=== PATIENT | female | born 1960 | race Caucasian/White ===

== ENCOUNTER → 2020-07-15 15:44 | Outpatient (BNVA) | payer OTHER, SELFPAY | PROVIDERS: PCP Internal Medicine; Referring Provider Internal Medicine; Visit Provider Internal Medicine | DX: Z76.89 Persons encountering health services in other specified circumstances (principal) ==

== ENCOUNTER 2020-08-25 08:03 | Outpatient (REF) | payer OTHER, SELFPAY ==
--- NOTE | 2020-08-25 | US_ITS ---
EXAMINATION: US THYROID CLINICAL INFORMATION: Nontoxic multinodular goiter. COMPARISON: None TECHNIQUE: Linear transducer martin-scale and color Doppler examination with attention to the region of the thyroid. FINDINGS: SIZE: Measurements of the thyroid lobes and nodules are given in sagittal, anteroposterior and transverse dimensions respectively. Right Thyroid Lobe: 6.41 x 2.24 x 1.97 cm, volume 14.8 mL. Parenchyma: The gland echotexture is heterogeneous. Thyroid vascularity is normal. Left Thyroid Lobe: 5.92 x 2.11 x 2.60 cm, volume 17.0 mL. Parenchyma: The gland echotexture is heterogenous. Thyroid vascularity is normal . Isthmus: 0.422 cm in maximum AP dimension. RIGHT THYROID LOBE: There are 4 nodules. 1. Upper pole nodule measures 0.7 x 0.6 x 0.4 cm. It is hypoechoic, smoothly marginated with intranodular flow. Previously, it measured 0.7 x 0.5 x 0.4 cm. 2. Nodule in the lower pole measures 0.6 x 0.5 x 0.6 cm. It is hypoechoic, smoothly marginated with no intranodular flow. Previously, it measured 0.7 0.6 x 0.4 cm. 3. Lower pole nodule measures 0.6 x 0.5 x 0.5 cm. It is hypoechoic, smoothly marginated with intranodular flow. Previously, it measured 0.6 x 0.3 x 0.5 cm. 4. Midpole nodule measures 0.9 x 0.2 x 1.2 cm. It is hypoechoic, smoothly marginated with intranodular flow. Previously, it was not seen. ISTHMUS: No nodules. LEFT THYROID LOBE: There is a solitary nodule in the upper pole measuring 1.2 x 0.9 x 1.1 cm. It is hypoechoic, smoothly marginated with peripheral vascular flow. Previously, it measured 0.9 x 0.5 x 0.4 cm. NODES: No lymphadenopathy is seen in the tissue surrounding the thyroid gland. US/US thyroid IMPRESSION: Bilateral thyroid nodules. Significant sudden increase in the size of the left thyroid nodule now measuring 1.2 cm, vascular. Previously, it measured 0.7 cm. Recommend close 3-6 months' surveillance or a fine-needle ultrasound-guided biopsy.
[2020-08-25 10:41] LABS: Thyroid Stimulating Hormone 2.81 uIU/mL (0.32-4.0); Vitamin D 25-OH Total 25.8 ng/mL (>30)
== END 2020-08-25 08:04 | disposition home or self-care (01) ==
LOC: HO.US 08:03
PROVIDERS: PCP Internal Medicine; Visit Provider Internal Medicine Endocrinology, Diabetes & Metabolism
DX: E03.9 Hypothyroidism, unspecified (principal); R79.89 Other specified abnormal findings of blood chemistry; E04.2 Nontoxic multinodular goiter
CPT/HCPCS: 76536; 82306; 84439; 84443

== ENCOUNTER → 2020-08-29 07:58 | Outpatient (BNVA) | payer OTHER, SELFPAY | PROVIDERS: PCP Internal Medicine; Referring Provider Internal Medicine; Visit Provider Internal Medicine Endocrinology, Diabetes & Metabolism | DX: Z76.89 Persons encountering health services in other specified circumstances (principal) ==

== ENCOUNTER 2020-11-13 07:45 | Outpatient (REF) | payer OTHER, SELFPAY ==
--- NOTE | 2020-11-13 08:28 | P.BOP_ITS ---
Brief Operative Note Date of Service: 11/13/20 Pre-op diagnosis: NON TOXIC MULTINODULAR GOITER Post-op diagnosis: same Procedure: This procedure was explained to the patient. Alternatives, risks and benefits were discussed. Written consent was obtained. After sterile preparation of the skin, fine-needle aspiration biopsy of left upper pole thyroid nodule size 1.2 x 1 x 1.1 cm was performed under direct ultrasound guidance to confirm accurate needle placement. Two passes were performed with 27 gauge needles. Sample was submitted to cytology, initial cytology reading was adequate. One pass was dedicated for [facility] genomic sequencing piece jobber test. Patient tolerated procedure well. Aftercare instructions were provided. Impression: uncomplicated fine-needle aspiration biopsy of left upper pole thyroid nodule under direct ultrasound guidance. Surgeon: Elizabeth Newman MD FACE Anesthesia: local (Lidocaine 1 % 1 ml) Estimated blood loss (mL): 0 Condition: stable Disposition: same day
== END 2020-11-13 07:46 | disposition home or self-care (01) ==
LOC: HO.US 07:45
PROVIDERS: Visit Provider Internal Medicine Endocrinology, Diabetes & Metabolism
DX: E04.2 Nontoxic multinodular goiter (principal)
CPT/HCPCS: 10005; 88172; 88173

== ENCOUNTER → 2020-12-01 07:40 | Outpatient (BNVA) | payer OTHER, SELFPAY | PROVIDERS: PCP Internal Medicine; Visit Provider Internal Medicine Endocrinology, Diabetes & Metabolism ==

== ENCOUNTER 2020-12-01 08:11 | Outpatient (REF) | payer OTHER, SELFPAY ==
[2020-12-01 11:05] LABS: Free T4 (Free Thyroxine) 0.96 ng/dL (0.71-1.85); Thyroid Stimulating Hormone 2.28 uIU/mL (0.32-4.0)
== END 2020-12-01 08:12 | disposition home or self-care (01) ==
LOC: HO.10HDL 08:11
PROVIDERS: Visit Provider Internal Medicine Endocrinology, Diabetes & Metabolism
DX: E04.2 Nontoxic multinodular goiter (principal); E55.9 Vitamin D deficiency, unspecified
CPT/HCPCS: 36415; 82306; 84439; 84443

== ENCOUNTER 2021-01-01 10:00 | Outpatient (RCR) | payer OTHER, SELFPAY | END 2021-05-19 18:12 | disposition home or self-care (01) | LOC: HO.PTCHIC 10:00 | PROVIDERS: PCP Internal Medicine; Visit Provider Orthopaedic Surgery | DX: Z47.1 Aftercare following joint replacement surgery (principal); Z96.651 Presence of right artificial knee joint | CPT/HCPCS: 97110; 97116; 97161; 97530 ==

== ENCOUNTER 2021-01-04 16:36 | Inpatient (IN) | payer OTHER, SELFPAY ==
[2021-01-04] VITALS (8 sets, daily range): BP systolic 111–140; BP diastolic 54–95; PULSE 84–120; RESP 16–24; TEMP 36.9–37.3; O2SAT 90–100; BMI 36.0
--- NOTE | ~2021-01-04 | XR_ITS ---
EXAMINATION: XR ABDOMEN WITH DECUBITUS VIEWS CLINICAL INDICATION: Upper abdominal pain, status post Garcia's procedure. COMPARISON: None TECHNIQUE: Supine and left decubitus. FINDINGS: Prominent small bifrontal levels are seen consistent with ileus or postop changes. There is no free air seen on the decubitus view. There are postsurgical hellen along the midline anterior abdominal wall from Garcia's procedure. No gross bony abnormality seen. XR/XR abdomen w decubitus IMPRESSION: Multiple prominent small bowel loops with air-fluid levels suggestive of postoperative ileus. No free air seen.
--- NOTE | ~2021-01-04 | CT_ITS ---
EXAMINATION: CT ABDOMEN AND PELVIS WITH CONTRAST CLINICAL INFORMATION: Diffuse abdominal pain. Vomiting. Evaluate for diverticulitis. COMPARISON: None TECHNIQUE: Multidetector volumetric images were obtained from the superior aspect of the liver through the pubic symphysis following administration 85 mL of Omnipaque 350 intravenous contrast. Sagittal and coronal reformatted images were obtained on the technologist's workstation. Oral contrast: No. This CT examination was performed using dose optimization techniques as appropriate, variously including the following: Automated exposure control. Adjustment of mA and/or kV according to patient size (this includes techniques or standardized protocols for targeted exams where dose is matched to indication/reason for exam; i.e. extremities or head). Use of iterative reconstruction technique. DLP: 801 mGy-cm FINDINGS: LUNG BASES: Mild bibasilar atelectasis versus early infiltrates. LIVER, GALLBLADDER, AND BILIARY TREE: The liver is normal in size, shape, and attenuation. No focal hepatic lesion or biliary ductal dilatation is present. Cholelithiasis. No gallbladder wall thickening or pericholecystic free fluid to suggest acute cholecystitis. PANCREAS: Unremarkable. SPLEEN: Unremarkable. ADRENAL GLANDS: Unremarkable. KIDNEYS AND URETERS: The kidneys are normal in size, shape, and attenuation. No hydronephrosis, hydroureter, or calculi seen. Left renal 0.3 cm hypodensity, too small to characterize. No additional renal parenchymal lesion. No perinephric stranding. BLADDER: Nondistended and unremarkable. GASTROINTESTINAL TRACT: There are central small bowel loops with prominent circumferential wall thickening, minimal pneumatosis, as well as prominent adjacent stranding. Findings are consistent with prominent enteritis. There are multiple small foci of free air within the anterior upper mesentery, consistent with bowel perforation. Sigmoid diverticulosis. Circumferential wall thickening within the left lower quadrant, which may represent acute diverticulitis or be reactive to the adjacent bowel pathology. No small or large bowel obstruction. Unremarkable appendix. PERITONEAL CAVITY: Multiple small foci of free air, suggesting bowel perforation. Mild simple ascites. No organized fluid collection/abscess formation. ABDOMINAL WALL: No significant hernia is appreciated. LYMPH NODES: Normal. VASCULAR: Unremarkable. PELVIC VISCERA: The uterus and adnexa are unremarkable. OSSEOUS STRUCTURES: Unremarkable. CT/CT abdomen pelvis w con IMPRESSION: 1. Central small bowel loops with prominent circumferential wall thickening, minimal pneumatosis, and prominent adjacent stranding. Findings are consistent with prominent enteritis. An infectious, inflammatory, or ischemic etiology could be considered. There are multiple small foci of intra-abdominal free air, suggesting bowel perforation. Mild, simple appearing ascites. No organized fluid collection/abscess formation. 2. Sigmoid diverticulosis with circumferential wall thickening and mild adjacent inflammatory change. Findings may represent acute diverticulitis or be related to the adjacent small bowel pathology. 3. Mild bibasilar atelectasis versus early infiltrates. 4. Cholelithiasis without evidence of acute cholecystitis. This critical result was discussed with May Arroyo NP at 7:38 PM on 01/04/2021 and it was ascertained that the content and urgency of the report was understood at the time of direct communication.
--- NOTE | 2021-01-04 16:54 | ED.ABDPAIN ---
HPI - Abdominal Pain General Chief Complaint: Abdominal Pain Stated Complaint: abd pain Time Seen by Provider: 01/04/21 16:47 Source: EMS Mode of arrival: EMS Limitations: no limitations History of Present Illness HPI narrative: 60-year-old female with a past medical history of vitamin-D deficiency, hypothyroidism, obstructive sleep apnea here with complaints of diffuse abdominal pain and vomiting since last evening. She has had 2-3 loose stools but no diarrhea. No urinary symptoms, fevers, chills. Received 4 mg of Zofran, 100mcg fentanyl by EMS prior to arrival. Related Data Home Medications Medication Instructions Recorded Confirmed cholecalciferol (vitamin D3) 50 50 mcg PO DAILY 08/29/20 01/04/21 mcg (2,000 unit) capsule loratadine 10 mg tablet 10 mg PO DAILY PRN 12/01/20 01/04/21 Previous Rx's Medication Instructions Recorded levothyroxine 88 mcg tablet 88 mcg PO DAILY 90 Days #90 tab 12/01/20 Allergies Allergy/AdvReac Type Severity Reaction Status Date / Time No Known Allergies Allergy Verified 07/15/20 15:47 Review of Systems Review of Systems Yes all other systems are reviewed and are negative Constitutional: Reports no additional constitutional complaints, Denies body ache(s), Denies chills, Denies fever(s), Denies headache(s) and Denies weakness Eyes: Reports no additional eye complaints and Denies change in vision Reports system reviewed and no additional complaints, except as documented, Denies dizziness, Denies headache(s), Denies nasal congestion, Denies nasal discharge and Denies neck pain Cardiovascular: Reports no additional cardiovascular complaints, Denies chest pain, Denies leg edema and Denies dyspnea Respiratory: Reports no additional respiratory complaints, Denies cough and Denies dyspnea Gastrointestinal: Reports no additional gastrointestinal complaints, Reports abdominal pain, Denies diarrhea, Reports nausea and Reports vomiting Genitourinary: Reports no additional female genitourinary complaints and Denies urinary incontinence Musculoskeletal: Reports no additional musculoskeletal complaints, Denies back pain, Denies arthralgias, Denies joint swelling, Denies neck pain, Denies numbness and Denies tingling Skin/Breast: Reports system reviewed and no additional complaints, except as docu and Denies rash Reports system reviewed and no additional complaints, except as documented, Denies Abnormal speech present, Denies dizziness, Denies headache(s), Denies numbness, Denies tingling and Denies weakness Physical Exam Vital Signs: Vital Signs: Last Vital Signs Temp 99.2 F 01/04/21 19:21 Pulse 116 H 01/04/21 19:21 Resp 16 01/04/21 19:42 BP 119/67 01/04/21 19:21 Pulse Ox 93 01/04/21 19:21 Body Mass Index 36.0 Const: General: cooperative, healthy appearing, comfortable and no acute distress Orientation/consciousness: patient oriented x3 Limitations: no limitations HENMT: Head: Yes normal to inspection Ears: hearing grossly normal bilaterally General nose exam: Normal external nose present Face and sinus: Yes normal facial exam Mouth: Normal oral and palatal mucosa present Throat: Yes posterior oropharynx normal Eyes: General: appearance normal, both eyes and all related structures Pupils: Equal, round and reactive pupils present Neck: Neck: Yes normal visual inspection Chest: Chest palpation & inspection: normal inspection of the chest Resp: Effort & Inspection: normal respiratory effort Auscultation: clear to auscultation bilaterally Cardio: Rate: regular rate Rhythm: regular rhythm Peripheral pulses: Peripheral pulses 2+ throughout GI: Inspection: Yes normal to inspection Palpation (GI): Soft to palpation and Tenderness to palpation present (GI) (Moderate diffuse tenderness. No rebound, +guarding) Auscultation: normal bowel sounds Back/Spine/Pelvis: Thoracic/Lumbar Spine: thoracic and lumbar spine normal to inspection Skin: General skin exam: no rashes or lesions noted Neuro: General: patient oriented x3, no focal motor deficits and normal sensation to monofilament Cranial nerves: Yes Equal, round and reactive pupils present Cognition (Neuro): normal cognition Speech: No Abnormal speech present Gait exam (Neuro): Normal gait present Motor exam (neuro): 5/5 motor strength present throughout Extrem: General: Yes normal to inspection Course Course Course Narrative: 60-year-old female here with diffuse abdominal pain, vomiting since last evening. On exam has moderate diffuse tenderness with no rebound or guarding Will need labs, UA, CTA/P. 1936-Call from radiologist concern for enteritis in central small bowel with free air, ascites and possible perforation. Nursing made aware. COVID screen ordered. Patient has been NPO since last night with the exception of a few small sips of water here. At this time infection is suspected. Blood cultures and lactic acid ordered. Antibiotics ordered. Call out to Dr. Lambert from surgery to discuss. 1949-Call back from Dr Lambert. He will come evaluate the patient. 2019-Plan for patient to go to OR. Nursing aware. MDM - Abdominal Pain MDM Narrative Medical decision making narrative: Gastroenteritis, diverticulitis Medical Records Attestation: I reviewed the patient's medical records. Lab Data Attestation: I reviewed the patient's lab results. Result diagrams: 01/04/21 17:28 01/04/21 17:28 Labs: Lab Results 01/04/21 01/04/21 01/04/21 Range/Units 17:28 17:28 17:28 WBC 12.4 H (4.8-10.8) X10*3/uL RBC 4.65 (4.20-5.50) X10*6/uL Hgb 13.6 (12.0-16.0) g/dl Hct 41.9 (37-47) % MCV 90.1 (80-98) fL MCH 29.2 (27.0-33.0) pg MCHC 32.5 (31.0-35.0) g/dl RDW 12.3 (11.0-16.0) % Plt Count 296 (160-400) X10*3/uL MPV 9.4 (9.4-12.3) fL Immature Gran % (Auto) 0.4 (0.0-0.4) % Neut % (Auto) 92.3 H (45-73) % Lymph % (Auto) 4.1 L (20-40) % [place] % (Auto) 2.9 (2-11) % Eos % (Auto) 0.1 (0-4) % Baso % (Auto) 0.2 (0-2) % Lymph # (Auto) 0.5 L (1.2-4.9) X10*3/uL [place] # (Auto) 0.4 (0.1-1.2) X10*3/uL Eos # (Auto) 0.0 (0.0-0.4) X10*3/uL Baso # (Auto) 0.0 (0.0-0.2) X10*3/uL Abs Immat Gran (auto) 0.05 H (0.00-0.03) X10*3/uL Absolute Neuts (auto) 11.4 H (2.0-8.3) X10*3/uL Absolute Nucleated RBC 0.000 (0.0-0.012) X10*3/uL Nucleated RBC % (auto) 0.0 (0.0-0.2) /100WBC Smear Tech's Comments VERIFIED Hold Blue Top SEE NOTE Sodium 138 (135-145) mmol/L Potassium 3.8 (3.3-5.1) mmol/L Chloride 102 (96-108) mmol/L Carbon Dioxide 25 (22-29) mmol/L Anion Gap 15 (12-20) BUN 17 H (9-16) mg/dL Creatinine 0.98 (0.5-1.4) mg/dL Estim Creat Clear Calc 69.2 Estimated GFR 58 Random Glucose 118 H (60-115) mg/dL Lactic Acid (0.5-2.0) mmol/L Calcium 8.8 (8.4-10.2) mg/dL Magnesium 1.9 (1.6-2.6) mg/dL Total Bilirubin 1.2 H (0.0-1.0) mg/dL Direct Bilirubin 0.5 (0.0-0.5) mg/dL AST 14 (5-31) U/L ALT 15 (0-31) U/L Alkaline Phosphatase 66 (39-117) U/L Total Protein 6.4 L (6.5-8.0) g/dL Albumin 3.9 (3.5-5.0) g/dL Lipase (8-78) U/L Urine Color Urine Appearance Urine pH (5.0-8.0) Ur Specific Shirley (1.005-1.025) Urine Protein (NEG-TRACE) MG/DL Urine Glucose (UA) (NEG) MG/DL Urine Ketones (NEG) MG/DL Urine Blood (NEG) Urine Nitrite (NEG) Ur Leukocyte Esterase (NEG) Urine Test (NEGATIVE) 01/04/21 01/04/21 01/04/21 Range/Units 17:28 17:58 17:58 WBC (4.8-10.8) X10*3/uL RBC (4.20-5.50) X10*6/uL Hgb (12.0-16.0) g/dl Hct (37-47) % MCV (80-98) fL MCH (27.0-33.0) pg MCHC (31.0-35.0) g/dl RDW (11.0-16.0) % Plt Count (160-400) X10*3/uL MPV (9.4-12.3) fL Immature Gran % (Auto) (0.0-0.4) % Neut % (Auto) (45-73) % Lymph % (Auto) (20-40) % [place] % (Auto) (2-11) % Eos % (Auto) (0-4) % Baso % (Auto) (0-2) % Lymph # (Auto) (1.2-4.9) X10*3/uL [place] # (Auto) (0.1-1.2) X10*3/uL Eos # (Auto) (0.0-0.4) X10*3/uL Baso # (Auto) (0.0-0.2) X10*3/uL Abs Immat Gran (auto) (0.00-0.03) X10*3/uL Absolute Neuts (auto) (2.0-8.3) X10*3/uL Absolute Nucleated RBC (0.0-0.012) X10*3/uL Nucleated RBC % (auto) (0.0-0.2) /100WBC Smear Tech's Comments Hold Blue Top Sodium (135-145) mmol/L Potassium (3.3-5.1) mmol/L Chloride (96-108) mmol/L Carbon Dioxide (22-29) mmol/L Anion Gap (12-20) BUN (9-16) mg/dL Creatinine (0.5-1.4) mg/dL Estim Creat Clear Calc Estimated GFR Random Glucose (60-115) mg/dL Lactic Acid (0.5-2.0) mmol/L Calcium (8.4-10.2) mg/dL Magnesium (1.6-2.6) mg/dL Total Bilirubin (0.0-1.0) mg/dL Direct Bilirubin (0.0-0.5) mg/dL AST (5-31) U/L ALT (0-31) U/L Alkaline Phosphatase (39-117) U/L Total Protein (6.5-8.0) g/dL Albumin (3.5-5.0) g/dL Lipase 16 (8-78) U/L Urine Color YELLOW Urine Appearance CLEAR Urine pH 6.0 (5.0-8.0) Ur Specific Shirley 1.025 (1.005-1.025) Urine Protein TRACE (NEG-TRACE) MG/DL Urine Glucose (UA) NEG (NEG) MG/DL Urine Ketones NEG (NEG) MG/DL Urine Blood NEG (NEG) Urine Nitrite NEG (NEG) Ur Leukocyte Esterase NEG (NEG) Urine Test NEGATIVE (NEGATIVE) 01/04/21 Range/Units 19:49 WBC (4.8-10.8) X10*3/uL RBC (4.20-5.50) X10*6/uL Hgb (12.0-16.0) g/dl Hct (37-47) % MCV (80-98) fL MCH (27.0-33.0) pg MCHC (31.0-35.0) g/dl RDW (11.0-16.0) % Plt Count (160-400) X10*3/uL MPV (9.4-12.3) fL Immature Gran % (Auto) (0.0-0.4) % Neut % (Auto) (45-73) % Lymph % (Auto) (20-40) % [place] % (Auto) (2-11) % Eos % (Auto) (0-4) % Baso % (Auto) (0-2) % Lymph # (Auto) (1.2-4.9) X10*3/uL [place] # (Auto) (0.1-1.2) X10*3/uL Eos # (Auto) (0.0-0.4) X10*3/uL Baso # (Auto) (0.0-0.2) X10*3/uL Abs Immat Gran (auto) (0.00-0.03) X10*3/uL Absolute Neuts (auto) (2.0-8.3) X10*3/uL Absolute Nucleated RBC (0.0-0.012) X10*3/uL Nucleated RBC % (auto) (0.0-0.2) /100WBC Smear Tech's Comments Hold Blue Top Sodium (135-145) mmol/L Potassium (3.3-5.1) mmol/L Chloride (96-108) mmol/L Carbon Dioxide (22-29) mmol/L Anion Gap (12-20) BUN (9-16) mg/dL Creatinine (0.5-1.4) mg/dL Estim Creat Clear Calc Estimated GFR Random Glucose (60-115) mg/dL Lactic Acid 1.2 (0.5-2.0) mmol/L Calcium (8.4-10.2) mg/dL Magnesium (1.6-2.6) mg/dL Total Bilirubin (0.0-1.0) mg/dL Direct Bilirubin (0.0-0.5) mg/dL AST (5-31) U/L ALT (0-31) U/L Alkaline Phosphatase (39-117) U/L Total Protein (6.5-8.0) g/dL Albumin (3.5-5.0) g/dL Lipase (8-78) U/L Urine Color Urine Appearance Urine pH (5.0-8.0) Ur Specific Shirley (1.005-1.025) Urine Protein (NEG-TRACE) MG/DL Urine Glucose (UA) (NEG) MG/DL Urine Ketones (NEG) MG/DL Urine Blood (NEG) Urine Nitrite (NEG) Ur Leukocyte Esterase (NEG) Urine Test (NEGATIVE) Imaging Data CT scan - abdomen: Attestation: I personally reviewed and interpreted this imaging study as follows: Radiologist's impression: 1. Central small bowel loops with prominent circumferential wall thickening, minimal pneumatosis, and prominent adjacent stranding. Findings are consistent with prominent enteritis. An infectious, inflammatory, or ischemic etiology could be considered. There are multiple small foci of intra-abdominal free air, suggesting bowel perforation. Mild, simple appearing ascites. No organized fluid collection/abscess formation. 2. Sigmoid diverticulosis with circumferential wall thickening and mild adjacent inflammatory change. Findings may represent acute diverticulitis or be related to the adjacent small bowel pathology. 3. Mild bibasilar atelectasis versus early infiltrates. 4. Cholelithiasis without evidence of acute cholecystitis. Discharge Plan Discharge Clinical Impression: Enteritis, Bowel perforation, Leukocytosis Patient Disposition: Admitted As Inpatient [facility] Past Medical History Attestation statement: The following information was validated with the patient. Source: old records reviewed and nursing notes reviewed Medical History Hypothyroidism Non-toxic multinodular goiter Obesity (BMI 30-39.9) JOYCE (obstructive sleep apnea) Vitamin D deficiency Family History Family History Father Heart disease Mother No problems noted. Social History Social History Alcohol intake: never Smoking Status: Never smoker Use of substances other than those prescribed or required for medical reasons: No Advance Directives: No Advance Directives Information Provided: Yes
[2021-01-04] MEDS: Morphine Sulfate 4 MG/ML CARTRIDGE IVPUSH ×2 (17:06→19:42)
[2021-01-04 17:33] LABS: Basophils Percent Auto 0.2 % (0-2); Eosinophils Percent Auto 0.1 % (0-4); Hematocrit 41.9 % (37-47); Hemoglobin 13.6 g/dl (12.0-16.0); Imm Gran Abs Auto 0.05 X10*3/uL (0.00-0.03); Imm Gran Pct Auto 0.4 % (0.0-0.4); Lymphocytes Absolute Auto 0.5 X10*3/uL (1.2-4.9); Lymphocytes Percent Auto 4.1 % (20-40); MANUAL DIFF FLAG SCAN; Mean Corpuscular HGB Conc 32.5 g/dl (31.0-35.0); Mean Corpuscular Hemoglobin 29.2 pg (27.0-33.0); Mean Corpuscular Volume 90.1 fL (80-98); Mean Platelet Volume 9.4 fL (9.4-12.3); Monocytes Absolute Auto 0.4 X10*3/uL (0.1-1.2); Monocytes Percent Auto 2.9 % (2-11); Neutrophils Absolute Auto 11.4 X10*3/uL (2.0-8.3); Neutrophils Percent Auto 92.3 % (45-73); Platelet Count 296 X10*3/uL (160-400); Red Blood Count 4.65 X10*6/uL (4.20-5.50); Red Cell Distribution Width 12.3 % (11.0-16.0); SCAN SMEAR FLAG 1; White Blood Count 12.4 X10*3/uL (4.8-10.8)
[2021-01-04 17:53] LABS: SLIDE REVIEW VERIFIED
[2021-01-04 18:03] LABS: Lipase 16 U/L (8-78)
[2021-01-04 18:04] LABS: Alanine Aminotransferase 15 U/L (0-31); Albumin Level 3.9 g/dL (3.5-5.0); Alkaline Phosphatase 66 U/L (39-117); Anion Gap 15 (12-20); Aspartate Amino Transferase 14 U/L (5-31); Bilirubin Direct 0.5 mg/dL (0.0-0.5); Bilirubin Total 1.2 mg/dL (0.0-1.0); Blood Urea Nitrogen 17 mg/dL (9-16); Calcium 8.8 mg/dL (8.4-10.2); Carbon Dioxide 25 mmol/L (22-29); Chloride 102 mmol/L (96-108); Creatinine Clr Calc Pharmacy 69.2; Estimated Glomerular Filt Rate 58; Glucose Random 118 mg/dL (60-115); Magnesium 1.9 mg/dL (1.6-2.6); Potassium 3.8 mmol/L (3.3-5.1); Sodium 138 mmol/L (135-145); Total Protein 6.4 g/dL (6.5-8.0)
[2021-01-04 18:06] LABS: Glucose Urine UA NEG (NEG); Leukocyte Esterase Urine NEG (NEG); Nitrite Urine NEG (NEG); Specific Gravity - Urine 1.025 (1.005-1.025); Urine Blood NEG (NEG); Urine Ketones NEG (NEG); Urine Protein TRACE MG/DL (NEG-TRACE)
[2021-01-04 18:07] LABS: Appearance Urine CLEAR; Color Urine YELLOW
[2021-01-04 18:09] LABS: UPreg QC Valid YES; Urine Pregnancy NEGATIVE (NEGATIVE)
[2021-01-04] MEDS: iohexoL 350 MG/ML 100 ML INFUS..BTL IV (19:15)
[2021-01-04] MEDS: 0.9 % Sodium Chloride 1,000 ML 999 ML IV (19:46)
[2021-01-04] MEDS: Piperacillin Sodium/Tazobactam 3.375 GM in 0.9 % Sodium Chloride 50 ML IV (19:59)
--- NOTE | 2021-01-04 20:14 | PC.NURSE ---
Surgeon at bedside discussing plan of care.
[2021-01-04 20:17] LABS: COVID-19 Test Negative (Negative); IDNOW Serial# 9DD0AD1C
[2021-01-04 20:27] LABS: Lactic Acid 1.2 mmol/L (0.5-2.0)
--- NOTE | 2021-01-04 20:30 | PM.HPGS ---
History of Present Illness History of Present Illness Date of Service: 01/04/21 Chief complaint: abd pain Narrative: Kizzy Schwartz is a 60 year old female presenting with complaints of severe abdominal pain of 2 days duration. The pain began suddenly yesterday, noted in a periumbilical region initially then becoming more generalized throughout the day today. Last night she was able to take an oxycodone which helped with the pain. She also reported nausea and vomiting yesterday for which she took Zofran which did improve the nausea. She denied any further vomiting today. Patient has been unable to eat but did report 2 bowel movements yesterday. The pain increased with ambulation or any movement in bed. She denies a previous history of similar pain. She denies a previous history of abdominal surgeries. Work up in the ED revealed diffuse abdominal tenderness. Labs revealed an elevated WBC and CT abdomen and pelvis reveal free air with inflammatory changes in both the small bowel and colon (see report below). Review of Systems Review of Systems: Yes all other systems are reviewed and are negative Constitutional: Constitutional: Reports anorexia, Denies chills, Reports fatigue, Denies fever(s) and Reports weakness Cardiovascular: Cardiovascular: Reports Abdominal Distension, Denies chest pain, Reports Epigastric Pain, Denies edema, Denies irregular heart rhythm and Denies dyspnea Respiratory: Respiratory: Reports no additional respiratory complaints, Denies cough and Denies dyspnea Gastrointestinal: Gastrointestinal: Reports abdominal pain, Reports bloating, Denies hematochezia, Denies change in stool character, Reports nausea, Reports vomiting and Denies hematemesis Genitourinary: Genitourinary: Reports no additional female genitourinary complaints Musculoskeletal: Musculoskeletal: Reports no additional musculoskeletal complaints Neurologic: Reports weakness Endocrine: Endocrine: Reports fatigue Hematologic/Lymphatic: Hematologic/Lymphatic: Denies lymphadenopathy [facility] Past Medical History Medical History Hypothyroidism Non-toxic multinodular goiter Obesity (BMI 30-39.9) JOYCE (obstructive sleep apnea) Vitamin D deficiency Family History Family History Father Heart disease Mother No problems noted. Surgical History Surgical History H/O knee surgery History of radiofrequency ablation procedure for cardiac arrhythmia S/P thyroid biopsy Social History Social History Alcohol intake: never Smoking Status: Never smoker Use of substances other than those prescribed or required for medical reasons: No Advance Directives: No Advance Directives Information Provided: Yes Meds Allergies Allergy/AdvReac Type Severity Reaction Status Date / Time No Known Allergies Allergy Verified 07/15/20 15:47 Active Medications: Current Medications Generic Name Dose Route Start Last Admin Trade Name Freq PRN Reason Stop Dose Admin Hydromorphone HCl 0.5 mg 01/04/21 20:23 Hydromorphone Hcl 0.5 Mg/0.5 Ml Syringe IVPUSH Q2H PRN Pain, Severe (Pain Scale 7-10) Sodium Chloride 1,000 mls @ 999 mls/hr 01/04/21 19:32 01/04/21 19:46 Ns IV 01/04/21 20:32 999 mls/hr .Q1H1M STA Administration Cefotetan Disodium 2 gm/ 50 mls @ 100 mls/hr 01/04/21 20:23 Sodium Chloride IV 01/04/21 20:52 PREOP ONE Dextrose/Lactated Ringer's 1,000 mls @ 125 mls/hr 01/04/21 20:30 D5lr IVCONT .Q8H VERONICA Ondansetron HCl 4 mg 01/04/21 20:23 Ondansetron Hcl 4 Mg/2 Ml Vial IVPUSH QID PRN Nausea Home Medications Medication Instructions Recorded Confirmed Last Taken Type cholecalciferol (vitamin D3) 50 50 mcg PO DAILY 08/29/20 01/04/21 01/03/21 History mcg (2,000 unit) capsule loratadine 10 mg tablet 10 mg PO DAILY PRN 12/01/20 01/04/21 01/02/21 History Physical Exam Vital Signs: Vital Signs: Last Vital Signs Temp 99.2 F 01/04/21 19:21 Pulse 116 H 01/04/21 19:21 Resp 16 01/04/21 19:42 BP 119/67 01/04/21 19:21 Pulse Ox 93 01/04/21 19:21 Body Mass Index 36.0 Const: General: alert, awake, acute distress moderate, anxious and ill appearing acutely Nutritional Appearance: average body habitus Orientation/consciousness: patient oriented x3 Limitations: no limitations HENMT: Head: Yes normocephalic and Yes atraumatic Ears: hearing grossly normal bilaterally Neck: Neck: Yes full ROM and Yes no JVD Resp: Effort & Inspection: normal respiratory effort, no audible wheezes, no cough, no stridor and not tachypneic GI: Palpation (GI): Firmness to palpation present (GI), Tenderness to palpation present (GI) (Diffusely), Guarding due to palpation present (GI), Rigid due to palpation and no masses Percussion: Yes normal to percussion Auscultation: Absent bowel sounds Rectal Exam - Female: deferred Skin: General skin exam: no rashes or lesions noted Neuro: General: patient oriented x3 Extrem: General: Yes full ROM Right upper extremity: normal capillary refill Left upper extremity: normal capillary refill Results Results Labs: Short CBC 01/04/21 Range/Units 17:28 WBC 12.4 H (4.8-10.8) X10*3/uL Hgb 13.6 (12.0-16.0) g/dl Hct 41.9 (37-47) % Plt Count 296 (160-400) X10*3/uL BMP 01/04/21 17:28 Sodium 138 Potassium 3.8 Chloride 102 Carbon Dioxide 25 BUN 17 H Creatinine 0.98 Calcium 8.8 Liver Function 01/04/21 Range/Units 17:28 Total Bilirubin 1.2 H (0.0-1.0) mg/dL Direct Bilirubin 0.5 (0.0-0.5) mg/dL AST 14 (5-31) U/L ALT 15 (0-31) U/L Alkaline Phosphatase 66 (39-117) U/L Albumin 3.9 (3.5-5.0) g/dL Urine 01/04/21 01/04/21 Range/Units 17:58 17:58 Urine Color YELLOW Urine Appearance CLEAR Urine pH 6.0 (5.0-8.0) Ur Specific [place] 1.025 (1.005-1.025) Urine Protein TRACE (NEG-TRACE) MG/DL Urine Glucose (UA) NEG (NEG) MG/DL Urine Test NEGATIVE (NEGATIVE) [address] [id number] Scan ReportSigned Patient: Johnnie SchwartzR#: [id number]: 1960cct:[id number]/Sex: 60 / FADM Date: 01/04/21Loc: [email or web address].EDAttending Dr: Ordering Physician: JOSH HOSKINS NP Date of Service: 01/04/21 Procedure(s): CT abdomen pelvis w con Accession Number(s): [id number] cc: JOSH HOSKINS NP~ EXAMINATION: CT ABDOMEN AND PELVIS WITH CONTRAST CLINICAL INFORMATION: Diffuse abdominal pain. Vomiting. Evaluate for diverticulitis. COMPARISON: None TECHNIQUE: Multidetector volumetric images were obtained from the superior aspect of the liver through the pubic symphysis following administration 85 mL of Omnipaque 350 intravenous contrast. Sagittal and coronal reformatted images were obtained on the technologist's workstation. Oral contrast: No. This CT examination was performed using dose optimization techniques as appropriate, variously including the following: Automated exposure control. Adjustment of mA and/or kV according to patient size (this includes techniques or standardized protocols for targeted exams where dose is matched to indication/reason for exam; i.e. extremities or head). Use of iterative reconstruction technique. DLP: 801 mGy-cm FINDINGS: LUNG BASES: Mild bibasilar atelectasis versus early infiltrates. LIVER, GALLBLADDER, AND BILIARY TREE: The liver is normal in size, shape, and attenuation. No focal hepatic lesion or biliary ductal dilatation is present. Cholelithiasis. No gallbladder wall thickening or pericholecystic free fluid to suggest acute cholecystitis. PANCREAS: Unremarkable. SPLEEN: Unremarkable. ADRENAL GLANDS: Unremarkable. KIDNEYS AND URETERS: The kidneys are normal in size, shape, and attenuation. No hydronephrosis, hydroureter, or calculi seen. Left renal 0.3 cm hypodensity, too small to characterize. No additional renal parenchymal lesion. No perinephric stranding. BLADDER: Nondistended and unremarkable. GASTROINTESTINAL TRACT: There are central small bowel loops with prominent circumferential wall thickening, minimal pneumatosis, as well as prominent adjacent stranding. Findings are consistent with prominent enteritis. There are multiple small foci of free air within the anterior upper mesentery, consistent with bowel perforation. Sigmoid diverticulosis. Circumferential wall thickening within the left lower quadrant, which may represent acute diverticulitis or be reactive to the adjacent bowel pathology. No small or large bowel obstruction. Unremarkable appendix. PERITONEAL CAVITY: Multiple small foci of free air, suggesting bowel perforation. Mild simple ascites. No organized fluid collection/abscess formation. ABDOMINAL WALL: No significant hernia is appreciated. LYMPH NODES: Normal. VASCULAR: Unremarkable. PELVIC VISCERA: The uterus and adnexa are unremarkable. OSSEOUS STRUCTURES: Unremarkable. CT/CT abdomen pelvis w con IMPRESSION: 1. Central small bowel loops with prominent circumferential wall thickening, minimal pneumatosis, and prominent adjacent stranding. Findings are consistent with prominent enteritis. An infectious, inflammatory, or ischemic etiology could be considered. There are multiple small foci of intra-abdominal free air, suggesting bowel perforation. Mild, simple appearing ascites. No organized fluid collection/abscess formation. 2. Sigmoid diverticulosis with circumferential wall thickening and mild adjacent inflammatory change. Findings may represent acute diverticulitis or be related to the adjacent small bowel pathology. 3. Mild bibasilar atelectasis versus early infiltrates. 4. Cholelithiasis without evidence of acute cholecystitis. This critical result was discussed with Josh Hoskins NP at 7:38 PM on 01/04/2021 and it was ascertained that the content and urgency of the report was understood at the time of direct communication. Dictated By:PETER CASTRO MDSigned By:<Electronically signed by PETER CASTRO MD in OV>01/04/211944 Assessment and Plan (1) Bowel perforation: Status: Acute 60-year-old female with a sudden onset of abdominal pain initially located in a periumbilical location out diffusely tender with peritoneal signs on examination. Patient has an elevated WBC and findings of free air on CT of the abdomen and pelvis. There is areas of thickening in both the small bowel and colon suggesting either perforated sigmoid diverticulitis or regional enteritis perforation. Options include observation with IV antibiotics verses exploratory laparotomy with possible small bowel resection and possible ostomy. I reviewed the procedure with the patient and her including the risks, alternatives and benefits, and she consents to the procedure. She has been added on to the OR schedule for tonight as an emergency procedure. (2) Enteritis: Status: Acute
--- NOTE | 2021-01-04 20:43 | MHC.SHP ---
Pre-Procedural Eval Section A The patient is an INPATIENT: Yes Section B Chief Complaint: abd pain Allergies: Allergies Allergy/AdvReac Type Severity Reaction Status Date / Time No Known Allergies Allergy Verified 07/15/20 15:47 Plan Diagnosis/Plan: Unchanged I have reviewed the history and physical and performed a pertinent physical examination on my patient. No changes have occurred unless specified.
[2021-01-04] MEDS: cefoTEtan disodium 2 GM in 0.9 % Sodium Chloride 50 ML IV (20:50)
[2021-01-04] MEDS: Dextrose 5 % and Lactated Ring 1,000 ML 125 ML IVCONT (20:51)
--- NOTE | 2021-01-04 21:17 | W.PM.OPN ---
Operative Note Operative Note Date of Service: 01/04/21 Narrative: Preoperative diagnosis:Perforated Viscus, free intraparitoneal air Postoperative diagnosis: Perforated sigmoid diverticulitis Hinchey type 4 Procedure:Exploratory laparotomy, Abeba procedure with left lower quadrant colostomy Surgeon: Juan Lambert MD Vending Machine Collector: none Anesthesia: General ET Indications for procedure: 60-year-old female patient presenting to the emergency department with acute onset of abdominal pain of 2 days duration. Pain is generalized throughout the abdomen. On examination patient is diffusely tender with peritoneal signs. Patient has an elevated WBC. CT of the abdomen reveals free intraperitoneal air with inflammation of the small bowel and descending colon. Operative findings: Purulence fecal material throughout the abdominal cavity with the perforation noted in the mid sigmoid colon due to sigmoid diverticulitis. Specimen: Sigmoid colon Estimated blood loss: 30 mL Complications: None Procedure details: Patient was brought to the OR and placed in a supine position. After administering general anesthesia the patient's abdomen was prepped with ChloraPrep and draped in a sterile fashion. A surgical time-out was called the consent confirmed. Patient received preoperative antibiotics and Venodyne boots were in place. A midline incision was created with a scalpel carried down through subcutaneous tissue through linea alba and into the abdominal cavity. The abdomen was explored and the above findings noted. A Bookwalter retractor was placed. The sigmoid colon was then mobilized along the white line of Toldt. This was continued up the left colon to mobilize the colon further. The area of perforation was identified in the mid sigmoid colon. An area of normal bowel slightly proximal to this was identified. Mesentery below the colon was freed and a YING stapler used to divide the bowel proximal to the perforation. The LigaSure was then used to divide the mesentery for segment measuring approximately 10 cm. Hemostasis was also assured using free ties of 2-0 silk. An area distal to the perforation was then identified. A 2nd YING stapler was then obtained and used to divide the colon at a normal section of bowel distal to the perforation. The specimen was then removed and sent to pathology for further examination. The abdomen was then thoroughly irrigated with saline solution with several L of fluid. Several pockets of purulent material were evacuated including in the left and right gutters and along the liver and spleen. A large pelvic collection was drained as well. Additional irrigation was then performed at this time. This was then suctioned dry. The left colon was fully mobilized to allow for a colostomy formation. An area of skin in the left lower quadrant was then cut in a circular fashion. This carried out through subcutaneous tissue and up to the anterior rectus sheath. A cruciate incision was then created with electrocautery. A Dahiana clamp was then used to spread the rectus muscle and entered the abdominal cavity through the peritoneum. This was then dilated with 3 fingers. The descending colon was then brought up through the skin incision in preparation for maturation. The abdominal cavity was once again irrigated with saline solution and suctioned dry. Fascia was then closed at the midline using a running 1 Maxon suture from above and below and tied in the center. Deep subcutaneous tissue and dermis were then reapproximated using interrupted 3 0 Polysorb sutures. Skin was closed using skin hellen. The ostomy was then matured using interrupted 3 O Polysorb sutures to create a fond [place] lac in 4 quadrants. Additional sutures were placed in between these. Sterile dressing consisting of 4 x 4 gauze and Tegaderm were then applied to the abdominal incision. Ostomy bag was applied. The patient tolerated procedure well. Sponge, instrument, needle counts reported as correct. The patient was transferred to PACU in stable condition.
--- NOTE | 2021-01-04 21:23 | HO.ANESPROP2 ---
[facility] Active Problems Active Problems: All Active Problems (Updated 01/04/21 @ 20:26 by May Arroyo NP) Enteritis (Acute) Bowel perforation (Acute) Obesity (BMI 30-39.9) (Acute) Vitamin D deficiency (Acute) Non-toxic multinodular goiter (Acute) Hypothyroidism (Acute) JOYCE (obstructive sleep apnea) (Acute) Past Medical History Medical History Hypothyroidism Non-toxic multinodular goiter Obesity (BMI 30-39.9) JOYCE (obstructive sleep apnea) Vitamin D deficiency Family History Family History Father Heart disease Mother No problems noted. Surgical History Surgical History H/O knee surgery History of radiofrequency ablation procedure for cardiac arrhythmia S/P thyroid biopsy Social History Social History Alcohol intake: never Smoking Status: Never smoker Use of substances other than those prescribed or required for medical reasons: No Advance Directives: No Advance Directives Information Provided: Yes Meds Allergies Allergy/AdvReac Type Severity Reaction Status Date / Time No Known Allergies Allergy Verified 07/15/20 15:47 Active Medications: Current Medications Generic Name Dose Route Start Last Admin Trade Name Freq PRN Reason Stop Dose Admin Hydromorphone HCl 0.5 mg 01/04/21 20:23 Hydromorphone Hcl 0.5 Mg/0.5 Ml Syringe IVPUSH Q2H PRN Pain, Severe (Pain Scale 7-10) Dextrose/Lactated Ringer's 1,000 mls @ 125 mls/hr 01/04/21 20:30 01/04/21 20:51 D5lr IVCONT 125 mls/hr .Q8H VERONICA Administration Ondansetron HCl 4 mg 01/04/21 20:23 Ondansetron Hcl 4 Mg/2 Ml Vial IVPUSH QID PRN Nausea Home Medications Medication Instructions Recorded Confirmed Last Taken Type cholecalciferol (vitamin D3) 50 50 mcg PO DAILY 08/29/20 01/04/21 01/03/21 History mcg (2,000 unit) capsule loratadine 10 mg tablet 10 mg PO DAILY PRN 12/01/20 01/04/21 01/02/21 History Exam Exam Date and Time: January 04, 20212122 Height,Weight and Vital Signs: Height 5 ft 4 in Weight 95.254 kg Last Vital Signs Temp 99.2 F 01/04/21 19:21 Pulse 120 H 01/04/21 21:08 Resp 18 01/04/21 21:08 BP 140/88 H 01/04/21 21:08 Pulse Ox 97 01/04/21 21:08 Pertinent Lab Results Pertinent Lab Results: Laboratory Tests 01/04/21 01/04/21 01/04/21 17:28 17:28 17:28 WBC 12.4 H RBC 4.65 Hgb 13.6 Hct 41.9 MCV 90.1 MCH 29.2 MCHC 32.5 RDW 12.3 Plt Count 296 MPV 9.4 Immature Gran % (Auto) 0.4 Neut % (Auto) 92.3 H Lymph % (Auto) 4.1 L [place] % (Auto) 2.9 Eos % (Auto) 0.1 Baso % (Auto) 0.2 Lymph # (Auto) 0.5 L [place] # (Auto) 0.4 Eos # (Auto) 0.0 Baso # (Auto) 0.0 Abs Immat Gran (auto) 0.05 H Absolute Neuts (auto) 11.4 H Absolute Nucleated RBC 0.000 Nucleated RBC % (auto) 0.0 Smear Tech's Comments VERIFIED Hold Blue Top SEE NOTE Sodium 138 Potassium 3.8 Chloride 102 Carbon Dioxide 25 Anion Gap 15 BUN 17 H Creatinine 0.98 Estim Creat Clear Calc 69.2 Estimated GFR 58 Random Glucose 118 H Lactic Acid Calcium 8.8 Magnesium 1.9 Total Bilirubin 1.2 H Direct Bilirubin 0.5 AST 14 ALT 15 Alkaline Phosphatase 66 Total Protein 6.4 L Albumin 3.9 Lipase Urine Color Urine Appearance Urine pH Ur Specific Jber Urine Protein Urine Glucose (UA) Urine Ketones Urine Blood Urine Nitrite Ur Leukocyte Esterase Urine Test 01/04/21 01/04/21 01/04/21 17:28 17:58 17:58 WBC RBC Hgb Hct MCV MCH MCHC RDW Plt Count MPV Immature Gran % (Auto) Neut % (Auto) Lymph % (Auto) [place] % (Auto) Eos % (Auto) Baso % (Auto) Lymph # (Auto) [place] # (Auto) Eos # (Auto) Baso # (Auto) Abs Immat Gran (auto) Absolute Neuts (auto) Absolute Nucleated RBC Nucleated RBC % (auto) Smear Tech's Comments Hold Blue Top Sodium Potassium Chloride Carbon Dioxide Anion Gap BUN Creatinine Estim Creat Clear Calc Estimated GFR Random Glucose Lactic Acid Calcium Magnesium Total Bilirubin Direct Bilirubin AST ALT Alkaline Phosphatase Total Protein Albumin Lipase 16 Urine Color YELLOW Urine Appearance CLEAR Urine pH 6.0 Ur Specific Jber 1.025 Urine Protein TRACE Urine Glucose (UA) NEG Urine Ketones NEG Urine Blood NEG Urine Nitrite NEG Ur Leukocyte Esterase NEG Urine Test NEGATIVE 01/04/21 19:49 WBC RBC Hgb Hct MCV MCH MCHC RDW Plt Count MPV Immature Gran % (Auto) Neut % (Auto) Lymph % (Auto) [place] % (Auto) Eos % (Auto) Baso % (Auto) Lymph # (Auto) [place] # (Auto) Eos # (Auto) Baso # (Auto) Abs Immat Gran (auto) Absolute Neuts (auto) Absolute Nucleated RBC Nucleated RBC % (auto) Smear Tech's Comments Hold Blue Top Sodium Potassium Chloride Carbon Dioxide Anion Gap BUN Creatinine Estim Creat Clear Calc Estimated GFR Random Glucose Lactic Acid 1.2 Calcium Magnesium Total Bilirubin Direct Bilirubin AST ALT Alkaline Phosphatase Total Protein Albumin Lipase Urine Color Urine Appearance Urine pH Ur Specific Jber Urine Protein Urine Glucose (UA) Urine Ketones Urine Blood Urine Nitrite Ur Leukocyte Esterase Urine Test Airway Mallampati Class: II TM Dist: >3cm Neck ROM: Full Loose/Missing/Broken Teeth: No Heart: RRR Lungs: CTA Assessment and Plan Assessment Anesthesia Assessment: Anesthesia Plan Discussed and Chart Reviewed Final Anesthetic Review NPO: Yes ASA Class: III and Emergency Final Preanesthetic Review: No Changes in Pt Med Stat, Meds/Allgs Chart Reviewed, Consent Obtained/Reviewed and Anes Risks/Benef Reviewed Patient Risk: Intermediate Procedure Risk: Intermediate Anesthetic Plan Anesthetic Plan: GA Disposition: Standard PACU
--- NOTE | 2021-01-04 21:40 | PC.NURSE ---
Report given to SUPERVISOR [employer]. ct scan technologist at bedside for transpor to OR.
[2021-01-05] VITALS (22 sets, daily range): BP systolic 95–146; BP diastolic 17–79; PULSE 11–123; RESP 16–24; TEMP 35.5–37.4; O2SAT 90–97
[2021-01-05] MEDS: HYDROmorphone HCl 0.5 MG/0.5 ML SYRINGE IVPUSH ×6 (00:05→11:59)
[2021-01-05] MEDS: ondansetron HCL 4 MG/2 ML VIAL IVPUSH ×2 (00:24→09:24)
[2021-01-05] MEDS: Heparin Sodium,Porcine 5,000 UNIT/ML VIAL 5000 UNIT SUBCUT ×2 (02:12→13:42)
[2021-01-05] MEDS: 0.9 % Sodium Chloride Flush 3 ML SYRINGE IVFLUSH ×2 (02:39→16:12)
[2021-01-05] MEDS: Piperacillin Sodium/Tazobactam 3.375 GM in 0.9 % Sodium Chloride 50 ML IV (04:31)
[2021-01-05] MEDS: Dextrose 5 % and Lactated Ring 1,000 ML 125 ML IVCONT ×3 (05:01→20:21)
[2021-01-05 06:48] LABS: Hematocrit 39.6 % (37-47); Hemoglobin 12.6 g/dl (12.0-16.0); Mean Corpuscular HGB Conc 31.8 g/dl (31.0-35.0); Mean Corpuscular Hemoglobin 29.7 pg (27.0-33.0); Mean Corpuscular Volume 93.4 fL (80-98); Mean Platelet Volume 10.3 fL (9.4-12.3); Platelet Count 246 X10*3/uL (160-400); Red Blood Count 4.24 X10*6/uL (4.20-5.50); Red Cell Distribution Width 12.4 % (11.0-16.0); White Blood Count 13.6 X10*3/uL (4.8-10.8)
[2021-01-05 07:11] LABS: Anion Gap 16 (12-20); Blood Urea Nitrogen 15 mg/dL (9-16); Calcium 7.8 mg/dL (8.4-10.2); Carbon Dioxide 20 mmol/L (22-29); Chloride 105 mmol/L (96-108); Creatinine Clr Calc Pharmacy 79.7; Estimated Glomerular Filt Rate > 60; Glucose Random 133 mg/dL (60-115); Potassium 3.9 mmol/L (3.3-5.1); Sodium 137 mmol/L (135-145)
[2021-01-05 07:45] LABS: Band Neutrophils Percent 34 % (3-5); Large Platelet PRESENT; Lymphocytes Absolute Manual 0.1 X10*3/uL (0.6-4.8); Lymphocytes Percent Manual 1 % (20-40); Monocytes Absolute Manual 0.4 X10*3/uL (0.0-1.2); Monocytes Percent Manual 3 % (2-11); Neutrophils Absolute Manual 13.1 X10*3/uL (2.2-7.9); Neutrophils Percent Manual 62 % (45-73); Platelet Estimate NORMAL (NORMAL); Platelet Morphology Comment NOTED; RBC Morphology NOTED
[2021-01-05 07:46] LABS: Acanthocytes 1+ (0-2) /OIF; Burr Cells 3+ (>5) /OIF; Polychromasia 1+ (0-2) /OIF
[2021-01-05] MEDS: Loratadine 10 MG TABLET PO (11:59)
--- NOTE | 2021-01-05 12:35 | PM.PNGS ---
Subjective Subjective Date of Service: 01/05/21 Interval history: Alert. She reports some congestion and abdominal discomfort improved from preoperative level. She also reports mild nausea, and says that this has been a problem for her in the past following general anesthesia. Physical Exam Vital Signs: Vital Signs: Last Vital Signs Temp 96 F L 01/05/21 10:50 Pulse 120 H 01/05/21 10:50 Resp 20 01/05/21 10:50 BP 134/72 01/05/21 10:50 Pulse Ox 91 L 01/05/21 10:50 Body Mass Index 36.0 Const: Other: Appears mildly uncomfortable but in no distress General: alert and awake HENMT: Head: Yes normocephalic and Yes atraumatic Resp: Effort & Inspection: normal respiratory effort Auscultation: clear to auscultation bilaterally Cardio: Rate: regular rate Rhythm: regular rhythm GI: Other: Round, quiet, nondistended. Slight serous drainage on lower aspect of abdominal dressing. Ostomy pink. No output. Skin: Other: Normal color, warm and dry Progress Note: A&P Assessment and plan (1) Bowel perforation: Status: Acute Assessment and Plan: Status post Abeba procedure for perforated diverticulitis. She is experiencing mild nausea postoperatively and is unsure whether this is due to hunger. Continue ondansetron. Trial of clear liquids as tolerated. She typically takes loratadine as needed for allergy symptoms. Will resume. Continue Rowe catheter today for postoperative fluid management. Fall Risk Details Current Medications: Current Medications Generic Name Dose Route Start Last Admin Trade Name Freq PRN Reason Stop Dose Admin Heparin Sodium (Porcine) 5,000 unit 01/05/21 01:36 01/05/21 02:12 Heparin Sodium,Porcine 5,000 Unit/Ml Vial SUBCUT 5,000 unit Q12H VERONICA Administration Hydromorphone HCl 0.5 mg 01/04/21 20:23 01/05/21 11:59 Hydromorphone Hcl 0.5 Mg/0.5 Ml Syringe IVPUSH 0.5 mg Q2H PRN Administration Pain, Severe (Pain Scale 7-10) Dextrose/Lactated Ringer's 1,000 mls @ 125 mls/hr 01/04/21 20:30 01/05/21 05:01 D5lr IVCONT 125 mls/hr .Q8H VERONICA Administration Levothyroxine Sodium 88 mcg 01/06/21 06:30 Levothyroxine Sodium 88 Mcg Tablet PO DAILY@0630 VERONICA Loratadine 10 mg 01/05/21 10:49 01/05/21 11:59 Loratadine 10 Mg Tablet PO 10 mg DAILY PRN Administration allergy symptoms Ondansetron HCl 4 mg 01/04/21 20:23 01/05/21 09:24 Ondansetron Hcl 4 Mg/2 Ml Vial IVPUSH 4 mg QID PRN Administration Nausea Sodium Chloride 3 ml 01/05/21 01:36 01/05/21 07:38 0.9 % Sodium Chloride Flush 3 Ml Syringe IVFLUSH Not Given QSHIFT [facility] Zolpidem Tartrate 5 mg 01/05/21 01:36 Zolpidem Tartrate 5 Mg Tablet PO BEDTIME PRN Insomnia Time Spent With Patient Time: Total time spent is greater than 50% in coordination of care (as documented) at patient's floor/unit and/or counseling patient: Time with patient: 15 - 24 minutes
[2021-01-05] MEDS: HYDROmorphone HCl 1 MG/ML SYRINGE IVPUSH ×2 (13:35→16:07)
--- NOTE | 2021-01-05 15:42 | MHC.CM.PN ---
Pt reports she lives at home with her and is fully independent at BL. pt reports she has a walker from a previous ortho procedure but does not use it now. Pt has a PCP and may be interested in completing a HCP during her admission but is in too much pain at this time. Current DC plan is home with no services family to transport
[2021-01-05] MEDS: Morphine Sulfate 4 MG/ML CARTRIDGE IVPUSH (17:14)
[2021-01-06] VITALS (14 sets, daily range): BP systolic 114–149; BP diastolic 64–81; PULSE 94–112; RESP 16–20; TEMP 36.6–37.1; O2SAT 91–97
[2021-01-06] MEDS: Heparin Sodium,Porcine 5,000 UNIT/ML VIAL 5000 UNIT SUBCUT ×2 (03:58→14:44)
[2021-01-06] MEDS: Dextrose 5 % and Lactated Ring 1,000 ML 125 ML IVCONT ×3 (04:10→20:12)
[2021-01-06] MEDS: Levothyroxine Sodium 88 MCG TABLET PO (07:23)
--- NOTE | 2021-01-06 08:45 | P.PNGS_ITS ---
Subjective Subjective Date of Service: 01/06/21 Interval history: Reports incisional pain and pain throughout the abdomen. Unable to get out of bed due to this pain. Denies nausea vomiting. Physical Exam Vital Signs: Vital Signs: Last Vital Signs Temp 98 F 01/06/21 08:00 Pulse 109 H 01/06/21 07:03 Resp 20 01/06/21 07:03 BP 149/76 H 01/06/21 07:03 Pulse Ox 91 L 01/06/21 07:03 Body Mass Index 36.0 Const: Other: Uncomfortable, lying flat in bed Resp: Effort & Inspection: normal respiratory effort Auscultation: clear to auscultation bilaterally GI: Other: Softly distended, midline incision clean dry, ostomy with serosanguineous output but no stool. Skin: General skin exam: no rashes or lesions noted Extrem: Other: Pedal edema Progress Note: A&P Assessment and plan (1) Perforation of sigmoid colon due to diverticulitis: Status: Acute Assessment and Plan: 60-year-old female patient presenting with acute abdominal pain found to have free air. Status post exploratory laparotomy with evidence of a perforated sigmoid diverticulitis with diffuse fecal and peritonitis. 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 Patient is now postoperative day 2. Pain control remains an issue despite switching to [employer] pain pump. Will add IV Tylenol to pain meds. Encourage patient to get out of bed and ambulate today. He also encouraged incentive spirometry. Continue IV antibiotics. (2) Diffuse peritonitis: Status: Acute Fall Risk Details Current Medications: Current Medications Generic Name Dose Route Start Last Admin Trade Name Freq PRN Reason Stop Dose Admin Heparin Sodium (Porcine) 5,000 unit 01/05/21 01:36 01/06/21 03:58 Heparin Sodium,Porcine 5,000 Unit/Ml Vial SUBCUT 5,000 unit Q12H VERONICA Administration Dextrose/Lactated Ringer's 1,000 mls @ 125 mls/hr 01/04/21 20:30 01/06/21 04:10 D5lr IVCONT 125 mls/hr .Q8H VERONICA Administration Morphine Sulfate 100 mg in 100 mls @ 0 mls/hr 01/05/21 17:45 01/06/21 08:00 IVCONT 1.5 mg/hr .Q0M VERONICA 1.5 mls/hr Infusion Protocol Per Protocol Acetaminophen 1,000 mg in 100 mls @ 400 mls/hr 01/06/21 08:31 Ofirmev IV Q6H PRN Abdominal Pain Levothyroxine Sodium 88 mcg 01/06/21 06:30 01/06/21 07:23 Levothyroxine Sodium 88 Mcg Tablet PO 88 mcg DAILY@0630 VERONICA Administration Loratadine 10 mg 01/05/21 10:49 01/05/21 11:59 Loratadine 10 Mg Tablet PO 10 mg DAILY PRN Administration allergy symptoms Naloxone HCl 0.2 mg 01/05/21 17:33 Naloxone Hcl 0.4 Mg/Ml Vial IVPUSH Q2M PRN Excessive sedation or RR < 8 Ondansetron HCl 4 mg 01/04/21 20:23 01/05/21 09:24 Ondansetron Hcl 4 Mg/2 Ml Vial IVPUSH 4 mg QID PRN Administration Nausea Sodium Chloride 3 ml 01/05/21 01:36 01/06/21 07:51 0.9 % Sodium Chloride Flush 3 Ml Syringe IVFLUSH Not Given QSHIFT [facility] Zolpidem Tartrate 5 mg 01/05/21 01:36 Zolpidem Tartrate 5 Mg Tablet PO BEDTIME PRN Insomnia Time Spent With Patient Time: Total time spent is greater than 50% in coordination of care (as documented) at patient's floor/unit and/or counseling patient: Time with patient: 25 - 35 minutes
[2021-01-06] MEDS: ondansetron HCL 4 MG/2 ML VIAL IVPUSH ×2 (17:18→21:14)
--- NOTE | 2021-01-06 18:33 | HO.POSTANES ---
Post Anesthesia Evaluation Post Anesthesia Evaluation Vital Signs: Vital Signs Temp Pulse Resp BP Pulse Ox 01/06/21 18:31 17 01/06/21 15:29 97.9 F 107 H 18 132/80 92 01/06/21 13:55 98 F 98 20 130/74 01/06/21 11:12 97.8 F 100 18 142/78 H 91 L 01/06/21 10:00 98 F 01/06/21 08:00 98 F 01/06/21 07:03 98 F 109 H 20 149/76 H 91 L Anesthesia: General Endotracheal-GETA Mental Status: Awake Pain Control: Satisfactory Nausea/Vomiting: Mild Hydration: Adequate Anesthesia-Related Issues: No Anes. Related Issues
[2021-01-06] MEDS: Famotidine/PF 20 MG/2 ML VIAL IVPUSH (19:53)
[2021-01-07] VITALS (10 sets, daily range): BP systolic 131–158; BP diastolic 65–81; PULSE 88–107; RESP 18–20; TEMP 36.1–37.3; O2SAT 90–93
[2021-01-07] MEDS: Loratadine 10 MG TABLET PO (00:12)
[2021-01-07] MEDS: Heparin Sodium,Porcine 5,000 UNIT/ML VIAL 5000 UNIT SUBCUT ×2 (01:45→16:31)
[2021-01-07] MEDS: Dextrose 5 % and Lactated Ring 1,000 ML 125 ML IVCONT ×3 (04:06→20:56)
[2021-01-07] MEDS: Levothyroxine Sodium 88 MCG TABLET PO (06:41)
[2021-01-07] MEDS: ondansetron HCL 4 MG/2 ML VIAL IVPUSH (06:47)
[2021-01-07 06:51] LABS: MANUAL DIFF FLAG NO
[2021-01-07 06:58] LABS: Basophils Percent Auto 0.1 % (0-2); Eosinophils Absolute Auto 0.1 X10*3/uL (0.0-0.4); Eosinophils Percent Auto 0.6 % (0-4); Hematocrit 35.6 % (37-47); Hemoglobin 11.5 g/dl (12.0-16.0); Imm Gran Abs Auto 0.04 X10*3/uL (0.00-0.03); Imm Gran Pct Auto 0.4 % (0.0-0.4); Lymphocytes Absolute Auto 0.8 X10*3/uL (1.2-4.9); Lymphocytes Percent Auto 7.2 % (20-40); Mean Corpuscular HGB Conc 32.3 g/dl (31.0-35.0); Mean Corpuscular Hemoglobin 29.1 pg (27.0-33.0); Mean Corpuscular Volume 90.1 fL (80-98); Mean Platelet Volume 9.9 fL (9.4-12.3); Monocytes Absolute Auto 0.8 X10*3/uL (0.1-1.2); Monocytes Percent Auto 7.7 % (2-11); Neutrophils Absolute Auto 8.8 X10*3/uL (2.0-8.3); Platelet Count 295 X10*3/uL (160-400); Red Blood Count 3.95 X10*6/uL (4.20-5.50); Red Cell Distribution Width 11.9 % (11.0-16.0); White Blood Count 10.5 X10*3/uL (4.8-10.8)
[2021-01-07 07:29] LABS: Anion Gap 12 (12-20); Blood Urea Nitrogen 6 mg/dL (9-16); Calcium 8.1 mg/dL (8.4-10.2); Carbon Dioxide 26 mmol/L (22-29); Chloride 102 mmol/L (96-108); Estimated Glomerular Filt Rate > 60; Glucose Random 118 mg/dL (60-115); Potassium 3.5 mmol/L (3.3-5.1); Sodium 136 mmol/L (135-145)
--- NOTE | 2021-01-07 07:41 | P.PNGS_ITS ---
Subjective Subjective Date of Service: 01/07/21 Interval history: Patient has not gotten out of bed yet since surgery. Reports better pain control although she appears to be splinting. Denies nausea or vomiting. No ostomy output. Physical Exam Vital Signs: Vital Signs: Last Vital Signs Temp 97.9 F 01/07/21 06:52 Pulse 101 H 01/07/21 06:52 Resp 20 01/07/21 06:52 BP 148/74 H 01/07/21 06:52 Pulse Ox 93 01/07/21 06:52 Body Mass Index 36.0 Const: Other: Awake alert, appears to be uncomfortable Resp: Other: No respiratory distress breathing comfortably on room air GI: Other: Incision is clean, dry, and intact. Ostomy with serosanguineous output but no stool or gas. Auscultation: Hypoactive bowel sounds present Skin: Other: Warm, dry, no rash Extrem: General: Yes no pedal edema Progress Note: A&P Assessment and plan (1) Perforation of sigmoid colon due to diverticulitis: Status: Acute (2) Diffuse peritonitis: Status: Acute Assessment and Plan: Patient remained stable postoperatively. Abdominal wounds are clean and intact. Check a.m. CBC, continue antibiotics. Encourage patient to get out of bed and ambulate today several times. Await pathology results. Monitor ostomy output. Fall Risk Details Current Medications: Current Medications Generic Name Dose Route Start Last Admin Trade Name Freq PRN Reason Stop Dose Admin Famotidine 20 mg 01/06/21 21:00 01/06/21 19:53 Famotidine/Pf 20 Mg/2 Ml Vial IVPUSH 20 mg BID VERONICA Administration Heparin Sodium (Porcine) 5,000 unit 01/05/21 01:36 01/07/21 01:45 Heparin Sodium,Porcine 5,000 Unit/Ml Vial SUBCUT 5,000 unit Q12H VERONICA Administration Dextrose/Lactated Ringer's 1,000 mls @ 125 mls/hr 01/04/21 20:30 01/07/21 04:06 D5lr IVCONT 125 mls/hr .Q8H VERONICA Administration Morphine Sulfate 100 mg in 100 mls @ 0 mls/hr 01/05/21 17:45 01/06/21 18:37 IVCONT 1.5 mg/hr .Q0M VERONICA 1.5 mls/hr Infusion Protocol Per Protocol Acetaminophen 1,000 mg in 100 mls @ 400 mls/hr 01/06/21 08:31 01/06/21 16:30 Ofirmev IV Infused Q6H PRN Infusion Abdominal Pain Promethazine HCl 12.5 mg/ 50.5 mls @ 202 mls/hr 01/07/21 00:29 01/07/21 02:14 Sodium Chloride IV Infused Q6H PRN Infusion Nausea Levothyroxine Sodium 88 mcg 01/06/21 06:30 01/07/21 06:41 Levothyroxine Sodium 88 Mcg Tablet PO 88 mcg DAILY@0630 VERONICA Administration Loratadine 10 mg 01/05/21 10:49 01/07/21 00:12 Loratadine 10 Mg Tablet PO 10 mg DAILY PRN Administration allergy symptoms Naloxone HCl 0.2 mg 01/05/21 17:33 Naloxone Hcl 0.4 Mg/Ml Vial IVPUSH Q2M PRN Excessive sedation or RR < 8 Ondansetron HCl 4 mg 01/04/21 20:23 01/07/21 06:47 Ondansetron Hcl 4 Mg/2 Ml Vial IVPUSH 4 mg QID PRN Administration Nausea Sodium Chloride 3 ml 01/05/21 01:36 01/07/21 00:16 0.9 % Sodium Chloride Flush 3 Ml Syringe [facility]USH [facility] 5 mg 01/05/21 01:36 Zolpidem Tartrate 5 Mg Tablet PO BEDTIME PRN Insomnia Time Spent With Patient Time: Total time spent is greater than 50% in coordination of care (as documented) at patient's floor/unit and/or counseling patient: Time with patient: 15 - 24 minutes
[2021-01-07] MEDS: Famotidine/PF 20 MG/2 ML VIAL IVPUSH ×2 (09:18→20:54)
[2021-01-07] MEDS: 0.9 % Sodium Chloride Flush 3 ML SYRINGE IVFLUSH ×3 (09:18→20:54)
--- NOTE | 2021-01-07 10:21 | MHC.CM.PN ---
Patient does not appear ready for dc (IV Zofran, IV Pepcid, IV Acetaminophen, IV Promethazine, new Colostomy. Home with a new referral to NA is the goal and CM will follow for possible need to adjust the dc plan.
[2021-01-07] MEDS: Sucralfate 1 GM TABLET PO ×2 (16:31→20:54)
[2021-01-07] MEDS: oxyCODONE HCl Immed Release 5 MG TABLET PO (20:54)
[2021-01-07] MEDS: Metoclopramide HCl 10 MG/2 ML VIAL IVPUSH (20:54)
[2021-01-08] MEDS: Heparin Sodium,Porcine 5,000 UNIT/ML VIAL 5000 UNIT SUBCUT ×2 (00:33→12:33)
[2021-01-08] MEDS: oxyCODONE HCl Immed Release 5 MG TABLET PO ×4 (02:10→20:16)
[2021-01-08] MEDS: Metoclopramide HCl 10 MG/2 ML VIAL IVPUSH ×2 (02:11→07:33)
[2021-01-08] MEDS: Dextrose 5 % and Lactated Ring 1,000 ML 80 ML IVCONT ×2 (04:46→20:17)
[2021-01-08] MEDS: Sucralfate 1 GM TABLET PO ×4 (07:13→20:16)
[2021-01-08 07:17] VITALS: BP 133/70; PULSE 89; RESP 17; TEMP 37.2; O2SAT 91
[2021-01-08] MEDS: 0.9 % Sodium Chloride Flush 3 ML SYRINGE IVFLUSH ×2 (07:32→17:11)
[2021-01-08] MEDS: Famotidine/PF 20 MG/2 ML VIAL IVPUSH ×2 (07:32→20:17)
--- NOTE | 2021-01-08 12:37 | PM.PNGS ---
Subjective Subjective Date of Service: 01/08/21 Interval history: Patient reports improved acid reflux and abdominal pain. Ostomy filled with stool. Physical Exam Vital Signs: Vital Signs: Last Vital Signs Temp 98.9 F 01/08/21 07:17 Pulse 89 01/08/21 07:17 Resp 17 01/08/21 07:17 BP 133/70 01/08/21 07:17 Pulse Ox 91 L 01/08/21 07:17 Body Mass Index 36.0 Const: General: cooperative, comfortable and no acute distress Resp: Effort & Inspection: normal respiratory effort, no cough and not labored GI: Other: incision is clean and intact; ostomy patent and functioning well. Skin: Other: warm, dry, and no rashes Extrem: Other: pedal edema Progress Note: A&P Assessment and plan (1) Perforation of sigmoid colon due to diverticulitis: Status: Acute Assessment and Plan: Patient making slow improvement with decreased abdominal pain and distension. Ostomy is now producing loose stool. She was able to get out of bed yesterday and plans on getting out of bed later today. D/c luz catheter, advance to low residue diet. Fall Risk Details Current Medications: Current Medications Generic Name Dose Route Start Last Admin Trade Name Freq PRN Reason Stop Dose Admin Famotidine 20 mg 01/06/21 21:00 01/08/21 07:32 Famotidine/Pf 20 Mg/2 Ml Vial IVPUSH 20 mg BID VERONICA Administration Heparin Sodium (Porcine) 5,000 unit 01/05/21 01:36 01/08/21 00:33 Heparin Sodium,Porcine 5,000 Unit/Ml Vial SUBCUT 5,000 unit Q12H VERONICA Administration Dextrose/Lactated Ringer's 1,000 mls @ 80 mls/hr 01/04/21 20:30 01/08/21 04:46 D5lr IVCONT 80 mls/hr .[id number] VERONICA Administration Acetaminophen 1,000 mg in 100 mls @ 400 mls/hr 01/06/21 08:31 01/06/21 16:30 Ofirmev IV Infused Q6H PRN Infusion Abdominal Pain Promethazine HCl 12.5 mg/ 50.5 mls @ 202 mls/hr 01/07/21 00:29 01/07/21 02:14 Sodium Chloride IV Infused Q6H PRN Infusion Nausea Levothyroxine Sodium 88 mcg 01/06/21 06:30 01/08/21 06:30 Levothyroxine Sodium 88 Mcg Tablet PO Not Given DAILY@0630 [facility] Loratadine 10 mg 01/05/21 10:49 01/07/21 00:12 Loratadine 10 Mg Tablet PO 10 mg DAILY PRN Administration allergy symptoms Metoclopramide HCl 10 mg 01/07/21 18:24 01/08/21 07:33 Metoclopramide Hcl 10 Mg/2 Ml Vial IVPUSH 10 mg Q6H PRN Administration GI Upset Morphine Sulfate 3 mg 01/07/21 18:23 Morphine Sulfate 4 Mg/Ml Cartridge IVPUSH Q3H PRN Pain, Severe (Pain Scale 7-10) Naloxone HCl 0.2 mg 01/05/21 17:33 Naloxone Hcl 0.4 Mg/Ml Vial IVPUSH Q2M PRN Excessive sedation or RR < 8 Ondansetron HCl 4 mg 01/04/21 20:23 01/07/21 06:47 Ondansetron Hcl 4 Mg/2 Ml Vial IVPUSH 4 mg QID PRN Administration Nausea Oxycodone HCl 5 mg 01/07/21 18:23 01/08/21 08:39 Oxycodone Hcl Immed Release 5 Mg Tablet PO 5 mg Q6H PRN Administration Pain, Moderate (Pain Scale 4-6 Sodium Chloride 3 ml 01/05/21 01:36 01/08/21 07:32 0.9 % Sodium Chloride Flush 3 Ml Syringe IVFLUSH 3 ml QSHIFT VERONICA Administration Sucralfate 1 gm 01/07/21 13:00 01/08/21 07:13 Sucralfate 1 Gm Tablet PO 1 gm QIDACHS [facility] Administration Zolpidem Tartrate 5 mg 01/05/21 01:36 Zolpidem Tartrate 5 Mg Tablet PO BEDTIME PRN Insomnia Time Spent With Patient Time: Total time spent is greater than 50% in coordination of care (as documented) at patient's floor/unit and/or counseling patient: Time with patient: 15 - 24 minutes
[2021-01-08 15:30] VITALS: BP 150/65; PULSE 96; RESP 18; TEMP 36.8; O2SAT 95
[2021-01-08 19:06] VITALS: BP 151/74; PULSE 93; RESP 18; TEMP 36.9; O2SAT 95
[2021-01-08 23:42] VITALS: BP 129/73; PULSE 95; RESP 16; TEMP 37.2; O2SAT 96
[2021-01-09] MEDS: Heparin Sodium,Porcine 5,000 UNIT/ML VIAL 5000 UNIT SUBCUT ×2 (01:27→13:44)
[2021-01-09] MEDS: 0.9 % Sodium Chloride Flush 3 ML SYRINGE IVFLUSH ×3 (01:28→20:30)
[2021-01-09] MEDS: oxyCODONE HCl Immed Release 5 MG TABLET PO ×4 (01:55→20:30)
[2021-01-09 03:52] VITALS: BP 133/73; PULSE 85; RESP 14; TEMP 36.7; O2SAT 95
[2021-01-09] MEDS: Dextrose 5 % and Lactated Ring 1,000 ML 80 ML IVCONT (05:25)
[2021-01-09] MEDS: Sucralfate 1 GM TABLET PO ×4 (06:51→20:29)
[2021-01-09] MEDS: Levothyroxine Sodium 88 MCG TABLET PO (06:52)
[2021-01-09] MEDS: Famotidine/PF 20 MG/2 ML VIAL IVPUSH ×2 (07:41→20:29)
[2021-01-09 07:45] VITALS: BP 144/69; PULSE 92; RESP 20; TEMP 36.8
--- NOTE | 2021-01-09 09:37 | P.PNGS_ITS ---
Subjective Subjective Date of Service: 01/09/21 Interval history: Patient reports getting out of bed yesterday eating sitting up in a chair. Rowe was removed and she was able to avoid on the commode. Denies any burning. Patient is requesting more frequent pain medication but reports im provement in her abdominal pain. Ostomy is producing semi formed stool and gas. Physical Exam Vital Signs: Vital Signs: Last Vital Signs Temp 98.3 F 01/09/21 07:45 Pulse 92 01/09/21 07:45 Resp 20 01/09/21 07:45 BP 144/69 H 01/09/21 07:45 Pulse Ox 95 01/09/21 03:52 Body Mass Index 36.0 Const: General: cooperative, comfortable and well developed GI: Other: Abdomen is soft and nondistended. Midline incision has some fecal in soilage on the dressing. The dressings were removed and the ostomy appliance changed. Stoma paste applied around the ostomy. No redness or discharge noted from the abdominal incisions. Skin: Other: Warm, dry, no rash Extrem: Other: No cyanosis, clubbing, or edema Progress Note: A&P Assessment and plan (1) Perforation of sigmoid colon due to diverticulitis: Status: Acute Assessment and Plan: 60-year-old female with perforated sigmoid diverticulitis status post Abeba procedure on 01/04/2021. Patient is now producing stool from her ostomy and tolerating a small amount of solid food. She has become deconditioned due to laying in bed. She was encouraged to get out of bed and ambulate several times daily. She should also continue to perform deep breathing exercises. He expressed understanding and agrees with the plan. Fall Risk Details Current Medications: Current Medications Generic Name Dose Route Start Last Admin Trade Name Freq PRN Reason Stop Dose Admin Famotidine 20 mg 01/06/21 21:00 01/09/21 07:41 Famotidine/Pf 20 Mg/2 Ml Vial IVPUSH 20 mg BID VERONICA Administration Heparin Sodium (Porcine) 5,000 unit 01/05/21 01:36 01/09/21 01:27 Heparin Sodium,Porcine 5,000 Unit/Ml Vial SUBCUT 5,000 unit Q12H VERONICA Administration Dextrose/Lactated Ringer's 1,000 mls @ 80 mls/hr 01/04/21 20:30 01/09/21 05:25 D5lr IVCONT 80 mls/hr .[id number] VERONICA Administration Promethazine HCl 12.5 mg/ 50.5 mls @ 202 mls/hr 01/07/21 00:29 01/07/21 02:14 Sodium Chloride IV Infused Q6H PRN Infusion Nausea Levothyroxine Sodium 88 mcg 01/06/21 06:30 01/09/21 06:52 Levothyroxine Sodium 88 Mcg Tablet PO 88 mcg DAILY@0630 VERONICA Administration Loratadine 10 mg 01/05/21 10:49 01/07/21 00:12 Loratadine 10 Mg Tablet PO 10 mg DAILY PRN Administration allergy symptoms Metoclopramide HCl 10 mg 01/07/21 18:24 01/08/21 07:33 Metoclopramide Hcl 10 Mg/2 Ml Vial IVPUSH 10 mg Q6H PRN Administration GI Upset Morphine Sulfate 3 mg 01/07/21 18:23 Morphine Sulfate 4 Mg/Ml Cartridge IVPUSH Q3H PRN Pain, Severe (Pain Scale 7-10) Naloxone HCl 0.2 mg 01/05/21 17:33 Naloxone Hcl 0.4 Mg/Ml Vial IVPUSH Q2M PRN Excessive sedation or RR < 8 Ondansetron HCl 4 mg 01/04/21 20:23 01/07/21 06:47 Ondansetron Hcl 4 Mg/2 Ml Vial IVPUSH 4 mg QID PRN Administration Nausea Oxycodone HCl 5 mg 01/07/21 18:23 01/09/21 07:41 Oxycodone Hcl Immed Release 5 Mg Tablet PO 5 mg Q6H PRN Administration Pain, Moderate (Pain Scale 4-6 Sodium Chloride 3 ml 01/05/21 01:36 01/09/21 07:41 0.9 % Sodium Chloride Flush 3 Ml Syringe IVFLUSH 3 ml QSHIFT VERONICA Administration Sucralfate 1 gm 01/07/21 13:00 01/09/21 06:51 Sucralfate 1 Gm Tablet PO 1 gm QIDACHS VERONICA Administration Zolpidem Tartrate 5 mg 01/05/21 01:36 Zolpidem Tartrate 5 Mg Tablet PO BEDTIME PRN Insomnia Time Spent With Patient Time: Total time spent is greater than 50% in coordination of care (as documented) at patient's floor/unit and/or counseling patient: Time with patient: 25 - 35 minutes
[2021-01-09] MEDS: Loratadine 10 MG TABLET PO (10:39)
[2021-01-09 12:14] VITALS: BP 152/78; PULSE 101; RESP 20; O2SAT 97
[2021-01-09] MEDS: Acetaminophen 325 MG TABLET 650 MG PO ×2 (13:44→20:30)
[2021-01-09 15:06] VITALS: BP 148/65; PULSE 98; RESP 20; TEMP 37.1; O2SAT 98
[2021-01-09 19:53] VITALS: BP 140/75; PULSE 93; RESP 20; TEMP 36.2; O2SAT 98
[2021-01-09 23:50] VITALS: BP 146/68; PULSE 87; RESP 20; TEMP 36.8; O2SAT 95
[2021-01-10] MEDS: Acetaminophen 325 MG TABLET 650 MG PO ×4 (03:37→22:08)
[2021-01-10] MEDS: Levothyroxine Sodium 88 MCG TABLET PO (03:38)
[2021-01-10] MEDS: oxyCODONE HCl Immed Release 5 MG TABLET PO ×4 (03:38→22:08)
[2021-01-10 03:49] VITALS: BP 158/82; PULSE 102; TEMP 37.1; O2SAT 95
[2021-01-10 07:29] VITALS: BP 146/74; PULSE 89; RESP 18; TEMP 36.7; O2SAT 96
[2021-01-10] MEDS: 0.9 % Sodium Chloride Flush 3 ML SYRINGE IVFLUSH (08:02)
[2021-01-10] MEDS: Sucralfate 1 GM TABLET PO ×4 (08:02→19:41)
[2021-01-10] MEDS: Famotidine/PF 20 MG/2 ML VIAL IVPUSH (09:00)
[2021-01-10] MEDS: Loratadine 10 MG TABLET PO (10:20)
[2021-01-10 10:58] VITALS: BP 136/62; PULSE 97; RESP 20; TEMP 37.5; O2SAT 94
[2021-01-10] MEDS: Heparin Sodium,Porcine 5,000 UNIT/ML VIAL 5000 UNIT SUBCUT (13:14)
--- NOTE | 2021-01-10 13:23 | P.PNGS_ITS ---
Subjective Subjective Date of Service: 01/10/21 Interval history: Patient is postoperative day 6. Status post sigmoid colectomy with Abeba's creation for perforated sigmoid diverticulitis. She has had slow return to bowel function but does have evidence of stool in the colostomy bag. Patient has been slow to ambulate in the hallway. She has been up to the chair and is moving to the commode but has not ambulated much in the hallway. She reports her pain is better controlled on p.o. pain medications which were switched to couple days ago. She denies any nausea or vomiting. She is tolerating a diet. She does report some incisional tenderness and reports that she still feels abdominal bloating. Vital signs are within normal limits. Physical Exam Vital Signs: Vital Signs: Last Vital Signs Temp 99.5 F 01/10/21 10:58 Pulse 97 01/10/21 10:58 Resp 20 01/10/21 10:58 BP 136/62 01/10/21 10:58 Pulse Ox 94 01/10/21 10:58 Body Mass Index 36.0 Const: Other: Awake alert General: cooperative, healthy appearing, comfortable, no acute distress, well developed, alert, awake, acute distress moderate and ill appearing acutely Nutritional Appearance: obese Orientation/consciousness: patient oriented x3 Limitations: no limitations HENMT: Head: Yes normal to inspection, Yes normocephalic and Yes atraumatic Ears: hearing grossly normal bilaterally General nose exam: Normal external nose present Face and sinus: Yes normal facial exam Mouth: Normal oral and palatal mucosa present Throat: Yes posterior oropharynx normal Eyes: General: appearance normal, both eyes and all related structures Neck: Neck: Yes normal visual inspection, Yes full ROM and Yes no JVD Chest: Chest palpation & inspection: normal inspection of the chest Resp: Other: No respiratory distress breathing comfortably on room air Effort & Inspection: normal respiratory effort, no audible wheezes, no cough, not labored, no stridor and not tachypneic GI: Other: Abdomen is soft and minimally distended. Midline incision is clean dry intact with hellen in place. There is no erythema or drainage from the midline incision. Dressings were removed and incision is open to air. Colostomy in place in the left abdomen and is viable. There is stool within the bag. There is no significant air within the bag however. Inspection: Yes normal to inspection Palpation (GI): Soft to palpation, Firmness to palpation present (GI), Tenderness to palpation present (GI) (Diffusely) and no masses Percussion: Yes normal to percussion Skin: Other: Warm, dry, no rash General skin exam: no rashes or lesions noted Neuro: General: patient oriented x3, no focal motor deficits and normal sensation to monofilament Extrem: Other: No cyanosis, clubbing, or edema General: Yes normal to inspection, Yes full ROM and Yes no pedal edema Right upper extremity: normal capillary refill Left upper extremity: normal capillary refill Progress Note: A&P Assessment and plan (1) Perforation of sigmoid colon due to diverticulitis: Status: Acute Assessment and Plan: 60-year-old female with perforated sigmoid diverticulitis status post Abeba procedure on 01/04/2021. Patient is now producing stool from her ostomy and tolerating a small amount of solid food. Patient was encouraged to use incenti ve spirometer regularly and to be out of bed to ambulate in the hallway. She does report that she feels that she needs more support given her obesity to walk in the hallway. I have ordered an abdominal binder to be placed for support with walking. Patient may likely be discharged home if she has good pain control and is tolerating diet and continues to have bowel function. Fall Risk Details Current Medications: Current Medications Generic Name Dose Route Start Last Admin Trade Name Freq PRN Reason Stop Dose Admin Acetaminophen 650 mg 01/09/21 13:22 01/10/21 10:19 Acetaminophen 325 Mg Tablet PO 650 mg Q6H PRN Administration Pain, Mild (Pain Scale 1-3) Famotidine 20 mg 01/06/21 21:00 01/09/21 20:29 Famotidine/Pf 20 Mg/2 Ml Vial IVPUSH 20 mg BID VERONICA Administration Heparin Sodium (Porcine) 5,000 unit 01/05/21 01:36 01/10/21 13:14 Heparin Sodium,Porcine 5,000 Unit/Ml Vial SUBCUT 5,000 unit Q12H VERONICA Administration Promethazine HCl 12.5 mg/ 50.5 mls @ 202 mls/hr 01/07/21 00:29 01/07/21 02:14 Sodium Chloride IV Infused Q6H PRN Infusion Nausea Levothyroxine Sodium 88 mcg 01/06/21 06:30 01/10/21 03:38 Levothyroxine Sodium 88 Mcg Tablet PO 88 mcg DAILY@0630 VERONICA Administration Loratadine 10 mg 01/05/21 10:49 01/10/21 10:20 Loratadine 10 Mg Tablet PO 10 mg DAILY PRN Administration allergy symptoms Metoclopramide HCl 10 mg 01/07/21 18:24 01/08/21 07:33 Metoclopramide Hcl 10 Mg/2 Ml Vial IVPUSH 10 mg Q6H PRN Administration GI Upset Morphine Sulfate 3 mg 01/07/21 18:23 Morphine Sulfate 4 Mg/Ml Cartridge IVPUSH Q3H PRN Pain, Severe (Pain Scale 7-10) Naloxone HCl 0.2 mg 01/05/21 17:33 Naloxone Hcl 0.4 Mg/Ml Vial IVPUSH Q2M PRN Excessive sedation or RR < 8 Ondansetron HCl 4 mg 01/04/21 20:23 01/07/21 06:47 Ondansetron Hcl 4 Mg/2 Ml Vial IVPUSH 4 mg QID PRN Administration Nausea Oxycodone HCl 5 mg 01/07/21 18:23 01/10/21 10:19 Oxycodone Hcl Immed Release 5 Mg Tablet PO 5 mg Q6H PRN Administration Pain, Moderate (Pain Scale 4-6 Sodium Chloride 3 ml 01/05/21 01:36 01/10/21 08:02 0.9 % Sodium Chloride Flush 3 Ml Syringe IVFLUSH 3 ml QSHIFT VERONICA Administration Sucralfate 1 gm 01/07/21 13:00 01/10/21 11:55 Sucralfate 1 Gm Tablet PO 1 gm QIDACHS VERONICA Administration Zolpidem Tartrate 5 mg 01/05/21 01:36 Zolpidem Tartrate 5 Mg Tablet PO BEDTIME PRN Insomnia Time Spent With Patient Time: Total time spent is greater than 50% in coordination of care (as documented) at patient's floor/unit and/or counseling patient: Time with patient: 15 - 24 minutes
[2021-01-10 15:47] VITALS: BP 140/65; PULSE 91; RESP 19; TEMP 37.4; O2SAT 95
--- NOTE | 2021-01-10 17:07 | PC.NURSE ---
Spoke with Dr Franz regarding no iv access. Md alvarezd Iv pepcid. Pt does not want another IV restarted. colostomy teaching reviewed with pt.
[2021-01-10 19:47] VITALS: BP 143/79; PULSE 94; RESP 19; TEMP 37.2; O2SAT 94
[2021-01-10 23:58] VITALS: BP 122/57; PULSE 87; RESP 18; TEMP 36.6; O2SAT 95
[2021-01-11] MEDS: Levothyroxine Sodium 88 MCG TABLET PO (06:03)
[2021-01-11] MEDS: Acetaminophen 325 MG TABLET 650 MG PO ×3 (06:05→19:42)
[2021-01-11] MEDS: oxyCODONE HCl Immed Release 5 MG TABLET PO ×3 (06:06→19:42)
[2021-01-11 08:00] VITALS: BP 137/68; PULSE 97; RESP 20; TEMP 36.3; O2SAT 94
[2021-01-11] MEDS: Sucralfate 1 GM TABLET PO ×4 (08:39→19:43)
[2021-01-11] MEDS: Loratadine 10 MG TABLET PO (08:41)
--- NOTE | 2021-01-11 12:51 | P.PNGS_ITS ---
Subjective Subjective Date of Service: 01/11/21 Interval history: Patient reports feeling better. She has been up and ambulating in the room mostly to the commode. Ostomy continues to function and patient has urinary output that is adequate. Pain is well controlled on p.o. oxycodone. Patient denies any ongoing nausea and denies vomiting. She is tolerating small amounts of p.o. diet. Patient's main complaint is fatigue and general deconditioning. She has been up to the chair. She will try to ambulate in the hallway today with a walker. All vital signs are within normal limits. Physical Exam Vital Signs: Vital Signs: Last Vital Signs Temp 97.3 F 01/11/21 08:00 Pulse 97 01/11/21 08:00 Resp 20 01/11/21 08:00 BP 137/68 01/11/21 08:00 Pulse Ox 94 01/11/21 08:00 Body Mass Index 36.0 Const: Other: Awake alert General: cooperative, healthy appearing, comfortable, no acute distress, well developed, alert, awake, acute distress moderate, anxious and ill appearing acutely Nutritional Appearance: average body habitus and obese Orientation/consciousness: patient oriented x3 Limitations: no limitations HENMT: Head: Yes normal to inspection, Yes normocephalic and Yes atraumatic Ears: hearing grossly normal bilaterally General nose exam: Normal external nose present Face and sinus: Yes normal facial exam Mouth: Normal oral and palatal mucosa present Throat: Yes posterior oropharynx normal Eyes: General: appearance normal, both eyes and all related structures Pupils: Equal, round and reactive pupils present Neck: Neck: Yes normal visual inspection, Yes full ROM and Yes no JVD Chest: Chest palpation & inspection: normal inspection of the chest Resp: Other: No respiratory distress breathing comfortably on room air Effort & Inspection: normal respiratory effort, no audible wheezes, no cough, not labored, no stridor and not tachypneic Auscultation: clear to auscultation bilaterally Cardio: Rate: regular rate Rhythm: regular rhythm Peripheral pulses: Peripheral pulses 2+ throughout GI: Other: Abdomen is soft and minimally distended. Midline incision is clean dry intact with hellen in place. There is no erythema or drainage from the midline incision. Colostomy in place in the left abdomen and is viable. There is stool within the bag. There is no significant air within the bag however. Inspection: Yes normal to inspection Palpation (GI): Soft to palpation, Firmness to palpation present (GI), Tenderness to palpation present (GI) (Diffusely), Guarding due to palpation present (GI), Rigid due to palpation and no masses Percussion: Yes normal to percussion Auscultation: normal bowel sounds, Absent bowel sounds and Hypoactive bowel sounds present Rectal Exam - Female: deferred Back/Spine/Pelvis: Thoracic/Lumbar Spine: thoracic and lumbar spine normal to inspection Skin: Other: Warm, dry, no rash General skin exam: no rashes or lesions noted Neuro: General: patient oriented x3, no focal motor deficits and normal sensation to monofilament Cranial nerves: Yes Equal, round and reactive pupils present Cognition (Neuro): normal cognition Speech: No Abnormal speech present Gait exam (Neuro): Normal gait present Motor exam (neuro): 5/5 motor strength present throughout Extrem: Other: No cyanosis, clubbing, or edema General: Yes normal to inspection, Yes full ROM and Yes no pedal edema Right upper extremity: normal capillary refill Left upper extremity: normal capillary refill Progress Note: A&P Assessment and plan (1) Perforation of sigmoid colon due to diverticulitis: Status: Acute Assessment and Plan: 60-year-old female with perforated sigmoid diverticulitis status post Abeba procedure on 01/04/2021. Patient is now producing stool from her ostomy and tolerating a small amount of solid food. Patient was encouraged to use incentive spirometer regularly and to be out of bed to ambulate in the hallway. She does report that she feels that she needs more support given her obesity to walk in the hallway. Patient reports abdominal binder has been supportive with getting up out of bed. She feels that she needs more help to be more ambulatory. I have ordered a physical therapy consult. Continue current management. Fall Risk Details Current Medications: Current Medications Generic Name Dose Route Start Last Admin Trade Name Freq PRN Reason Stop Dose Admin Acetaminophen 650 mg 01/09/21 13:22 01/11/21 12:18 Acetaminophen 325 Mg Tablet PO 650 mg Q6H PRN Administration Pain, Mild (Pain Scale 1-3) Heparin Sodium (Porcine) 5,000 unit 01/05/21 01:36 01/10/21 22:19 Heparin Sodium,Porcine 5,000 Unit/Ml Vial SUBCUT Not Given Q12H VERONICA Promethazine HCl 12.5 mg/ 50.5 mls @ 202 mls/hr 01/07/21 00:29 01/07/21 02:14 Sodium Chloride IV Infused Q6H PRN Infusion Nausea Levothyroxine Sodium 88 mcg 01/06/21 06:30 01/11/21 06:03 Levothyroxine Sodium 88 Mcg Tablet PO 88 mcg DAILY@0630 VERONICA Administration Loratadine 10 mg 01/05/21 10:49 01/11/21 08:41 Loratadine 10 Mg Tablet PO 10 mg DAILY PRN Administration allergy symptoms Morphine Sulfate 3 mg 01/07/21 18:23 Morphine Sulfate 4 Mg/Ml Cartridge IVPUSH Q3H PRN Pain, Severe (Pain Scale 7-10) Naloxone HCl 0.2 mg 01/05/21 17:33 Naloxone Hcl 0.4 Mg/Ml Vial IVPUSH Q2M PRN Excessive sedation or RR < 8 Ondansetron HCl 4 mg 01/04/21 20:23 01/07/21 06:47 Ondansetron Hcl 4 Mg/2 Ml Vial IVPUSH 4 mg QID PRN Administration Nausea Oxycodone HCl 5 mg 01/07/21 18:23 01/11/21 12:18 Oxycodone Hcl Immed Release 5 Mg Tablet PO 5 mg Q6H PRN Administration Pain, Moderate (Pain Scale 4-6 Sodium Chloride 3 ml 01/05/21 01:36 01/11/21 08:41 0.9 % Sodium Chloride Flush 3 Ml Syringe IVFLUSH Not Given QSHIFT [facility] Sucralfate 1 gm 01/07/21 13:00 01/11/21 12:18 Sucralfate 1 Gm Tablet PO 1 gm QIDACHS VERONICA Administration Zolpidem Tartrate 5 mg 01/05/21 01:36 Zolpidem Tartrate 5 Mg Tablet PO BEDTIME PRN Insomnia Time Spent With Patient Time: Total time spent is greater than 50% in coordination of care (as documented) at patient's floor/unit and/or counseling patient: Time with patient: less than 15 minutes
[2021-01-11] MEDS: Heparin Sodium,Porcine 5,000 UNIT/ML VIAL 5000 UNIT SUBCUT (15:11)
[2021-01-11 15:29] VITALS: BP 128/60; PULSE 89; RESP 18; TEMP 36.4; O2SAT 94
--- NOTE | 2021-01-11 17:11 | PC.NURSE ---
COLOSTOMY TEACHING WITH PT. PT TAUGHT HOW TO EMPTY OSTOMY BAG WHEN NEEDED. ABLE TO PARTIALLY ASSIST WITH THIS BUT DOES REQUIRE MORE ENCOURAGEMENT AND HANDS ON LEARNING. PT ABLE TO EXPRESS FLATUS OUT OF BAG ON OWN. AMBULATED TWICE IN HALLWAY TODAY WITH WALKER. TO HAVE PT CONSULT. VOIDING IN BR.
[2021-01-11 19:49] VITALS: BP 143/72; PULSE 93; RESP 20; TEMP 37.1; O2SAT 96
[2021-01-11 23:43] VITALS: BP 125/62; PULSE 88; RESP 14; TEMP 37.8; O2SAT 96
[2021-01-12] VITALS (7 sets, daily range): BP systolic 118–147; BP diastolic 61–84; PULSE 79–101; RESP 14–18; TEMP 36.6–37.7; O2SAT 92–96
[2021-01-12] MEDS: Heparin Sodium,Porcine 5,000 UNIT/ML VIAL 5000 UNIT SUBCUT ×2 (01:22→14:01)
[2021-01-12] MEDS: oxyCODONE HCl Immed Release 5 MG TABLET PO ×4 (01:32→20:29)
[2021-01-12] MEDS: Acetaminophen 325 MG TABLET 650 MG PO ×4 (01:32→20:21)
[2021-01-12] MEDS: Levothyroxine Sodium 88 MCG TABLET PO (05:51)
[2021-01-12] MEDS: Sucralfate 1 GM TABLET PO ×4 (08:14→20:21)
[2021-01-12] MEDS: 0.9 % Sodium Chloride Flush 3 ML SYRINGE IVFLUSH (08:14)
[2021-01-12] MEDS: Loratadine 10 MG TABLET PO (08:14)
--- NOTE | 2021-01-12 08:21 | PM.PNGS ---
Subjective Subjective Date of Service: 01/12/21 Interval history: States she is okay Slowly getting better Tolerating diet Stoma functioning well Ambulating with walker Physical Exam Vital Signs: Vital Signs: Last Vital Signs Temp 99.7 F 01/12/21 07:46 Pulse 79 01/12/21 07:46 Resp 16 01/12/21 07:46 BP 146/65 H 01/12/21 07:46 Pulse Ox 92 01/12/21 07:46 Body Mass Index 36.0 Const: General: comfortable and no acute distress Resp: Effort & Inspection: normal respiratory effort GI: Other: Stoma functioning well, incision clean and dry with a short segment with redness Palpation (GI): Soft to palpation, nontender and no guarding Progress Note: A&P Assessment and plan (1) Perforation of sigmoid colon due to diverticulitis: Status: Acute Assessment and Plan: Status post Abeba's Stoma functioning well A segment of the incision has some redness - I therefore removed 2 hellen and open up the incision on this area; large amount of seromatous fluid drained Dressings were applied Physical therapy eval for discharge planning Doing well overall Fall Risk Details Current Medications: Current Medications Generic Name Dose Route Start Last Admin Trade Name Freq PRN Reason Stop Dose Admin Acetaminophen 650 mg 01/09/21 13:22 01/12/21 07:58 Acetaminophen 325 Mg Tablet PO 650 mg Q6H PRN Administration Pain, Mild (Pain Scale 1-3) Heparin Sodium (Porcine) 5,000 unit 01/05/21 01:36 01/12/21 01:22 Heparin Sodium,Porcine 5,000 Unit/Ml Vial SUBCUT 5,000 unit Q12H VERONICA Administration Promethazine HCl 12.5 mg/ 50.5 mls @ 202 mls/hr 01/07/21 00:29 01/07/21 02:14 Sodium Chloride IV Infused Q6H PRN Infusion Nausea Levothyroxine Sodium 88 mcg 01/06/21 06:30 01/12/21 05:51 Levothyroxine Sodium 88 Mcg Tablet PO 88 mcg DAILY@0630 VERONICA Administration Loratadine 10 mg 01/05/21 10:49 01/12/21 08:14 Loratadine 10 Mg Tablet PO 10 mg DAILY PRN Administration allergy symptoms Morphine Sulfate 3 mg 01/07/21 18:23 Morphine Sulfate 4 Mg/Ml Cartridge IVPUSH Q3H PRN Pain, Severe (Pain Scale 7-10) Naloxone HCl 0.2 mg 01/05/21 17:33 Naloxone Hcl 0.4 Mg/Ml Vial IVPUSH Q2M PRN Excessive sedation or RR < 8 Ondansetron HCl 4 mg 01/04/21 20:23 01/07/21 06:47 Ondansetron Hcl 4 Mg/2 Ml Vial IVPUSH 4 mg QID PRN Administration Nausea Oxycodone HCl 5 mg 01/07/21 18:23 01/12/21 07:58 Oxycodone Hcl Immed Release 5 Mg Tablet PO 5 mg Q6H PRN Administration Pain, Moderate (Pain Scale 4-6 Sodium Chloride 3 ml 01/05/21 01:36 01/12/21 08:14 0.9 % Sodium Chloride Flush 3 Ml Syringe IVFLUSH 3 ml QSHIFT VERONICA Administration Sucralfate 1 gm 01/07/21 13:00 01/12/21 08:14 Sucralfate 1 Gm Tablet PO 1 gm QIDACHS VERONICA Administration Zolpidem Tartrate 5 mg 01/05/21 01:36 Zolpidem Tartrate 5 Mg Tablet PO BEDTIME PRN Insomnia Time Spent With Patient Time: Total time spent is greater than 50% in coordination of care (as documented) at patient's floor/unit and/or counseling patient: Time with patient: 15 - 24 minutes
--- NOTE | 2021-01-12 12:25 | MHC.CM.PN ---
dc plan remanins mthe same fr pt home with hvns due to new colostomy
--- NOTE | 2021-01-12 12:52 | W.MHC.F2F ---
Service Date Service Date: 01/12/21 Reasons for Services Homebound: Leaving the home is medically contraindicated at this time without the assist of a device and/or another person due th the listed conditions above and below. She is status post Abeba's procedure and has has stoma. She has some deconditioning issues and has had difficulty with ambulation. Certification: Based on the above findings, I certify that this patient is confined to the home and needs intermittent residential care, physical therapy and/or speech therapy, or continues to need occupational therapy. The patient is under my care, and I have initiated the establishment of the plan of care. The patient will be followed by a physician who will periodically review the plan of care.
[2021-01-13] MEDS: oxyCODONE HCl Immed Release 5 MG TABLET PO ×3 (02:12→16:05)
[2021-01-13] MEDS: Acetaminophen 325 MG TABLET 650 MG PO ×3 (02:13→16:04)
[2021-01-13] MEDS: Heparin Sodium,Porcine 5,000 UNIT/ML VIAL 5000 UNIT SUBCUT ×2 (02:14→13:21)
[2021-01-13] MEDS: Levothyroxine Sodium 88 MCG TABLET PO (05:26)
[2021-01-13 07:44] VITALS: BP 124/59; PULSE 84; RESP 18; TEMP 36.4; O2SAT 94
[2021-01-13] MEDS: Loratadine 10 MG TABLET PO (08:14)
[2021-01-13] MEDS: Sucralfate 1 GM TABLET PO ×2 (08:15→11:17)
[2021-01-13] MEDS: 0.9 % Sodium Chloride Flush 3 ML SYRINGE IVFLUSH (08:15)
[2021-01-13 09:14] VITALS: BP 124/59; PULSE 84; O2SAT 94
--- NOTE | 2021-01-13 10:06 | PM.PNGS ---
Subjective Subjective Date of Service: 01/13/21 Interval history: Says she had a good night Continues to tolerate diet well Denies nausea vomiting Says there has not been much output from the stoma after the appliance was changed yesterday afternoon Physical Exam Vital Signs: Vital Signs: Last Vital Signs Temp 97.6 F 01/13/21 07:44 Pulse 84 01/13/21 09:14 Resp 18 01/13/21 07:44 BP 124/59 L 01/13/21 09:14 Pulse Ox 94 01/13/21 09:14 Body Mass Index 36.0 Const: General: anxious; No comfortable or no acute distress Resp: Effort & Inspection: normal respiratory effort Cardio: Rhythm: regular rhythm GI: Other: Stoma viable, no significant stool in bag Inspection: No distended Palpation (GI): Soft to palpation, not firm, no guarding and not rigid Progress Note: A&P Assessment and plan (1) Perforation of sigmoid colon due to diverticulitis: Status: Acute Assessment and Plan: Status post Abeba's Clinically looks well Stoma had been functioning well, however no again output overnight Exam benign PT eval done - patient okay to be discharged with home PT Visiting nurse arranged as well - discussed with clinical case manager Patient seen by our office nurse Miguel for stoma education yesterday Possible home later on today if she continues to have good bowel function Fall Risk Details Current Medications: Current Medications Generic Name Dose Route Start Last Admin Trade Name Freq PRN Reason Stop Dose Admin Acetaminophen 650 mg 01/09/21 13:22 01/13/21 08:13 Acetaminophen 325 Mg Tablet PO 650 mg Q6H PRN Administration Pain, Mild (Pain Scale 1-3) Docusate Sodium 100 mg 01/13/21 08:58 Docusate Sodium 100 Mg Capsule PO BID PRN Constipation Heparin Sodium (Porcine) 5,000 unit 01/05/21 01:36 01/13/21 02:14 Heparin Sodium,Porcine 5,000 Unit/Ml Vial SUBCUT 5,000 unit Q12H VERONICA Administration Promethazine HCl 12.5 mg/ 50.5 mls @ 202 mls/hr 01/07/21 00:29 01/07/21 02:14 Sodium Chloride IV Infused Q6H PRN Infusion Nausea Levothyroxine Sodium 88 mcg 01/06/21 06:30 01/13/21 05:26 Levothyroxine Sodium 88 Mcg Tablet PO 88 mcg DAILY@0630 VERONICA Administration Loratadine 10 mg 01/05/21 10:49 01/13/21 08:14 Loratadine 10 Mg Tablet PO 10 mg DAILY PRN Administration allergy symptoms Naloxone HCl 0.2 mg 01/05/21 17:33 Naloxone Hcl 0.4 Mg/Ml Vial IVPUSH Q2M PRN Excessive sedation or RR < 8 Ondansetron HCl 4 mg 01/04/21 20:23 01/07/21 06:47 Ondansetron Hcl 4 Mg/2 Ml Vial IVPUSH 4 mg QID PRN Administration Nausea Oxycodone HCl 5 mg 01/12/21 20:18 01/13/21 08:14 Oxycodone Hcl Immed Release 5 Mg Tablet PO 5 mg Q6H PRN Administration Pain, Moderate (Pain Scale 4-6 Sodium Chloride 3 ml 01/05/21 01:36 01/13/21 08:15 0.9 % Sodium Chloride Flush 3 Ml Syringe IVFLUSH 3 ml QSHIFT VERONICA Administration Sucralfate 1 gm 01/07/21 13:00 01/13/21 08:15 Sucralfate 1 Gm Tablet PO 1 gm QIDACHS VERONICA Administration Zolpidem Tartrate 5 mg 01/05/21 01:36 Zolpidem Tartrate 5 Mg Tablet PO BEDTIME PRN Insomnia Time Spent With Patient Time: Total time spent is greater than 50% in coordination of care (as documented) at patient's floor/unit and/or counseling patient: Time with patient: 25 - 35 minutes
[2021-01-13] MEDS: Docusate Sodium 100 MG CAPSULE PO (11:17)
--- NOTE | 2021-01-13 14:24 | MHC.CM.PN ---
[facility]vns notified of dc today
--- NOTE | 2021-01-13 14:42 | PM.EVENT ---
Event Note Date of Service: 01/13/21 Event Note: Says she continues to feel well Has undergone PT earlier - able to ambulate without problems Denies abdominal pain Tolerating diet Some solid stool from the stoma noted Abdomen remained soft She has this serosanguineous collection in part of the midline incision near the umbilicus I have drain more of this fluid now and applied a light packing. She is to have a visiting nurse and physical therapy at home Have discussed this with the case management specialist The patient says she is comfortable with the plan
--- NOTE | 2021-01-19 15:10 | PM.DS ---
DS: Providers Provider Date of Service: 01/13/21 Date of admission: 01/04/21 20:26 Date of discharge: 01/13/21 Primary care physician: Joana Real MD Admitting clinician: Juan Lambert Discharging clinician: Juan Lambert DS: Diagnosis Discharge Diagnosis (1) Perforation of sigmoid colon due to diverticulitis: Status: Acute DS: Medications Discharge Medications Home Medications: Home Medications Medication Instructions Recorded Confirmed cholecalciferol (vitamin D3) 50 50 mcg PO DAILY 08/29/20 01/04/21 mcg (2,000 unit) capsule loratadine 10 mg tablet 10 mg PO DAILY PRN 12/01/20 01/04/21 Previous Rx's Medication Instructions Recorded levothyroxine 88 mcg tablet 88 mcg PO DAILY 90 Days #90 tab 12/01/20 docusate sodium [Colace] 100 mg PO BID #60 cap 01/13/21 oxycodone 5 mg PO Q6H PRN #30 tab 01/13/21 DS: Summary Hospital Course Hospital Course: Kizzy Schwartz is a 60 year old female presenting with complaints of severe abdominal pain of 2 days duration. The pain began suddenly on 01/03/2021, noted in a periumbilical region initially then becoming more generalized throughout the day today. She was able to take an oxycodone which helped with the pain. She also reported nausea and vomiting for which she took Zofran which did improve the nausea. She denied any further vomiting. Patient has been unable to eat but did report 2 bowel movements yesterday. The pain increased with ambulation or any movement in bed. She denies a previous history of similar pain. She denies a previous history of abdominal surgeries. Work up in the ED revealed diffuse abdominal tenderness. Labs revealed an elevated WBC and CT abdomen and pelvis reveal free air with inflammatory changes in both the small bowel and colon. Due to the acute peritoneal findings on examination and free air noted on CT the decision was made to proceed to the operating room for emergency exploratory laparotomy. She was taken to the OR on the day of admission for exploratory laparotomy. Operative findings were consistent with a perforated sigmoid diverticulum with diffuse peritonitis with feculence fluid throughout her abdominal cavity. She underwent a Abeba procedure with end colostomy and rectal stump. The abdominal cavity was thoroughly irrigated with multiple L of saline solution. Postoperatively the patient was kept on IV antibiotics for the fecal peritonitis. Rowe catheter was left in place. The patient was kept NPO on IV fluids. She was encouraged to get out of bed and ambulate in new incentive spirometry. Her abdominal incision remained clean and intact without redness or discharge. Ostomy was pink and viable and after 2 days began to pass initially liquid followed by a semi formed stool from the ostomy. On postoperative day number 3 she began to show signs of an ileus with abdominal distension and heartburn. She was also splinting and not taking deep breaths. She was again encouraged to get out of bed and ambulate but was for reluctant due to her abdominal pain. Over the next several days however ostomy seemed to produce more stool the abdomen became softer and less distended. She was subsequently started on clear liquids and advanced to a regular diet which he did tolerate in small quantities. She was eventually converted from intravenous to the oral pain medications which gave her more prolonged pain relief. She began to get out of bed and ambulate with a walker. Ostomy remained pink and viable and was function appropriately. Small amount of redness was noted by the lower incision and several hellen were removed to drain a small seroma. The patient reported slow improvement over the next several postoperative day 8. Discharge instructions were to avoid heavy lifting for the next month. Arrangements were made for visiting nurses for ostomy care. She was instructed to call for fever, chills, nausea, vomiting, or difficulty with her bowels. She will follow up in the office in approximately 1 week for wound check. Time spent discussing smoking cessation with patient: 3 to 10 minutes Time Spent with Patient Time attestation: Total time spent providing and/or coordinating discharge services: Discharge coordination time: Less than 30 minutes Physical Exam Vital Signs: Vital Signs: Last Vital Signs Temp 97.6 F 01/13/21 07:44 Pulse 84 01/13/21 09:14 Resp 18 01/13/21 07:44 BP 124/59 L 01/13/21 09:14 Pulse Ox 94 01/13/21 09:14 Body Mass Index 36.0 Const: General: anxious; No comfortable or no acute distress Resp: Effort & Inspection: normal respiratory effort Cardio: Rhythm: regular rhythm GI: Other: Stoma viable, no significant stool in bag Inspection: No distended Palpation (GI): Soft to palpation, not firm, no guarding and not rigid DS: Data Data Completed and Pending Completed studies during hospitalization [Text1]: Pending at discharge 01/04/21 22:42 Surgical [PTH] Routine Procedures Bypass Sigmoid Colon to Cutaneous, Open Approach (01/04/21) Excision of Sigmoid Colon, Open Approach (01/04/21) Discharge Plan Discharge Patient Disposition: Home Health Service Discharge Diagnosis: perforated diverticulitis Referrals: [facility] [Outside] - 1 Week Joana Real MD [Primary Care Provider] - 1 Week Kaushik Aquino MD [Physician] - 1 Week Discharge Medications: New oxycodone 5 mg tablet 5 mg PO Q6H PRN (Reason: pain) Qty: 30 RF: 0 docusate sodium [Colace] 100 mg capsule 100 mg PO BID Qty: 60 RF: 2 Continued levothyroxine 88 mcg tablet 88 mcg PO DAILY 90 Days Qty: 90 RF: 2 cholecalciferol (vitamin D3) 50 mcg (2,000 unit) capsule 50 mcg PO DAILY RF: 0 loratadine [Claritin] 10 mg tablet 10 mg PO DAILY PRN (Reason: allergy symptoms) RF: 0 Discharge Orders: Discharge Order (Routine); Ordered 01/13/21 Ordered By: Kaushik Aquino Diet: regular diet Activity on Discharge: No heavy lifting Stand Alone Forms: Patient Portal Discharge page Activity Restrictions/Additional Instructions: If the incision area is tender, you may apply an ice pack for short intervals (No more than 20 minutes on, followed by at least 20 minutes off). Do not apply heat. Do not use creams, lotions, or topical antibiotics unless instructed to do so by your surgeon. These can cause infection or allergic reaction. Change dressings on the incision near the umbilicus daily with gauze. OK to shower No lifting more than 20 lb Call the office for follow-up in 2 weeks - with Dr. Lambert Call Your Doctor If: -Your temperature exceeds 101.5? F -You experience excessive pain or swelling -You have an unexpected reaction to medication -You have excessive bleeding -You experience continued vomiting/nausea -Your incision begins to separate -Your incision shows signs of infection such as increased redness, swelling, excessive pain, drainage (light blood or clear fluid is normal) or heat Care Plan Goals: stoma care Health Concerns: stoma care Plan of Treatment: [facility] to do wound care and stoma care PT at home in view of deconditioning Assessment: doing very well postop Discharge Date/Time: 01/13/21 17:03
== END 2021-01-13 17:03 | disposition home health service (06) | DRG 231 ==
LOC: HO.ED 22:29 → HO.IMC 01-05 01:27
PROVIDERS: Nurse Practitioner Family; Admitting Provider Surgery; Emergency Provider Internal Medicine; PCP Internal Medicine; Visit Provider Surgery
PROC: 0DBN0ZZ Excision of Sigmoid Colon, Open Approach (ICD-10-PCS; CPT 49000; principal; 2021-01-04 21:00)
DX: K57.20 Diverticulitis of large intestine with perforation and abscess without bleeding (principal); K65.0 Generalized (acute) peritonitis; E03.9 Hypothyroidism, unspecified; G47.33 Obstructive sleep apnea (adult) (pediatric); Z20.822 Contact with and (suspected) exposure to COVID-19; Z79.890 Hormone replacement therapy; Z79.899 Other long term (current) drug therapy
CPT/HCPCS: 36415; 74021; 74177; 80048; 80076; 81003; 81025; 83605; 83690; 83735; 85007; 85025; 85027; 87040; 87071; 87077; 87186; 87205; 87635; 88307; 96365; 96375; 97116; 97162; 99024; 99285; J0131; J1100; J1170; J2250; J2270; J2370; J2405; J2543; J2550; J2765; J3010; Q9967

== ENCOUNTER → 2021-01-22 15:33 | Outpatient (BNVA) | payer OTHER, SELFPAY | PROVIDERS: PCP Internal Medicine; Visit Provider Surgery ==

== ENCOUNTER → 2021-02-24 15:03 | Outpatient (BNVA) | payer OTHER, SELFPAY | PROVIDERS: PCP Internal Medicine; Visit Provider Surgery ==

== ENCOUNTER → 2021-03-04 10:27 | Outpatient (BNVA) | payer OTHER, SELFPAY | PROVIDERS: PCP Internal Medicine; Visit Provider Internal Medicine ==

== ENCOUNTER 2021-04-13 06:16 | Inpatient (IN) | payer OTHER, SELFPAY ==
[2021-04-06 09:58] VITALS: BMI 32.4
--- NOTE | 2021-04-07 14:26 | HO.ANESPROP2 ---
Documented by User: Nanette Xiomy 04/07/21 14:29 HPI - Anesthesia Eval Consult details Narrative: 61yo F for Colostomy Closure s/p perforated divertic with L colon resect, ostomy with GA-ETT 7.5 12/2020 [facility] [place] Active Problems Active Problems: All Active Problems (Updated 04/06/21 @ 10:02 by Zenaida Felix) Colostomy in place (Acute) Sigmoid diverticulitis (Acute) Obesity (BMI 30-39.9) (Acute) Vitamin D deficiency (Acute) Non-toxic multinodular goiter (Acute) Hypothyroidism (Acute) JOYCE (obstructive sleep apnea) (Acute) Past Medical History Medical History Anxiety disorder COVID-19 vaccine series completed Depression Hx of supraventricular tachycardia Hypothyroidism Non-toxic multinodular goiter Obesity (BMI 30-39.9) JOYCE (obstructive sleep apnea) Seasonal allergies Vitamin D deficiency Family History Family History Father Heart disease Mother No problems noted. Surgical History Surgical History H/O knee surgery History of radiofrequency ablation procedure for cardiac arrhythmia Hx of colonoscopy Hx of exploratory laparotomy Hx of LASIK S/P thyroid biopsy Social History Social History Household Members: Spouse Housing: House Are you a primary animal caregiver to a significant other at home: No Do you presently have visiting nurse or other home services: Yes ([facility] - post op) Alcohol intake: never Patient Tobacco Use Status: Never used Tobacco Second Hand Smoke Exposure: No Use of substances other than those prescribed or required for medical reasons: No Have you been hit, kicked, punched, or otherwise hurt by someone within the past year? If so, by whom?: No Are you DNR?: No Advance Directives: No Advance Directives Information Provided: No Advance Directives on File: No Recently lost weight without trying: No Eating poorly because of decreased appetite: No Nutrition Risks: No Nutritional Risk Patient : No service: No Current occupational status: employed Meds Allergies Allergy/AdvReac Type Severity Reaction Status Date / Time No Known Allergies Allergy Verified 04/13/21 06:49 Home Medications Medication Instructions Recorded Confirmed Last Taken Type cholecalciferol (vitamin D3) 50 50 mcg PO DAILY 08/29/20 04/06/21 04/12/21 08:00 History mcg (2,000 unit) capsule loratadine 10 mg tablet 10 mg PO DAILY PRN 12/01/20 04/06/21 04/12/21 08:00 History calcium carbonate-simethicone 1 tab PO NEEDED PRN 04/06/21 04/06/21 04/12/21 08:00 History [Tums Anti-Gas/Antacid] diphenhydramine-acetaminophen 2 tab PO BEDTIME PRN 04/06/21 04/06/21 04/12/21 08:00 History [Tylenol PM Extra Strength] levothyroxine 44 mcg PO DAILY 04/06/21 04/06/21 04/13/21 05:45 History magnesium oxide 400 mg PO DAILY 04/06/21 04/06/21 04/12/21 08:00 History Exam Exam Date and Time: April 07, 2021 1426 Height,Weight and Vital Signs: Height 5 ft 4 in Weight 85.729 kg Narrative Narrative: EKG 12/2020 [facility] Assessment and Plan Assessment Anesthesia Assessment: Chart Reviewed Documented by User: Tristin Puentes MD 04/13/21 07:30 [facility] [place] Past Medical History Medical History Anxiety disorder COVID-19 vaccine series completed Depression Hx of supraventricular tachycardia Hypothyroidism Non-toxic multinodular goiter Obesity (BMI 30-39.9) JOYCE (obstructive sleep apnea) Seasonal allergies Vitamin D deficiency Family History Family History Father Heart disease Mother No problems noted. Family history of problems with anesthesia: No Surgical History Surgical History H/O knee surgery History of radiofrequency ablation procedure for cardiac arrhythmia Hx of colonoscopy Hx of exploratory laparotomy Hx of LASIK S/P thyroid biopsy History of Problems with Anesthesia: Yes ([facility]) Social History Social History Household Members: Spouse Housing: House Are you a primary animal caregiver to a significant other at home: No Do you presently have visiting nurse or other home services: Yes ([facility] - post op) Alcohol intake: never Patient Tobacco Use Status: Never used Tobacco Second Hand Smoke Exposure: No Use of substances other than those prescribed or required for medical reasons: No Have you been hit, kicked, punched, or otherwise hurt by someone within the past year? If so, by whom?: No Are you DNR?: No Advance Directives: No Advance Directives Information Provided: No Advance Directives on File: No Recently lost weight without trying: No Eating poorly because of decreased appetite: No Nutrition Risks: No Nutritional Risk Patient : No service: No Current occupational status: employed Meds Allergies Allergy/AdvReac Type Severity Reaction Status Date / Time No Known Allergies Allergy Verified 04/13/21 06:49 Home Medications Medication Instructions Recorded Confirmed Last Taken Type cholecalciferol (vitamin D3) 50 50 mcg PO DAILY 08/29/20 04/06/21 04/12/21 08:00 History mcg (2,000 unit) capsule loratadine 10 mg tablet 10 mg PO DAILY PRN 12/01/20 04/06/21 04/12/21 08:00 History calcium carbonate-simethicone 1 tab PO NEEDED PRN 04/06/21 04/06/21 04/12/21 08:00 History [Tums Anti-Gas/Antacid] diphenhydramine-acetaminophen 2 tab PO BEDTIME PRN 04/06/21 04/06/21 04/12/21 08:00 History [Tylenol PM Extra Strength] levothyroxine 44 mcg PO DAILY 04/06/21 04/06/21 04/13/21 05:45 History magnesium oxide 400 mg PO DAILY 04/06/21 04/06/21 04/12/21 08:00 History Exam Airway Mallampati Class: I TM Dist: >3cm Neck ROM: Full Loose/Missing/Broken Teeth: No Heart: ok Lungs: ok Assessment and Plan Assessment Anesthesia Assessment: Anesthesia Plan Discussed and Chart Reviewed Final Anesthetic Review NPO: Yes ASA Class: III Final Preanesthetic Review: No Changes in Pt Med Stat, Meds/Allgs Chart Reviewed, Consent Obtained/Reviewed and Anes Risks/Benef Reviewed Patient Risk: Intermediate Procedure Risk: Intermediate Anesthetic Plan Anesthetic Plan: GA and Agree w/ Assess. and Plan Disposition: Standard PACU
[2021-04-13] VITALS (24 sets, daily range): BP systolic 102–131; BP diastolic 46–72; PULSE 76–96; RESP 14–19; TEMP 36.3–37.2; O2SAT 92–99
[2021-04-13 06:56] LABS: Hematocrit 37.6 % (37-47); Hemoglobin 12.7 g/dl (12.0-16.0); Mean Corpuscular HGB Conc 33.8 g/dl (31.0-35.0); Mean Corpuscular Hemoglobin 30.2 pg (27.0-33.0); Mean Corpuscular Volume 89.5 fL (80-98); Mean Platelet Volume 9.7 fL (9.4-12.3); Platelet Count 345 X10*3/uL (160-400); Red Cell Distribution Width 14.5 % (11.0-16.0); White Blood Count 4.2 X10*3/uL (4.8-10.8)
[2021-04-13 06:59] LABS: COVID-19 Test Negative (Negative)
[2021-04-13 07:15] LABS: Anion Gap 12 (12-20); Blood Urea Nitrogen 7 mg/dL (9-16); Calcium 9.3 mg/dL (8.4-10.2); Carbon Dioxide 24 mmol/L (22-29); Chloride 110 mmol/L (96-108); Creatinine Clr Calc Pharmacy 90.5; Estimated Glomerular Filt Rate > 60; Glucose Fasting 94 mg/dL (60-99); Potassium 3.9 mmol/L (3.3-5.1); Sodium 142 mmol/L (135-145)
[2021-04-13] MEDS: Lactated Ringers 1,000 ML 100 ML IVCONT (07:38)
--- NOTE | 2021-04-13 10:50 | P.OP_ITS ---
Operative Note Operative Note Date of Service: 04/13/21 Narrative: Preoperative diagnosis: Sigmoid diverticulitis status post Abeba procedure Postoperative diagnosis: Same Procedure: Closure of colostomy with colorectal anastomosis Surgeon: Juan Lambert MD Sign Painter Helper: Apolonia Nowak PA-C Anesthesia: General endotracheal Indications for procedure: 61-year-old female with a previous history of perforated sigmoid diverticulitis with fecal peritonitis, status post Abeba procedure now presenting for closure of colostomy. Operative findings: Colostomy in left lower quadrant, with mild adhesions and no evidence of acute diverticulitis. Portions of the proximal sigmoid colon and proximal rectum were removed prior to Calot rectal anastomosis. Specimen: Colostomy, rectosigmoid colon Estimated blood loss: 50 mL Complications: None Procedure details: Patient was brought to the OR and placed in a supine position. After administering general anesthesia the patient was placed in a lithotomy position. Patient's perineum was prepped with Betadine and colostomy was prepped with Betadine. The remainder abdomen was prepped with ChloraPrep. Patient was then draped in a sterile fashion. A surgical time-out was called the consent confirmed. Patient received preoperative antibiotics and Venodyne boots were in place. Local anesthesia consisting of 0.25% Sensorcaine with epinephrine was then infiltrated around the umbilicus in midline incision. An elliptical incision was then created oriented transversely around the colostomy. The colostomy had previously been sutured closed using a Prolene suture. The incision was carried out through subcutaneous tissue down to the bowel wall. This was followed down past the fascia. A peristomal hernia was identified. The sac was included in the specimen. When the colostomy was fully mobilized attention was then directed to the midline incision which was also opened and elliptical fashion to include the previous scar. This carried out through subcutaneous tissue past linea alba and into the abdominal cavity. Adhesions were then taken down off the abdominal wall. Small bowel was then dissected free from the rectal stump and bladder. The rectal stump was identified with previously lynch Prolene suture in place. The remaining descending colon and sigmoid colon was examined and no active diverticular disease could be identified. The colostomy stump was excised and a pursestring clamp placed on the bowel wall. A pursestring of 2-0 Prolene was then placed. EEA sizers were then used and was easily dilated to 31 mm. A 28 mm EEA stapler was then obtained. The anvil was placed in the distal sigmoid and the pursestring tied. Attention was then directed to the anal rectal region weird the dilators were then inserted in the rectum sized. An apparent twist or kink in the proximal rectum was identified at which point the dilator was not able to be passed. The decision was made to dissect the rectum past this location and resect. Additional segment of proximal rectum was then excised and the remaining rectum fully mobilized. The dilator was again inserted and was easily able to pass up to the staple line. At this point the EEA 28 mm was then inserted and advanced to the rectal stump. The staple was then fired into complete donuts were identified. A 3-0 Surgilon suture was placed to reinforce the anastomosis. A leak test was then performed by instilling air into the rectum while filling the pelvis with saline. No leak could be identified. The abdomen was then irrigated with saline suctioned dry. Wounds were checked for hemostasis. The fascia at the colostomy site was closed using a running 0 Polysorb suture. Fascia in the midline incision was closed with a 1 Maxon suture. Subcutaneous tissue was closed using interrupted 3-0 Polysorb sutures. Skin was closed using skin hellen. Sterile dressings were then applied. The patient tolerated the procedure well. Sponge, instrument, and needle counts reported as correct. The patient was transferred to PACU in stable condition.
--- NOTE | 2021-04-13 10:52 | PM.OP ---
Brief Operative Note Date of Service: 04/13/21 <Apolonia Nowak PA-C - Last Filed: 04/13/21 11:05> Pre-op diagnosis: perforated sigmoid diverticulitis, colostomy in place <Apolonia Nowak PA-C - Last Filed: 04/13/21 11:05> Procedure: colostomy closure, repair of parastomal hernia <Apolonia Nowak PA-C - Last Filed: 04/13/21 11:05> Surgeon: JUAN LAMBERT MD <Apolonia Nowak PA-C - Last Filed: 04/13/21 11:05> Anesthesia: GETA <Apolonia Nowak PA-C - Last Filed: 04/13/21 11:05> Was an Calender Roll Operator used for this Procedure?: No <Apolonia Nowak PA-C - Last Filed: 04/13/21 11:05> No <Juan Lambert MD - Last Filed: 04/13/21 11:24> Calender Roll Operator: Apolonia Nowak <Apolonia Nowak PA-C - Last Filed: 04/13/21 11:05> Estimated blood loss (mL): 100 <Apolonia Nowak PA-C - Last Filed: 04/13/21 11:05> IV fluids (mL): 1,200 <Apolonia Nowak PA-C - Last Filed: 04/13/21 11:05> Urine output (mL): 400 <Apolonia Nowak PA-C - Last Filed: 04/13/21 11:05> Pathology: other (rectum, colostomy) <MARYCHUY Bhatia Last Filed: 04/13/21 11:05> Condition: stable <Apolonia Nowak PA-C - Last Filed: 04/13/21 11:05> Disposition: PACU <MARYCHUY Bhatia Last Filed: 04/13/21 11:05>
[2021-04-13] MEDS: HYDROmorphone HCl 0.5 MG/0.5 ML SYRINGE IVPUSH ×3 (10:58→11:40)
--- NOTE | 2021-04-13 11:04 | PC.NURSE ---
Dr Puentes at bedside. Verbal order to give 1mg Dilaudid IV instead of 0.5 mg repeated back to doctor. 0.5 mg pulled and given by Norma Otoole RN. Second 0.5 mg IV dilaudid pulled by Nora Madden RN and given to Norma Otoole for admin.
[2021-04-13] MEDS: fentaNYL citrate/PF 100 MCG/2 ML VIAL 50 MCG IVPUSH ×3 (11:15→12:49)
--- NOTE | 2021-04-13 11:24 | MHC.SHP ---
Pre-Procedural Eval Section A Date of Service: 04/13/21 The patient is an INPATIENT: No Changes since office visit: Yes Patient answered all questions; No Cold of Flu in the past 2 weeks, No New Medical Problems and No Changes in Medication The History & Physical has been completed within 30 days and I have reviewed it.: Yes Section B Chief Complaint: Closure of colostomy Allergies: Allergies Allergy/AdvReac Type Severity Reaction Status Date / Time No Known Allergies Allergy Verified 04/13/21 06:49 Plan Diagnosis/Plan: Unchanged I have reviewed the history and physical and performed a pertinent physical examination on my patient. No changes have occurred unless specified.
[2021-04-13] MEDS: Dextrose 5 % and Lactated Ring 1,000 ML 125 ML IVCONT ×2 (13:48→19:45)
[2021-04-13] MEDS: Morphine Sulfate 2 MG/ML CARTRIDGE 4 MG IVPUSH ×3 (13:49→19:37)
[2021-04-13] MEDS: Simethicone 80 MG TAB.CHEW 160 MG PO (14:13)
[2021-04-13] MEDS: Simethicone 80 MG TAB.CHEW PO ×2 (16:55→19:46)
[2021-04-14] VITALS (8 sets, daily range): BP systolic 115–143; BP diastolic 56–78; PULSE 86–113; RESP 16–20; TEMP 36.3–36.9; O2SAT 96–99
[2021-04-14] MEDS: Morphine Sulfate 2 MG/ML CARTRIDGE 4 MG IVPUSH ×2 (00:21→06:11)
[2021-04-14] MEDS: Dextrose 5 % and Lactated Ring 1,000 ML 125 ML IVCONT ×3 (03:50→20:16)
[2021-04-14 06:03] LABS: MANUAL DIFF FLAG NO
[2021-04-14 06:08] LABS: Basophils Percent Auto 0.1 % (0-2); Eosinophils Percent Auto 0.1 % (0-4); Hematocrit 33.8 % (37-47); Hemoglobin 11.2 g/dl (12.0-16.0); Imm Gran Abs Auto 0.03 X10*3/uL (0.00-0.03); Imm Gran Pct Auto 0.3 % (0.0-0.4); Lymphocytes Absolute Auto 1.4 X10*3/uL (1.2-4.9); Lymphocytes Percent Auto 12.9 % (20-40); Mean Corpuscular HGB Conc 33.1 g/dl (31.0-35.0); Mean Corpuscular Hemoglobin 30.2 pg (27.0-33.0); Mean Corpuscular Volume 91.1 fL (80-98); Mean Platelet Volume 9.8 fL (9.4-12.3); Monocytes Absolute Auto 1.1 X10*3/uL (0.1-1.2); Monocytes Percent Auto 9.8 % (2-11); Neutrophils Absolute Auto 8.3 X10*3/uL (2.0-8.3); Neutrophils Percent Auto 76.8 % (45-73); Platelet Count 323 X10*3/uL (160-400); Red Blood Count 3.71 X10*6/uL (4.20-5.50); Red Cell Distribution Width 14.3 % (11.0-16.0); White Blood Count 10.9 X10*3/uL (4.8-10.8)
[2021-04-14] MEDS: Levothyroxine Sodium 88 MCG TABLET 44 MCG PO (06:16)
[2021-04-14 06:38] LABS: Anion Gap 8 (12-20); Blood Urea Nitrogen 4 mg/dL (9-16); Calcium 8.6 mg/dL (8.4-10.2); Carbon Dioxide 28 mmol/L (22-29); Chloride 105 mmol/L (96-108); Creatinine Clr Calc Pharmacy 100.6; Estimated Glomerular Filt Rate > 60; Glucose Random 131 mg/dL (60-115); Potassium 3.7 mmol/L (3.3-5.1); Sodium 137 mmol/L (135-145)
--- NOTE | 2021-04-14 07:31 | PM.PNGS ---
Subjective Subjective Date of Service: 04/14/21 <Apolonia Nowak PA-C - Last Filed: 04/14/21 07:38> 04/14/21 <Juan Lambert MD - Last Filed: 04/14/21 08:02> Interval history: Having difficulty with nausea/vomiting and pain overnight. Last episode of emesis around 2am. Incisional pain not well controlled. Also complains of gas pains. Passing flatus. Struggles with constipation/hard stools at baseline and would like stool softener. Has not been OOB. <Apolonai Nowak PA-C - Last Filed: 04/14/21 07:38> Physical Exam Vital Signs: Vital Signs: Last Vital Signs Temp 97.8 F 04/14/21 04:27 Pulse 86 04/14/21 04:27 Resp 16 04/14/21 04:27 BP 115/60 04/14/21 04:27 Pulse Ox 96 04/14/21 04:27 Body Mass Index 32.4 <Apolonia Nowak PA-C - Last Filed: 04/14/21 07:38> Const: General: no acute distress, alert and other (in pain) <Apolonia Nowak PA-C - Last Filed: 04/14/21 07:38> Orientation/consciousness: patient oriented x3 <Apolonia Nowak PA-C - Last Filed: 04/14/21 07:38> Eyes: Sclerae: sclerae normal <Apolonia Nowak PA-C - Last Filed: 04/14/21 07:38> Resp: Effort & Inspection: normal respiratory effort <Apolonia Nowak PA-C - Last Filed: 04/14/21 07:38> Cardio: Rate: regular rate <MARYCHUY Bhatia Last Filed: 04/14/21 07:38> GI: Inspection: No distended and Yes other (dressing clean, dry, intact) <MARYCHUY Bhatia Last Filed: 04/14/21 07:38> Palpation (GI): Soft to palpation, Tenderness to palpation present (GI) (mild diffuse, moderate at incision sites), no guarding and not rigid <MARYCHUY Bhatia Last Filed: 04/14/21 07:38> Skin: General skin exam: no rashes or lesions noted <Apolonia Nowak PA-C - Last Filed: 04/14/21 07:38> Neuro: General: patient oriented x3 <Apolonia Nowak PA-C - Last Filed: 04/14/21 07:38> Extrem: General: Yes no clubbing, cyanosis or edema <Apolonia Nowak PA-C - Last Filed: 04/14/21 07:38> Procedures Date of Service Date of Service: 04/14/21 <Apolonia Nowak PA-C - Last Filed: 04/14/21 07:38> Progress Note: A&P Assessment and plan (1) Colostomy in place: Status: Acute <Apolonia Nowak PA-C - Last Filed: 04/14/21 07:38> Assessment and Plan: POD #1 s/p colostomy reversal. Having difficulty with pain, nausea post op. VSS. Abd exam- nondistended, appropriate tenderness at incision sites, dressings c/d/i. Luz in place, UOP good. Will adjust analgesics- d/c morphine, IV dilaudid ordered. Continue PRN IV antiemetics. Cont clear liquids as tolerated, IVF. Once pain better controlled, encouraged to get OOB to chair today. Will d/c luz later if pain better controlled. AM labs reviewed. <Apolonia Nowak PA-C - Last Filed: 04/14/21 07:38> (2) Sigmoid diverticulitis: Status: Acute <Apolonia Nowak PA-C - Last Filed: 04/14/21 07:38> Assessment and Plan: Patient is POD #1 s/p closure of colostomy; major issue is pain control. Agree with the above assessment and plan. Pain meds to be adjusted, IVFs decreased and luz catheter to be removed. Encouraged patient to get OOB and ambulate. Will keep on clear liquids for now. <Juan Lambert MD - Last Filed: 04/14/21 08:02> Fall Risk Details Current Medications: Current Medications Generic Name Dose Route Start Last Admin Trade Name Freq PRN Reason Stop Dose Admin Alvimopan 12 mg 04/13/21 21:00 04/13/21 19:46 Alvimopan 12 Mg Capsule PO 04/20/21 21:01 12 mg BID VERONICA Administration Dextrose/Lactated Ringer's 1,000 mls @ 125 mls/hr 04/13/21 13:17 04/14/21 03:50 D5lr IVCONT 125 mls/hr .Q8H VERONICA Administration Acetaminophen 1,000 mg in 100 mls @ 400 mls/hr 04/13/21 14:00 04/14/21 02:08 Ofirmev IV Infused Q6H VERONICA Infusion Promethazine HCl 12.5 mg/ 50.5 mls @ 202 mls/hr 04/13/21 19:12 04/14/21 06:32 Sodium Chloride IV Infused Q4H PRN Infusion Nausea and Vomiting Levothyroxine Sodium 44 mcg 04/14/21 06:30 04/14/21 06:16 Levothyroxine Sodium 88 Mcg Tablet PO 44 mcg DAILY@0630 VERONICA Administration Morphine Sulfate 4 mg 04/13/21 13:17 04/14/21 06:11 Morphine Sulfate 2 Mg/Ml Cartridge IVPUSH 4 mg Q3H PRN Administration Pain, Severe (Pain Scale 7-10) Ondansetron HCl 4 mg 04/13/21 13:17 04/13/21 16:54 Ondansetron Hcl 4 Mg/2 Ml Vial IVPUSH 4 mg Q8H PRN Administration Nausea and Vomiting Oxycodone HCl 5 mg 04/13/21 13:17 Oxycodone Hcl Immed Release 5 Mg Tablet PO Q4H PRN Pain, Moderate (Pain Scale 4-6 Simethicone 80 mg 04/13/21 17:00 04/13/21 19:46 Simethicone 80 Mg Tab.Chew PO 80 mg QIDWMHS VERONICA Administration Zolpidem Tartrate 5 mg 04/13/21 13:17 Zolpidem Tartrate 5 Mg Tablet PO BEDTIME PRN Insomnia <Apolonia Nowak PA-C - Last Filed: 04/14/21 07:38> Time Spent With Patient Time: Total time spent is greater than 50% in coordination of care (as documented) at patient's floor/unit and/or counseling patient: <Apolonia Nowak PA-C - Last Filed: 04/14/21 07:38> Time with patient: 15 - 24 minutes <Apolonia Nowak PA-C - Last Filed: 04/14/21 07:38> Quality Stroke Does the patient have a stroke diagnosis?: No <Apolonia Nowak PA-C - Last Filed: 04/14/21 07:38> VTE Prior VTE?: No <Apolonia Nowak PA-C - Last Filed: 04/14/21 07:38> VTE Risk Level:: Surgical - high <Apolonia Nowak PA-C - Last Filed: 04/14/21 07:38> VTE Device Contraindication: N/A - Device Ordered <Apolonia Nowak PA-C - Last Filed: 04/14/21 07:38> VTE Drug Contraindication: N/A - Med Ordered <Apolonia Nowak PA-C - Last Filed: 04/14/21 07:38>
[2021-04-14] MEDS: Docusate Sodium 100 MG CAPSULE PO ×2 (07:58→20:20)
[2021-04-14] MEDS: Simethicone 80 MG TAB.CHEW PO ×4 (07:59→20:20)
[2021-04-14] MEDS: HYDROmorphone HCl 0.5 MG/0.5 ML SYRINGE IVPUSH ×3 (08:05→17:06)
[2021-04-14] MEDS: Magnesium Oxide 400 MG TABLET PO (08:37)
[2021-04-14] MEDS: Loratadine 10 MG TABLET PO (08:37)
[2021-04-14] MEDS: Enoxaparin Sodium 40 MG/0.4 ML SYRINGE SUBCUT (10:59)
--- NOTE | 2021-04-14 14:23 | MHC.AU.HFA ---
Hearing Instrument Fitting- Adult- Binaural Date of Visit: Automatic Developer Used: Hearing Instruments Dispensed: Right Ear: Erp Pm: Model: Serial Number: Repair Warranty: Loss and Damage Warranty: Service Plan: Battery Size: Color: Loading Manager: Tubing: Type of Dome: Type of Mold: Type of Wax Guard: Left Ear: Erp Pm: Model: Serial Number: Repair Warranty: Loss and Damage Warranty: Service Plan: Battery Size: Color: Loading Manager: Tubing: Type of Dome: Type of Mold: Type of Wax Guard: Accessories/Assistive Technology: Summary of Fitting: Recommendations: Recommendations: Recommendations (Other): Diagnosis Code(s): Primary Diagnosis: Secondary Diagnosis: Services Performed: Hearing Aid Evaluation Type: Ear Impression (Quantity): Earmold (Quantity): Swim Mold (Quantity): Musician's Plug (Quantity): TATUM Dispensing Fees: TATUM Product Codes: Fitting Accessories: TATUM Accessories (Quantity): Accessory Description: Hearing Aid Fitting Services: Number of Individual Battery Cells: Package of Wax Guards: TATUM Purchased through [facility] [place] [facility] or Outside Vendor: TATUM Maintenance, Minor Repair (Quantity): Loading Manager Replaced, Out of Warranty: Domes/Tubes: Out of Warranty Repair by Erp Pm: Extended Warranty (1 or 2 Instruments): Cerumen Removal: Loss and Damage Replacement Fee: TATUM Non-Quantity Charges: Signature: Student/Clinical Fellow: I have reviewed/agreed with student/fellow documentation: Provider:
--- NOTE | 2021-04-14 14:24 | MHC.CM.PN ---
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 SHE WAS ACTIVE WITH THE [facility] FOR NURSING AND [facility] FOR HER CPAP FOR SLEEP APNEA. EDUCATED ABOUT THE IMPORTANCE OF HAVING A [facility] PROXY DISCHARGE PLAN HOME WITH [facility]UMPTION OF THE [facility] FOR [facility]UR[facility] AND REQUESTING HOME PHYSICAL THEAPRY PCP DR ELVIRA YEBOAH TRANSPORTATION FAMILY.
--- NOTE | 2021-04-14 15:35 | HO.POSTANES ---
Post Anesthesia Evaluation Post Anesthesia Evaluation Vital Signs: Vital Signs Temp Pulse Resp BP Pulse Ox 04/14/21 14:00 93 135/61 04/14/21 07:42 98.0 F 90 16 132/56 L 99 04/14/21 07:31 98 04/14/21 04:27 97.8 F 86 16 115/60 96 Anesthesia: General Endotracheal-GETA Mental Status: Awake Pain Control: Satisfactory Nausea/Vomiting: None Hydration: Adequate Anesthesia-Related Issues: No Anes. Related Issues
[2021-04-15] MEDS: Loratadine 10 MG TABLET PO ×2 (00:57→08:16)
[2021-04-15] MEDS: Dextrose 5 % and Lactated Ring 1,000 ML 80 ML IVCONT ×2 (02:51→15:35)
[2021-04-15] MEDS: Levothyroxine Sodium 88 MCG TABLET 44 MCG PO (06:37)
[2021-04-15 07:00] VITALS: O2SAT 95
[2021-04-15 07:29] VITALS: BP 160/73; PULSE 105; RESP 17; TEMP 37; O2SAT 94
--- NOTE | 2021-04-15 07:34 | PM.PNGS ---
Subjective Subjective Date of Service: 04/15/21 <Apolonia Nowak PA-C - Last Filed: 04/15/21 07:39> 04/15/21 <Juan Lambert MD - Last Filed: 04/15/21 10:27> Interval history: Feels a little better this morning. Nausea, pain improved. Last episode of emesis last night. Tolerating a little clears. Passing flatus and had a small stool with small amount of blood. OOB and ambulating yesterday. <Apolonia Nowak PA-C - Last Filed: 04/15/21 07:39> Physical Exam Vital Signs: Vital Signs: Last Vital Signs Temp 98.6 F 04/15/21 07:29 Pulse 105 H 04/15/21 07:29 Resp 17 04/15/21 07:29 BP 160/73 H 04/15/21 07:29 Pulse Ox 94 04/15/21 07:29 Body Mass Index 32.4 <Apolonia Nowak PA-C - Last Filed: 04/15/21 07:39> Const: General: comfortable, no acute distress and alert <Apolonia Nowak PA-C - Last Filed: 04/15/21 07:39> Orientation/consciousness: patient oriented x3 <MARYCHUY Bhatia Last Filed: 04/15/21 07:39> Resp: Effort & Inspection: normal respiratory effort <Apolonia Nowak PA-C - Last Filed: 04/15/21 07:39> Auscultation: clear to auscultation bilaterally <Apolonia Nowak PA-C - Last Filed: 04/15/21 07:39> Cardio: Rate: regular rate <Apolonia Nowak PA-C - Last Filed: 04/15/21 07:39> Rhythm: regular rhythm <MARYCHUY Bhatia Last Filed: 04/15/21 07:39> GI: Inspection: No distended and Yes incision (clean) <MARYCHUY Bhatia Last Filed: 04/15/21 07:39> Palpation (GI): Soft to palpation and Tenderness to palpation present (GI) (diffuse, incisional) <Apolonia Nowak PA-C Kerri Last Filed: 04/15/21 07:39> Percussion: Yes normal to percussion <Apolonia Nowak PA-C - Last Filed: 04/15/21 07:39> Auscultation: normal bowel sounds <Apolonia Nowak PA-C Kerri Last Filed: 04/15/21 07:39> Skin: General skin exam: no rashes or lesions noted <Apolonia Nowak PA-C - Last Filed: 04/15/21 07:39> Neuro: General: patient oriented x3 <Apolonia Nowak PA-C Kerri Last Filed: 04/15/21 07:39> Extrem: General: Yes no clubbing, cyanosis or edema <Apolonia Nowak PA-C - Last Filed: 04/15/21 07:39> Procedures Date of Service Date of Service: 04/15/21 <Apolonia Nowak PA-C - Last Filed: 04/15/21 07:39> Progress Note: A&P Assessment and plan (1) Colostomy in place: Status: Acute <MARCELA BhatiaEmilia Manning Last Filed: 04/15/21 07:39> (2) Sigmoid diverticulitis: Status: Acute <Apolonia Nowak PA-C Kerri Last Filed: 04/15/21 07:39> Assessment and Plan: POD #2 s/p colostomy reversal. Nausea and pain improved, has evidence of GI fxn. VSS. Abd exam- nondistended, appropriate tenderness at incision sites, incision clean. Continue pain control. Will keep on clear liquids- possibly advance later today. Continue to encourage ambulation, IS use. <Apolonia Nowak PA-C - Last Filed: 04/15/21 07:39> POD #2 s/p colostomy reversal. Nausea and pain improved, has evidence of GI fxn. VSS. Abd exam- nondistended, appropriate tenderness at incision sites, incision clean. Continue pain control. Will keep on clear liquids- possibly advance later today. Continue to encourage ambulation, IS use. Agree with the above assessment and plan. Patient is making slow improvement, tolerating some liquids and passing a small BM. Wounds are clean and intact without redness or discharge. Encouraged continued ambulation. Possible advancement of diet later today. <Juan Lambert MD - Last Filed: 04/15/21 10:27> Fall Risk Details Current Medications: Current Medications Generic Name Dose Route Start Last Admin Trade Name Freq PRN Reason Stop Dose Admin Alvimopan 12 mg 04/13/21 21:00 04/14/21 20:20 Alvimopan 12 Mg Capsule PO 04/20/21 21:01 12 mg BID VERONICA Administration Docusate Sodium 100 mg 04/14/21 09:00 04/14/21 20:20 Docusate Sodium 100 Mg Capsule PO 100 mg BID VERONICA Administration Enoxaparin Sodium 40 mg 04/14/21 11:00 04/14/21 10:59 Enoxaparin Sodium 40 Mg/0.4 Ml Syringe SUBCUT 40 mg Q24H VERONICA Administration Hydromorphone HCl 0.5 mg 04/14/21 07:30 04/14/21 17:06 Hydromorphone Hcl 0.5 Mg/0.5 Ml Syringe IVPUSH 0.5 mg Q3H PRN Administration Pain, Severe (Pain Scale 7-10) Dextrose/Lactated Ringer's 1,000 mls @ 80 mls/hr 04/13/21 13:17 04/15/21 02:51 D5lr IVCONT 80 mls/hr .[id number] VERONICA Administration Acetaminophen 1,000 mg in 100 mls @ 400 mls/hr 04/13/21 14:00 04/15/21 01:37 Ofirmev IV Infused Q6H VERONICA Infusion Promethazine HCl 12.5 mg/ 50.5 mls @ 202 mls/hr 04/13/21 19:12 04/14/21 20:45 Sodium Chloride IV Infused Q4H PRN Infusion Nausea and Vomiting Levothyroxine Sodium 44 mcg 04/14/21 06:30 04/15/21 06:37 Levothyroxine Sodium 88 Mcg Tablet PO 44 mcg DAILY@0630 VERONICA Administration Loratadine 10 mg 04/14/21 09:00 04/15/21 00:57 Loratadine 10 Mg Tablet PO 10 mg DAILY VERONICA Administration Magnesium Oxide 400 mg 04/14/21 09:00 04/14/21 08:37 Magnesium Oxide 400 Mg Tablet PO 400 mg DAILY VERONICA Administration Ondansetron HCl 4 mg 04/13/21 13:17 04/14/21 13:53 Ondansetron Hcl 4 Mg/2 Ml Vial IVPUSH 4 mg Q8H PRN Administration Nausea and Vomiting Oxycodone HCl 5 mg 04/13/21 13:17 Oxycodone Hcl Immed Release 5 Mg Tablet PO Q4H PRN Pain, Moderate (Pain Scale 4-6 Simethicone 80 mg 04/13/21 17:00 04/14/21 20:20 Simethicone 80 Mg Tab.Chew PO 80 mg QIDWMHS VERONICA Administration Zolpidem Tartrate 5 mg 04/13/21 13:17 Zolpidem Tartrate 5 Mg Tablet PO BEDTIME PRN Insomnia <Apolonia Nowak PA-C - Last Filed: 04/15/21 07:39> Time Spent With Patient Time: Total time spent is greater than 50% in coordination of care (as documented) at patient's floor/unit and/or counseling patient: <Apolonia Nowak PA-C - Last Filed: 04/15/21 07:39> Time with patient: 15 - 24 minutes <Apolonia Nowak PA-C - Last Filed: 04/15/21 07:39> Quality Stroke Does the patient have a stroke diagnosis?: No <Apolonia Nowak PA-C - Last Filed: 04/15/21 07:39> VTE Prior VTE?: No <Apolonia Nowak PA-C - Last Filed: 04/15/21 07:39> VTE Risk Level:: Surgical - high <Apolonia Nowak PA-C - Last Filed: 04/15/21 07:39> VTE Device Contraindication: N/A - Device Ordered <MARYCHUY Bhatia Last Filed: 04/15/21 07:39> VTE Drug Contraindication: N/A - Med Ordered <Apolonia Nowak PA-C - Last Filed: 04/15/21 07:39>
[2021-04-15] MEDS: Docusate Sodium 100 MG CAPSULE PO ×2 (08:16→18:47)
[2021-04-15] MEDS: Magnesium Oxide 400 MG TABLET PO (08:16)
[2021-04-15] MEDS: Simethicone 80 MG TAB.CHEW PO ×4 (08:16→20:22)
[2021-04-15 11:08] VITALS: BP 134/63; PULSE 96; RESP 17; TEMP 36.3; O2SAT 95
[2021-04-15] MEDS: Enoxaparin Sodium 40 MG/0.4 ML SYRINGE SUBCUT (12:05)
[2021-04-15] MEDS: HYDROmorphone HCl 0.5 MG/0.5 ML SYRINGE IVPUSH ×4 (12:12→22:08)
--- NOTE | 2021-04-15 13:59 | MHC.CM.PN ---
NURSE FILENET DEVELOPER NOTE- ELECTRONIC MEDICAL RECORD REVIEWED ALONG WITH CASE DISUCSSD WITH STAFF NURSE AND HOSPITALIST , MET WITH PATIENT , SHE REPORTED FEELING A LITTLE BETTER TODAY , WAS SITTING UP IN THE CHAIR , SHE ANTICIPATES TO BE DISCHARGED TOMORROW HOME , REQUESTED FROM SURGEON PATIENT REQUESTING A FEW CONTINUED VISISTS WITH THE [facility] FOR NRUSING AND HOME PT, (S/P TKA AUGUST AND IS UNSTEADY STILL ON HER FEET) UPDATE GIVEN TO THE LISON WITH [facility] DISCHARGE PLAN HOME WITH [facility] OF THE [facility] FOR POST OP ASSESSMENT, AND EMDICATION RECONCIALTION AND HOME PHYSICAL THEAP[RY PCP DR BRINDA BECK INSTRUCTED TO CALL FOR [facility] DISCHARGE FOLLOW UP SURGICAL FOLLOW UP PER DISCHARGE INSTRUCTIONS TRANSPORTATION FAMILY IMM GIVEN 04/14/21
[2021-04-15 15:17] VITALS: BP 135/69; PULSE 101; RESP 18; TEMP 36.3; O2SAT 95
[2021-04-15 19:00] VITALS: BP 138/65; PULSE 99; RESP 16; TEMP 36.5; O2SAT 98
[2021-04-15] MEDS: Sodium Chloride 0.65 % Nasal 44 ML SPRBTL 1 SPRAY NOSTRIL-B (20:24)
[2021-04-16] VITALS (8 sets, daily range): BP systolic 130–165; BP diastolic 62–77; PULSE 80–101; RESP 16–20; TEMP 36–37; O2SAT 93–99
[2021-04-16] MEDS: Dextrose 5 % and Lactated Ring 1,000 ML 80 ML IVCONT (04:56)
[2021-04-16] MEDS: Levothyroxine Sodium 88 MCG TABLET 44 MCG PO (06:06)
[2021-04-16] MEDS: HYDROmorphone HCl 0.5 MG/0.5 ML SYRINGE IVPUSH ×4 (06:34→20:48)
--- NOTE | 2021-04-16 08:01 | PM.PNGS ---
Subjective Subjective Date of Service: 04/16/21 <Apolonia Nowak PA-C - Last Filed: 04/16/21 08:05> 04/16/21 <Juan Lambert MD - Last Filed: 04/16/21 08:16> Interval history: Feeling better this morning. No further nausea. Had some solid food last night. Having gas pains this morning. Passing some flatus but no further BM. Has been OOB and ambulating halls. <Apoolnia Nowak PA-C - Last Filed: 04/16/21 08:05> Physical Exam Vital Signs: Vital Signs: Last Vital Signs Temp 98.2 F 04/16/21 04:00 Pulse 84 04/16/21 04:00 Resp 16 04/16/21 04:00 BP 130/62 04/16/21 04:00 Pulse Ox 99 04/16/21 04:00 Body Mass Index 32.4 <Apolonia Nowak PA-C - Last Filed: 04/16/21 08:05> Const: General: healthy appearing, comfortable, no acute distress and alert <Apolonia Nowak PA-C - Last Filed: 04/16/21 08:05> Orientation/consciousness: patient oriented x3 <MARYCHUY Bhatia Last Filed: 04/16/21 08:05> Resp: Effort & Inspection: normal respiratory effort <Apolonia Nowak PA-C - Last Filed: 04/16/21 08:05> Cardio: Rate: regular rate <Apolonia Nowak PA-C - Last Filed: 04/16/21 08:05> GI: Inspection: No distended and Yes incision (clean, no erythema) <Apolonia Nowak PA-C - Last Filed: 04/16/21 08:05> Palpation (GI): Soft to palpation, Tenderness to palpation present (GI) (incisional), no guarding and not rigid <MARYCHUY Bhatia Last Filed: 04/16/21 08:05> Percussion: Yes normal to percussion <MARYCHUY Bhatia Last Filed: 04/16/21 08:05> Skin: General skin exam: no rashes or lesions noted <Apolonia Nowak PA-C - Last Filed: 04/16/21 08:05> Neuro: General: patient oriented x3 <Apolonia Nowak PA-C - Last Filed: 04/16/21 08:05> Extrem: General: Yes no clubbing, cyanosis or edema <Apolonia Nowak PA-C - Last Filed: 04/16/21 08:05> Procedures Date of Service Date of Service: 04/16/21 <Apolonia Nowak PA-C - Last Filed: 04/16/21 08:05> Progress Note: A&P Assessment and plan (1) Colostomy in place: Status: Acute <Apolonia Nowak PA-C - Last Filed: 04/16/21 08:05> Assessment and Plan: POD #3 s/p colostomy reversal. Continues with gas pains but is passing flatus. Abd- incision clean, ND, soft, approrpiate post op tenderness. Doing well post op. Diet as tolerated. Will increase simethicone dose for gas pains. Continued ambulation encouraged. Add oxycodone 10mg PO in preparation for discharge. Await further BM. Pathology reviewed. D/c IVF. <Apolonia Nowak PA-C - Last Filed: 04/16/21 08:05> POD #3 s/p colostomy reversal. Continues with gas pains but is passing flatus. Abd- incision clean, ND, soft, approrpiate post op tenderness. Doing well post op. Diet as tolerated. Will increase simethicone dose for gas pains. Continued ambulation encouraged. Add oxycodone 10mg PO in preparation for discharge. Await further BM. Pathology reviewed. D/c IVF. Agree with the above assessment and plan. Overall the patient feels much improved with decreased abdominal pain but is now complaining of waves a gas pain. Agree with increasing simethicone. She is passing some flatus but has not passed any further bowel movement. She tolerated regular diet without nausea or vomiting. She was encouraged to continue ambulation and incentive spirometry. <Juan Lambert MD - Last Filed: 04/16/21 08:16> (2) Sigmoid diverticulitis: Status: Acute <Apolonia Nowak PA-C - Last Filed: 04/16/21 08:05> Fall Risk Details Current Medications: Current Medications Generic Name Dose Route Start Last Admin Trade Name Jose Aq PRN Reason Stop Dose Admin Alvimopan 12 mg 04/13/21 21:00 04/15/21 20:22 Alvimopan 12 Mg Capsule PO 04/20/21 21:01 12 mg BID VERONICA Administration Docusate Sodium 100 mg 04/14/21 09:00 04/15/21 18:47 Docusate Sodium 100 Mg Capsule PO 100 mg BID VERONICA Administration Enoxaparin Sodium 40 mg 04/14/21 11:00 04/15/21 12:05 Enoxaparin Sodium 40 Mg/0.4 Ml Syringe SUBCUT 40 mg Q24H VERONICA Administration Hydromorphone HCl 0.5 mg 04/14/21 07:30 04/16/21 06:34 Hydromorphone Hcl 0.5 Mg/0.5 Ml Syringe IVPUSH 0.5 mg Q3H PRN Administration Pain, Severe (Pain Scale 7-10) Dextrose/Lactated Ringer's 1,000 mls @ 80 mls/hr 04/13/21 13:17 04/16/21 04:56 D5lr IVCONT 80 mls/hr .[id number] VERONICA Administration Acetaminophen 1,000 mg in 100 mls @ 400 mls/hr 04/13/21 14:00 04/16/21 03:21 Ofirmev IV Infused Q6H VERONICA Infusion Promethazine HCl 12.5 mg/ 50.5 mls @ 202 mls/hr 04/13/21 19:12 04/15/21 09:23 Sodium Chloride IV Infused Q4H PRN Infusion Nausea and Vomiting Levothyroxine Sodium 44 mcg 04/14/21 06:30 04/16/21 06:06 Levothyroxine Sodium 88 Mcg Tablet PO 44 mcg DAILY@0630 VERONICA Administration Loratadine 10 mg 04/14/21 09:00 04/15/21 08:16 Loratadine 10 Mg Tablet PO 10 mg DAILY VERONICA Administration Magnesium Oxide 400 mg 04/14/21 09:00 04/15/21 08:16 Magnesium Oxide 400 Mg Tablet PO 400 mg DAILY VERONICA Administration Ondansetron HCl 4 mg 04/13/21 13:17 04/14/21 13:53 Ondansetron Hcl 4 Mg/2 Ml Vial IVPUSH 4 mg Q8H PRN Administration Nausea and Vomiting Oxycodone HCl 5 mg 04/13/21 13:17 Oxycodone Hcl Immed Release 5 Mg Tablet PO Q4H PRN Pain, Moderate (Pain Scale 4-6 Oxycodone HCl 10 mg 04/16/21 07:59 Oxycodone Hcl Immed Release 5 Mg Tablet PO Q4H PRN Pain, Severe (Pain Scale 7-10) Sodium Chloride 1 spray 04/15/21 08:44 04/15/21 20:24 Sodium Chloride 0.65 % Nasal 44 Ml Sprbtl NOSTRIL-B 1 spray Q1H PRN Administration Dry Nasal Passages Zolpidem Tartrate 5 mg 04/13/21 13:17 Zolpidem Tartrate 5 Mg Tablet PO BEDTIME PRN Insomnia <Apolonia Nowak PA-C - Last Filed: 04/16/21 08:05> Time Spent With Patient Time: Total time spent is greater than 50% in coordination of care (as documented) at patient's floor/unit and/or counseling patient: <MARYCHUY Bhatia Last Filed: 04/16/21 08:05> Time with patient: 15 - 24 minutes <MARYCHUY Bhatia Last Filed: 04/16/21 08:05> Quality Stroke Does the patient have a stroke diagnosis?: No <MARYCHUY Bhatia Last Filed: 04/16/21 08:05> VTE Prior VTE?: No <MARYCHUY Bhatia Last Filed: 04/16/21 08:05> VTE Risk Level:: Surgical - high <MARYCHUY Bhatia Last Filed: 04/16/21 08:05> VTE Device Contraindication: N/A - Device Ordered <MARYCHUY Bhatia Last Filed: 04/16/21 08:05> VTE Drug Contraindication: N/A - Med Ordered <MARYCHUY Bhatia Last Filed: 04/16/21 08:05>
[2021-04-16] MEDS: Docusate Sodium 100 MG CAPSULE PO ×2 (08:28→20:48)
[2021-04-16] MEDS: Magnesium Oxide 400 MG TABLET PO (08:28)
[2021-04-16] MEDS: Loratadine 10 MG TABLET PO (08:29)
[2021-04-16] MEDS: Sodium Chloride 0.65 % Nasal 44 ML SPRBTL 1 SPRAY NOSTRIL-B (08:29)
[2021-04-16] MEDS: Simethicone 80 MG TAB.CHEW 160 MG PO ×4 (08:32→20:48)
[2021-04-16] MEDS: Enoxaparin Sodium 40 MG/0.4 ML SYRINGE SUBCUT (11:50)
[2021-04-17] MEDS: HYDROmorphone HCl 0.5 MG/0.5 ML SYRINGE IVPUSH (02:21)
[2021-04-17 03:38] VITALS: BP 122/62; PULSE 89; RESP 16; TEMP 36.2; O2SAT 94
[2021-04-17] MEDS: Levothyroxine Sodium 88 MCG TABLET 44 MCG PO (06:10)
[2021-04-17 07:00] VITALS: O2SAT 95
[2021-04-17] MEDS: oxyCODONE HCl Immed Release 5 MG TABLET PO (07:20)
--- NOTE | 2021-04-17 07:37 | PM.PNGS ---
Subjective Subjective Date of Service: 04/17/21 <Apolonia Nowak PA-C - Last Filed: 04/17/21 07:41> 04/17/21 <Juan Lambert MD - Last Filed: 04/17/21 08:04> Interval history: Feeling a little better. A little less gas pains. Tolerating solid food and had multiple bowel movements yesterday. <Apolonia Nowak PA-C - Last Filed: 04/17/21 07:41> Physical Exam Vital Signs: Vital Signs: Last Vital Signs Temp 97.2 F 04/17/21 03:38 Pulse 89 04/17/21 03:38 Resp 16 04/17/21 03:38 BP 122/62 04/17/21 03:38 Pulse Ox 94 04/17/21 03:38 Body Mass Index 32.4 <Apolonia Nowak PA-C - Last Filed: 04/17/21 07:41> Const: General: comfortable, no acute distress and alert <Apolonia Nowak PA-C - Last Filed: 04/17/21 07:41> Orientation/consciousness: patient oriented x3 <Apolonia Nowak PA-C - Last Filed: 04/17/21 07:41> Resp: Effort & Inspection: normal respiratory effort <Apolonia Nowak PA-C - Last Filed: 04/17/21 07:41> Cardio: Rate: regular rate <Apolonia Nowak PA-C - Last Filed: 04/17/21 07:41> GI: Inspection: No distended and Yes incision (clean) <Apolonia Nowak PA-C - Last Filed: 04/17/21 07:41> Palpation (GI): Soft to palpation, Tenderness to palpation present (GI) (incisional), no guarding and not rigid <MARYCHUY Bhatia Last Filed: 04/17/21 07:41> Percussion: Yes normal to percussion <MARYCHUY Bhatia Last Filed: 04/17/21 07:41> Skin: General skin exam: no rashes or lesions noted <Apolonia Nowak PA-C - Last Filed: 04/17/21 07:41> Neuro: General: patient oriented x3 <Apolonia Nowak PA-C - Last Filed: 04/17/21 07:41> Extrem: General: Yes no clubbing, cyanosis or edema <Apolonia Nowak PA-C - Last Filed: 04/17/21 07:41> Procedures Date of Service Date of Service: 04/17/21 <Apolonia Nowak PA-C - Last Filed: 04/17/21 07:41> Progress Note: A&P Assessment and plan (1) Colostomy in place: Status: Acute <Apolonia Nowak PA-C - Last Filed: 04/17/21 07:41> Assessment and Plan: POD #4 s/p colostomy closure. Continues to do well post op with improvement in pain. Tolerating solid diet now with return of GI function. VSS. Abd exam- soft, appropriate post op tenderness, incision clean. Will reassess later today. If pain control remains adequate on PO analgesics, stable for d/c to home today. Patient comfortable with plan. Will resume VNA services. F/u in office in 1 week. <Apolonia Nowak PA-C - Last Filed: 04/17/21 07:41> POD #4 s/p colostomy closure. Continues to do well post op with improvement in pain. Tolerating solid diet now with return of GI function. VSS. Abd exam- soft, appropriate post op tenderness, incision clean. Will reassess later today. If pain control remains adequate on PO analgesics, stable for d/c to home today. Patient comfortable with plan. Will resume VNA services. F/u in office in 1 week. Agree with the above assessment and plan. Overall the patient feels improved but is still having incisional discomfort. She is switching to the oral oxycodone today. Abdomen is soft and nondistended, incision clean and intact. I will stop the IV Tylenol. Possible discharge later today with VNA. <Juan Lambert MD - Last Filed: 04/17/21 08:04> (2) Sigmoid diverticulitis: Status: Acute <Apolonia Nowak PA-C - Last Filed: 04/17/21 07:41> Fall Risk Details Current Medications: Current Medications Generic Name Dose Route Start Last Admin Trade Name Freq PRN Reason Stop Dose Admin Alvimopan 12 mg 04/13/21 21:00 04/16/21 20:48 Alvimopan 12 Mg Capsule PO 04/20/21 21:01 12 mg BID VERONICA Administration Docusate Sodium 100 mg 04/14/21 09:00 04/16/21 20:48 Docusate Sodium 100 Mg Capsule PO 100 mg BID VERONICA Administration Enoxaparin Sodium 40 mg 04/14/21 11:00 04/16/21 11:50 Enoxaparin Sodium 40 Mg/0.4 Ml Syringe SUBCUT 40 mg Q24H VERONICA Administration Hydromorphone HCl 0.5 mg 04/14/21 07:30 04/17/21 02:21 Hydromorphone Hcl 0.5 Mg/0.5 Ml Syringe IVPUSH 0.5 mg Q3H PRN Administration Pain, Severe (Pain Scale 7-10) Acetaminophen 1,000 mg in 100 mls @ 400 mls/hr 04/13/21 14:00 04/17/21 03:35 Ofirmev IV Infused Q6H VERONICA Infusion Promethazine HCl 12.5 mg/ 50.5 mls @ 202 mls/hr 04/13/21 19:12 04/15/21 09:23 Sodium Chloride IV Infused Q4H PRN Infusion Nausea and Vomiting Levothyroxine Sodium 44 mcg 04/14/21 06:30 04/17/21 06:10 Levothyroxine Sodium 88 Mcg Tablet PO 44 mcg DAILY@0630 VERONICA Administration Loratadine 10 mg 04/14/21 09:00 04/16/21 08:29 Loratadine 10 Mg Tablet PO 10 mg DAILY VERONICA Administration Magnesium Oxide 400 mg 04/14/21 09:00 04/16/21 08:28 Magnesium Oxide 400 Mg Tablet PO 400 mg DAILY VERONICA Administration Ondansetron HCl 4 mg 04/13/21 13:17 04/14/21 13:53 Ondansetron Hcl 4 Mg/2 Ml Vial IVPUSH 4 mg Q8H PRN Administration Nausea and Vomiting Oxycodone HCl 5 mg 04/13/21 13:17 04/17/21 07:20 Oxycodone Hcl Immed Release 5 Mg Tablet PO 5 mg Q4H PRN Administration Pain, Moderate (Pain Scale 4-6 Oxycodone HCl 10 mg 04/16/21 07:59 Oxycodone Hcl Immed Release 5 Mg Tablet PO Q4H PRN Pain, Severe (Pain Scale 7-10) Simethicone 160 mg 04/16/21 08:00 04/16/21 20:48 Simethicone 80 Mg Tab.Chew PO 160 mg QIDWMHS PRN Administration gas pains Sodium Chloride 1 spray 04/15/21 08:44 04/16/21 08:29 Sodium Chloride 0.65 % Nasal 44 Ml Sprbtl NOSTRIL-B 1 spray Q1H PRN Administration Dry Nasal Passages Zolpidem Tartrate 5 mg 04/13/21 13:17 Zolpidem Tartrate 5 Mg Tablet PO BEDTIME PRN Insomnia <Apolonia Nowak PA-C - Last Filed: 04/17/21 07:41> Time Spent With Patient Time: Total time spent is greater than 50% in coordination of care (as documented) at patient's floor/unit and/or counseling patient: <Apolonia Nowak PA-C - Last Filed: 04/17/21 07:41> Time with patient: 15 - 24 minutes <Apolonia Nowak PA-C - Last Filed: 04/17/21 07:41> Quality Stroke Does the patient have a stroke diagnosis?: No <Apolonia Nowak PA-C - Last Filed: 04/17/21 07:41> VTE Prior VTE?: No <Apolonia Nowak PA-C - Last Filed: 04/17/21 07:41> VTE Risk Level:: Surgical - high <Apolonia Nowak PA-C - Last Filed: 04/17/21 07:41> VTE Device Contraindication: N/A - Device Ordered <MARYCHUY Bhatia Last Filed: 04/17/21 07:41> VTE Drug Contraindication: N/A - Med Ordered <Apolonia Nowak PA-C - Last Filed: 04/17/21 07:41>
[2021-04-17 08:00] VITALS: BP 142/75; PULSE 107; RESP 18; TEMP 36.4; O2SAT 95
[2021-04-17] MEDS: Loratadine 10 MG TABLET PO (08:43)
[2021-04-17] MEDS: Magnesium Oxide 400 MG TABLET PO (08:43)
[2021-04-17] MEDS: Docusate Sodium 100 MG CAPSULE PO ×2 (08:43→20:49)
[2021-04-17] MEDS: Simethicone 80 MG TAB.CHEW 160 MG PO ×3 (08:57→21:52)
[2021-04-17] MEDS: Acetaminophen 325 MG TABLET 650 MG PO ×3 (10:04→21:41)
[2021-04-17] MEDS: Enoxaparin Sodium 40 MG/0.4 ML SYRINGE SUBCUT (11:18)
[2021-04-17] MEDS: oxyCODONE HCl Immed Release 5 MG TABLET 10 MG PO ×3 (11:18→20:54)
[2021-04-17 12:00] VITALS: PULSE 121; RESP 20; TEMP 36; O2SAT 96
[2021-04-17 16:00] VITALS: BP 158/77; PULSE 105; RESP 14; TEMP 36.7; O2SAT 94
[2021-04-17 20:00] VITALS: BP 137/79; PULSE 96; RESP 18; TEMP 36.2; O2SAT 95
[2021-04-18] VITALS: BP 117/59; PULSE 82; RESP 16; TEMP 36.3; O2SAT 94
[2021-04-18 04:00] VITALS: BP 137/71; PULSE 95; RESP 16; TEMP 37; O2SAT 94
[2021-04-18] MEDS: Levothyroxine Sodium 88 MCG TABLET 44 MCG PO (06:17)
[2021-04-18] MEDS: Loratadine 10 MG TABLET PO (07:33)
[2021-04-18] MEDS: Magnesium Oxide 400 MG TABLET PO (07:33)
[2021-04-18] MEDS: Docusate Sodium 100 MG CAPSULE PO (07:33)
[2021-04-18] MEDS: Acetaminophen 325 MG TABLET 650 MG PO (07:33)
[2021-04-18] MEDS: oxyCODONE HCl Immed Release 5 MG TABLET 10 MG PO (07:34)
[2021-04-18] MEDS: Simethicone 80 MG TAB.CHEW 160 MG PO (07:34)
[2021-04-18 07:41] VITALS: BP 129/77; PULSE 88; RESP 16; TEMP 36.5; O2SAT 98
--- NOTE | 2021-04-18 11:54 | MHC.CM.PN ---
NURSE BUSINESS ARCHITECT NOTE ELECTRONIC MEDICAL RECORD REVIEWED ALONG WITH CASE DISCUSSED WITH STAFF NRUSE DISCHARGE PALN HOME WITH DEVEN [facility] S/P SURGICAL ASSESSMENT, PAIN ASSESSMENT, AND DIAGNOSIS SIGN SYMPTOM MANAGEMENT AND HOEM PHYSICAL THEAPRY PCP PATIENT INSTRUCTED TO CALL FOR POST HOSPITAL/SURGICAL DISCHARGE FOLLOW UP SURGICAL FOLLOW UP PER DISCHARGE INSTRUCTIONS TRANSPORTATION FAMILY
--- NOTE | 2021-04-18 16:31 | PM.PNGS ---
Subjective Subjective Date of Service: 04/18/21 Interval history: Feels well. Tolerating solid diet. Passing flatus. Last bowel movement 2 days ago. Physical Exam Vital Signs: Vital Signs: Last Vital Signs Temp 97.7 F 04/18/21 07:41 Pulse 88 04/18/21 07:41 Resp 16 04/18/21 07:41 BP 129/77 04/18/21 07:41 Pulse Ox 98 04/18/21 07:41 Body Mass Index 32.4 Resp: Effort & Inspection: normal respiratory effort Auscultation: clear to auscultation bilaterally Cardio: Rate: regular rate Rhythm: regular rhythm GI: Other: Soft, nondistended, bowel sounds active, appropriate incisional tenderness Skin: Other: Normal color, warm and dry Procedures Date of Service Date of Service: 04/18/21 Progress Note: A&P Assessment and plan (1) Colostomy in place: Status: Acute Assessment and Plan: Postoperative day 5 following closure of Abeba colostomy. She is doing well. She feels ready for discharge. She will continue Colace at home. Follow up in the office with Dr. Lambert in about 1 week. Time Spent With Patient Time: Total time spent is greater than 50% in coordination of care (as documented) at patient's floor/unit and/or counseling patient: Time with patient: 15 - 24 minutes Quality Stroke Does the patient have a stroke diagnosis?: No VTE Prior VTE?: No VTE Risk Level:: Surgical - high VTE Device Contraindication: N/A - Device Ordered VTE Drug Contraindication: N/A - Med Ordered
--- NOTE | 2021-04-21 09:59 | P.DS_ITS ---
DS: Providers Provider Date of Service: 04/18/21 Date of admission: 04/13/21 06:16 Primary care physician: Joana Beck MD DS: Diagnosis Discharge Diagnosis (1) Colostomy in place: Status: Acute DS: Medications Discharge Medications Home Medications: Home Medications Medication Instructions Recorded Confirmed cholecalciferol (vitamin D3) 50 50 mcg PO DAILY 08/29/20 04/06/21 mcg (2,000 unit) capsule loratadine 10 mg tablet (Claritin) 10 mg PO DAILY PRN 12/01/20 04/06/21 calcium carbonate 500 1 tab PO NEEDED PRN 04/06/21 04/06/21 mg-simethicone 20 mg chewable tablet diphenhydramine 25 2 tab PO BEDTIME PRN 04/06/21 04/06/21 mg-acetaminophen 500 mg tablet (Tylenol PM Extra Strength) levothyroxine 88 mcg tablet 44 mcg PO DAILY 04/06/21 04/06/21 magnesium oxide 400 mg PO DAILY 04/06/21 04/06/21 Previous Rx's Medication Instructions Recorded gauze bandage 4 X 4 (Band-Aid #25 ea 01/20/21 Gauze Pads) non-adherent bandage 5 X 9 #20 ea 01/20/21 (Combine ABD) nystatin 100,000 unit/gram topical 1 appl TOPICAL DAILY #30 g 01/28/21 powder oxycodone 10 mg tablet 10 mg PO Q8H PRN #15 tab 04/17/21 docusate sodium 100 mg capsule 100 mg PO BID #60 cap 04/20/21 (Colace) DS: Summary Hospital Course Hospital Course: BRIEF HPI: 61-year-old female with a previous history of perforated sigmoid diverticulitis with fecal peritonitis, status post Abeba procedure now presenting for closure of colostomy. HOSPITAL COURSE: On 04/13/21, a closure of colostomy with colorectal anastomosis was performed by Dr. Lambert without complication. Intraoperative findings included the colostomy in left lower quadrant, with mild adhesions and no evidence of acute diverticulitis.?The patient tolerated the procedure well and was admitted to the medical/surgical floor for recovery. She had an uneventful post operative course. She had difficulties with post operative pain management and nausea on POD #1. Her analgesics were adjusted with improvement and she was kept on clear liquids. She was ambulated. She began passing flatus and had a small bowel movement with a small amount of blood. She felt improved over the next couple of days. Her diet was advanced to low residue which she was tolerating. She had multiple bowel movements with no further blo od. Her pain became well controlled on PO analgesics. Her abdomen remained benign with clean incisions. She was discharged to home on 04/18/21 in stable condition. She was discharged to home with VNA services. Status at Discharge Functional status at discharge: independent ambulation Overall status at discharge: patient is progressing back to baseline Time Spent with Patient Time attestation: Total time spent providing and/or coordinating discharge s ervices: Discharge coordination time: Greater than 30 minutes Quality: Stroke Does the patient have a stroke diagnosis?: No Physical Exam Vital Signs: Vital Signs: Last Vital Signs Temp 97.7 F 04/18/21 07:41 Pulse 88 04/18/21 07:41 Resp 16 04/18/21 07:41 BP 129/77 04/18/21 07:41 Pulse Ox 98 04/18/21 07:41 Body Mass Index 32.4 Const: General: healthy appearing, comfortable, no acute distress and alert Orientation/consciousness: patient oriented x3 Resp: Effort & Inspection: normal respiratory effort GI: Inspection: No distended and Yes incision (clean) Palpation (GI): Soft to palpation, Tenderness to palpation present (GI) (incisional), no guarding and not rigid Skin: General skin exam: no rashes or lesions noted Neuro: General: patient oriented x3 Extrem: General: Yes no clubbing, cyanosis or edema DS: Data Data Completed and Pending Completed studies during hospitalization [Text1]: Pending at discharge 04/13/21 09:49 Surgical [PTH] Routine A. Rectal stump, excision: Chronic, focally active, proctitis. B. Proximal sigmoid colostomy, excision: Enterocutaneous tissue with patchy inflammatory changes. C. Rectum, additional, excision: Rectal tissue within normal limits. Procedures Bypass Sigmoid Colon to Cutaneous, Open Approach (01/04/21) Excision of Sigmoid Colon, Open Approach (01/04/21) Discharge Plan Discharge Patient Disposition: Home Health Service Discharge Diagnosis: history of perforated diverticulitis, colostomy in place Referrals: [facility] [Outside] - 1 Day (DISCHARGED HOME WITH NEW REFERRAL TO THE [facility] FOR POST SUUURGICAL ASSESSEMT AND MEDICATION RECONCIALTION AND HOME PHYSICAL THEAPRY TO START DAY AFTER DISCHARGE PCP DR BRINDA BECK PATIENT INSTRUCTED TO CALL FOR POST HOSPITLA DISCHARGE FOLLOW UP SURGICAL FOLLOW UP PER DISCHARGE INSTRUCTIONS TRANPORTATION FAMILY ) Joana Beck MD [Primary Care Provider] - 1 Week Juan Lambert MD [Physician] - 1 Week Discharge Medications: New oxycodone 10 mg tablet 10 mg PO Q8H PRN (Reason: pain) Qty: 15 RF: 0 Continued (DME) Combine ABD 5 X 9 bandage See Rx Instructions .ROUTE .MEDSUPPLY Qty: 20 RF: 3 (DME) gauze bandage [Band-Aid Gauze Pads] 4 X 4 bandage See Rx Instructions .ROUTE .MEDSUPPLY Qty: 25 RF: 3 nystatin 100,000 unit/gram powder 1 appl topical DAILY Qty: 30 RF: 0 calcium carbonate-simethicone 500-20 mg Tablet,Chewable 1 tab PO NEEDED PRN (Reason: gas) RF: 0 diphenhydramine-acetaminophen [Tylenol PM Extra Strength] 25-500 mg Tablet 2 tab PO BEDTIME PRN (Reason: Sleep) RF: 0 levothyroxine 88 mcg tablet 44 mcg PO DAILY RF: 0 magnesium oxide 400 mg magnesium Tablet 400 mg PO DAILY RF: 0 cholecalciferol (vitamin D3) 50 mcg (2,000 unit) capsule 50 mcg PO DAILY RF: 0 loratadine [Claritin] 10 mg tablet 10 mg PO DAILY PRN (Reason: allergy symptoms) RF: 0 Discontinued No Sting Barrier Film Pads, Medicated See Rx Instructions topical .w/ ostomy change Qty: 30 RF: 3 (DME) SenSura Flex Ostomy Pouch Misc See Rx Instructions .ROUTE .MEDSUPPLY Qty: 30 RF: 3 (DME) ostomy supplies Powder See Rx Instructions .ROUTE .MEDSUPPLY Qty: 28.3 RF: 0 No Action docusate sodium [Colace] 100 mg capsule 100 mg PO BID Qty: 60 RF: 2 Discharge Orders: Discharge Order (Routine); Ordered 04/18/21 Ordered By: Nichelle Lawrence Diet: other Activity on Discharge: No heavy lifting Stand Alone Forms: Patient Portal Discharge page Activity Restrictions/Additional Instructions: If the incision area is tender, you may apply an ice pack for short intervals (No more than 20 minutes on, followed by at least 20 minutes off). Do not apply heat. Do not use creams, lotions, or topical antibiotics unless instructed to do so by your surgeon. These can cause infection or allergic reaction. Ok to shower. No heavy lifting (>10lbs)! Call Your Doctor If: -Your temperature exceeds 101.5? F -You experience excessive pain or swelling -You have an unexpected reaction to medication -You have excessive bleeding -You experience continued vomiting/nausea -Your incision begins to separate -Your incision shows signs of infection such as increased redness, swelling, excessive pain, drainage (light blood or clear fluid is normal) or heat Care Plan Goals: Return to baseline health and activity following recovery period. Health Concerns: Hx of perforated diverticulitis colostomy in place s/p colostomy reversal Plan of Treatment: Advance diet, pain control, discharge to home Assessment: 61 year old female with history of perforated diverticulitis requiring subsequent sigmoid resection and colostomy creation now s/p colostomy closure. She had an uncomplicated recovery course and is doing well post op and stable for discharge to home with f/u in office in 1 week. Discharge Date/Time: 04/18/21 11:02
== END 2021-04-18 11:02 | disposition home health service (06) | DRG 223 ==
LOC: HO.SSSA 06:20 → HO.S3 11:20
PROVIDERS: Nurse Practitioner; Admitting Provider Surgery; PCP Internal Medicine; Visit Provider Surgery
PROC: 0DSN0ZZ Reposition Sigmoid Colon, Open Approach (ICD-10-PCS; CPT 44620; principal; 2021-04-13 07:30)
DX: Z43.3 Encounter for attention to colostomy (principal); K91.0 Vomiting following gastrointestinal surgery; Z20.822 Contact with and (suspected) exposure to COVID-19; Z79.890 Hormone replacement therapy; Z79.899 Other long term (current) drug therapy
CPT/HCPCS: 36415; 80048; 85025; 85027; 87635; 88304; 88307; 99024; C1758; J0131; J0461; J1100; J1170; J1650; J2250; J2270; J2405; J2550; J3010

== ENCOUNTER → 2021-04-24 08:54 | Outpatient (BNVA) | payer OTHER, SELFPAY | PROVIDERS: PCP Internal Medicine; Referring Provider Internal Medicine; Visit Provider Surgery ==

== ENCOUNTER → 2021-05-12 09:51 | Outpatient (BNVA) | payer OTHER, SELFPAY | PROVIDERS: PCP Internal Medicine; Referring Provider Internal Medicine; Visit Provider Surgery ==

== ENCOUNTER → 2021-05-28 15:09 | Outpatient (BNVA) | payer OTHER, SELFPAY | PROVIDERS: PCP Internal Medicine; Referring Provider Internal Medicine; Visit Provider Surgery ==

== ENCOUNTER → 2021-09-02 15:21 | Outpatient (BNVA) | payer OTHER, SELFPAY | PROVIDERS: PCP Internal Medicine; Visit Provider Internal Medicine ==

== ENCOUNTER 2022-02-13 07:46 | Outpatient (REF) | payer OTHER, SELFPAY ==
[2022-02-13 09:22] LABS: Thyroid Stimulating Hormone 3.15 uIU/mL (0.32-4.0); Vitamin D 25-OH Total 48.4 ng/mL (>30)
[2022-02-16 19:20] LABS: Thyroid Peroxidase Antibodies 309 IU/mL (<9)
== END 2022-02-13 07:47 | disposition home or self-care (01) ==
LOC: HO.LAB 07:46
PROVIDERS: PCP Internal Medicine; Visit Provider Internal Medicine
DX: E03.9 Hypothyroidism, unspecified (principal); E55.9 Vitamin D deficiency, unspecified
CPT/HCPCS: 36415; 82306; 84439; 84443; 86376

== ENCOUNTER 2022-05-25 07:57 | Outpatient (REF) | payer OTHER, SELFPAY ==
--- NOTE | ~2022-05-25 | US_ITS ---
EXAMINATION: US THYROID CLINICAL INFORMATION: Nontoxic multinodular goiter. COMPARISON: Ultrasound soft tissue head/neck thyroid dated 08/25/2020 and 11/01/2018. TECHNIQUE: Linear transducer grayscale and color Doppler examination with attention to the region of the thyroid. FINDINGS: SIZE: Measurements of the thyroid lobes and nodules are given in sagittal, anteroposterior and transverse dimensions respectively. Right Thyroid Lobe: 6.5 x 2.4 x 2.0 cm, volume 16.6 mL. Previously 6.4 x 2.2 x 2.0 cm, volume 14.8 mL. Parenchyma: The gland echotexture is heterogeneous. Thyroid vascularity is increased. Left Thyroid Lobe: 5.5 x 2.0 x 2.2 cm, volume 12.8 mL. Previously 5.9 x 2.1 x 2.6 cm, volume 17.0 mL. Parenchyma: The gland echotexture is heterogeneous. Thyroid vascularity is increased. Isthmus: 0.5 cm in maximum AP dimension. Previously 0.4 cm. Estimated total number of nodules greater than or equal to 1 cm: 0. [employer] Worker nodules are described as follows: 1. Location: Right superior. Size: 0.6 x 0.4 x 0.4 cm, volume 0.05 mL. Previously: 0.7 x 0.6 x 0.4 cm, volume 0.09 mL. Nodule characteristics: Composition: Mixed cystic and solid (1). Echogenicity: Isoechoic (1). Shape: Not taller than wide (0). Margins: Smooth (0). Echogenic Foci: None (0). ACR TI-RADS total points: 2 ACR TI-RADS category: 2 Significant change in size (>/= 20% in 2 dimensions and minimal increase of 2 mm or 50% or greater increase in volume): Change in features: Change in ACR TI-RADS risk category: 2. Location: Right inferior. Size: 0.4 x 0.3 x 0.4 cm, volume 0.03 mL. Previously: 0.6 x 0.5 x 0.6 cm, volume 0.09 mL. Nodule characteristics: Composition: Solid (2). Echogenicity: Hypoechoic (2). Shape: Not taller than wide (0). Margins: Smooth (0). Echogenic Foci: None (0). ACR TI-RADS total points: 4 ACR TI-RADS category: 4 Significant change in size (>/= 20% in 2 dimensions and minimal increase of 2 mm or 50% or greater increase in volume): Change in features: Change in ACR TI-RADS risk category: 3. Location: Right mid. Size: 0.5 x 0.4 x 0.5 cm, volume 0.04 mL. Previously: Not seen on the previous study. Nodule characteristics: Composition: Solid (2). Echogenicity: Hyperechoic (1). Shape: Not taller than wide (0). Margins: Smooth (0). Echogenic Foci: None (0). ACR TI-RADS total points: 3 ACR TI-RADS category: 3 4. Location: Left superior. Size: 0.9 x 0.7 x 0.7 cm, volume 0.2 mL. Previously: 1.2 x 0.9 x 1.1 cm, volume 0.6 mL. Nodule characteristics: Composition: Cystic(0). Is appears less complex than on August 2020 exam ACR TI-RADS total points: 0 ACR TI-RADS category: 1 Significant change in size (>/= 20% in 2 dimensions and minimal increase of 2 mm or 50% or greater increase in volume): Change in features: Change in ACR TI-RADS risk category: NODES: No lymphadenopathy is seen in the tissue surrounding the thyroid gland. US/US thyroid IMPRESSION: Enlarged heterogeneous hypervascular thyroid gland. Bilateral nodules, right greater than left. Comparison with previous exam is difficult. Newly appreciated small 5 mm hyperechoic nodule in the right middle lobe. Left cystic thyroid nodule appears simple and less complex. Otherwise thyroid nodules do not appear appreciably changed. ACR TI-RADS RECOMMENDATION REFERENCE: Ultrasound-guided fine-needle aspiration, followup ultrasound, no further follow up. * TR1 (0 point) and TR 2 (2 points): No FNA or follow up * TR3 (3 points): FNA if more than or equal to 2.5 cm in maximum dimension, followup ultrasound in 1, 3 and 5 years if 1.5 to 2.4 cm in maximum dimension. * TR4 (4-6 points): FNA if more than or equal to 1.5 cm in maximum dimension, followup ultrasound in 1, 2, 3 and 5 years if 1 to 1.4 cm in maximum dimension. * TR5 (more than or equal to 7 points): FNA if more than or equal to 1 cm in maximum dimension, followup ultrasound every year for 5 years if 0.5 to 0.9 cm in maximum dimension. * TR3, TR4 or TR5 nodules that are below the size threshold for follow up receive no follow up.
== END 2022-05-25 07:58 | disposition home or self-care (01) ==
LOC: HO.US 07:57
PROVIDERS: PCP Internal Medicine; Visit Provider Internal Medicine Endocrinology, Diabetes & Metabolism
DX: E04.2 Nontoxic multinodular goiter (principal)
CPT/HCPCS: 76536

== ENCOUNTER 2022-06-01 06:57 | Outpatient (REF) | payer OTHER, SELFPAY ==
[2022-06-01 07:55] LABS: Alanine Aminotransferase 20 U/L (0-31); Anion Gap 13 (12-20); Aspartate Amino Transferase 17 U/L (5-31); Blood Urea Nitrogen 14 mg/dL (9-16); Calcium 9.5 mg/dL (8.4-10.2); Carbon Dioxide 27 mmol/L (22-29); Chloride 106 mmol/L (96-108); Cholesterol 262 mg/dL; Estimated Glomerular Filt Rate > 60; Glucose Fasting 91 mg/dL (60-99); HDL Cholesterol 70 mg/dL; LDL Cholesterol Calculated 175 mg/dl; Potassium 4.3 mmol/L (3.3-5.1); Sodium 142 mmol/L (135-145); Triglycerides 88 mg/dL
[2022-06-01 08:20] LABS: Free T4 (Free Thyroxine) 0.94 ng/dL (0.71-1.85); Thyroid Stimulating Hormone 2.91 uIU/mL (0.32-4.0); Vitamin D 25-OH Total 45.7 ng/mL (>30)
== END 2022-06-01 06:58 | disposition home or self-care (01) ==
LOC: HO.LAB 06:57
PROVIDERS: PCP Internal Medicine; Visit Provider Internal Medicine
DX: Z00.01 Encounter for general adult medical examination with abnormal findings (principal); E03.9 Hypothyroidism, unspecified; E04.2 Nontoxic multinodular goiter; E06.3 Autoimmune thyroiditis; E03.8 Other specified hypothyroidism; E66.9 Obesity, unspecified; E55.9 Vitamin D deficiency, unspecified
CPT/HCPCS: 36415; 80048; 80061; 82306; 84439; 84443; 84450; 84460

== ENCOUNTER 2022-06-23 15:00 | Outpatient (REF) | payer OTHER, SELFPAY ==
--- NOTE | ~2022-06-23 | MM_ITS ---
EXAMINATION: MM SCREENING DIGITAL BREAST TOMOSYNTHESIS, BILATERAL CLINICAL INFORMATION: Screening. Asymptomatic. The lifetime risk of breast cancer based on the Tyrer-Cuzick Model is 8%. COMPARISON: Mammography: 10/17/2019, 09/08/2018, 01/23/2016, 11/21/2013 TECHNIQUE: Digital breast tomosynthesis is performed in both the craniocaudal and mediolateral oblique views along with computer-aided detection (CAD). Synthesized 2D images are generated from the tomosynthesis. Additional left MLO view is provided. FINDINGS: There are scattered areas of fibroglandular density (ACR BI-RADS breast composition Category b). Parenchymal pattern is similar to prior exams. There is no developing density or interval significant mass or architectural abnormality. No abnormal calcifications. The axilla and skin contours are unremarkable. No significant changes. MM/MM tomosynthesis screening BI IMPRESSION: No mammographic evidence of malignancy. ASSESSMENT: BI-RADS 1: Negative RECOMMENDATION: Routine annual mammography screening. This patient's information was entered into a reminder system with a target due date for their next mammogram.
== END 2022-06-23 15:01 | disposition home or self-care (01) ==
LOC: HO.MAMMO 15:00
PROVIDERS: PCP Internal Medicine; Visit Provider Internal Medicine
DX: Z12.31 Encounter for screening mammogram for malignant neoplasm of breast (principal)
CPT/HCPCS: 77063; 77067

== ENCOUNTER 2022-07-23 08:47 | Day surgery (SDC) | payer OTHER, SELFPAY ==
--- NOTE | 2022-07-22 10:25 | P.CONAN_ITS ---
Documented by User: Nanette Stauffer NP 07/22/22 10:27 HPI - Anesthesia Eval Consult details Narrative: 62yo F for Colonoscopy PMFSH Active Problems Active Problems: All Active Problems (Updated 05/28/22 @ 13:29 by Joana Real MD) Allergic rhinitis (Acute) History of proctitis (Acute) Edy's disease (Acute) Abscess (Acute) Obesity (BMI 30-39.9) (Acute) Vitamin D deficiency (Acute) Non-toxic multinodular goiter (Acute) Hypothyroidism (Acute) JOYCE (obstructive sleep apnea) (Acute) Past Medical History Medical History Acute sinusitis Allergic rhinitis Anxiety disorder COVID-19 vaccine series completed Depression Edy's disease History of proctitis Hx of supraventricular tachycardia Hypothyroidism Non-toxic multinodular goiter Obesity (BMI 30-39.9) JOYCE (obstructive sleep apnea) Seasonal allergies Vitamin D deficiency Family History Family History Father Heart disease Mother No problems noted. Family history of problems with anesthesia: No Surgical History Surgical History H/O knee surgery History of radiofrequency ablation procedure for cardiac arrhythmia Hx of colonoscopy Hx of exploratory laparotomy Hx of LASIK S/P thyroid biopsy History of Problems with Anesthesia: Yes Social History Social History Household Members: Spouse Housing: House Are you a primary critical care educator to a significant other at home: No Do you presently have visiting nurse or other home services: Yes (Cyn HERNANDEZ - post op) Alcohol intake: never Patient Tobacco Use Status: Never used Tobacco e-Cigarette/Vaping Use: Never Used Second Hand Smoke Exposure: No Are you DNR?: No Advance Directives: No Advance Directives Information Provided: Yes Nutrition Risks: No Nutritional Risk service: No Current occupational status: employed Cognitive needs: No Hearing needs: No Vision needs: Yes Meds Allergies Allergy/AdvReac Type Severity Reaction Status Date / Time No Known Allergies Allergy Verified 06/16/22 03:36 Home Medications Medication Instructions Recorded Confirmed Last Taken Type loratadine 10 mg tablet (Claritin) 10 mg PO DAILY PRN allergy symptoms 12/01/20 09/02/21 04/12/21 08:00 History diphenhydramine 25 2 tab PO BEDTIME PRN Sleep 04/06/21 09/02/21 04/12/21 08:00 History mg-acetaminophen 500 mg tablet (Tylenol PM Extra Strength) magnesium oxide 400 mg PO DAILY 04/06/21 09/02/21 04/12/21 08:00 History aspirin 81 mg tablet,delayed 81 mg PO DAILY 03/25/22 07/23/22 07/13/22 History release (Adult Low Dose Aspirin) cholecalciferol (vitamin D3) 50 50 mcg PO DAILY 03/25/22 Unknown History mcg (2,000 unit) capsule Exam Exam Date and Time: July 22, 2022 1025 Pertinent Lab Results Pertinent Lab Results: Laboratory Tests 06/01/22 07:05 Sodium 142 Potassium 4.3 Chloride 106 Carbon Dioxide 27 BUN 14 Creatinine 0.69 Assessment and Plan Assessment Anesthesia Assessment: Chart Reviewed Final Anesthetic Review Family History of Problems with Anesthesia: No History of Problems with Anesthesia: Yes Documented by User: Calista Dimas MD 07/23/22 10:41 PMFSH Past Medical History Medical History Acute sinusitis Allergic rhinitis Anxiety disorder COVID-19 vaccine series completed Depression Edy's disease History of proctitis Hx of supraventricular tachycardia Hypothyroidism Non-toxic multinodular goiter Obesity (BMI 30-39.9) JOYCE (obstructive sleep apnea) Seasonal allergies Vitamin D deficiency Family History Family History Father Heart disease Mother No problems noted. Surgical History Surgical History H/O knee surgery History of radiofrequency ablation procedure for cardiac arrhythmia Hx of colonoscopy Hx of exploratory laparotomy Hx of LASIK S/P thyroid biopsy Social History Social History Household Members: Spouse Housing: House Are you a primary critical care educator to a significant other at home: No Do you presently have visiting nurse or other home services: Yes (Cyn PRUITTA - post op) Alcohol intake: never Patient Tobacco Use Status: Never used Tobacco e-Cigarette/Vaping Use: Never Used Second Hand Smoke Exposure: No Are you DNR?: No Advance Directives: No Advance Directives Information Provided: Yes Nutrition Risks: No Nutritional Risk service: No Current occupational status: employed Cognitive needs: No Hearing needs: No Vision needs: Yes Meds Allergies Allergy/AdvReac Type Severity Reaction Status Date / Time No Known Allergies Allergy Verified 06/16/22 03:36 Home Medications Medication Instructions Recorded Confirmed Last Taken Type loratadine 10 mg tablet (Claritin) 10 mg PO DAILY PRN allergy symptoms 12/01/20 09/02/21 04/12/21 08:00 History diphenhydramine 25 2 tab PO BEDTIME PRN Sleep 04/06/21 09/02/21 04/12/21 08:00 History mg-acetaminophen 500 mg tablet (Tylenol PM Extra Strength) magnesium oxide 400 mg PO DAILY 04/06/21 09/02/21 04/12/21 08:00 History aspirin 81 mg tablet,delayed 81 mg PO DAILY 03/25/22 07/23/22 07/13/22 History release (Adult Low Dose Aspirin) cholecalciferol (vitamin D3) 50 50 mcg PO DAILY 03/25/22 Unknown History mcg (2,000 unit) capsule Exam Airway Mallampati Class: II TM Dist: >3cm Neck ROM: Full Loose/Missing/Broken Teeth: No Heart: RRR Lungs: CTA Assessment and Plan Assessment Anesthesia Assessment: Anesthesia Plan Discussed Final Anesthetic Review NPO: No ASA Class: II and III Final Preanesthetic Review: Meds/Allgs Chart Reviewed, Consent Obtained/Reviewed and Anes Risks/Benef Reviewed Patient Risk: Intermediate Procedure Risk: Low Anesthetic Plan Anesthetic Plan: MAC: Disposition: Standard PACU
[2022-07-23 08:57] VITALS: BMI 33.6
[2022-07-23 08:58] VITALS: BP 135/66; PULSE 90; RESP 20; TEMP 36.8; O2SAT 97
[2022-07-23] MEDS: Lactated Ringers 1,000 ML 100 ML IVCONT (09:19)
--- NOTE | 2022-07-23 10:23 | P.HPSUR_ITS ---
Pre-Procedural Eval Section A Date of Service: 07/23/22 Section B Chief Complaint: Diverticulitis of large intestine with perforation Details of Present Illness: see h&p no changes Relevant Family History (Specify if Yes): No Relevant Social History: None Present Medications: see Short Stay Collaborative assessment Medical History: No relevant PMH Allergies: Allergies Allergy/AdvReac Type Severity Reaction Status Date / Time No Known Allergies Allergy Verified 06/16/22 03:36 Review of Systems Sugical H&P ROS: Negative: Constitution, Cardiovascular, Respiratory, Neurological, Psychiatric, Hem-Onc, Allergic/Immunologic, Gastrointestinal, Genitourinary, Musculoskeletal, Integumentary, Endocrine and Eyes/Ears/Nose/Throat Exam Surgical H&P Exam: Normal: HEENT, Normal: Heart, Normal: Lungs, Normal: Extrem ities, Normal: Abdomen, Normal: Skin and Normal: Neurological Plan Diagnosis/Plan: Unchanged I have reviewed the history and physical and performed a pertinent physical examination on my patient. No changes have occurred unless specified.
[2022-07-23 10:57] VITALS: BP 104/54; PULSE 71; RESP 20; TEMP 36.6; O2SAT 100
--- NOTE | 2022-07-23 10:57 | PM.OP ---
Brief Operative Note Date of Service: 07/23/22 Surgeon: Dave Vizcaino Was an Clinical Medical Transcriptionist used for this Procedure?: No Estimated blood loss (mL): 2
[2022-07-23 11:12] VITALS: BP 123/83; PULSE 73; RESP 18; TEMP 36.2; O2SAT 98
--- NOTE | 2022-07-23 11:49 | OP_ITS ---
SURGEON: Dave Vizcaino MD PREOPERATIVE DIAGNOSIS: POSTOPERATIVE DIAGNOSIS: PROCEDURE PERFORMED: Colonoscopy with biopsy INDICATION: diverticultis MAC anesthesia ESTIMATED BLOOD LOSS: COMPLICATIONS: ANESTHESIA: ASSISTANTS: SPECIMENS: DESCRIPTION OF PROCEDURE: The procedure was performed on 07/23/22. History and physical was performed. The risks and benefits of the procedure were explained to the patient, and informed consent was obtained. The patient was placed in the left lateral decubitus position. A digital rectal exam was performed and was found to be normal. The Olympus pediatric video colonoscope was introduced into the rectum and advanced to the cecum without difficulty. The cecum was identified by transillumination, palpation, and identification of the ileocecal valve. Examination was performed. The scope was removed. She tolerated the procedure well and was transferred to recovery area in stable condition. FINDINGS: The terminal ileum was examined and appeared normal. The visualized colonic mucosa was normal. The quality of prep was good. A single polyp at 35 cm was identified and removed with a biopsy forceps this measured less than 5 mm. There was a widely patent sigmoid anastomosis at 15 cm with no evidence of abnormalities. A single diverticulum was seen below this. Retroflexed examination showed small internal hemorrhoids. IMPRESSION: Colon polyp. RECOMMENDATION: Follow up the biopsy results. MD URI Green/[facility] / [id number] MTDD
== END 2022-07-23 11:51 | disposition home or self-care (01) ==
PROVIDERS: PCP Internal Medicine; Visit Provider Internal Medicine Gastroenterology
PROC: 0DJD8ZZ Inspection of Lower Intestinal Tract, Via Natural or Artificial Opening Endoscopic (ICD-10-PCS; CPT 45378; principal; 2022-07-23 10:00)
DX: K57.30 Diverticulosis of large intestine without perforation or abscess without bleeding (principal); Z98.0 Intestinal bypass and anastomosis status; K64.8 Other hemorrhoids; E03.9 Hypothyroidism, unspecified; E55.9 Vitamin D deficiency, unspecified; F41.1 Generalized anxiety disorder; J31.0 Chronic rhinitis; G47.33 Obstructive sleep apnea (adult) (pediatric); Z79.82 Long term (current) use of aspirin; Z79.899 Other long term (current) drug therapy; Z98.890 Other specified postprocedural states
CPT/HCPCS: 45380; 88305

== ENCOUNTER → 2022-09-27 09:43 | Outpatient (BNVA) | payer OTHER, SELFPAY | PROVIDERS: PCP Internal Medicine; Visit Provider Internal Medicine | DX: Z13.89 Encounter for screening for other disorder (principal) ==

== ENCOUNTER 2023-01-04 06:44 | Outpatient (REF) | payer OTHER, SELFPAY ==
[2023-01-04 06:53] LABS: MANUAL DIFF FLAG NO
[2023-01-04 07:57] LABS: Basophils Absolute Auto 0.1 X10*3/uL (0.0-0.2); Basophils Percent Auto 1.4 % (0-2); Eosinophils Absolute Auto 0.3 X10*3/uL (0.0-0.4); Eosinophils Percent Auto 7.6 % (0-4); Hematocrit 39.8 % (37.0-47.0); Hemoglobin 13.4 g/dl (12.0-16.0); Lymphocytes Percent Auto 45.9 % (20-40); Mean Corpuscular HGB Conc 33.7 g/dl (31.0-35.0); Mean Corpuscular Hemoglobin 31.2 pg (27.0-33.0); Mean Corpuscular Volume 92.8 fL (80.0-98.0); Mean Platelet Volume 10.2 fL (9.4-12.3); Monocytes Absolute Auto 0.5 X10*3/uL (0.1-1.2); Monocytes Percent Auto 10.4 % (2-11); Neutrophils Absolute Auto 1.5 x10*3/uL (2.0-8.3); Neutrophils Percent Auto 34.7 % (45-73); Platelet Count 333 X10*3/uL (160-400); Red Blood Count 4.29 X10*6/uL (4.20-5.50); Red Cell Distribution Width 12.4 % (11.0-16.0); White Blood Count 4.3 X10*3/uL (4.8-10.8)
[2023-01-04 08:46] LABS: Cholesterol 247 mg/dL; HDL Cholesterol 68 mg/dL; Iron 79 mcg/dL (30-160); LDL Cholesterol Calculated 166 mg/dl; Percent Iron Saturation 32 % (15-50); Total Iron Binding Capacity 246 mcg/dL (228-428); Triglycerides 66 mg/dL; Unsaturated Iron Binding 167 ug/dL
[2023-01-04 09:05] LABS: Free T4 (Free Thyroxine) 1.07 ng/dL (0.71-1.85); Thyroid Stimulating Hormone 3.25 uIU/mL (0.32-4.0)
== END 2023-01-04 06:45 | disposition home or self-care (01) ==
LOC: HO.LAB 06:44
PROVIDERS: PCP Internal Medicine; Visit Provider Internal Medicine
DX: D64.9 Anemia, unspecified (principal); E03.9 Hypothyroidism, unspecified; E06.3 Autoimmune thyroiditis; E66.9 Obesity, unspecified; E78.5 Hyperlipidemia, unspecified; E03.8 Other specified hypothyroidism; E04.2 Nontoxic multinodular goiter
CPT/HCPCS: 36415; 80061; 83540; 84439; 84443; 85025

== ENCOUNTER 2023-03-29 09:38 | Outpatient (AMB) | payer OTHER, SELFPAY ==
[2023-03-29 09:43] VITALS: BP 110/68; PULSE 79; O2SAT 95; BMI 34.3
--- NOTE | 2023-03-29 09:43 | A.OFFVIS_ITS ---
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 Worker Required: No Allergies No Known Allergies Allergy (Verified 03/29/23 10:01) Medication List - Last Reconciled 03/29/23 by Liz Poole MD aspirin (Adult Low Dose Aspirin) 81 mg PO DAILY cholecalciferol (vitamin D3) 50 mcg PO DAILY diphenhydramine-acetaminophen 25-500 mg (Tylenol PM Extra Strength) 2 tabs PO BEDTIME PRN docusate sodium 100 mg PO BID levothyroxine 44 mcg (1/2 x 88 mcg) PO DAILY 90 days loratadine (Claritin) 10 mg PO DAILY PRN magnesium oxide 400 mg PO DAILY Do you need a note to return to daycare/school/sports/work: No HPI Obstructive sleep apnea HPI Details 63 years old very pleasant female is here for 6 months follow-up for her sleep apnea. As far as weight is concerned there is no further reduction, she tries her best to watch diet and do exercises. Sleep is fairly good with the use of CPAP. She is very comfortable with the nasal pillows, and these pressure setting. No issues with the CPAP device. Still has to use Tylenol p.m. a p.r.n. for sleep She has no cough wheezing or shortness of breath. COUNT INCLUDES THE [facility] Medical History (Updated 03/29/23 @ 10:08 by Liz Poole MD) Acute sinusitis Allergic rhinitis Anemia Anxiety disorder COVID-19 vaccine series completed Depression Dyslipidemia Edy's disease History of proctitis Hx of supraventricular tachycardia Hypothyroidism Non-toxic multinodular goiter Obesity (BMI 30-39.9) Obesity (BMI 30-39.9) Obesity (BMI 30.0-34.9) JOYCE (obstructive sleep apnea) Seasonal allergies Vitamin D deficiency Surgical History H/O knee surgery History of radiofrequency ablation procedure for cardiac arrhythmia Hx of colonoscopy Hx of exploratory laparotomy Hx of LASIK S/P thyroid biopsy Family History Father Heart disease Mother No problems noted. Social History Household Members: Spouse Housing: House Are you a primary career services director to a significant other at home: No Do you presently have visiting nurse or other home services: Yes (Cyn PRUITTA - post op) Alcohol intake: never Patient Tobacco Use Status: Never used Tobacco e-Cigarette/Vaping Use: Never Used Second Hand Smoke Exposure: No service: No Current occupational status: employed Cognitive needs: No Hearing needs: No Vision needs: Yes Female Reproductive History Menstrual Age of Menarche: 15 Review of Systems Const All systems reviewed & are unremarkable except as noted in HPI and below Eyes Reports no additional complaints ENT Reports no additional complaints, Reports nasal congestion and Reports nasal discharge (Quite frequent especially in early spring.) Card Denies chest pain, Denies irregular heart rhythm and Denies leg edema Resp Reports no additional complaints and Reports cough GI Reports abdominal pain (OFF AND ON AT THE SURGICAL SITE) Reports no additional complaints Musc Reports no additional complaints Skin/Breast Reports system reviewed and no additional complaints, except as documented Neuro Reports no additional complaints Psych Reports no additional complaints Physical Exam Vital Signs: Last Vital Signs Pulse 79 03/29/23 09:43 BP 110/68 03/29/23 09:43 Pulse Ox 95 03/29/23 09:43 Oxygen Delivery Method Room Air 03/29/23 09:43 BMI result Body Mass Index 34.3 Const General: healthy appearing, comfortable, no acute distress, alert and awake Orientation/consciousness: patient oriented x3 HEENT Head: Yes normal to inspection General nose exam: No nasal polyps present and No nasal discharge present Face and sinus: Yes sinuses nontender Mouth: oropharynx normal Throat: Yes posterior oropharynx normal Eyes General: appearance normal, both eyes and all related structures Neck Neck: Yes normal visual inspection, Yes no lymphadenopathy, Yes trachea midline and Yes no JVD Thyroid: Thyroid normal Chest Chest palpation & inspection: normal inspection of the chest, normal palpation of entire chest wall and no tenderness Resp Effort & Inspection: normal respiratory effort Auscultation: clear to auscultation bilaterally Percussion: percussion normal Cardio Palpation: normal PMI Rate: regular rate Rhythm: regular rhythm Heart sounds: no gallops and no murmurs Peripheral pulses: Peripheral pulses 2+ throughout GI Palpation (GI): Soft to palpation, nontender, No hepatosplenomegaly present, no masses and Other GI palpation findings present (EXTENSIVE HEALED SURGICAL SCAR FROM HER RECENT ABDOMINAL SURGERY.) Auscultation: normal bowel sounds Back/Spine/Pelvis Thoracic/Lumbar Spine: thoracic and lumbar spine normal to inspection Skin General skin exam: no rashes or lesions noted Neuro General: patient oriented x3 and no focal motor deficits Cranial nerves: Yes CN's II-XII intact bilaterally Extrem General: Yes normal to inspection, Yes no clubbing, cyanosis or edema and Yes no calf tenderness Psych Appearance: grossly normal and well kempt Speech and movement: Normal speech and movement present Results Reviewed Results Reviewed: Compliance report for the last 30 nights is reviewed Used CPAP 30/30 nights, 100%. Average use per night 6 hours 53 minutes which is excellent, No significant air leak Residual AHI only 0.6 Assessment & Plan Assessment & Plan (1) JOYCE (obstructive sleep apnea): Comment: A well known case of obstructive sleep apnea , compliance is excellent . Sleep is fair. Discussed about using CPAP regularly, and she is well motivated. She is definitely benefiting from the use of CPAP. Will revisit 6 months. Code(s): G47.33 - Obstructive sleep apnea (adult) (pediatric) (2) Obesity (BMI 30-39.9): Comment: She remains moderately obese,. She is well aware of and actively watching diet and doing exercise, Code(s): E66.9 - Obesity, unspecified (3) Allergic rhinitis: Comment: Complains of frequent cough which is mostly due to nasal congestion and postnasal discharge. This is due to environmental allergies. Treatment: Avoidance of any triggers if possible. May use Flonase 2 spray in each nostril daily. May also use Claritin or Zyrtec 10 mg once a day p.r.n.. Code(s): J30.9 - Allergic rhinitis, unspecified Coding Level of Care Code Est Pt Level 3 (01613) Diagnoses JOYCE (obstructive sleep apnea) G47.33 Obesity (BMI 30-39.9) E66.9 Allergic rhinitis J30.9
== END 2023-03-29 10:02 | disposition home or self-care (01) ==
PROVIDERS: PCP Internal Medicine; Visit Provider Internal Medicine
DX: G47.33 Obstructive sleep apnea (adult) (pediatric) (principal); E66.9 Obesity, unspecified; J30.9 Allergic rhinitis, unspecified
CPT/HCPCS: 99213

== ENCOUNTER → 2023-03-29 09:38 | Outpatient (BNVA) | payer OTHER, SELFPAY | PROVIDERS: Visit Provider Internal Medicine ==

== ENCOUNTER 2023-06-01 10:55 | Outpatient (AMB) | payer OTHER, SELFPAY ==
[2023-06-01 11:04] VITALS: BP 130/80; PULSE 65; O2SAT 96; BMI 34.5
--- NOTE | 2023-06-01 11:04 | A.OFFPC_ITS ---
Vital Signs 06/01/23 11:04 Height 5 ft 4 in Weight 201 lb BMI 34.5 BP 130/80 Blood Pressure Location Lt brachial Position Sitting Pulse 65 Pulse Source Pulse Oximeter Pulse Oximetry (%) 96 Intake Visit Reasons: Annual physical Intake Note: pt is here for annual exam Educational Aide Required: No Accompanied by: Self / Same As Patient Allergies No Known Allergies Allergy (Verified 06/01/23 11:34) Medication List - Last Reconciled 06/01/23 by Joana Real MD aspirin (Adult Low Dose Aspirin) 81 mg PO DAILY cholecalciferol (vitamin D3) 50 mcg PO DAILY diphenhydramine-acetaminophen 25-500 mg (Tylenol PM Extra Strength) 2 tabs PO BEDTIME PRN docusate sodium 100 mg PO BID levothyroxine 44 mcg (1/2 x 88 mcg) PO DAILY 90 days loratadine (Claritin) 10 mg PO DAILY PRN magnesium oxide 400 mg PO DAILY Tobacco use date assessed: 01/06/23 Dental Screening Dental Screen Date: 06/01/23 Did you have a dental visit in the last 12 months?: Yes Did you have a dental problem in the last 6 months where you did not have access to dental care?: No Was dental information given to patient?: Patient has dentist HPI Annual physical HPI Details 63-year-old lady with dyslipidemia, Hash imoto's disease with hypothyroidism, obstructive sleep apnea, obesity, and allergic rhinitis here today for physical exam. She has been compliant with taking her medications and has been compliant with using her CPAP with good results [facility] Medical History Obesity (BMI 30-39.9) Obesity (BMI 30.0-34.9) Anemia Dyslipidemia Allergic rhinitis History of proctitis Acute sinusitis Edy's disease COVID-19 vaccine series completed Seasonal allergies Hx of supraventricular tachycardia Depression Anxiety disorder Obesity (BMI 30-39.9) Vitamin D deficiency Non-toxic multinodular goiter Hypothyroidism JOYCE (obstructive sleep apnea) Surgical History Hx of exploratory laparotomy Hx of LASIK Hx of colonoscopy S/P thyroid biopsy History of radiofrequency ablation procedure for cardiac arrhythmia H/O knee surgery Family History Father Heart disease Mother No problems noted. Social History Household Members: Spouse Housing: House Are you a primary home care companion to a significant other at home: No Do you presently have visiting nurse or other home services: Yes (Cyn HERNANDEZ - post op) Alcohol intake: never Patient Tobacco Use Status: Never used Tobacco e-Cigarette/Vaping Use: Never Used Second Hand Smoke Exposure: No service: No Current occupational status: employed Cognitive needs: No Hearing needs: No Vision needs: Yes Female Reproductive History Menstrual Age of Menarche: 15 Date of Mammogram: 06/23/22 History of abnormal mammogram: No Questionnaire PHQ-9 Over the last 2 weeks, how often have you been bothered by any of the following problems? 1. Little interest or pleasure in doing things: not at all 2. Feeling down, depressed, or hopeless: not at all 3. Trouble falling or staying asleep, or sleeping too much: not at all 4. Feeling tired or having little energy: not at all 5. Poor appetite or overeating: not at all 6. Feeling bad about yourself - or that you are a failure or have let yourself or your family down: not at all 7. Trouble concentrating on things, such as reading the newspaper or watching television: not at all 8. Moving or speaking so slowly that other people could have noticed. Or the opposite - being so fidgety or restless that you have been moving around a lot more than usual: not at all 9. Thoughts that you would be better off or of hurting yourself in some way: not at all Total score: 0 Depression Screening Interpretation: Negative 17413 - PHQ-9 Billing: Yes Source: Developed by Drs. Deshawn Corbin, Laura Nava, William Nicole and colleagues, with an educational susan from [employer]. Thrive Questionnaire Date Thrive assessed: 06/01/23 I am a: Patient What is your living situation today?: I have a steady place to live Within the past 12 months, did the food you bought not last and you didn't have the money to get more?: Never true Within the past 12 months, did you worry whether your food would run out before you got money to buy more?: Never true Do you have trouble paying for medicines?: No Do you have trouble getting transportation to medical appointments?: No Do you have trouble paying your heating and electricity bill?: No Do you have trouble taking care of your child, family member or friend?: No Do you have trouble with day-to-day activities such as bathing, preparing meals, shopping, managing finances, etc.?: No Are you currently unemployed and looking for a job?: No Are you interested in more education?: No Please select the resources that you would like help with: None Currently or been in a relationship where the following occur: no concerns reported ORQUIDEA-7 AMB Questionnaire ORQUIDEA-7 Date ORQUIDEA - 7 assessed: 06/01/23 Feeling nervous, anxious, or on edge: 0 = Not at all Not being able to stop or control worryin = Not at all Worrying too much about different things: 0 = Not at all Trouble relaxin = Not at all Being so restless that it is hard to sit still: 0 = Not at all Becoming easily annoyed or irritable: 0 = Not at all Feeling afraid as if something awful might happen: 0 = Not at all Total ORQUIDEA-7 score (0-4 normal; 5-9 mild; 10-14 moderate; 15-21 severe): 0 Source: Developed by Drs. Deshawn Corbin, Laura Nava, William Nicole and colleagues, with an educational susan from [employer]. ORQUIDEA-7 Assessment Billing ORQUIDEA-7 Assessment Tool: ORQUIDEA-7 Assessment 35077 Review of Systems Const Denies body aches, Denies fatigue, Denies fever(s), Denies headache(s), Denies lethargy and Denies weakness Eyes Denies change in vision ENT Denies dizziness, Denies headache(s), Denies nasal discharge and Reports post nasal drip Card Denies chest pain, Denies rapid heart rate and Denies lightheadedness Resp Reports no additional complaints GI Denies abdominal pain, Denies melena, Denies hematochezia, Denies change in bowel habits and Denies heartburn Reports no additional complaints Musc Reports no additional complaints Skin/Breast Denies breast pain, Denies breast mass, Denies change in breast shape, Denies lesions and Denies rash Neuro Denies dizziness, Denies headache(s) and Denies weakness Psych Reports no additional complaints Endo Denies fatigue, Denies polydipsia and Denies polyuria [place]ilango/Lymph Denies easy bleeding and Denies easy bruising Aller/Immun Reports seasonal rhinorrhea Physical exam (Primary Care) Vital Signs: Last Vital Signs Pulse 65 06/01/23 11:04 BP 130/80 06/01/23 11:04 Pulse Ox 96 06/01/23 11:04 BMI result Body Mass Index 34.5 Tobacco/Smoking Status: Tobacco use Status Tobacco use date assessed 01/06/23 06/01/23 11:05 Patient Tobacco Use Status Never used Tobacco 06/01/23 11:05 e-Cigarette/Vaping Use Never Used 06/01/23 11:05 PHQ-9: PHQ-9 Score PHQ-9: Total score 0 06/01/23 12:02 Depression Screening Interpretation: Negative Thrive Assessment: Date of Thrive Assessment Date Thrive assessed 06/01/23 06/01/23 11:11 Currently or been in a relationship where the following occur: no concerns reported Const General: comfortable, no acute distress and alert Nutritional Appearance: obese Orientation/consciousness: patient oriented x3 HENMT Mouth: moist mucous membranes Eyes General: appearance normal, both eyes and all related structures Neck Neck: Yes full ROM, Yes no lymphadenopathy and Yes supple Chest Breast/axilla palpation: normal palpation of the breasts Resp Effort & Inspection: normal respiratory effort and able to speak in complete sentences Auscultation: clear to auscultation bilaterally Cardio Rate: regular rate Rhythm: regular rhythm Heart sounds: S1 normal heart sound present and S2 normal heart sound present GI Palpation (GI): Soft to palpation, nontender and no masses Auscultation: normal bowel sounds General: Yes no CVA tenderness Back/Spine/Pelvis Back: no CVA tenderness and No back tenderness Skin General skin exam: no rashes or lesions noted Neuro General: patient oriented x3, gait normal, tone normal, moves all extremities, Normal light touch and pain sensation and no focal motor deficits Cranial nerves: Yes CN's II-XII intact bilaterally Cognition (Neuro): normal cognition Extrem General: Yes full ROM, Yes no joint enlargement, Yes no clubbing, cyanosis or edema and Yes no calf tenderness Psych Appearance: grossly normal and well kempt Mental Status: mental status grossly normal Speech and movement: Normal speech and movement present Affect: normal affect Attitude: cooperative Thought process: Normal thought process present Assessment and Plan Assessment & Plan (1) Annual visit for general adult medical examination with abnormal findings: Code(s): Z00.01 - Encounter for general adult medical examination with abnormal findings Plan: Will check appropriate labs. Continue with regular dental visit every 6 months and regular eye exams, at least every 2 years. Take adequate calcium in diet and vitamin-D 3 at 2000 IU per cap once a day, in addition to weight-bearing exercises to help maintain good muscle tone and weight control. Instructed to do self-breast exam, and continue to get yearly mammogram, already scheduled, advised to get bone density scan done, will schedule with screening mammogram next year. Reminded to get her COVID booster, gets yearly flu shots, reminded to get her 2nd dose of Shingrix vaccine, and up-to-date with her Tdap (2) Hypothyroidism: Code(s): E03.9 - Hypothyroidism, unspecified Plan: Reminded get thyroid levels done, orders already sent to lab (3) Dyslipidemia: Code(s): E78.5 - Hyperlipidemia, unspecified Plan: Fasting lipid panel ordered (4) Obesity (BMI 30.0-34.9): Code(s): E66.9 - Obesity, unspecified Plan: Advised to do regular cardio workout , for at least 15 minutes each time, adhere to healthy eating habits. (5) JOYCE (obstructive sleep apnea): Comment: A well known case of obstructive sleep apnea , compliance is excellent . Sleep is fair. Discussed about using CPAP regularly, and she is well motivated. She is definitely benefiting from the use of CPAP. Will revisit 6 months. Code(s): G47.33 - Obstructive sleep apnea (adult) (pediatric) Plan: Followed by Dr. Poole, currently on CPAP Orders: Orders Magnesium 06/01/23 E03.9 - Hypothyroidism, unspecified, E66.9 - Obesity, unspecified, E78.5 - Hyperlipidemia, unspecified, G47.33 - Obstructive sleep apnea (adult) (pediatric), Z00.01 - Encounter for general adult medical examination with abnormal findings Vitamin D 25-OH Total 06/01/23 E03.9 - Hypothyroidism, unspecified, E66.9 - Obesity, unspecified, E78.5 - Hyperlipidemia, unspecified, G47.33 - Obstructive sleep apnea (adult) (pediatric), Z00.01 - Encounter for general adult medical examination with abnormal findings Coding Level of Care Code Est Pt Prev Care 40-64y(09031) Diagnoses Annual visit for general adult medical examination with abnormal findings Z00.01 Hypothyroidism E03.9 Dyslipidemia E78.5 Obesity (BMI 30.0-34.9) E66.9 JOYCE (obstructive sleep apnea) G47.33 Additional Codes ORQUIDEA-7 Assessment Billing - ORQUIDEA-7 Assessment Tool: ORQUIDEA-7 Assessment [id number] ([id number])
== END 2023-06-01 11:59 | disposition home or self-care (01) ==
PROVIDERS: Visit Provider Internal Medicine
DX: Z00.01 Encounter for general adult medical examination with abnormal findings (principal); E03.9 Hypothyroidism, unspecified; E66.9 Obesity, unspecified; Z68.34 Body mass index [BMI] 34.0-34.9, adult; E78.5 Hyperlipidemia, unspecified; G47.33 Obstructive sleep apnea (adult) (pediatric)
CPT/HCPCS: 99396

== ENCOUNTER 2023-06-28 10:51 | Outpatient (REF) | payer OTHER, SELFPAY | END 2023-06-28 10:52 | disposition home or self-care (01) | LOC: HO.MAMMO 10:51 | PROVIDERS: PCP Internal Medicine; Visit Provider Internal Medicine | DX: Z12.31 Encounter for screening mammogram for malignant neoplasm of breast (principal) | CPT/HCPCS: 77063; 77067 ==

== ENCOUNTER → 2023-06-28 11:30 | Outpatient (BNV) | payer OTHER, SELFPAY | PROVIDERS: PCP Internal Medicine; Visit Provider Radiology Diagnostic Radiology | DX: Z12.31 Encounter for screening mammogram for malignant neoplasm of breast (principal) | CPT/HCPCS: 77063; 77067 ==

== ENCOUNTER 2023-07-14 08:45 | Outpatient (REF) | payer OTHER, SELFPAY ==
--- NOTE | ~2023-07-14 | MM_ITS ---
EXAMINATION: BONE DENSITOMETRY CLINICAL INDICATION: Asymptomatic menopausal state. COMPARISON: This is the patient's baseline examination. TECHNIQUE: Using a BMEYE DXA System (software version: 13.1) manufactured by [employer], dual-energy x-ray absorptiometry was performed of the lumbar spine and left hip. The images are of good technical quality. Summary results are attached. FINDINGS: LEFT FEMUR, NECK: BMD 0.803 g/cm2, Z-score -0.9, T-score -1.7, osteopenia. LEFT FEMUR, TOTAL: BMD 0.903 g/cm2, Z-score -0.4, T-score -0.8, normal. AP SPINE L1-L4: BMD 0.948 g/cm2, Z-score -1.4, T-score -1.9, osteopenia. IDENTIFIED RISK FACTORS: Early menopause, secondary osteoporosis, parental hip fracture, secondary osteoporosis (intestinal or bowel disease, not IBS). HISTORY OF FRACTURE: None listed. MEDICATIONS: Vitamin D. MM/XR DEXA axial skeleton IMPRESSION: 1. DIAGNOSIS: Osteopenia based on the lowest T-score value of -1.9 in the lumbar spine applying World Health Organization criteria. 2. 10-YEAR FRACTURE RISK PREDICTION, FRAX: Major osteoporotic fracture (clinical spine, forearm, hip or shoulder) 16.5%. Hip fracture 0.9%. 3. Treatment Recommendations: NOF guidelines recommend consideration for treatment in postmenopausal women and men age 50 and older presenting with the following: -A hip or vertebral (clinical or morphometric) fracture. -T-score less than or equal to -2.5 at the femoral neck or spine after appropriate evaluation to exclude secondary causes. -Low bone mass at the hip or spine and a 10-year fracture probability by FRAX of greater than or equal to 3% for hip fracture or greater than or equal to 20% for major osteoporotic fracture based on the [place] adapted WHO algorithm. 4. Other Recommendations: All treatment decisions require clinical judgment and consideration of individual patient factors, including patient preferences, comorbidities, previous drug use, risk factors not captured in the FRAX model (e.g. frailty, falls, vitamin D deficiency, increased bone turnover, interval significant decline in bone density) and possible under or overestimation of fracture risk by FRAX. Additional medical evaluation for secondary cause of low bone mineral density may be appropriate. FUTURE SCAN RECOMMENDATION: People with diagnosed cases of osteoporosis or at high risk for fracture should have regular bone mineral density tests. For patients eligible for Medicare, routine testing is allowed once every 2 years. The testing frequency can be increased to one year for patients who have rapidly progressing disease, those who are receiving or discontinuing medical therapy to restore bone mass, or have additional risk factors.
== END 2023-07-14 08:46 | disposition home or self-care (01) ==
LOC: HO.MAMMO 08:45
PROVIDERS: PCP Internal Medicine; Visit Provider Internal Medicine
DX: Z13.820 Encounter for screening for osteoporosis (principal); Z78.0 Asymptomatic menopausal state
CPT/HCPCS: 77080

== ENCOUNTER 2023-10-04 09:34 | Outpatient (AMB) | payer OTHER, SELFPAY ==
[2023-10-04 09:40] VITALS: BP 122/72; PULSE 96; O2SAT 96; BMI 36.6
--- NOTE | 2023-10-04 09:40 | MHC.OFFVIS ---
Intake Vital Signs 10/04/23 09:40 Height 5 ft 4 in Weight 213 lb BMI 36.6 BP 122/72 Blood Pressure Location Lt brachial Position Sitting Pulse 96 Pulse Source Pulse Oximeter Pulse Oximetry (%) 96 Oxygen Delivery Method Room Air Intake Visit Reasons: Obstructive sleep apnea Intake Note: pt is here for follow up and JOYCE, feeling okay but having a rough time sleeping, not with cpap Industrial Seamstress Required: No Allergies No Known Allergies Allergy (Verified 10/04/23 10:00) Medication List - Last Reconciled 10/04/23 by Liz Poole MD aspirin (Adult Low Dose Aspirin) 81 mg PO DAILY cholecalciferol (vitamin D3) 50 mcg PO DAILY diphenhydramine-acetaminophen 25-500 mg (Tylenol PM Extra Strength) 2 tabs PO BEDTIME PRN docusate sodium 100 mg PO DAILY levothyroxine 44 mcg (1/2 x 88 mcg) PO DAILY 90 days loratadine (Claritin) 10 mg PO DAILY PRN magnesium oxide 400 mg PO DAILY Do you need a note to return to daycare/school/sports/work: No HPI Obstructive sleep apnea HPI Details 63 years old very pleasant female, grossly obese with diagnosis of obstructive sleep apnea. She uses her CPAP very regularly every night, most of the time sleeps good, some nights she has sleep disturbance. She is in yoga program. 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 She is fully aware of her weight issue, and will try to lose weight. With the CPAP she has no issue and using it 100% of the times. Only mild intermittent nasal congestion which is controlled with loratadine p.r.n.. [facility] Medical History Obesity (BMI 30-39.9) Obesity (BMI 30.0-34.9) Anemia Dyslipidemia Allergic rhinitis History of proctitis Acute sinusitis Edy's disease COVID-19 vaccine series completed Seasonal allergies Hx of supraventricular tachycardia Depression Anxiety disorder Obesity (BMI 30-39.9) Vitamin D deficiency Non-toxic multinodular goiter Hypothyroidism JOYCE (obstructive sleep apnea) Surgical History Hx of exploratory laparotomy Hx of LASIK Hx of colonoscopy S/P thyroid biopsy History of radiofrequency ablation procedure for cardiac arrhythmia H/O knee surgery Family History Father Heart disease Mother No problems noted. Social History Household Members: Spouse Housing: House Are you a primary health care marketing manager to a significant other at home: No Do you presently have visiting nurse or other home services: Yes (Cyn PRUITTA - post op) Alcohol intake: never Comment: Used cane and walker immediately post -op 12/2020- no longer uses Patient Tobacco Use Status: Never used Tobacco e-Cigarette/Vaping Use: Never Used Second Hand Smoke Exposure: No service: No Current occupational status: employed Cognitive needs: No Hearing needs: No Vision needs: Yes Female Reproductive History Menstrual Age of Menarche: 15 Review of Systems Const All systems reviewed & are unremarkable except as noted in HPI and below Eyes Reports no additional complaints ENT Reports no additional complaints, Reports nasal congestion and Reports nasal discharge (Quite frequent especially in early spring.) Card Denies chest pain, Denies irregular heart rhythm and Denies leg edema Resp Reports no additional complaints and Reports cough GI Reports abdominal pain (OFF AND ON AT THE SURGICAL SITE) Reports no additional complaints Musc Reports no additional complaints Skin/Breast Reports system reviewed and no additional complaints, except as documented Neuro Reports no additional complaints Psych Reports no additional complaints Physical Exam Vital Signs: Last Vital Signs Pulse 96 10/04/23 09:40 BP 122/72 10/04/23 09:40 Pulse Ox 96 10/04/23 09:40 Oxygen Delivery Method Room Air 10/04/23 09:40 BMI result Body Mass Index 36.6 Const General: healthy appearing, comfortable, no acute distress, alert and awake Orientation/consciousness: patient oriented x3 HEENT Head: Yes normal to inspection General nose exam: No nasal polyps present and No nasal discharge present Face and sinus: Yes sinuses nontender Mouth: oropharynx normal Throat: Yes posterior oropharynx normal Eyes General: appearance normal, both eyes and all related structures Neck Neck: Yes normal visual inspection, Yes no lymphadenopathy, Yes trachea midline and Yes no JVD Thyroid: Thyroid normal Chest Chest palpation & inspection: normal inspection of the chest, normal palpation of entire chest wall and no tenderness Resp Effort & Inspection: normal respiratory effort Auscultation: clear to auscultation bilaterally Percussion: percussion normal Cardio Palpation: normal PMI Rate: regular rate Rhythm: regular rhythm Heart sounds: no gallops and no murmurs Peripheral pulses: Peripheral pulses 2+ throughout GI Palpation (GI): Soft to palpation, nontender, No hepatosplenomegaly present, no masses and Other GI palpation findings present (EXTENSIVE HEALED SURGICAL SCAR FROM HER RECENT ABDOMINAL SURGERY.) Auscultation: normal bowel sounds Back/Spine/Pelvis Thoracic/Lumbar Spine: thoracic and lumbar spine normal to inspection Skin General skin exam: no rashes or lesions noted Neuro General: patient oriented x3 and no focal motor deficits Cranial nerves: Yes CN's II-XII intact bilaterally Extrem General: Yes normal to inspection, Yes no clubbing, cyanosis or edema and Yes no calf tenderness Psych Appearance: grossly normal and well kempt Speech and movement: Normal speech and movement present Results Reviewed Results Reviewed: Compliance report for the last 30 nights is reviewed. Used 30/30 nights, 100%, Average use per night 7 hours 5 minutes. Pressure used 9-11 cm. No significant air leak. Residual AHI 0.8 Assessment & Plan Assessment & Plan (1) Obesity (BMI 30-39.9): Comment: She remains moderately obese, has gained some weight during the past 6 months. She is well aware of and plans to lose weight in the next 6 months. We discussed about the diet and doing daily exercise. Code(s): E66.9 - Obesity, unspecified Plan: as above (2) JOYCE (obstructive sleep apnea): Comment: A well known case of obstructive sleep apnea , compliance is excellent . Sleep is fair. Code(s): G47.33 - Obstructive sleep apnea (adult) (pediatric) Plan: Discussed about using CPAP regularly, and she is well motivated. She is definitely benefiting from the use of CPAP. Will revisit 6 months. (3) Allergic rhinitis: Comment: Complains of frequent cough which is mostly due to nasal congestion and postnasal discharge. This is due to environmental allergies. T Code(s): J30.9 - Allergic rhinitis, unspecified Plan: Treatment: Avoidance of any triggers if possible. May use Flonase 2 spray in each nostril daily PRN May also use Claritin or Zyrtec 10 mg once a day p.r.n.. Medications: Changed From docusate sodium 100 mg PO BID 60 caps 2RF To docusate sodium 100 mg PO DAILY Coding Level of Care Code Est Pt Level 3 (63661) Diagnoses Obesity (BMI 30-39.9) E66.9 JOYCE (obstructive sleep apnea) G47.33 Allergic rhinitis J30.9
== END 2023-10-04 10:00 | disposition home or self-care (01) ==
PROVIDERS: PCP Internal Medicine; Visit Provider Internal Medicine
DX: E66.9 Obesity, unspecified (principal); G47.33 Obstructive sleep apnea (adult) (pediatric); J30.9 Allergic rhinitis, unspecified
CPT/HCPCS: 99213

== ENCOUNTER → 2023-10-04 09:34 | Outpatient (BNVA) | payer OTHER, SELFPAY | PROVIDERS: PCP Internal Medicine; Visit Provider Internal Medicine ==

== ENCOUNTER 2023-10-06 07:28 | Outpatient (AMB) | payer OTHER, SELFPAY ==
--- NOTE | 2023-10-06 07:36 | MHC.OFFVIS ---
Intake Vital Signs 10/06/23 07:40 Height 5 ft 4 in Weight 211 lb 10.3 oz BMI 36.3 BP 118/72 Intake Visit Reasons: Annual Intake Note: no concerns Director Volunteer Services Required: No Information Interpreted: non-clinical & clinical Erp Technical Lead: Erp Technical Lead Present (Gemini Nick BETO) Accompanied by: Self / Same As Patient Allergies No Known Allergies Allergy (Verified 10/06/23 07:42) Post menopausal: Yes HPI HPI Comments History of Present Illness Details Presenting for annual exam. No complaints. Last Pap/HPV in 10/07 was negative Last Mammogram was BI-RADS 1 in 07/11 Last Colonoscopy was in 08/10 [facility] Medical History Obesity (BMI 30-39.9) Obesity (BMI 30.0-34.9) Anemia Dyslipidemia Allergic rhinitis History of proctitis Acute sinusitis Edy's disease COVID-19 vaccine series completed Seasonal allergies Hx of supraventricular tachycardia Depression Anxiety disorder Obesity (BMI 30-39.9) Vitamin D deficiency Non-toxic multinodular goiter Hypothyroidism JOYCE (obstructive sleep apnea) Surgical History Hx of exploratory laparotomy Hx of LASIK Hx of colonoscopy S/P thyroid biopsy History of radiofrequency ablation procedure for cardiac arrhythmia H/O knee surgery Family History Father Heart disease Mother No problems noted. Social History Household Members: Spouse Housing: House Are you a primary tire care manager to a significant other at home: No Do you presently have visiting nurse or other home services: Yes (Cyn HERNANDEZ - post op) Alcohol intake: never Comment: Used cane and walker immediately post -op 12/2020- no longer uses Patient Tobacco Use Status: Never used Tobacco e-Cigarette/Vaping Use: Never Used Second Hand Smoke Exposure: No service: No Current occupational status: employed Cognitive needs: No Hearing needs: No Vision needs: Yes Female Reproductive History Menstrual Age of Menarche: 15 Menopause type: natural Total pregnancies: 4 Full term: 2 Number of Living Children: 2 Date of last pap smear: 10/02/18 Date of Mammogram: 06/28/23 Date of last Bone Density Screenin07/14/23 Review of Systems Const All systems reviewed & are unremarkable except as noted in HPI and below Card Reports as per HPI Resp Reports as per HPI GI Reports as per HPI and Reports no additional complaints Reports as per HPI Physical Exam Vital Signs: Last Vital Signs BP 118/72 10/06/23 07:40 BMI result Body Mass Index 36.3 Const General: cooperative, healthy appearing and comfortable Chest Chest palpation & inspection: normal inspection of the chest and normal palpation of entire chest wall Breast/axilla inspection: normal inspection of the breasts and normal inspection of the axillae Breast/axilla palpation: normal palpation of the breasts, normal palpation of the axillae and no axillary lymphadenopathy Resp Effort & Inspection: normal respiratory effort Auscultation: clear to auscultation bilaterally Percussion: percussion normal Cardio Palpation: normal PMI Rate: regular rate Rhythm: regular rhythm Heart sounds: no murmurs and no rubs Peripheral pulses: Peripheral pulses 2+ throughout GI Inspection: Yes normal to inspection Palpation (GI): Soft to palpation, nontender, no guarding, not rigid and No hepatosplenomegaly present Percussion: Yes normal to percussion Auscultation: normal bowel sounds Rectal Exam - Female: deferred General: Yes bladder normal to palpation External Female Exam: No lesion Speculum Exam - Vagina: normal appearance of the vagina, normal palpation, normal vaginal discharge and not erythematous Speculum Exam - Cervix: normal appearance of the cervix and normal palpation Bimanual exam- vagina & uterus: normal bimanual exam, normal palpation, uterine size normal, bladder normal to palpation, consistency normal and normal palpation Bimanual Exam- Adnexa, other: normal adnexae, no masses and no tenderness Assessment & Plan Assessment & Plan (1) Well woman exam: Code(s): Z01.419 - Encounter for gynecological examination (general) (routine) without abnormal findings Plan: Co testing done. Counseled the patient about the recommended dietary allowance of 1200 mg of Calcium & 600 IU of vitamin D. Instructions given to patient to schedule next screening Mammogram in 07/12. The patient was instructed to perform monthly self-breast exams and schedule annual exam in a year. All questions answered and the patient verbalized understanding. Coding Level of Care Code Est Pt Prev Care 40-64y(98540) Diagnoses Well woman exam Z01.419
[2023-10-06 07:40] VITALS: BP 118/72; BMI 36.3
== END 2023-10-06 08:06 | disposition home or self-care (01) ==
PROVIDERS: PCP Internal Medicine; Visit Provider Obstetrics & Gynecology
DX: Z01.419 Encounter for gynecological examination (general) (routine) without abnormal findings (principal)
CPT/HCPCS: 99396

== ENCOUNTER 2023-10-06 07:28 | Outpatient (REF) | payer OTHER, SELFPAY ==
[2023-10-07 22:49] LABS: HPV mRNA E6/E7 rflx Not Detected (Not Detected)
== END 2023-10-06 07:29 | disposition home or self-care (01) ==
LOC: HO.LNP 07:28
PROVIDERS: PCP Internal Medicine; Visit Provider Obstetrics & Gynecology
DX: Z01.419 Encounter for gynecological examination (general) (routine) without abnormal findings (principal); Z11.51 Encounter for screening for human papillomavirus (HPV)
CPT/HCPCS: 87624; 88142

== ENCOUNTER 2023-11-26 06:57 | Outpatient (REF) | payer OTHER, SELFPAY ==
[2023-11-26 12:21] LABS: Cholesterol 222 mg/dL (<200); HDL Cholesterol 76 mg/dL (>40); LDL Cholesterol Calculated 134 mg/dL (<100); Magnesium 2.3 mg/dL (1.6-2.6); Triglycerides 60 mg/dL (<150)
[2023-11-26 12:40] LABS: Free T4 (Free Thyroxine) 0.89 ng/dL (0.71-1.85); Thyroid Stimulating Hormone 1.87 uIU/mL (0.32-4.0); Vitamin D 25-OH Total 44.9 ng/mL (>30)
== END 2023-11-26 06:58 | disposition home or self-care (01) ==
LOC: HO.HMGCLDS 06:57
PROVIDERS: PCP Internal Medicine; Visit Provider Internal Medicine
DX: Z00.01 Encounter for general adult medical examination with abnormal findings (principal); E78.5 Hyperlipidemia, unspecified; E03.9 Hypothyroidism, unspecified; E66.9 Obesity, unspecified; G47.33 Obstructive sleep apnea (adult) (pediatric)
CPT/HCPCS: 36415; 80061; 82306; 83735; 84439; 84443

== ENCOUNTER 2023-11-29 10:37 | Outpatient (AMB) | payer OTHER, SELFPAY ==
[2023-11-29 11:21] VITALS: BP 118/76; PULSE 85; O2SAT 98; BMI 37.6
--- NOTE | 2023-11-29 11:21 | A.OFFPC_ITS ---
Vital Signs 11/29/23 11:21 Height 5 ft 4 in Weight 219 lb BMI 37.6 BP 118/76 Blood Pressure Location Lt brachial Position Sitting Pulse 85 Pulse Source Pulse Oximeter Pulse Oximetry (%) 98 Oxygen Delivery Method Room Air Intake Visit Reasons: 6 month follow up Intake Note: Pt is here today for her 6 mo. f/u Allergies No Known Allergies Allergy (Verified 11/30/23 04:14) Medication List - Last Reconciled 11/30/23 by Joana Real MD aspirin (Adult Low Dose Aspirin) 81 mg PO DAILY cholecalciferol (vitamin D3) 50 mcg PO DAILY diphenhydramine-acetaminophen 25-500 mg (Tylenol PM Extra Strength) 2 tabs PO BEDTIME PRN docusate sodium 100 mg PO DAILY levothyroxine 44 mcg (1/2 x 88 mcg) PO DAILY 90 days loratadine (Claritin) 10 mg PO DAILY PRN magnesium oxide 400 mg PO DAILY Tobacco use date assessed: 11/29/23 Dental Screening Dental Screen Date: 11/29/23 Did you have a dental visit in the last 12 months?: Yes Did you have a dental problem in the last 6 months where you did not have access to dental care?: Yes Was dental information given to patient?: Patient has dentist HPI 6 month follow up HPI Details 63-year-old lady with morbid obesity, 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 She has been compliant with adhering to healthy eating habits, has been exercising regularly, does yoga. Recent fasting labs showed improvement in her triglycerides and LDL cholesterol, now almost at goal, thyroid levels are also within normal limits as well as vitamin-D and magnesium levels. She however has been having pain in over her right shoulder, with a lump that has been increasing in size on top of her right shoulder present now for the last 2 months. She experiences pain with hyper extension and abduction more than 90 degrees of her right arm. She has also been having pain in her right lower back occasionally radiating to right lateral hip, present for the last several weeks, worse with doing squats, getting in and out of her car. Denies any history of trauma, thinks she might have injured herself doing yoga. Has been taking ibuprofen which affords minimal relief. [facility] Medical History (Updated 11/29/23 @ 12:01 by Joana Real MD) Obesity (BMI 30-39.9) Anemia Dyslipidemia Allergic rhinitis History of proctitis Acute sinusitis Edy's disease COVID-19 vaccine series completed Seasonal allergies Hx of supraventricular tachycardia Depression Anxiety disorder Obesity (BMI 30-39.9) Vitamin D deficiency Non-toxic multinodular goiter Hypothyroidism JOYCE (obstructive sleep apnea) Surgical History Hx of exploratory laparotomy Hx of LASIK Hx of colonoscopy S/P thyroid biopsy History of radiofrequency ablation procedure for cardiac arrhythmia H/O knee surgery Family History Father Heart disease Mother No problems noted. Social History Household Members: Spouse Housing: House Are you a primary complex care nurse practitioner to a significant other at home: No Do you presently have visiting nurse or other home services: Yes (Cyn HERNANDEZ - post op) Alcohol intake: never Comment: Used cane and walker immediately post -op 12/2020- no longer uses Patient Tobacco Use Status: Never used Tobacco e-Cigarette/Vaping Use: Never Used Second Hand Smoke Exposure: No service: No Current occupational status: employed Cognitive needs: No Hearing needs: No Vision needs: Yes Female Reproductive History Menstrual Age of Menarche: 15 Questionnaire PHQ-9 Over the last 2 weeks, how often have you been bothered by any of the following problems? 1. Little interest or pleasure in doing things: not at all 2. Feeling down, depressed, or hopeless: not at all 3. Trouble falling or staying asleep, or sleeping too much: several days 4. Feeling tired or having little energy: several days 5. Poor appetite or overeating: not at all 6. Feeling bad about yourself - or that you are a failure or have let yourself or your family down: not at all 7. Trouble concentrating on things, such as reading the newspaper or watching television: not at all 8. Moving or speaking so slowly that other people could have noticed. Or the opposite - being so fidgety or restless that you have been moving around a lot more than usual: not at all 9. Thoughts that you would be better off or of hurting yourself in some way: not at all Total score: 2 Depression Screening Interpretation: Negative Depression Screening Done: Yes 56425 - PHQ-9 Billing: Yes Source: Developed by Drs. Deshawn Corbin, Laura Nava, William Nicole and colleagues, with an educational susan from [employer]. Thrive Questionnaire Date Thrive assessed: 11/29/23 I am a: Patient What is your living situation today?: I have a steady place to live Within the past 12 months, did the food you bought not last and you didn't have the money to get more?: Never true Within the past 12 months, did you worry whether your food would run out before you got money to buy more?: Never true Do you have trouble paying for medicines?: No Do you have trouble getting transportation to medical appointments?: No Do you have trouble paying your heating and electricity bill?: No Do you have trouble taking care of your child, family member or friend?: No Do you have trouble with day-to-day activities such as bathing, preparing meals, shopping, managing finances, etc.?: No Are you currently unemployed and looking for a job?: No Are you interested in more education?: No Currently or been in a relationship where the following occur: no concerns reported THRIVE Score: 0 AUDIT C Alcohol Use Questionnaire (AUDIT-C) 1. How often do you have a drink containing alcohol?: Never 3. How often do you have six or more drinks on one occasion?: Never Total Score: 0 ORQUIDEA-7 AMB Questionnaire ORQUIDEA-7 Date ORQUIDEA - 7 assessed: 11/29/23 Feeling nervous, anxious, or on edge: 0 = Not at all Not being able to stop or control worryin = Not at all Worrying too much about different things: 0 = Not at all Trouble relaxin = Not at all Being so restless that it is hard to sit still: 0 = Not at all Becoming easily annoyed or irritable: 0 = Not at all Feeling afraid as if something awful might happen: 0 = Not at all Total ORQUIDEA-7 score (0-4 normal; 5-9 mild; 10-14 moderate; 15-21 severe): 0 Source: Developed by Drs. Deshawn Corbin, Laura Nava, William Nicole and colleagues, with an educational susan from [employer]. ORQUIDEA-7 Assessment Billing ORQUIDEA-7 Assessment Tool: ORQUIDEA-7 Assessment 28330 Review of Systems Const Denies fatigue, Denies fever(s), Denies headache(s) and Denies weakness Eyes Denies change in vision ENT Denies dizziness, Denies headache(s) and Denies nasal discharge Card Denies chest pain, Denies rapid heart rate and Denies lightheadedness Resp Reports no additional complaints GI Denies abdominal pain, Denies melena, Denies hematochezia, Denies change in bowel habits and Denies heartburn Reports no additional complaints Musc Denies tingling Skin/Breast Denies rash Neuro Denies dizziness, Denies headache(s), Denies Sensory deficit (Neuro), Denies tingling, Denies paresthesias and Denies weakness Psych Reports no additional complaints Endo Denies fatigue, Denies polydipsia and Denies polyuria Physical exam (Primary Care) Vital Signs: Last Vital Signs Pulse 85 11/29/23 11:21 BP 118/76 11/29/23 11:21 Pulse Ox 98 11/29/23 11:21 Oxygen Delivery Method Room Air 11/29/23 11:21 BMI result Body Mass Index 37.6 Tobacco/Smoking Status: Tobacco use Status Tobacco use date assessed 11/29/23 11/29/23 11:22 Patient Tobacco Use Status Never used Tobacco 11/29/23 11:22 e-Cigarette/Vaping Use Never Used 11/29/23 11:22 PHQ-9: PHQ-9 Score PHQ-9: Total score 2 11/29/23 12:01 Depression Screening Interpretation: Negative Thrive Assessment: Date of Thrive Assessment Date Thrive assessed 11/29/23 11/29/23 11:30 Currently or been in a relationship where the following occur: no concerns reported Const General: comfortable, no acute distress and alert Nutritional Appearance: obese Orientation/consciousness: patient oriented x3 HENMT Mouth: moist mucous membranes Eyes General: appearance normal, both eyes and all related structures Neck Neck: Yes full ROM, Yes no lymphadenopathy and Yes supple Resp Effort & Inspection: normal respiratory effort and able to speak in complete sentences Auscultation: clear to auscultation bilaterally Cardio Rate: regular rate Rhythm: regular rhythm Heart sounds: S1 normal heart sound present and S2 normal heart sound present GI Palpation (GI): Soft to palpation, nontender and no masses Auscultation: normal bowel sounds General: Yes no CVA tenderness Back/Spine/Pelvis Other: No tenderness on palpation over right sacroiliac area, full range of motion of right hip joint, no tenderness on palpation over lateral aspect of hip, no gross bone deformity or joint swelling Back: no CVA tenderness Skin General skin exam: no rashes or lesions noted Neuro General: patient oriented x3, gait normal, tone normal, moves all extremities, Normal light touch and pain sensation and no focal motor deficits Cranial nerves: Yes CN's II-XII intact bilaterally Cognition (Neuro): normal cognition Sensory Exam: No Sensory deficit (Neuro) Extrem Other: Fluctuant soft nontender mass on top of right shoulder joint General: Yes full ROM (But there is pain on abduction of right arm more than 90 degrees), Yes no joint enlargement, Yes no clubbing, cyanosis or edema and Yes no calf tenderness Psych Appearance: grossly normal and well kempt Mental Status: mental status grossly normal Speech and movement: Normal speech and movement present Affect: normal affect Attitude: cooperative Thought process: Normal thought process present Results Reviewed Results Reviewed: Laboratory Tests 11/26/23 07:32 Magnesium 2.3 RUN: 11/30/23 0415 PAGE 1 [facility] [address] [place] [id number] Crystal Finisher: Jd Godwin M.D. Specimen Inquiry Name: Kizzy Schwartz Age/Sex: 63/F : 1960 [id number] Unit#: [id number] Attend Dr: Joana Real MD Re11/26/23 Status: DEP REF Location: [facility] Disch: SPEC : [id number] EDITA: 11/26/23 STATUS: COMP REQ : [id number] RECD: 11/26/[address] [facility] [address]: Joana Real MD COMP: 11/26/23 ENTERED: 11/26/23 [facility] DR: ORDERED: MG, Lipid Panel, Vitamin D 25-OH, Free T4, TSH Test Result Flag Reference Magnesium 2.3 1.6-2.6 mg/dL Triglyceride 60 <150 mg/dL Desirable Triglyceride: less than 150 mg/dL Borderline High Triglyceride 150-199 mg/dL High Triglyceride: 200-499 mg/dL Very High Triglyceride: greater than or equal to 5OO mg/dL Cholesterol 222 H <200 mg/dL Desirable Cholesterol: less than 200 mg/dL Borderline High Cholesterol: 200-239 mg/dL High Cholesterol: greater than 239 mg/dL LDL Calculated 134 H <100 mg/dL Desirable LDL: less than 100 mg/dL Near Optimal/Above Optimal LDL: 110-129 mg/dL Borderline High LDL: 130-159 mg/dL High LDL: 160-189 mg/dL Very High LDL: greater than or equal to 190 mg/dL HDL 76 >40 mg/dL Desirable HDL: greater than 40 mg/dL Note: This HDL assay may give artificially low results in patients with liver disease. Vit D 25-OH Tot 44.9 >30 ng/mL Health Based Reference Values* < 20 ng/mL Deficient 20-30 ng/mL Insufficient > 30 ng/mL Sufficient *Josh PARNELL. N Engl J Med. 2007;357:266-280 Care must be taken in interpreting Vitamin D results from different laboratories and methodologies. Published data demonstrated that results from patients undergoing hemodialysis may show a negative bias when tested with various automated 25-OH vitamin D assays when compared to LC-MS/MS. When testing samples from patients whose predominant form of Vitamin D is Vitamin D2, such as patients receiving Vitamin D2 supplementation, results that are subtherapeutic should be confirmed with another method such as LC-MS/MS. Free T4 0.89 0.71-1.85 ng/dL TSH 3rd Gen. 1.87 0.32-4.0 uIU/mL TSH 3rd Generation ([facility]) Assessment and Plan Assessment & Plan (1) Mass of soft tissue of shoulder: Code(s): M79.89 - Other specified soft tissue disorders Plan: General surgery consult obtain (2) Sacroiliac joint dysfunction of right side: Code(s): M53.3 - Sacrococcygeal disorders, not elsewhere classified Plan: X-ray of pelvis and right hip ordered referred for physical therapy (3) Lateral pain of right hip: Code(s): M25.551 - Pain in right hip Plan: X-ray of pelvis and right hip ordered, referred for physical therapy (4) Obesity (BMI 30-39.9): Comment: She remains moderately obese, has gained some weight during the past 6 months. She is well aware of and plans to lose weight in the next 6 months. We discussed about the diet and doing daily exercise. Code(s): E66.9 - Obesity, unspecified Plan: Recommend Mediterranean diet , which is a healthy diet limit food high in fat, sugar, and calories. Eat slowly, pay attention to portion sizes, plan your meals ahead of time, stay active Keeping a food diary, tracking what you eat and your physical activity can help assess what improvements you can make. There are many health problems associated with being overweight/obese, so it is important to improve your diet and exercise. 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 Repeat another fasting lipid panel in 6 months (7) Hypothyroidism: Code(s): E03.9 - Hypothyroidism, unspecified Qualifiers: Hypothyroidism type: due to Edy's thyroiditis Qualified Code(s): E03.8 - Other specified hypothyroidism; E06.3 - Autoimmune thyroiditis Plan: Continue levothyroxine 44 mcg daily, repeat thyroid function test again in 6 months Orders: Orders Thyroid Stimulating Hormone 05/20/24 E03.9 - Hypothyroidism, unspecified, E06.3 - Autoimmune thyroiditis, E66.9 - Obesity, unspecified, E78.5 - Hyperlipidemia, unspecified, Z78.0 - Asymptomatic menopausal state Lipid Panel 05/20/24 E03.9 - Hypothyroidism, unspecified, E06.3 - Autoimmune thyroiditis, E66.9 - Obesity, unspecified, E78.5 - Hyperlipidemia, unspecified, Z78.0 - Asymptomatic menopausal state Basic Metabolic Panel Fasting 05/20/24 E03.9 - Hypothyroidism, unspecified, E06.3 - Autoimmune thyroiditis, E66.9 - Obesity, unspecified, E78.5 - Hyperlipidemia, unspecified, Z78.0 - Asymptomatic menopausal state Vitamin D 25-OH Total 05/20/24 E03.9 - Hypothyroidism, unspecified, E06.3 - Autoimmune thyroiditis, E66.9 - Obesity, unspecified, E78.5 - Hyperlipidemia, unspecified, Z78.0 - Asymptomatic menopausal state XR hip RT w PEL1V 11/29/23 M25.551 - Pain in right hip, M53.3 - Sacrococcygeal disorders, not elsewhere classified Free T4 (Free Thyroxine) 05/20/24 E03.9 - Hypothyroidism, unspecified, E06.3 - Autoimmune thyroiditis, E66.9 - Obesity, unspecified, E78.5 - Hyperlipidemia, unspecified, Z78.0 - Asymptomatic menopausal state Alanine Aminotransferase 05/20/24 E03.9 - Hypothyroidism, unspecified, E06.3 - Autoimmune thyroiditis, E66.9 - Obesity, unspecified, E78.5 - Hyperlipidemia, unspecified, Z78.0 - Asymptomatic menopausal state Aspartate Amino Transferase 05/20/24 E03.9 - Hypothyroidism, unspecified, E06.3 - Autoimmune thyroiditis, E66.9 - Obesity, unspecified, E78.5 - Hyperlipidemia, unspecified, Z78.0 - Asymptomatic menopausal state PT Evaluation and Treatment 11/29/23 M25.551 - Pain in right hip, M53.3 - Sacr ococcygeal disorders, not elsewhere classified Referrals General Surgery Referral M79.89 - Other specified soft tissue disorders Coding Level of Care Code Est Pt Level 4 (89056) Diagnoses Mass of soft tissue of shoulder M79.89 Sacroiliac joint dysfunction of right side M53.3 Lateral pain of right hip M25.551 Obesity (BMI 30-39.9) E66.9 Edy's disease E06.3 Dyslipidemia E78.5 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
== END 2023-11-29 13:24 | disposition home or self-care (01) ==
PROVIDERS: PCP Internal Medicine; Visit Provider Internal Medicine
DX: M79.89 Other specified soft tissue disorders (principal); M53.3 Sacrococcygeal disorders, not elsewhere classified; Z68.37 Body mass index [BMI] 37.0-37.9, adult; E66.9 Obesity, unspecified; M25.551 Pain in right hip; E06.3 Autoimmune thyroiditis; E78.5 Hyperlipidemia, unspecified; E03.8 Other specified hypothyroidism
CPT/HCPCS: 99214

== ENCOUNTER 2023-11-29 12:01 | Outpatient (REF) | payer OTHER, SELFPAY ==
--- NOTE | ~2023-11-29 | XR_ITS ---
EXAMINATION: XR HIP, RIGHT CLINICAL INFORMATION: Right hip/sacrum pain COMPARISON: None available. TECHNIQUE: Two views of the right hip. FINDINGS: No fracture. Alignment is anatomic. Hip joint space is maintained. There are minimal degenerative changes of the sacroiliac joints and pubic symphysis. There is marked degenerative change in the lower lumbar spine. There is a 4 mm sclerotic density projected over the right superior ramus near the pubic symphysis XR/XR hip RT w PEL1V IMPRESSION: 1. No significant abnormality of the right hip. 2. 4 mm sclerotic density projected over the right superior ramus near the pubic symphysis. 3. Marked degenerative change in the lower lumbar spine.
== END 2023-11-29 12:02 | disposition home or self-care (01) ==
LOC: HO.HMGCX 12:01
PROVIDERS: PCP Internal Medicine; Visit Provider Internal Medicine
DX: M53.3 Sacrococcygeal disorders, not elsewhere classified (principal); M25.551 Pain in right hip
CPT/HCPCS: 73502

== ENCOUNTER 2023-12-13 14:47 | Outpatient (AMB) | payer OTHER, SELFPAY ==
--- NOTE | 2023-12-13 14:49 | MHC.OFFVIS ---
Intake Vital Signs 12/13/23 14:59 Height 5 ft 4 in Weight 217 lb BMI 37.2 BP 146/76 H Blood Pressure Location Lt brachial Position Sitting Pulse 88 Intake Visit Reasons: Mass~ Rt sup shoulder Intake Note: Patient is seen in office for evaluation of a mass of the right superior shoulder. Pt c/o: lump rt shoulder,, onset for yrs, pain radiates down the arm, feels like it's on fire, denies discharge, has increase in size, another lump in the back, onset yrs, was I&D twice in the past Global Account Executive Required: No Accompanied by: Self / Same As Patient Allergies No Known Allergies Allergy (Verified 12/13/23 14:59) Medication List - Last Reconciled 12/13/23 by Juan Lambert MD aspirin (Adult Low Dose Aspirin) 81 mg PO DAILY cholecalciferol (vitamin D3) 50 mcg PO DAILY diphenhydramine-acetaminophen 25-500 mg (Tylenol PM Extra Strength) 2 tabs PO BEDTIME PRN docusate sodium 100 mg PO DAILY levothyroxine 44 mcg (1/2 x 88 mcg) PO DAILY 90 days loratadine (Claritin) 10 mg PO DAILY PRN magnesium oxide 400 mg PO DAILY HPI HPI Comments History of Present Illness Details 63-year-old female patient returning to the office for evaluation of a soft tissue mass of the right shoulder and painful cyst of the midback. She reports the lump in the right shoulder has been present for many years and is gradually increasing in size. The lump was initially asymptomatic but is now resulting in some discomfort extending down the arm. She is concerned about the increased symptoms which is accentuated with palpation. She denies previous surgery in the shoulder. She also reports an epidermal inclusion cyst of the midback which causes pain especially when laying in bed. Denies any previous infection or discharge from the site. She would like [facility] Medical History (Updated 12/13/23 @ 15:27 by Juan Lambert MD) Obesity (BMI 30-39.9) Anemia Dyslipidemia Allergic rhinitis History of proctitis Acute sinusitis Edy's disease COVID-19 vaccine series completed Seasonal allergies Hx of supraventricular tachycardia Depression Anxiety disorder Obesity (BMI 30-39.9) Vitamin D deficiency Non-toxic multinodular goiter Hypothyroidism JOYCE (obstructive sleep apnea) Surgical History Hx of exploratory laparotomy Hx of LASIK Hx of colonoscopy S/P thyroid biopsy History of radiofrequency ablation procedure for cardiac arrhythmia H/O knee surgery Family History Father Heart disease Mother No problems noted. Social History Household Members: Spouse Housing: House Are you a primary rn managed care to a significant other at home: No Do you presently have visiting nurse or other home services: Yes (Cyn PRUITTA - post op) Alcohol intake: never Comment: Used cane and walker immediately post -op 12/2020- no longer uses Patient Tobacco Use Status: Never used Tobacco e-Cigarette/Vaping Use: Never Used Second Hand Smoke Exposure: No service: No Current occupational status: employed Cognitive needs: No Hearing needs: No Vision needs: Yes Female Reproductive History Menstrual Age of Menarche: 15 Review of Systems Const All systems reviewed & are unremarkable except as noted in HPI and below Physical Exam Vital Signs: Last Vital Signs Pulse 88 12/13/23 14:59 BP 146/76 H 12/13/23 14:59 BMI result Body Mass Index 37.2 Const General: cooperative and no acute distress Nutritional Appearance: well nourished Orientation/consciousness: patient oriented x3 Limitations: no limitations HEENT Head: Yes normocephalic and Yes atraumatic Ears: hearing grossly normal bilaterally Resp Effort & Inspection: normal respiratory effort, no audible wheezes, no cough and no respiratory distress Cardio Jugular venous distension: no JVD GI Inspection: Yes normal to inspection Back/Spine/Pelvis Back/spine/pelvis image: 1. 3 cm soft tissue mass just lateral to the bra line, mobile within the subcutaneous tissue consistent with a lipoma 2. 2 cm tender epidermal cyst, non fluctuant. Skin Other: Warm, dry, no rash Neuro General: patient oriented x3 Extrem General: Yes no clubbing, cyanosis or edema Assessment & Plan Assessment & Plan (1) Lipoma: Code(s): D17.9 - Benign lipomatous neoplasm, unspecified Qualifiers: Lipoma location: trunk Qualified Code(s): D17.1 - Benign lipomatous neoplasm of skin and subcutaneous tissue of trunk (2) Epidermal inclusion cyst: Code(s): L72.0 - Epidermal cyst Plan 63-year-old female patient presenting with a soft tissue mass of the right shoulder which is now symptomatic. On examination she has a 3 cm soft tissue mass mobile within the subcutaneous tissue, most consistent with a lipoma. Also in her back is a tender epidermal inclusion cyst. I recommended excision of both lesions as a minor surgery under local anesthesia. After discussion of the procedure, risks and alternatives, she consents to excision of the right shoulder lipoma and midback epidermal inclusion cyst. Coding Level of Care Code New Pt Level 4 (44050) Diagnoses Lipoma of torso D17.1 Lipoma location: trunk Epidermal inclusion cyst L72.0
[2023-12-13 14:59] VITALS: BP 146/76; PULSE 88; BMI 37.2
== END 2023-12-13 15:10 | disposition home or self-care (01) ==
PROVIDERS: PCP Internal Medicine; Referring Provider Internal Medicine; Visit Provider Surgery
DX: D17.1 Benign lipomatous neoplasm of skin and subcutaneous tissue of trunk (principal); L72.0 Epidermal cyst
CPT/HCPCS: 99214

== ENCOUNTER → 2023-12-13 14:47 | Outpatient (BNVA) | payer OTHER, SELFPAY | PROVIDERS: PCP Internal Medicine; Referring Provider Internal Medicine; Visit Provider Surgery ==

== ENCOUNTER 2023-12-29 12:44 | Outpatient (AMB) | payer OTHER, SELFPAY ==
--- NOTE | 2023-12-29 12:48 | A.OFFVIS_ITS ---
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 Patient reports that she has had intermittent pain for years now. In the past she has tried chiropractic treatment and NSAIDs which resolves her flair up of pain. More recently this treatment plan is not resolving her pain. She explains that her pain is felt on the posterior/lateral aspect of the hip as well as the lower back. When she has a flair up of pain she has increased pain with sitting and laying. She denies groin pain. [facility] Medical History (Updated 12/31/23 @ 11:[address]he MD) Obesity (BMI 30-39.9) Anemia Dyslipidemia Allergic rhinitis History of proctitis Acute sinusitis Edy's disease COVID-19 vaccine series completed Seasonal allergies Hx of supraventricular tachycardia Depression Anxiety disorder Obesity (BMI 30-39.9) Vitamin D deficiency Non-toxic multinodular goiter Hypothyroidism JOYCE (obstructive sleep apnea) Surgical History (Updated 12/29/23 @ 12:58 by Nolvia Sapp CMA) History of total right knee replacement (TKR) (~08/2020) Hx of exploratory laparotomy Hx of LASIK Hx of colonoscopy S/P thyroid biopsy History of radiofrequency ablation procedure for cardiac arrhythmia Family History Father Heart disease Mother No problems noted. 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 Lumbar OA No hip OA Assessment & Plan Assessment & Plan (1) Lumbosacral dysfunction: Code(s): M99.03 - Segmental and somatic dysfunction of lumbar region Plan: Lumbosacral degenerative OA. No evidence of hip pathology. Discussed with patient. Recommend non op spine referral. Cont PT Orders: Referrals Pain Management Referral M99.03 - Segmental and somatic dysfunction of lumbar region Coding Level of Care Code New Pt Level 3 (82830) Diagnoses Lumbosacral dysfunction M99.03
[2023-12-29 12:50] VITALS: BMI 37.2
== END 2023-12-29 14:35 | disposition home or self-care (01) ==
PROVIDERS: PCP Internal Medicine; Visit Provider Orthopaedic Surgery
DX: M99.03 Segmental and somatic dysfunction of lumbar region (principal)
CPT/HCPCS: 99203

== ENCOUNTER → 2023-12-29 12:44 | Outpatient (BNVA) | payer OTHER, SELFPAY | PROVIDERS: PCP Internal Medicine; Visit Provider Orthopaedic Surgery ==

== ENCOUNTER 2024-01-18 09:51 | Outpatient (AMB) | payer OTHER, SELFPAY ==
--- NOTE | 2024-01-18 10:04 | A.OFFVIS_ITS ---
Vital Signs 01/18/24 10:14 Height 5 ft 4 in Weight 220 lb 4 oz BMI 37.8 BP 140/60 H Blood Pressure Location Lt brachial Position Sitting Respiration 16 Pulse 67 Pulse Source Pulse Oximeter Pulse Oximetry (%) 95 Oxygen Delivery Method Room Air Intake Visit Reasons: Segmental and Somatic Dysfunction of Lumbar region Intake Note: Patient comes in for initial visit was referred by orthopedic. Reports pain 12/27. Allergies No Known Allergies Allergy (Verified 01/18/24 10:14) HPI Comments Details: Hai is very pleasant 63 years old female who presents in my office with complains on pain in the projection of the right hip and projection of the right side buttock. She reports that flexing forward aggravate her pain more than flexing backwards she reports that prolonged sitting aggravates her pain more than standing or laying down. She also reports aching pain in bilateral knees and pain in the posterior right upper shoulder. She had history of right total knee replacement. She reports aching numbing and painful sensations as well as pins and needles in the projection of the right knee. Because of her pain she can not sleep normally she can not do activities of daily living she can take care of herself but she can not function normally. Weather changes and motions aggravate her pain especially twisting motion alone the lumbar spine. She reports that topical medications oral medications heat and cold application help her pain little bit. Her pain is most severe in in the morning and late at night and less severe during the daytime. In terms of tissue damage he reports her pain as jumping and shooting, stabbing and lancinating, sharp and lacerating, tugging and wrenching, dull, hurting, heavy, spreading and piercing, tight and tearing sensation. She had multiple images in the past 1 of them x- ray of the lumbar spine is available for us today and dictated as below. 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 Her past medical history significant for headaches fatigue history of SVT treated with RFA of sinoatrial pathway and diverticulitis. She was treated for diverticulosis and colon perforation by Dr. Lambert in 2020 with the reversal of colostomy in March of 2021. She had total knee replacement on the right in 2019 and SVTs RFA in 2012. She is retired individual, she denies smoking cigarettes drinking alcohol she denies recreational drugs she drinks coffee but not soda. [facility] Medical History (Updated 01/18/24 @ 11:11 by Guru Peters MD) Obesity (BMI 30-39.9) Anemia Dyslipidemia Allergic rhinitis History of proctitis Acute sinusitis Edy's disease COVID-19 vaccine series completed Seasonal allergies Hx of supraventricular tachycardia Depression Anxiety disorder Obesity (BMI 30-39.9) Vitamin D deficiency Non-toxic multinodular goiter Hypothyroidism JOYCE (obstructive sleep apnea) Surgical History (Updated 12/29/23 @ 12:58 by Nolvia Sapp [facility]) History of total right knee replacement (TKR) (~08/2020) Hx of exploratory laparotomy Hx of LASIK Hx of colonoscopy S/P thyroid biopsy History of radiofrequency ablation procedure for cardiac arrhythmia Family History Father Heart disease Mother No problems noted. 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 Cognitive needs: No Hearing needs: No Vision needs: Yes Female Reproductive History Menstrual Age of Menarche: 15 Review of Systems Const Denies chills, Reports fatigue and Denies fever(s) Eyes Denies blurry vision, Denies exophthalmos and Denies diplopia ENT Reports Normal hearing present, Denies vertigo and Denies dizziness Card Denies chest pain, Denies chest pain at rest, Denies chest pain with activity, Reports diaphoresis, Denies syncope, Denies rapid heart rate, Denies pedal edema and Denies edema Resp Denies chest congestion, Denies cough, Denies hemoptysis, Denies excessive phlegm production, Denies pain on inspiration and Denies pain with cough GI Denies abdominal pain, Denies belching, Denies melena and Denies bloating Denies urinary incontinence Musc Denies as per HPI, Reports back pain, Reports myalgias, Reports arthralgias and Denies tingling Neuro Reports Normal hearing present, Denies Abnormal speech present, Denies confusion, Denies vertigo, Denies dizziness, Denies syncope, Denies lack of coordination, Denies Sensory deficit (Neuro) and Denies tingling Psych Denies confusion and Denies depression Endo Reports fatigue Physical Exam Vital Signs: Last Vital Signs Pulse 67 01/18/24 10:14 Resp 16 01/18/24 10:14 BP 140/60 H 01/18/24 10:14 Pulse Ox 95 01/18/24 10:14 Oxygen Delivery Method Room Air 01/18/24 10:14 BMI result Body Mass Index 37.8 Const General: no acute distress; No confusion Nutritional Appearance: obese morbidly obese Orientation/consciousness: patient oriented x3 and No confusion Eyes General: appearance normal, both eyes and all related structures Pupils: Equal, round and reactive pupils present EOM: EOMs intact bilaterally Neck Neck: Yes full ROM Chest Chest palpation & inspection: normal inspection of the chest Resp Effort & Inspection: normal respiratory effort, able to speak in complete sentences, normal respiratory pattern, no audible wheezes and no cough Cardio Jugular venous distension: no JVD GI Inspection: Yes normal to inspection Back/Spine/Pelvis Other: Exhibits normal strength of bilateral lower extremities. Denies Valsalva maneuver aggravates her pain at the time of the examination however reports that sometimes coughing sneezing and straining down aggravates her pain so I would consider Valsalva at least minimally positive. Demonstrates remarkable flexibility with flexing forward and backwards however reports flexing forward aggravates her pain more than flexing backwards. Viktor test is positive on the left for pain increase on the right. So is Stinchfield test is positive on the left for pain increase in the right. Pelvic compression test aggravates the pain on the right but not on the left. Pelvic distraction test is negative. SLR is negative bilaterally. Dorsiflexion of the foot in maximal SLR is negative bilaterally. Lateral rotation and medial rotation of the hip does not aggravate pain in the groin. No tenderness on palpation in paraspinal spinal region lumbar spine. There is mild tenderness on palpation in the projection of the right sacroiliac joint-Sherry finger test positive. Neuro General: patient oriented x3, gait normal and No confusion Cranial nerves: Yes Equal, round and reactive pupils present and Yes Normal hearing present Speech: No Abnormal speech present Gait exam (Neuro): Normal gait present Motor exam (neuro): 5/5 motor strength present throughout Sensory Exam: No Sensory deficit (Neuro) Extrem General: No pedal edema Psych Speech and movement: Normal speech and movement present Affect: normal affect Attitude: cooperative Thought process: Normal thought process present Thought content: Normal thought content present Insight: Good insight present (Psych) Judgement: Good judgement present (Psych) Results Reviewed Results Reviewed: X-ray right hip 0 . Findings: No fracture alignment is anatomic. Hip joint space is maintained. There are minimal degenerative changes in the sacroiliac joints and pubic symphysis. There are marked degenerative changes in the lower lumbar spine. There is 4 mm sclerotic density projected over the right superior ramus near the pubic symphysis. Assessment & Plan Assessment & Plan (1) Spondylosis of lumbar region without myelopathy or radiculopathy: Code(s): M47.816 - Spondylosis without myelopathy or radiculopathy, lumbar region Category: Medical (2) Sacroiliitis: Code(s): M46.1 - Sacroiliitis, not elsewhere classified Category: Medical (3) Chronic right sacroiliac joint pain: Code(s): M53.3 - Sacrococcygeal disorders, not elsewhere classified; G89.29 - Other chronic pain Category: Medical (4) Chronic pain syndrome: Code(s): G89.4 - Chronic pain syndrome Category: Medical Plan My clinical impression today that the patient is suffering from right sacroiliitis and this is most prominent pain syndrome of this patient. I offered this patient to perform diagnostic right sacroiliac joint injection. The patient agreed to go for the procedure without sedation. Severe spondylotic changes in the lower lumbar spine demonstrated on the x-ray of the hip. The hip X ray images themselves intact. I will evaluate diagnostic sacroiliac joint injection and after that I will be discussing possibility of definitive treatment of this condition. Coding Level of Care Code New Pt Level 3 (85415) Diagnoses Spondylosis of lumbar region without myelopathy or radiculopathy M47.816 Sacroiliitis M46.1 Chronic right sacroiliac joint pain M53.3; G89.29 Chronic pain syndrome G89.4
[2024-01-18 10:14] VITALS: BP 140/60; PULSE 67; RESP 16; O2SAT 95; BMI 37.8
== END 2024-01-18 10:42 | disposition home or self-care (01) ==
PROVIDERS: PCP Internal Medicine; Referring Provider Orthopaedic Surgery; Visit Provider Anesthesiology
DX: M47.816 Spondylosis without myelopathy or radiculopathy, lumbar region (principal); M46.1 Sacroiliitis, not elsewhere classified; M53.3 Sacrococcygeal disorders, not elsewhere classified; G89.29 Other chronic pain; G89.4 Chronic pain syndrome
CPT/HCPCS: 99203

== ENCOUNTER → 2024-01-18 09:51 | Outpatient (BNVA) | payer OTHER, SELFPAY | PROVIDERS: PCP Internal Medicine; Referring Provider Orthopaedic Surgery; Visit Provider Anesthesiology ==

== ENCOUNTER 2024-02-01 12:42 | Outpatient (REF) | payer OTHER, SELFPAY | END 2024-02-01 12:43 | disposition home or self-care (01) | LOC: HO.MS 12:42 | PROVIDERS: PCP Internal Medicine; Visit Provider Surgery | DX: Z53.9 Procedure and treatment not carried out, unspecified reason (principal) ==

== ENCOUNTER 2024-03-06 06:08 | Outpatient (REF) | payer OTHER, SELFPAY ==
--- NOTE | ~2024-03-06 | FL_ITS ---
EXAMINATION: XR FLUOROSCOPY WITH IMAGES CLINICAL INFORMATION: Sacrococcygeal disorders COMPARISON: None available. TECHNIQUE: Fluoroscopy Supervised By: Dr. Guru Peters. Fluoroscopy Time: 0.1 minute. Cumulative Dose: 2.28 mGy. DAP: 0.622 Gycm2. Images: 1. FINDINGS: Intraoperative fluoroscopy and spot films were performed during a procedure in the OR. A needle with surrounding contrast is seen overlying the region of the mid right SI joint. Please correlate with Dr. Guru Peters's report for complete details. FL/FL guidance in treatment room IMPRESSION: Intraoperative fluoroscopy and spot films were obtained. Please see Dr. Guru Peters's report for complete details.
== END 2024-03-06 06:09 | disposition home or self-care (01) ==
LOC: CF 06:08
PROVIDERS: Visit Provider Anesthesiology
DX: M47.816 Spondylosis without myelopathy or radiculopathy, lumbar region (principal); M53.3 Sacrococcygeal disorders, not elsewhere classified; M46.1 Sacroiliitis, not elsewhere classified; G89.29 Other chronic pain
CPT/HCPCS: 27096; J2795; Q9967

== ENCOUNTER 2024-03-06 09:45 | Outpatient (AMB) | payer OTHER, SELFPAY ==
--- OUTSIDE RECORDS SUMMARY | 2024-03-06 09:47 | XMS_ITS | Continuity of Care Document ---
Author Organization [facility] ter Address [address] [place] [id number]- Care Team Providers Care Mining Analyst Name Role Phone Addie DEL TORO, Joana Nieto Primary Care Physician Encounter [facility] [place] Date(s): 08/19/20 - 09/18/[address] [phone]- Attending Physician: Lissy Ware Admitting Physician: AdmtrLissy Referring Physician: Admtr, Ar8 Allergies, Adverse Reactions, Alerts Substance Reaction Severity Status Other Environmental Allergy seasonal Active Medications acetaminophen 325 mg oral tablet 650 mg, By Mouth, Every 6 hours, May take OTC, follow directions on bottle, not to exceed 4000 mg/day, Refills 0, Maintenance, 09/05/20 14:26:00 EST, Partial fill upon patient request if the prescription is for a schedule II opioid drug. Start Date: 09/05/20 Status: Ordered aspirin 162.5 mg oral capsule, extended release = 325 mg, By Mouth, 2 times a day, enteric coated x 30 days, 0 Refills, Maintenance, 09/05/20 14:25:00 EST, ER Capsule, Partial fill upon patient request if the prescription is for a schedule II opioid drug. Start Date: 09/05/20 Status: Ordered celecoxib 200 mg oral capsule 1 capsule = 200 mg, By Mouth, Daily, 0 Refills, Maintenance, 09/05/20 14:26:00 EST, Capsule, Partial fill upon patient request if the prescription is for a schedule II opioid drug. Start Date: 09/05/20 Status: Ordered Colace Capsule 100 mg, 1, capsule, By Mouth, 2 times a day, hold for loose stool, Refills 0, Maintenance, 09/05/2014:26:00 EST, Partial fill upon patient request if the prescription is for a schedule II opioid drug. Start Date: 09/05/20 Status: Ordered D3 1000 oral tablet 4000 untis, By Mouth, Daily, 0 Refills, Maintenance, 09/05/20 5:09:00 EST, Partial fill upon patient request if the prescription is for a schedule II opioid drug. Start Date: 09/05/20 Status: Ordered Levothyroxine = 150 mcg, Daily, 0 Refills, Maintenance Start Date: 09/28/11 Status: Ordered loratadine 5 mg oral tablet, chewable 1 tablet = 5 mg, Daily, 0 Refills, Maintenance, 09/05/20 7:11:00 EST, Partial fill upon patient request if the prescription is for a schedule II opioid drug. Start Date: 09/05/20 Status: Ordered Maalox Plus Liquid 30 mL, By Mouth, Every 4 hours, PRN Other, Heartburn, 0 Refills, Maintenance, 09/05/20 14:26:00 EST, Suspension, Partial fill upon patient request if the prescription is for a schedule II opioid drug. Start Date: 09/05/20 Status: Ordered Milk of Magnesia Liquid 30 mL, By Mouth, Daily, PRN Constipation, 0 Refills, Maintenance, 09/05/20 14:26:00 EST, Suspension, Partial fill upon patient request if the prescription is for a schedule II opioid drug. Start Date: 09/05/20 Status: Ordered MiraLax Powder 1 pack/packet = 17 Gm, By Mouth, Daily, may take OTC, follow directions on the bottle, dissolve in water or juice, 0 Refills, Maintenance, 09/05/20 14:27:00 EST, Powder, Partial fill upon patient request if the prescription is for a schedule II opio... Start Date: 09/05/20 Status: Ordered Multivitamin By Mouth, Daily, 0 Refills, Maintenance Start Date: 12/03/11 Status: Ordered pantoprazole 40 mg oral delayed release tablet = 40 mg, By Mouth, Daily, 0 Refills, Maintenance, 09/05/20 14:27:00 EST, EC Tablet Start Date: 09/05/20 Status: Ordered senna 187 mg oral tablet 1 tablet = 8.6 mg, By Mouth, Daily at bedtime, May take OTC, follow directions on the bottle, 0 Refills, Maintenance, 09/05/20 14:27:00 EST, Tablet, Partial fill upon patient request if the prescription is for a schedule II opioid drug. Start Date: 09/05/20 Status: Ordered Problem List Condition Effective Dates Status Health Status Inform ant Catheter ablation of lesion of heart for SVT(Confirmed) Active Hypertension(Confirmed) Active Precordial pain(Confirmed) Active SVT - Supraventricular tachycardia(Confirmed) Active
--- OUTSIDE RECORDS SUMMARY | 2024-03-06 09:47 | XMS_ITS | Continuity of Care Document ---
Author Organization [facility] ter Address [address] [place] [phone]- Care Team Providers Care Size Cutter Name Role Phone Addie DEL TORO, Joana Nieto Primary Care Physician Encounter [facility] [place] Date(s): 08/13/20 - 09/18/[address] [id number] Attending Physician: Hector Galvez MD Admitting Physician: Hector Galvez MD Referring Physician: Hector Galvez MD Allergies, Adverse Reactions, Alerts Substance Reaction Severity [...]
--- OUTSIDE RECORDS SUMMARY | 2024-03-06 09:47 | XMS_ITS | Continuity of Care Document ---
Author Organization [facility] Address [address] [place] [phone]- Care Team Providers Care Hospice Executive Director Name Role Phone Addie DEL TORO, Joana Nieto Primary Care Physician Encounter 09/06/20 - 10/02/20 [facility] [address] [place] [phone]- Discharge Disposition: GOALS MET Allergies, Adverse Reactions, Alerts Substance Reaction Severity [...]
--- OUTSIDE RECORDS SUMMARY | 2024-03-06 09:47 | XMS_ITS | Continuity of Care Document ---
Author Organization [facility] ter Address [address] [place] [id number]- Care Team Providers Care Single Resource Boss Name Role Phone Addie DEL TORO, Joana Nieto Primary Care Physician [place] [facility] [place] 09/05/[address] [id number] Discharge Disposition: A-Transfer VNA/Home Health Attending Physician: Hector Galvez MD Admitting Physician: [...] Refills, Maintenance Start Date: 12/03/11 Status: Ordered oxyCODONE 5 mg oral tablet 5 mg, Tablet, By Mouth, Every 4 hours, PRN for Pain , Moderate, Routine, 09/05/20 14:22:00 EST Start Date: 09/05/20 Stop Date: 09/06/20 Status: Discontinued oxyCODONE 5 mg oral tablet 5 mg, 1, tablet, By Mouth, Every 4 hours, PRN, for 7 days, # 42 tablet, Refills 0, Tot. Refills 0, Acute 09/12/20 14:26:00 EST, Pain , Moderate, 09/05/20 14:26:00 EST, Route to Pharmacy Electronically, [facility], Partial fill upon patie... Start Date: 09/05/20 Stop Date: 09/12/20 Status: Ordered pantoprazole 40 mg oral delayed [...] opioid drug. Start Date: 09/05/20 Status: Ordered traMADol 50 mg oral tablet See Instructions, PRN Pain , Mild, Take 1-2 tablets By Mouth Every 6 hours as needed, # 60 tablet, 0 Refills, Acute 09/12/20 14:28:00 EST, 09/05/20 14:27:00 EST, Tablet, [facility], Partial fill upon patient request if the prescription i... Start Date: 09/05/20 Stop Date: 09/12/20 Status: Ordered Tramadol Tablet 50 mg, Tablet, By Mouth, Every 6 hours, PRN for Pain , Mild, Routine, 09/05/20 7:34:00 EST Start Date: 09/05/20 Stop Date: 09/06/20 Status: Discontinued Problem List Condition Effective Dates Status Health Status Inform ant Catheter ablation of lesion of heart for SVT(Confirmed) Active Hypertension(Confirmed) Active Precordial pain(Confirmed) Active SVT - Supraventricular tachycardia(Confirmed) Active Results Radiology Reports * Exam Date Time Procedure Performing Provider Status 09/05/20 4:07 PM Knee 1 or 2 Views Right Lucas Gorman; Auth (Verified) Notes: (Knee 1 or 2 Views Right) Reason For Exam: Postop RESULT: Knee 1 or 2 Views Right Knee 1 or 2 Views Right INDICATION: Reason: Postop; Clinical Question(s): Other:; Implant Position; Special Instructions: Do today at 1600, No flexed knee in the lateral position. Keep leg straight; 2 Views, discharge home today COMPARISON: None FINDINGS: AP supine postoperative view obtained. The patient is immediately post knee replacement. The hardware appears in good alignment in the frontal projection. Surgical drain present. IMPRESSION: Expected postoperative findings. WSN: [id number] Ordering Physician: Clary Espinoza Dictated By: Khalif Hdz MD Dictated Date/Time: 09/05/20 4:16 pm Reviewed By: Khalif Hdz MD Signed By: Khalif Hdz MD Signed Date/Time: 09/05/20 4:16 pm Transcribed By: SANDY Transcribed Date/Time: 09/05/20 4:16 pm Vital Signs Most recent to oldest [Reference Range]: 1 2 3 Height 160 cm (09/05/20 5:19 PM) 160 cm (09/05/20 10:49 AM) 160 cm (09/05/20 6:50 AM) Weight 91.7 kg (09/05/20 6:50 AM) 91.7 kg (09/05/20 5:13 AM) Oxygen Saturation [94-100 %] 95 % (09/05/20 5:19 PM) 96 % (09/05/20 10:49 AM) 96 % (09/05/20 10:15 AM) Pulse Rate [55-90 bpm] 65 bpm (09/05/20 5:19 PM) 72 bpm (09/05/20 10:49 AM) 60 bpm (09/05/20 6:50 AM) Body Mass Index [18.5-24.99] 35.82 *>HHI* (09/05/20 6:50 AM) 35.82 *>HHI* (09/05/20 5:13 AM) Blood Pressure [90-138/55-84 mm Hg] 127/61mm Hg (09/05/20 5:19 PM) 116/60mm Hg (09/05/20 10:49 AM) 126/63mm Hg (09/05/20 10:15 AM) Respiratory Rate [16-30 br/min] 18 br/min (09/05/20 6:25 PM) 18 br/min (09/05/20 5:19 PM) 18 br/min (09/05/20 4:07 PM) Temperature [96.8-100.4 DegF] 97.7 DegF (09/05/20 5:19 PM) 97.8 DegF (09/05/20 10:49 AM) 97.4 DegF (09/05/20 10:00 AM) Liters per Minute 2 L/min (09/05/20 10:15 AM) 2 L/min (09/05/20 10:00 AM) Mode of Delivery (Oxygen) Room air (09/05/20 5:19 PM) Room air (09/05/20 10:49 AM) Nasal cannula (09/05/20 10:15 AM) Blood pressure sites Arm, right (09/05/20 5:19 PM) Arm, right (09/05/20 10:49 AM) Arm, right (09/05/20 10:00 AM) Temperature Route Oral (09/05/20 5:19 PM) Oral (09/05/20 10:49 AM) Temporal (09/05/20 10:00 AM) Dry Weight 91.7 kg (09/05/20 5:13 AM)
--- OUTSIDE RECORDS SUMMARY | 2024-03-06 09:47 | XMS_ITS | Continuity of Care Document ---
Author Organization [facility] ter Address [address] [place] [id number]- Care Team Providers Care Lead Housekeeper Name Role Phone Addie DEL TORO, Joana Nieto Primary Care Physician Encounter [facility] [place] Date(s): 09/05/20 - 10/05/[address] [id number]- Attending Physician: Not on Staff, Attending MD Admitting Physician: Not on Staff, Admitting MD Referring Physician: Not on Staff, Referring MD Allergies, Adverse Reactions, Alerts Substance Reaction [...]
--- OUTSIDE RECORDS SUMMARY | 2024-03-06 09:47 | XMS_ITS | Patient Health Record ---
Author Organization [facility] Address [address] [place] [address] Care Team Providers Care Explosives Worker Name Role Phone Joana Real MD Primary Care Provider Dave Doan Jr ALLERGIES Allergen (clinical drug ingredient) Drug/Non Drug Allergy documented on EMR Reaction Allergy Type Onset Date Status dust,seasonal (uncoded) Unknown Allergy Active REASON FOR REFERRAL No Information MEDICATIONS Medication SIG (Take, Route, Frequency, Duration) Notes Start Date End Date Status Docusate Sodium 100 MG 1 capsule as need ed Orally Once a day for 30 day(s) Active Aspirin 81 81 MG 1 tablet Orally Once a day for 30 day(s) Active Levothyroxine Sodium 88 MCG 1 tablet in the morning on an empty stomach Orally Once a day Active MiraLax (colon prep) 17 GM/SCOOP mixed with Gatorade or Crystal Light Orally begin at 5:00 p.m. the day before the procedure for 1 day 06/21/2022 Active Cholecalciferol 50 MCG (2000 UT) 1 tablet Orally Once a day for 30 day(s) Active Magnesium 400 MG 1 capsule with a caty l Orally Once a day Active Tylenol PM Extra Strength 500-25 MG 1 tablet at bedtime as needed Orally Once a day for 30 day(s) 07/01/2022 Active IMMUNIZATIONS Vaccine Route Administration Date Status Comme nts Influenza Unknown 06/09/2022 Administered SOCIAL HISTORY Sex Assigned At : Social History Observation Description Sex Assigned At Unknown PROBLEMS Problem Type ICD Code Onset Dates Problem Status W/U Status Risk SNOMED Code Notes Problem Diverticulitis of large intestine with abscess without bleeding (K57.20) Active confirmed Perforated diverticulum of large intestine (938522162) Problem Diverticulitis of large intestine with perforation without bleeding (K57.20) Active confirmed 7285309 PLAN OF TREATMENT Future Test Test Name Order Date COLONOSCOPY 12/06/2013 COLONOSCOPY 06/21/2022 Insurance Providers Payer Name Payer Address Payer Phone Subscriber Number Group Number Insured Name Patient Relationship to Insured Coverage Start Date Coverage End Date [facility] [address] [place] [phone] [id number] KENY MCKINLEY Self - patient is the insured MEDICAL (GENERAL) HISTORY Medical History History ICD Code Hypothyroidism with history of Edy 's thyroiditis JOYCE SVT s/p RF ablation Allergic rhinitis Colonoscopy 12/31 diverticulosis, ten-yea r followup Surgical History Surgery Date(Month/Year) Perforated diverticulitis wi colostomy and Abe[place] procedure, takedown and reanastomosis 04/0801/04/21 knee replacement 2019 Hospitalization History Reason Date(Month/Year) Perforated diverticulitis as above
--- NOTE | 2024-03-06 10:04 | A.OFFVIS_ITS ---
Vital Signs 03/06/24 10:40 03/06/24 10:43 Height 5 ft 4 in 5 ft 4 in Weight 220 lb 220 lb BMI 37.8 37.8 BP 122/84 98/56 L Blood Pressure Location Lt brachial Lt brachial Position Sitting Sitting Respiration 14 14 Pulse 75 69 Pulse Source Pulse Oximeter Pulse Oximeter Pulse Oximetry (%) 94 96 Oxygen Delivery Method Room Air Room Air Comment pre-op post-op Intake Visit Reasons: RIGHT DIAGNOSTIC SIJ INJECTION Allergies No Known Allergies Allergy (Verified 03/06/24 10:45) [facility] Medical History (Updated 01/18/24 @ 11:11 by Guru Peters MD) Obesity (BMI 30-39.9) Anemia Dyslipidemia Allergic rhinitis History of proctitis Acute sinusitis Edy's disease COVID-19 vaccine series completed Seasonal allergies Hx of supraventricular tachycardia Depression Anxiety disorder Obesity (BMI 30-39.9) Vitamin D deficiency Non-toxic multinodular goiter Hypothyroidism JOYCE (obstructive sleep apnea) Surgical History (Updated 12/29/23 @ 12:58 by Nolvia Sapp CMA) History of total right knee replacement (TKR) (~08/2020) Hx of exploratory laparotomy Hx of LASIK Hx of colonoscopy S/P thyroid biopsy History of radiofrequency ablation procedure for cardiac arrhythmia Family History Father Heart disease Mother No problems noted. 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 Cognitive needs: No Hearing needs: No Vision needs: Yes Female Reproductive History Menstrual Age of Menarche: 15 Physical Exam Vital Signs: Last Vital Signs Pulse 69 03/06/24 10:43 Resp 14 03/06/24 10:43 BP 98/56 L 03/06/24 10:43 Pulse Ox 96 03/06/24 10:43 Oxygen Delivery Method Room Air 03/06/24 10:43 BMI result Body Mass Index 37.8 Assessment & Plan Assessment & Plan (1) Spondylosis of lumbar region without myelopathy or radiculopathy: Code(s): M47.816 - Spondylosis without myelopathy or radiculopathy, lumbar region Category: Medical (2) Sacroiliitis: Code(s): M46.1 - Sacroiliitis, not elsewhere classified Category: Medical (3) Chronic right sacroiliac joint pain: Code(s): M53.3 - Sacrococcygeal disorders, not elsewhere classified; G89.29 - Other chronic pain Category: Medical Plan: Right diagnostic sacroiliac joint injection. Informed consent was explained thoroughly to the patient. All questions about benefits and risks for the procedure were answered. Patient came to the operating room and was positioned prone on the operating table with the pillow under the pelvis. Time out was performed delineating name and of the patient, allergies and the nature of the procedure. The lower back and buttocks of the patient were prepped with ChloraPrep prepped and draped with sterile utility towels. C-arm was brought over the operating field and sq picture of patient's pelvis was demonstrated on the screen. For the right joint tilting C-arm contralateral to the site of the joint the most posterior portion of the joints was superimposed with anterior silhouette of the joint. Skin was injected in the projection of the joint slightly medial to the location of the joint with 25 gauge 1/2 inch needle using local lidocaine 2% .After that 22 gauge 3 and 1/2 inch needle was driven to the right joint in tunnel vision fashion. When needle entered the joint capsule injection of the contrast was performed demonstrating intra-articular and minimally periarticular spread of the contrast. After that 4 cc. of ropivacaine 0.5% was injected into the joint. Upon completion of the injections the needle was removed Sterile dressing was applied. Upon completion of the injection patient was taken outside of the operating room to the recovery room where recovered uneventfully. (4) Chronic pain syndrome: Code(s): G89.4 - Chronic pain syndrome Category: Medical Plan My clinical impression today that the patient is suffering from right sacroiliitis and this is most prominent pain syndrome of this patient. I offered this patient to perform diagnostic right sacroiliac joint injection. The patient agreed to go for the procedure without sedation. Severe spondylotic changes in the lower lumbar spine demonstrated on the x-ray of the hip. The hip X ray images themselves intact. I will evaluate diagnostic sacroiliac joint injection and after that I will be discussing possibility of definitive treatment of this condition. Orders: Orders FL guidance in treatment room Today G89.29 - Other chronic pain, M53.3 - Sacrococcygeal disorders, not elsewhere classified Coding Level of Care Code Procedure Only Diagnoses Spondylosis of lumbar region without myelopathy or radiculopathy M47.816 Sacroiliitis M46.1 Chronic right sacroiliac joint pain M53.3; G89.29 Chronic pain syndrome G89.4
[2024-03-06 10:40] VITALS: BP 122/84; PULSE 75; RESP 14; O2SAT 94; BMI 37.8
[2024-03-06 10:43] VITALS: BP 98/56; PULSE 69; RESP 14; O2SAT 96; BMI 37.8
== END 2024-03-06 10:24 | disposition home or self-care (01) ==
LOC: HO.PMCPRC 09:45
PROVIDERS: PCP Internal Medicine; Visit Provider Anesthesiology
DX: M46.1 Sacroiliitis, not elsewhere classified (principal); M53.3 Sacrococcygeal disorders, not elsewhere classified; G89.4 Chronic pain syndrome
CPT/HCPCS: 27096

== ENCOUNTER 2024-03-08 | Outpatient (REF) | payer OTHER, SELFPAY ==
[2024-03-08 12:32] VITALS: BP 151/74; PULSE 72; RESP 19; O2SAT 96; BMI 36.0
--- NOTE | 2024-03-08 12:38 | W.PM.OPN ---
Operative Note Operative Note Date of Service: 03/08/24 Narrative: Preoperative diagnosis: Lipoma right shoulder, epidermal inclusion cyst midback Postoperative diagnosis: Same Procedure: Excision lipoma right shoulder, epidermal inclusion cyst midback Surgeon: Juan Lambert MD Recreation Therapy Director: None Anesthesia: Lidocaine 1% with epinephrine Indications for procedure: 64-year-old female patient presenting with complaints of a soft tissue mass in the right shoulder measuring approximately 3 cm in diameter. The mass is mobile within the subcutaneous tissue consistent with a lipoma. A 2nd lesion located in the upper mid back has previously been infected consistent with a sebaceous cyst. She presents today for excision to prevent further infection. Operative findings: 3 cm soft tissue mass consistent with a lipoma, 1.5 cm epidermal inclusion cyst upper mid back Specimen: Lipoma right shoulder, epidermal inclusion cyst midback Estimated blood loss: 2 mL Complications: None Procedure details: Patient was brought to the OR placed in a left lateral decubitus position. The site of surgery was confirmed by the patient in the right shoulder and midback. After assuring informed consent the skin was prepped with Betadine and draped in a sterile fashion. Beginning at the right shoulder, local anesthesia was infiltrated in a transverse fashion directly over the lipoma. Incision was then made measuring approximately 2 cm and carried down into the subcutaneous tissue. The lipoma was identified and dissected free from the surrounding subcutaneous tissue using a combination of sharp and blunt dissection. Lesion was passed off the table and sent to pathology for further examination. Hemostasis was assured using light pressure. Dermis was then reapproximated using interrupted 3-0 Polysorb sutures. Skin was closed using a running subcuticular 4-0 Polysorb suture. Steri-Strips, 2 x 2 gauze and Tegaderm were then applied. Attention was then directed to the midback were the epidermal inclusion cyst is identified. An elliptical incision oriented longitudinally was then created. This was carried out through subcutaneous tissue and around the cyst wall. This was passed off the table and sent to pathology for further examination. Dermis was then reapproximated using interrupted 3-0 Polysorb sutures. Skin was closed using interrupted 4-0 Polysorb sutures. 2 x 2 gauze and Tegaderm were then applied. The patient tolerated the procedure well. She was discharged to home in stable condition.
== END 2024-03-08 00:01 | disposition home or self-care (01) ==
LOC: HO.MS
PROVIDERS: PCP Internal Medicine; Visit Provider Surgery
PROC: (CPT 11403; principal; 2024-03-08 13:00)
PROC: (CPT 11403; 2024-03-08 13:00)
DX: D17.1 Benign lipomatous neoplasm of skin and subcutaneous tissue of trunk (principal); L72.0 Epidermal cyst
CPT/HCPCS: 11403; 11402; 88304

== ENCOUNTER → 2024-03-08 13:00 | Outpatient (BNV) | payer OTHER, SELFPAY | PROVIDERS: PCP Internal Medicine; Visit Provider Surgery | DX: D17.21 Benign lipomatous neoplasm of skin and subcutaneous tissue of right arm (principal); L72.0 Epidermal cyst | CPT/HCPCS: 11402; 23071 ==

== ENCOUNTER 2024-03-12 09:51 | Outpatient (AMB) | payer OTHER, SELFPAY ==
--- NOTE | 2024-03-12 09:59 | A.OFFVIS_ITS ---
Vital Signs 03/12/24 10:04 Height 5 ft 4 in Weight 210 lb BMI 36.0 BP 140/80 H Blood Pressure Location Lt brachial Position Sitting Respiration 16 Pulse 62 Pulse Source Pulse Oximeter Pulse Oximetry (%) 96 Oxygen Delivery Method Room Air Intake Visit Reasons: RIGHT DIAGNOSTIC SIJ INJECTION Intake Note: Patient comes in for post-op appointment. Reports pain 12/27. Allergies No Known Allergies Allergy (Verified 03/12/24 10:03) HPI Comments Details: Kizzy is back in my office after diagnostic right sacroiliac joint injection. She reports almost absence of pain initially after the procedure. She reported 1st hour after the injection her pain became 50% of the preoperative pain. 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 None of that caused severe shooting pain in her sacroiliac joint as it would before the injection. She reported that at 06:00 hours after the procedure the pain came back to pre- injection level. I believe that dry sacroiliac joint is the pain generators of the patient. I offered her to perform sacroiliac joint injection with steroids. Prolonged and very detailed conversation ensued. The patient is under care of [facility] and she receives left knee steroid injections there. I warned her that if I will go for steroid injection into her sacroiliac joint within 1 month she can not receive the injection into her left knee. I also explained to her possibility of treating her knee pain with hyaluronic acid injection versus PRP injections. The cost of the PRP injection was disclosed to the patient. The patient also was explained future perspective of treating her sacroiliac joint pain with peripheral nerve stimulation cure on X versus sacroiliac joint stabilization with fusion. She was recommended to purchase the elastic sacroiliac joint belt to apply to her joint from sporting [employer]. Prior: very pleasant 63 years old female who presents in my office with complains on pain in the projection of the right hip and projection of the right side buttock. She had multiple images in the past 1 of them x-ray of the lumbar spine is available for us today and dictated as below. 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 Her past medical history significant for headaches fatigue history of SVT treated with RFA of sinoatrial pathway and diverticulitis. She was treated for diverticulosis and colon perforation by Dr. Lambert in 2020 with the reversal of colostomy in March of 2021. She had total knee replacement on the right in 2019 and SVTs RFA in 2012. She is retired individual, she denies smoking cigarettes drinking alcohol she denies recreational drugs she drinks coffee but not soda. [facility] Medical History (Updated 01/18/24 @ 11:11 by Guru Peters MD) Obesity (BMI 30-39.9) Anemia Dyslipidemia Allergic rhinitis History of proctitis Acute sinusitis Edy's disease COVID-19 vaccine series completed Seasonal allergies Hx of supraventricular tachycardia Depression Anxiety disorder Obesity (BMI 30-39.9) Vitamin D deficiency Non-toxic multinodular goiter Hypothyroidism JOYCE (obstructive sleep apnea) Surgical History (Updated 12/29/23 @ 12:58 by Nolvia Sapp CMA) History of total right knee replacement (TKR) (~08/2020) Hx of exploratory laparotomy Hx of LASIK Hx of colonoscopy S/P thyroid biopsy History of radiofrequency ablation procedure for cardiac arrhythmia Family History Father Heart disease Mother No problems noted. 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 Cognitive needs: No Hearing needs: No Vision needs: Yes Female Reproductive History Menstrual Age of Menarche: 15 Review of Systems Const All systems reviewed & are unremarkable except as noted in HPI and below ENT Reports Normal hearing present Neuro Reports Normal hearing present, Denies Abnormal speech present, Denies confusion and Denies Sensory deficit (Neuro) Psych Denies confusion Physical Exam Const General: no acute distress; No confusion Nutritional Appearance: obese morbidly obese Orientation/consciousness: patient oriented x3 and No confusion Eyes General: appearance normal, both eyes and all related structures Pupils: Equal, round and reactive pupils present EOM: EOMs intact bilaterally Neck Neck: Yes full ROM Chest Chest palpation & inspection: normal inspection of the chest Resp Effort & Inspection: normal respiratory effort, able to speak in complete sentences, normal respiratory pattern, no audible wheezes and no cough Cardio Jugular venous distension: no JVD GI Inspection: Yes normal to inspection Back/Spine/Pelvis Other: Exhibits normal strength of bilateral lower extremities. Denies Valsalva maneuver aggravates her pain at the time of the examination however reports that sometimes coughing sneezing and straining down aggravates her pain so I would consider Valsalva at least minimally positive. Demonstrates remarkable flexibility with flexing forward and backwards however reports flexing forward aggravates her pain more than flexing backwards. Viktor test is positive on the left for pain increase on the right. So is Stinchfield test is positive on the left for pain increase in the right. Pelvic compression test aggravates the pain on the right but not on the left. Pelvic distraction test is negative. SLR is negative bilaterally. Dorsiflexion of the foot in maximal SLR is negative bilaterally. Lateral rotation and medial rotation of the hip does not aggravate pain in the groin. No tenderness on palpation in paraspinal spinal region lumbar spine. There is mild tenderness on palpation in the projection of the right sacroiliac joint-Sherry finger test positive. Neuro General: patient oriented x3, gait normal and No confusion Cranial nerves: Yes Equal, round and reactive pupils present and Yes Normal hearing present Speech: No Abnormal speech present Gait exam (Neuro): Normal gait present Motor exam (neuro): 5/5 motor strength present throughout Sensory Exam: No Sensory deficit (Neuro) Extrem General: No pedal edema Psych Speech and movement: Normal speech and movement present Affect: normal affect Attitude: cooperative Thought process: Normal thought process present Thought content: Normal thought content present Insight: Good insight present (Psych) Judgement: Good judgement present (Psych) Assessment & Plan Assessment & Plan (1) Spondylosis of lumbar region without myelopathy or radiculopathy: Code(s): M47.816 - Spondylosis without myelopathy or radiculopathy, lumbar region Category: Medical (2) Sacroiliitis: Code(s): M46.1 - Sacroiliitis, not elsewhere classified Category: Medical (3) Chronic right sacroiliac joint pain: Code(s): M53.3 - Sacrococcygeal disorders, not elsewhere classified; G89.29 - Other chronic pain Category: Medical (4) Chronic pain syndrome: Code(s): G89.4 - Chronic pain syndrome Category: Medical Plan I believe this patient is suffering from sacroiliitis. My impression is supported by good results of the sacroiliac joint injection diagnostic. I will schedule her for therapeutic sacroiliac joint injection. The discussion about pain in the left knee as well as injections in the left knee:ESTEFANI was doing steroid injections into her knee, PRP discussed, hyaluronic acid injections discussed Treatment of sacroiliac joint problem could be continued with stabilization with fusion versus cure on X PNS. The patient is recommended to go to the sporting goods store and acquire elastic belt to perform compression of the sacroiliac joint. Patient Instructions: I here by testify that I spent 35 minutes in conversation with this patient as well as planning her care and organizing this note. Coding Level of Care Code Est Pt Level 4 (62189) Diagnoses Spondylosis of lumbar region without myelopathy or radiculopathy M47.816 Sacroiliitis M46.1 Chronic right sacroiliac joint pain M53.3; G89.29 Chronic pain syndrome G89.4
[2024-03-12 10:04] VITALS: BP 140/80; PULSE 62; RESP 16; O2SAT 96; BMI 36.0
== END 2024-03-12 10:33 | disposition home or self-care (01) ==
PROVIDERS: PCP Internal Medicine; Visit Provider Anesthesiology
DX: M47.816 Spondylosis without myelopathy or radiculopathy, lumbar region (principal); M46.1 Sacroiliitis, not elsewhere classified; M53.3 Sacrococcygeal disorders, not elsewhere classified; G89.4 Chronic pain syndrome
CPT/HCPCS: 99214

== ENCOUNTER → 2024-03-12 09:51 | Outpatient (BNVA) | payer OTHER, SELFPAY | PROVIDERS: PCP Internal Medicine; Visit Provider Anesthesiology ==

== ENCOUNTER 2024-03-16 11:40 | Outpatient (AMB) | payer OTHER, SELFPAY ==
--- NOTE | 2024-03-16 11:42 | A.OFFVIS_ITS ---
Vital Signs 3 03/16/24 11:58 Height 5 ft 4 in Weight 214 lb BMI 36.7 BP 156/67 H Blood Pressure Location Lt brachial Position Sitting Pulse 75 Intake Visit Reasons: S/P exc. Rt shoulder lipoma, back cyst Intake Note: Patient is seen in office for post op assessment post excision lipoma right shoulder, epidermal inclusion cyst midback. Pt c/o: denies any concerns sutures removed at visit, healing well Op:03/08/24 Window Dresser Required: No Accompanied by: Self / Same As Patient Allergies No Known Allergies Allergy (Verified 03/12/24 10:03) HPI Comments Details: 64-year-old female returning 1 week following excision of a lipoma of the right shoulder and sebaceous cyst of the back. She tolerated the procedure well and denies any problems postoperatively. Pathology confirmed a lipoma and sebaceous cyst. [facility] Medical History Obesity (BMI 30-39.9) Anemia Dyslipidemia Allergic rhinitis History of proctitis Acute sinusitis Edy's disease COVID-19 vaccine series completed Seasonal allergies Hx of supraventricular tachycardia Depression Anxiety disorder Obesity (BMI 30-39.9) Vitamin D deficiency Non-toxic multinodular goiter Hypothyroidism JOCYE (obstructive sleep apnea) Surgical History History of total right knee replacement (TKR) (~08/2020) Hx of exploratory laparotomy Hx of LASIK Hx of colonoscopy S/P thyroid biopsy History of radiofrequency ablation procedure for cardiac arrhythmia Family History Father Heart disease Mother No problems noted. 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 Back/Spine/Pelvis Other: Midline back epidermal inclusion cyst excision site is clean, dry, and intact. Sutures removed and wounds found to be well healed. Back/spine/pelvis image: 2 1. 2. Neuro General: patient oriented x3 Assessment & Plan Assessment & Plan (1) Lipoma: Code(s): D17.9 - Benign lipomatous neoplasm, unspecified Category: Medical Qualifiers: Lipoma location: trunk Qualified Code(s): D17.1 - Benign lipomatous neoplasm of skin and subcutaneous tissue of trunk Plan Patient returns 1 week following excision of a lipoma and epidermal inclusion cyst as noted above. She tolerated the procedure well the wounds are healing nicely. She should follow up as needed. Coding Level of Care Code Global (15914) Diagnoses Lipoma of torso D17.1 Lipoma location: trunk
[2024-03-16 11:58] VITALS: BP 156/67; PULSE 75; BMI 36.7
== END 2024-03-16 11:55 | disposition home or self-care (01) ==
PROVIDERS: PCP Internal Medicine; Visit Provider Surgery
DX: D17.1 Benign lipomatous neoplasm of skin and subcutaneous tissue of trunk (principal)
CPT/HCPCS: 99024

== ENCOUNTER → 2024-03-16 11:40 | Outpatient (BNVA) | payer OTHER, SELFPAY | PROVIDERS: PCP Internal Medicine; Visit Provider Surgery ==

== ENCOUNTER 2024-04-03 09:41 | Outpatient (AMB) | payer BC, SELFPAY ==
--- NOTE | 2024-04-03 09:43 | A.OFFVIS_ITS ---
Vital Signs 04/03/24 09:44 Weight 211 lb 10.3 oz BP 126/78 Blood Pressure Location Lt brachial Position Sitting Pulse 87 Pulse Source Pulse Oximeter Pulse Oximetry (%) 97 Oxygen Delivery Method Room Air Intake Visit Reasons: Obstructive sleep apnea Allergies No Known Allergies Allergy (Verified 04/03/24 09:55) Medication List - Last Reconciled 04/03/24 by Liz Poole MD aspirin (Adult Low Dose Aspirin) 81 mg PO DAILY celecoxib (Celebrex) 100 mg PO BID 30 days cholecalciferol (vitamin D3) 50 mcg PO DAILY diphenhydramine-acetaminophen 25-500 mg (Tylenol PM Extra Strength) 2 tabs PO BEDTIME PRN docusate sodium 100 mg PO DAILY levothyroxine 44 mcg (1/2 x 88 mcg) PO DAILY 90 days loratadine (Claritin) 10 mg PO DAILY PRN magnesium oxide 400 mg PO DAILY Do you need a note to return to daycare/school/sports/work: No HPI HPI Obstructive sleep apnea: Details: PARALYZED 64 YEARS OLD VERY PLEASANT FEMALE WHO IS HERE FOR FOLLOW-UP FOR USING HER CPAP. SHE USES THE CPAP EVERY NIGHT, AND SLEEPS WELL. WAKES UP ABOUT ONCE OR TWICE PER NIGHT BUT GOES BACK TO SLEEP. THERE IS NO ISSUE WITH THE NASAL MASK OR THE CPAP DEVICE. SHE DENIES ANY DAYTIME SLEEPINESS. SHE TRIES TO WATCH HER DIET, BUT WEIGHT IS STAYING STABLE. [facility] Medical History Obesity (BMI 30-39.9) Anemia Dyslipidemia Allergic rhinitis History of proctitis Acute sinusitis Edy's disease COVID-19 vaccine series completed Seasonal allergies Hx of supraventricular tachycardia Depression Anxiety disorder Obesity (BMI 30-39.9) Vitamin D deficiency Non-toxic multinodular goiter Hypothyroidism JOYCE (obstructive sleep apnea) Surgical History History of total right knee replacement (TKR) (~08/2020) Hx of exploratory laparotomy Hx of LASIK Hx of colonoscopy S/P thyroid biopsy History of radiofrequency ablation procedure for cardiac arrhythmia Family History Father Heart disease Mother No problems noted. 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 Cognitive needs: No Hearing needs: No Vision needs: Yes Female Reproductive History Menstrual Age of Menarche: 15 Review of Systems Const All systems reviewed & are unremarkable except as noted in HPI and below Eyes Reports no additional complaints ENT Reports no additional complaints, Reports nasal congestion and Reports nasal discharge (Quite frequent especially in early spring.) Card Denies chest pain, Denies irregular heart rhythm and Denies leg edema Resp Reports no additional complaints and Reports cough GI Reports abdominal pain (OFF AND ON AT THE SURGICAL SITE) Reports no additional complaints Musc Reports no additional complaints Skin/Breast Reports system reviewed and no additional complaints, except as documented Neuro Reports no additional complaints Psych Reports no additional complaints Physical Exam Vital Signs: Last Vital Signs Pulse 87 04/03/24 09:44 BP 126/78 04/03/24 09:44 Pulse Ox 97 04/03/24 09:44 Oxygen Delivery Method Room Air 04/03/24 09:44 Const General: healthy appearing, comfortable, no acute distress, alert and awake Orientation/consciousness: patient oriented x3 HEENT Head: Yes normal to inspection General nose exam: No nasal polyps present and No nasal discharge present Face and sinus: Yes sinuses nontender Mouth: oropharynx normal Throat: Yes posterior oropharynx normal Eyes General: appearance normal, both eyes and all related structures Neck Neck: Yes normal visual inspection, Yes no lymphadenopathy, Yes trachea midline and Yes no JVD Thyroid: Thyroid normal Chest Chest palpation & inspection: normal inspection of the chest, normal palpation of entire chest wall and no tenderness Resp Effort & Inspection: normal respiratory effort Auscultation: clear to auscultation bilaterally Percussion: percussion normal Cardio Palpation: normal PMI Rate: regular rate Rhythm: regular rhythm Heart sounds: no gallops and no murmurs Peripheral pulses: Peripheral pulses 2+ throughout GI Palpation (GI): Soft to palpation, nontender, No hepatosplenomegaly present, no masses and Other GI palpation findings present (EXTENSIVE HEALED SURGICAL SCAR FROM HER RECENT ABDOMINAL SURGERY.) Auscultation: normal bowel sounds Back/Spine/Pelvis Thoracic/Lumbar Spine: thoracic and lumbar spine normal to inspection Skin General skin exam: no rashes or lesions noted Neuro General: patient oriented x3 and no focal motor deficits Cranial nerves: Yes CN's II-XII intact bilaterally Extrem General: Yes normal to inspection, Yes no clubbing, cyanosis or edema and Yes no calf tenderness Psych Appearance: grossly normal and well kempt Speech and movement: Normal speech and movement present Results Reviewed Results Reviewed: COMPLIANCE FOR THE LAST 30 NIGHTS IS REVIEWED. SHE HAS USED TO EVERY NIGHT EXCEPT FOR 1 NIGHT WHEN SHE FELL ASLEEP IN THE RECLINER. AVERAGE USE PER NIGHT 7 HOURS 39 MINUTES. PRESSURE USED MOSTLY 9-11 CM. NO SIGNIFICANT AIR LEAK AND RESIDUAL AHI 0.8 Assessment & Plan Assessment & Plan (1) JOYCE (obstructive sleep apnea): Comment: A well known case of obstructive sleep apnea , compliance is excellent . Sleep is fair. Code(s): G47.33 - Obstructive sleep apnea (adult) (pediatric) Category: Medical Plan: ADVISED TO CONTINUE USING CPAP EVERY NIGHT, (2) Allergic rhinitis: Comment: Complains of frequent cough which is mostly due to nasal congestion and postnasal discharge. This is due to environmental allergies. T Code(s): J30.9 - Allergic rhinitis, unspecified Category: Medical Plan: MAY USE LORATADINE 10 MG ONCE A DAY P.R.N.. Coding Level of Care Code Est Pt Level 3 (39845) Diagnoses JOYCE (obstructive sleep apnea) G47.33 Allergic rhinitis J30.9
[2024-04-03 09:44] VITALS: BP 126/78; PULSE 87; O2SAT 97
== END 2024-04-03 09:57 | disposition home or self-care (01) ==
PROVIDERS: PCP Internal Medicine; Visit Provider Internal Medicine
DX: G47.33 Obstructive sleep apnea (adult) (pediatric) (principal); J30.9 Allergic rhinitis, unspecified
CPT/HCPCS: 99213

== ENCOUNTER → 2024-04-03 09:41 | Outpatient (BNVA) | payer BC, SELFPAY | PROVIDERS: PCP Internal Medicine; Visit Provider Internal Medicine ==

== ENCOUNTER 2024-06-05 07:17 | Outpatient (REF) | payer BC, SELFPAY | END 2024-06-05 07:18 | disposition home or self-care (01) | LOC: CF 07:17 | PROVIDERS: Visit Provider Anesthesiology | DX: G89.29 Other chronic pain (principal); M53.3 Sacrococcygeal disorders, not elsewhere classified | CPT/HCPCS: 27096; J2795; J3301; Q9967 ==

== ENCOUNTER 2024-06-05 14:40 | Outpatient (AMB) | payer BC, SELFPAY ==
--- OUTSIDE RECORDS SUMMARY | 2024-06-05 14:42 | XMS_ITS | Patient Health Record ---
Author Organization [facility] Address [address] [place] [address] Care Team Providers [employer] Groover Name Role Phone Joana Real MD Primary [...] Active confirmed Perforated diverticulum of large intestine ([id number]) Problem Diverticulitis of large intestine with perforation without bleeding (K57.20) Active confirmed [id number] PLAN OF TREATMENT Future Test Test Name Order Date COLONOSCOPY 12/06/2013 COLONOSCOPY 06/21/2022 Insurance Providers Payer Name Payer Address Payer Phone Subscriber Number Group Number Insured Name Patient Relationship to Insured Coverage Start Date Coverage End Date [facility] [address] [place] [phone] [id number] KENY MCKINLEY Self - patient is the insured MEDICAL (GENERAL) HISTORY Medical History History ICD Code Hypothyroidism with history of Edy 's thyroiditis JOYCE SVT s/p RF ablation Allergic rhinitis Colonoscopy 12/31 diverticulosis, ten-yea r followup Surgical History Surgery Date(Month/Year) Perforated diverticulitis wi colostomy and Abeab procedure, takedown and reanastomosis 04/0801/04/21 knee replacement 2019 Hospitalization History Reason Date(Month/Year) Perforated diverticulitis as above
--- NOTE | 2024-06-05 14:44 | A.OFFVIS_ITS ---
Vital Signs 06/05/24 15:20 06/05/24 15:22 BP 148/71 H 140/68 H Blood Pressure Location Lt brachial Lt brachial Position Sitting Sitting Respiration 14 14 Pulse 82 72 Pulse Source Pulse Oximeter Pulse Oximeter Pulse Oximetry (%) 98 98 Oxygen Delivery Method Room Air Room Air Comment pre-op post-op Intake Visit Reasons: RIGHT THERAPEUTIC SIJ INJECTION Allergies No Known Allergies Allergy (Verified 06/05/24 15:22) PFSH Medical History Obesity (BMI 30-39.9) Anemia Dyslipidemia Allergic rhinitis History of proctitis Acute sinusitis Edy's disease COVID-19 vaccine series completed Seasonal allergies Hx of supraventricular tachycardia Depression Anxiety disorder Obesity (BMI 30-39.9) Vitamin D deficiency Non-toxic multinodular goiter Hypothyroidism JOYCE (obstructive sleep apnea) Surgical History History of total right knee replacement (TKR) (~08/2020) Hx of exploratory laparotomy Hx of LASIK Hx of colonoscopy S/P thyroid biopsy History of radiofrequency ablation procedure for cardiac arrhythmia Family History Father Heart disease Mother No problems noted. 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 Cognitive needs: No Hearing needs: No Vision needs: Yes Female Reproductive History Menstrual Age of Menarche: 15 Physical Exam Vital Signs: Last Vital Signs Pulse 72 06/05/24 15:22 Resp 14 06/05/24 15:22 BP 140/68 H 06/05/24 15:22 Pulse Ox 98 06/05/24 15:22 Oxygen Delivery Method Room Air 06/05/24 15:22 Assessment & Plan Assessment & Plan (1) Spondylosis of lumbar region without myelopathy or radiculopathy: Code(s): M47.816 - Spondylosis without myelopathy or radiculopathy, lumbar region Category: Medical (2) Sacroiliitis: Code(s): M46.1 - Sacroiliitis, not elsewhere classified Category: Medical (3) Chronic right sacroiliac joint pain: Code(s): M53.3 - Sacrococcygeal disorders, not elsewhere classified; G89.29 - Other chronic pain Category: Medical (4) Chronic pain syndrome: Code(s): G89.4 - Chronic pain syndrome Category: Medical Plan Right therapeutic sacroiliac joint injection. Informed consent was explained thoroughly to the patient. All questions about benefits and risks for the procedure were answered. Patient came to the operating room and was positioned prone on the operating table with the pillow under the pelvis. Time out was performed delineating name and of the patient, allergies and the nature of the procedure. The lower back and buttocks of the patient were prepped with ChloraPrep prepped and draped with sterile utility towels. C-arm was brought over the operating field and sq picture of patient's pelvis was demonstrated on the screen. For the right joint tilting C-arm contralateral to the site of the joint the most posterior portion of the joints was superimposed with anterior silhouette of the joint. Skin was injected in the projection of the joint slightly medial to the location of the joint with 25 gauge 1/2 inch needle using local lidocaine 2% .After that 22 gauge 3 and 1/2 inch needle was driven to the right joint in tunnel vision fashion. When needle entered the joint capsule injection of the contrast was performed demonstrating intra-articular and minimally periarticular spread of the contrast. After that 4 cc. of ropivacaine 0.5% mixed with Kenalog 40 mg was injected into the joint. Upon completion of the injections the needle was removed, Band-Aid was applied. Upon completion of the injection patient was taken outside of the operating room to the recovery room where recovered uneventfully. Orders: Orders FL guidance in treatment room Today G89.29 - Other chronic pain, M53.3 - Sac rococcygeal disorders, not elsewhere classified Coding Level of Care Code Procedure Only Diagnoses Spondylosis of lumbar region without myelopathy or radiculopathy M47.816 Sacroiliitis M46.1 Chronic right sacroiliac joint pain M53.3; G89.29 Chronic pain syndrome G89.4
[2024-06-05 15:20] VITALS: BP 148/71; PULSE 82; RESP 14; O2SAT 98
[2024-06-05 15:22] VITALS: BP 140/68; PULSE 72; RESP 14; O2SAT 98
== END 2024-06-05 15:19 | disposition home or self-care (01) ==
LOC: HO.PMCPRC 14:40
PROVIDERS: PCP Internal Medicine; Visit Provider Anesthesiology
DX: M46.1 Sacroiliitis, not elsewhere classified (principal); M53.3 Sacrococcygeal disorders, not elsewhere classified
CPT/HCPCS: 27096

== ENCOUNTER 2024-06-11 12:44 | Outpatient (AMB) | payer BC, SELFPAY ==
--- NOTE | 2024-06-11 12:57 | MHC.PC.OV ---
Vital Signs 06/11/24 13:05 Height 5 ft 4 in Weight 212 lb BMI 36.4 BP 110/64 Blood Pressure Location Lt brachial Position Sitting Pulse 74 Pulse Source Pulse Oximeter Pulse Oximetry (%) 98 Oxygen Delivery Method Room Air Intake Visit Reasons: Annual physical Intake Note: Pt is here today for her PE: Last mammogram 06/28/23, papsmear 10/06/23, colonoscopy 07/23/22 Allergies No Known Allergies Allergy (Verified 06/11/24 13:21) Medication List - Last Reconciled 06/11/24 by Joana Real MD aspirin (Adult Low Dose Aspirin) 81 mg PO DAILY celecoxib (Celebrex) 100 mg PO BID 30 days cholecalciferol (vitamin D3) 50 mcg PO DAILY diphenhydramine-acetaminophen 25-500 mg (Tylenol PM Extra Strength) 2 tabs PO BEDTIME PRN docusate sodium 100 mg PO DAILY levothyroxine 44 mcg (1/2 x 88 mcg) PO DAILY 90 days loratadine (Claritin) 10 mg PO DAILY PRN magnesium oxide 400 mg PO DAILY Tobacco use date assessed: 06/11/24 Dental Screening Dental Screen Date: 06/11/24 Did you have a dental visit in the last 12 months?: Yes Did you have a dental problem in the last 6 months where you did not have access to dental care?: No Was dental information given to patient?: Patient has dentist HPI Annual physical HPI Details 63-year-old lady with past medical history of morbid obesity, 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 Last mammogram 06/28/23, papsmear 10/06/23, colonoscopy 07/23/22 due again in 2026. Has been feeling well except for pain in left Achilles tendon. Patient states that she accidentally twisted her left foot several months ago . Has not been taking anything for pain but has changed to rubber shoes that has better support [facility] Medical History (Updated 06/12/24 @ 04:17 by Joana Real MD) Achilles tendinitis of left lower extremity Obesity (BMI 30-39.9) Anemia Dyslipidemia Allergic rhinitis History of proctitis Acute sinusitis Edy's disease COVID-19 vaccine series completed Seasonal allergies Hx of supraventricular tachycardia Depression Anxiety disorder Obesity (BMI 30-39.9) Vitamin D deficiency Non-toxic multinodular goiter Hypothyroidism JOYCE (obstructive sleep apnea) Surgical History History of total right knee replacement (TKR) (~08/2020) Hx of exploratory laparotomy Hx of LASIK Hx of colonoscopy S/P thyroid biopsy History of radiofrequency ablation procedure for cardiac arrhythmia Family History Father Heart disease Mother No problems noted. 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 Depression Screening Interpretation: Negative Depression Screening Done: Yes Source: Developed by Drs. Deshawn Corbin, Laura Nava, William Nicole and colleagues, with an educational susan from [employer]. Thrive Questionnaire Date Thrive assessed: 06/11/24 I am a: Patient What is your living situation today?: I have a steady place to live Within the past 12 months, did the food you bought not last and you didn't have the money to get more?: I choose not to answer this question Within the past 12 months, did you worry whether your food would run out before you got money to buy more?: I choose not to answer this question Do you have trouble paying for medicines?: I choose not to answer this question Do you have trouble getting transportation to medical appointments?: I choose not to answer this question Do you have trouble paying your heating and electricity bill?: I choose not to answer this question Do you have trouble taking care of your child, family member or friend?: I choose not to answer this question Do you have trouble with day-to-day activities such as bathing, preparing meals, shopping, managing finances, etc.?: I choose not to answer this question Are you interested in more education?: I choose not to answer this question Please select the resources that you would like help with: None Currently or been in a relationship where the following occur: I choose not to answer THRIVE Score: 0 AUDIT C Alcohol Use Questionnaire (AUDIT-C) 1. How often do you have a drink containing alcohol?: Never Total Score: 0 ORQUIDEA-7 AMB Questionnaire ORQUIDEA-7 Date ORQUIDEA - 7 assessed: 06/11/24 Feeling nervous, anxious, or on edge: 0 = Not at all Not being able to stop or control worryin = Not at all Worrying too much about different things: 0 = Not at all Trouble relaxin = Not at all Being so restless that it is hard to sit still: 0 = Not at all Becoming easily annoyed or irritable: 0 = Not at all Feeling afraid as if something awful might happen: 0 = Not at all Total ORQUIDEA-7 score (0-4 normal; 5-9 mild; 10-14 moderate; 15-21 severe): 0 Source: Developed by Drs. Deshawn Corbin, Laura Nava, William Nicole and colleagues, with an educational susan from [employer]. ORQUIDEA-7 Assessment Billing ORQUIDEA-7 Assessment Tool: ORQUIDEA-7 Assessment 66061 Review of Systems Const All systems reviewed & are unremarkable except as noted in HPI and below Eyes Details: hx of lasik done by Dr Becerra Reports no additional complaints ENT Details: gets every 3 months dental cleaning Reports no additional complaints and Reports nasal discharge (Quite frequent especially in early spring.) Card Denies chest pain, Denies irregular heart rhythm and Denies leg edema Resp Reports no additional complaints GI Reports abdominal pain (OFF AND ON AT THE SURGICAL SITE) Reports no additional complaints Musc Reports as per HPI Skin/Breast Reports system reviewed and no additional complaints, except as documented Neuro Reports no additional complaints and Denies Sensory deficit (Neuro) Psych Reports no additional complaints Endo Reports no additional complaints Chilango/Lymph Reports no additional complaints Aller/Immun Reports seasonal rhinorrhea Physical exam (Primary Care) Vital Signs: Last Vital Signs Pulse 74 06/11/24 13:05 BP 110/64 06/11/24 13:05 Pulse Ox 98 06/11/24 13:05 Oxygen Delivery Method Room Air 06/11/24 13:05 BMI result Body Mass Index 36.4 Tobacco/Smoking Status: Tobacco use Status Tobacco use date assessed 06/11/24 06/11/24 13:01 Patient Tobacco Use Status Never used Tobacco 06/11/24 13:01 e-Cigarette/Vaping Use Never Used 06/11/24 13:01 Depression Screening Interpretation: Negative Thrive Assessment: Date of Thrive Assessment Date Thrive assessed 06/11/24 06/11/24 13:01 Currently or been in a relationship where the following occur: I choose not to answer Advance Care Planning discussion: Completed/Scanned Date of discussion: 06/11/24 Who was present: Patient Forms completed: Health Care Proxy Time spent: 16-45 minutes Actual minutes spent: 16 Const General: comfortable, no acute distress and alert Nutritional Appearance: obese Orientation/consciousness: patient oriented x3 HENMT Mouth: moist mucous membranes Eyes General: appearance normal, both eyes and all related structures Neck Neck: Yes full ROM, Yes no lymphadenopathy and Yes supple Resp Effort & Inspection: normal respiratory effort and able to speak in complete sentences Auscultation: clear to auscultation bilaterally Cardio Rate: regular rate Rhythm: regular rhythm Heart sounds: S1 normal heart sound present and S2 normal heart sound present GI Palpation (GI): Soft to palpation, nontender and no masses Auscultation: normal bowel sounds General: Yes no CVA tenderness Back/Spine/Pelvis Other: No tenderness on palpation over right sacroiliac area, full range of motion of right hip joint, no tenderness on palpation over lateral aspect of hip, no gross bone deformity or joint swelling Back: no CVA tenderness Skin General skin exam: no rashes or lesions noted Neuro General: patient oriented x3, gait normal, tone normal, moves all extremities, Normal light touch and pain sensation and no focal motor deficits Cranial nerves: Yes CN's II-XII intact bilaterally Cognition (Neuro): normal cognition Sensory Exam: No Sensory deficit (Neuro) Extrem Other: Tenderness in left Achilles tendon General: Yes full ROM, Yes no joint enlargement, Yes no clubbing, cyanosis or edema, Yes no calf tenderness and Yes normal gait Psych Appearance: grossly normal and well kempt Mental Status: mental status grossly normal Speech and movement: Normal speech and movement present Affect: normal affect Attitude: cooperative Thought process: Normal thought process present Assessment and Plan Assessment & Plan (1) Chronic right sacroiliac joint pain: Code(s): M53.3 - Sacrococcygeal disorders, not elsewhere classified; G89.29 - Other chronic pain Plan: Currently followed by pain management soledad Addison, just recently received cortisone injection (2) Obesity (BMI 30-39.9): Code(s): E66.9 - Obesity, unspecified Plan: Discussed need regular exercise and adherence to healthy eating habits. (3) Dyslipidemia: Code(s): E78.5 - Hyperlipidemia, unspecified Plan: Reminded to get fasting lipid levels done, reinforced importance of following healthy eating habits and getting regular exercise (4) JOYCE (obstructive sleep apnea): Comment: A well known case of obstructive sleep apnea , compliance is excellent . Sleep is fair. Code(s): G47.33 - Obstructive sleep apnea (adult) (pediatric) Plan: Currently on CPAP, followed by Pulmonary (5) Achilles tendinitis of left lower extremity: Code(s): M76.62 - Achilles tendinitis, left leg Plan: Advised to try massaging diclofenac gel 1% to affected area 3 to 4 times a day as needed, rest of affected extremity (6) Advanced directives, counseling/discussion: Code(s): Z71.89 - Other specified counseling Plan: Initiated the conversation about Advanced Directives. Advanced Directives help patients prepare for current and future decisions about their medical treatment and place of care. Discussed with patient that it is a process where a patients current condition and prognosis are reviewed, their wishes for information regarding their illness are elicited, and likely medical dilemmas are presented and options discussed. Healthcare proxy form completed today The form can be amended as needed, reviewed yearly and make changes as needed (7) Annual visit for general adult medical examination with abnormal findings: Code(s): Z00.01 - Encounter for general adult medical examination with abnormal findings Plan: Patient reminded to get fasting labs done, already ordered continue regular dental visit every 6 months and regular eye exams, at least every 2 years. Take adequate calcium in diet and vitamin-D 3 at 2000 IU per cap once a day, in addition to weight-bearing exercises to help maintain good muscle tone and weight control. Instructed to do self-breast exam, and continue with yearly mammogram, up-to-date with her cervical cancer screening and colonoscopy. (8) Hypothyroidism: Code(s): E03.9 - Hypothyroidism, unspecified Qualifiers: Hypothyroidism type: due to Edy's thyroiditis Qualified Code(s): E06.3 - Autoimmune thyroiditis (9) Allergic rhinitis: Code(s): J30.9 - Allergic rhinitis, unspecified Qualifiers: Allergic rhinitis trigger: unspecified Allergic rhinitis seasonality: seasonal Qualified Code(s): J30.2 - Other seasonal allergic rhinitis Plan: Takes loratadine as needed Patient Instructions: Reminded to thyroid labs done, continued on levothyroxine 44 mcg daily Coding Level of Care Code Est Pt Prev Care 40-64y(58921) Diagnoses Chronic right sacroiliac joint pain M53.3; G89.29 Obesity (BMI 30-39.9) E66.9 Dyslipidemia E78.5 JOYCE (obstructive sleep apnea) G47.33 Achilles tendinitis of left lower extremity M76.62 Advanced directives, counseling/discussion Z71.89 Annual visit for general adult medical examination with abnormal findings Z00.01 Hypothyroidism due to Edy thyroiditis E06.3 Hypothyroidism type: due to Edy's thyroiditis Seasonal allergic rhinitis, unspecified trigger J30.2 Allergic rhinitis trigger: unspecified Allergic rhinitis seasonality: seasonal Additional Codes ORQUIDEA-7 Assessment Billing - ORQUIDEA-7 Assessment Tool: ORQUIDEA-7 Assessment 93259 ([id number]) Vital Signs *Quality* - Advance Care Planning discussion: Completed/Scanned ([id number]) Vital Signs *Quality* - Time spent: 16-45 minutes ([id number])
[2024-06-11 13:05] VITALS: BP 110/64; PULSE 74; O2SAT 98; BMI 36.4
== END 2024-06-11 13:40 | disposition home or self-care (01) ==
PROVIDERS: PCP Internal Medicine; Visit Provider Internal Medicine
DX: Z00.00 Encounter for general adult medical examination without abnormal findings (principal); M53.3 Sacrococcygeal disorders, not elsewhere classified; E66.9 Obesity, unspecified; Z68.36 Body mass index [BMI] 36.0-36.9, adult; G89.29 Other chronic pain; E78.5 Hyperlipidemia, unspecified; G47.33 Obstructive sleep apnea (adult) (pediatric); M76.62 Achilles tendinitis, left leg; E06.3 Autoimmune thyroiditis; J30.2 Other seasonal allergic rhinitis

== ENCOUNTER → 2024-06-11 12:44 | Outpatient (BNVA) | payer BC, SELFPAY | PROVIDERS: PCP Internal Medicine; Visit Provider Internal Medicine | DX: Z00.01 Encounter for general adult medical examination with abnormal findings (principal); M76.62 Achilles tendinitis, left leg; M53.3 Sacrococcygeal disorders, not elsewhere classified; E78.5 Hyperlipidemia, unspecified; E06.3 Autoimmune thyroiditis; J30.2 Other seasonal allergic rhinitis; G47.33 Obstructive sleep apnea (adult) (pediatric); E66.9 Obesity, unspecified; Z68.36 Body mass index [BMI] 36.0-36.9, adult; Z99.89 Dependence on other enabling machines and devices; Z71.89 Other specified counseling | CPT/HCPCS: 96127 ==

== ENCOUNTER 2024-06-28 09:20 | Outpatient (AMB) | payer BC, SELFPAY ==
--- NOTE | 2024-06-28 09:24 | A.OFFVIS_ITS ---
Vital Signs 06/28/24 09:29 Height 5 ft 4 in Weight 212 lb 2 oz BMI 36.4 BP 147/64 H Blood Pressure Location Rt brachial Position Sitting Respiration 17 Pulse 101 H Pulse Source Pulse Oximeter Pulse Oximetry (%) 97 Oxygen Delivery Method Room Air Intake Visit Reasons: RIGHT THERAPEUTIC SIJ INJECTION Intake Note: Patient comes in for post-op. Reports pain 2/10. Allergies No Known Allergies Allergy (Verified 06/28/24 09:29) HPI Comments Details: Kizzy is back in my office after therapeutic sacroiliac joint injection. She reports excellent pain relief for past 23 days since the injection. She reports good mobility good activities of daily living good social interactions. She restarted to do yoga. I explained to the patient to be careful with yoga. I asked her not to do very deep stretches. I also recommended her to give us a ca ll when her pain will come back. Would not schedule new appointment if her pain will come back after 4 months we can just schedule another sacroiliac joint injection. If it will be less than 3 months we need to schedule an appointment and discuss other options of treatment of the sacroiliac joint pain. Diagnostic sacroiliac joint injection on the right eliminated pain for the 1st 6 hours. She reported 1st hour after the injection her pain became 50% of the preoperative pain. 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 None of that caused severe shooting pain in her sacroiliac joint as it would before the injection. She reported that at 06:00 hours after the procedure the pain came back to pre-injection level. I believe that dry sacroiliac joint is the pain generators of the patient. Prior: very pleasant 63 years old female who presents in my office with complains on pain in the projection of the right hip and projection of the right side buttock. She had multiple images in the past 1 of them x-ray of the lumbar spine is available for us today and dictated as below. 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 Her past medical history significant for headaches fatigue history of SVT treated with RFA of sinoatrial pathway and diverticulitis. She was treated for diverticulosis and colon perforation by Dr. Lambert in 2020 with the reversal of colostomy in March of 2021. She had total knee replacement on the right in 2019 and SVTs RFA in 2012. She is retired individual, she denies smoking cigarettes drinking alcohol she denies recreational drugs she drinks coffee but not soda. [facility] Medical History (Updated 06/12/24 @ 04:17 by Joana Real MD) Achilles tendinitis of left lower extremity Obesity (BMI 30-39.9) Anemia Dyslipidemia Allergic rhinitis History of proctitis Acute sinusitis Edy's disease COVID-19 vaccine series completed Seasonal allergies Hx of supraventricular tachycardia Depression Anxiety disorder Obesity (BMI 30-39.9) Vitamin D deficiency Non-toxic multinodular goiter Hypothyroidism JOYCE (obstructive sleep apnea) Surgical History History of total right knee replacement (TKR) (~08/2020) Hx of exploratory laparotomy Hx of LASIK Hx of colonoscopy S/P thyroid biopsy History of radiofrequency ablation procedure for cardiac arrhythmia Family History Father Heart disease Mother No problems noted. 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 Cognitive needs: No Hearing needs: No Vision needs: Yes Female Reproductive History Menstrual Age of Menarche: 15 Review of Systems Const All systems reviewed & are unremarkable except as noted in HPI and below ENT Reports Normal hearing present Neuro Reports Normal hearing present, Denies Abnormal speech present, Denies confusion and Denies Sensory deficit (Neuro) Psych Denies confusion Physical Exam Vital Signs: Last Vital Signs Pulse 101 H 06/28/24 09:29 Resp 17 06/28/24 09:29 BP 147/64 H 10/10/24 09:29 Pulse Ox 97 06/28/24 09:29 Oxygen Delivery Method Room Air 06/28/24 09:29 BMI result Body Mass Index 36.4 Const General: no acute distress; No confusion Nutritional Appearance: obese morbidly obese Orientation/consciousness: patient oriented x3 and No confusion Eyes General: appearance normal, both eyes and all related structures Pupils: Equal, round and reactive pupils present EOM: EOMs intact bilaterally Neck Neck: Yes full ROM Chest Chest palpation & inspection: normal inspection of the chest Resp Effort & Inspection: normal respiratory effort, able to speak in complete sentences, normal respiratory pattern, no audible wheezes and no cough Cardio Jugular venous distension: no JVD GI Inspection: Yes normal to inspection Back/Spine/Pelvis Other: Exhibits normal strength of bilateral lower extremities. Denies Valsalva maneuver aggravates her pain at the time of the examination however reports that sometimes coughing sneezing and straining down aggravates her pain so I would consider Valsalva at least minimally positive. Demonstrates remarkable fle xibility with flexing forward and backwards however reports flexing forward aggravates her pain more than flexing backwards. Viktor test is positive on the left for pain increase on the right. So is Stinchfield test is positive on the left for pain increase in the right. Pelvic compression test aggravates the pain on the right but not on the left. Pelvic distraction test is negative. SLR is negative bilaterally. Dorsiflexion of the foot in maximal SLR is negative bilaterally. Lateral rotation and medial rotation of the hip does not aggravate pain in the groin. No tenderness on palpation in paraspinal spinal region lumbar spine. There is mild tenderness on palpation in the projection of the right sacroiliac joint-Sherry finger test positive. Neuro General: patient oriented x3, gait normal and No confusion Cranial nerves: Yes Equal, round and reactive pupils present and Yes Normal hearing present Speech: No Abnormal speech present Gait exam (Neuro): Normal gait present Motor exam (neuro): 5/5 motor strength present throughout Sensory Exam: No Sensory deficit (Neuro) Extrem General: No pedal edema Psych Speech and movement: Normal speech and movement present Affect: normal affect Attitude: cooperative Thought process: Normal thought process present Thought content: Normal thought content present Insight: Good insight present (Psych) Judgement: Good judgement present (Psych) Assessment & Plan Assessment & Plan (1) Spondylosis of lumbar region without myelopathy or radiculopathy: Code(s): M47.816 - Spondylosis without myelopathy or radiculopathy, lumbar region Category: Medical (2) Sacroiliitis: Code(s): M46.1 - Sacroiliitis, not elsewhere classified Category: Medical (3) Chronic right sacroiliac joint pain: Code(s): M53.3 - Sacrococcygeal disorders, not elsewhere classified; G89.29 - Other chronic pain Category: Medical (4) Chronic pain syndrome: Code(s): G89.4 - Chronic pain syndrome Category: Medical Plan Good results of therapeutic sacroiliac joint injection 80% reduction of the pain for the 1st 23 days after the procedure. The procedure was performed on 06/05/2024 if pain relief will last longer than 4 months after the procedure I recommended her to give us a call and we will schedule her for yet another injection. However if the pain relief will last less than 3 months after the procedure she needs to schedule an appointment and we will discuss other means of helping sacroiliac joint pain. PRP for other patients joints were mentioned today to the patient. I will see the patient next time as needed. Coding Level of Care Code Est Pt Level 3 (50893) Diagnoses Spondylosis of lumbar region without myelopathy or radiculopathy M47.816 Sacroiliitis M46.1 Chronic right sacroiliac joint pain M53.3; G89.29 Chronic pain syndrome G89.4
[2024-06-28 09:29] VITALS: BP 147/64; PULSE 101; RESP 17; O2SAT 97; BMI 36.4
== END 2024-06-28 09:37 | disposition home or self-care (01) ==
PROVIDERS: PCP Internal Medicine; Visit Provider Anesthesiology
DX: M47.816 Spondylosis without myelopathy or radiculopathy, lumbar region (principal); M46.1 Sacroiliitis, not elsewhere classified; M53.3 Sacrococcygeal disorders, not elsewhere classified; G89.29 Other chronic pain; G89.4 Chronic pain syndrome
CPT/HCPCS: 99213

== ENCOUNTER → 2024-06-28 09:20 | Outpatient (BNVA) | payer BC, SELFPAY | PROVIDERS: PCP Internal Medicine; Visit Provider Anesthesiology ==

== ENCOUNTER 2024-08-07 16:12 | Outpatient (REF) | payer BC, SELFPAY ==
--- NOTE | ~2024-08-07 | MM_ITS ---
EXAMINATION: MM SCREENING DIGITAL BREAST TOMOSYNTHESIS, BILATERAL CLINICAL INFORMATION: Screening. Asymptomatic. COMPARISON: Mammography: Comparison is made with available priors TECHNIQUE: Digital breast mammography with tomosynthesis is performed in both the craniocaudal and mediolateral oblique views along with computer-aided detection (CAD). FINDINGS: There are scattered areas of fibroglandular density (ACR BI-RADS breast composition Category b). There are no significant masses, abnormal calcifications, or other abnormalities. MM/MM tomosynthesis screening BI IMPRESSION: No mammographic evidence of malignancy. ASSESSMENT: BI-RADS BI-RADS 1 - Negative RECOMMENDATION: Routine annual mammography screening. 1 year F/U This examination should not preclude the clinical evaluation of a suspicious palpable abnormality. This patient's information was entered into a reminder system with a target due date for their next mammogram. Electronically signed by: Kaylie Villeda DO 08/15/2024 08:18 AM [facility]
== END 2024-08-07 16:13 | disposition home or self-care (01) ==
LOC: HO.MAMMO 16:12
PROVIDERS: PCP Internal Medicine; Visit Provider Internal Medicine
DX: Z12.31 Encounter for screening mammogram for malignant neoplasm of breast (principal)
CPT/HCPCS: 77063; 77067

== ENCOUNTER → 2024-08-07 16:30 | Outpatient (BNV) | payer BC, SELFPAY | PROVIDERS: PCP Internal Medicine; Visit Provider Internal Medicine | DX: Z12.31 Encounter for screening mammogram for malignant neoplasm of breast (principal) | CPT/HCPCS: 77063; 77067 ==

== ENCOUNTER 2024-12-27 10:43 | Outpatient (AMB) | payer BC, SELFPAY ==
--- NOTE | 2024-12-27 10:53 | A.OFFVIS_ITS ---
Vital Signs 12/27/24 10:54 Height 5 ft 4 in Weight 224 lb 13.944 oz BMI 38.6 BP 130/78 Blood Pressure Location Lt brachial Position Sitting Pulse 73 Pulse Source Pulse Oximeter Pulse Oximetry (%) 96 Oxygen Delivery Method Room Air Intake Visit Reasons: Obstructive sleep apnea Intake Note: pt is here for joyce follow up and needs a cpap script for portable cpap. Allergies No Known Allergies Allergy (Verified 12/27/24 11:16) Medication List - Last Reconciled 12/27/24 by Liz Poole MD aspirin (Adult Low Dose Aspirin) 81 mg PO DAILY celecoxib (Celebrex) 100 mg PO BID 30 days cholecalciferol (vitamin D3) 50 mcg PO DAILY diphenhydramine-acetaminophen 25-500 mg (Tylenol PM Extra Strength) 2 tabs PO BEDTIME PRN docusate sodium 100 mg PO DAILY levothyroxine 44 mcg (1/2 x 88 mcg) PO DAILY 90 days loratadine (Claritin) 10 mg PO DAILY PRN magnesium oxide 400 mg PO DAILY Do you need a note to return to daycare/school/sports/work: No HPI HPI Obstructive sleep apnea: Details: KENY IS 64 YEARS OLD FEMALE GROSSLY OBESE WITH DIAGNOSIS OF OBSTRUCTIVE SLEEP APNEA. SHE IS HERE FOR 6 MONTHS FOLLOW-UP. USES CPAP REGULARLY EVERY NIGHT AND SLEEPS WELL. SHE HAS NO ISSUES WITH THE USE OF CPAP. HAS NOT BEEN ABLE TO LOSE MUCH WEIGHT. SHE IS PLANNING TO [place]VEL [place] AND WOULD LIKE TO HAVE A TRAVEL ( LIGHTWEIGHT ) CPAP DEVICE. SHE HAS NO BREATHING ISSUES. DOES HAVE MILD ALLERGIC RHINITIS AND USES LORATADINE P.R.N. [facility] Medical History Achilles tendinitis of left lower extremity Obesity (BMI 30-39.9) Anemia Dyslipidemia Allergic rhinitis History of proctitis Acute sinusitis Edy's disease COVID-19 vaccine series completed Seasonal allergies Hx of supraventricular tachycardia Depression Anxiety disorder Obesity (BMI 30-39.9) Vitamin D deficiency Non-toxic multinodular goiter Hypothyroidism JOYCE (obstructive sleep apnea) Surgical History History of total right knee replacement (TKR) (~08/2020) Hx of exploratory laparotomy Hx of LASIK Hx of colonoscopy S/P thyroid biopsy History of radiofrequency ablation procedure for cardiac arrhythmia Family History Father Heart disease Mother No problems noted. 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 Cognitive needs: No Hearing needs: No Vision needs: Yes Female Reproductive History Menstrual Age of Menarche: 15 Review of Systems Const All systems reviewed & are unremarkable except as noted in HPI and below Eyes Reports no additional complaints ENT Reports no additional complaints, Reports nasal congestion and Reports nasal discharge (Quite frequent especially in early spring.) Card Denies chest pain, Denies irregular heart rhythm and Denies leg edema Resp Reports no additional complaints and Reports cough GI Reports abdominal pain (OFF AND ON AT THE SURGICAL SITE) Reports no additional complaints Musc Reports no additional complaints Skin/Breast Reports system reviewed and no additional complaints, except as documented Neuro Reports no additional complaints Psych Reports no additional complaints Physical Exam Const General: healthy appearing, comfortable, no acute distress, alert and awake Orientation/consciousness: patient oriented x3 HEENT Head: Yes normal to inspection General nose exam: No nasal polyps present and No nasal discharge present Face and sinus: Yes sinuses nontender Mouth: oropharynx normal Throat: Yes posterior oropharynx normal Eyes General: appearance normal, both eyes and all related structures Neck Neck: Yes normal visual inspection, Yes no lymphadenopathy, Yes trachea midline and Yes no JVD Thyroid: Thyroid normal Chest Chest palpation & inspection: normal inspection of the chest, normal palpation of entire chest wall and no tenderness Resp Effort & Inspection: normal respiratory effort Auscultation: clear to auscultation bilaterally Percussion: percussion normal Cardio Palpation: normal PMI Rate: regular rate Rhythm: regular rhythm Heart sounds: no gallops and no murmurs Peripheral pulses: Peripheral pulses 2+ throughout GI Palpation (GI): Soft to palpation, nontender, No hepatosplenomegaly present, no masses and Other GI palpation findings present (EXTENSIVE HEALED SURGICAL SCAR FROM HER RECENT ABDOMINAL SURGERY.) Auscultation: normal bowel sounds Back/Spine/Pelvis Thoracic/Lumbar Spine: thoracic and lumbar spine normal to inspection Skin General skin exam: no rashes or lesions noted Neuro General: patient oriented x3 and no focal motor deficits Cranial nerves: Yes CN's II-XII intact bilaterally Extrem General: Yes normal to inspection, Yes no clubbing, cyanosis or edema and Yes no calf tenderness Psych Appearance: grossly normal and well kempt Speech and movement: Normal speech and movement present Results Reviewed Results Reviewed: COMPLIANCE REPORT FOR THE LAST 30 NIGHTS IS REVIEWED. . SHE HAS USED 30/30 NIGHTS, 100% AVERAGE USE IT PER NIGHT 8 HOURS 9 MINUTES. RESIDUAL AHI ONLY 0.9 Assessment & Plan Assessment & Plan (1) Obesity (BMI 30-39.9): Comment: SHE IS GROSSLY OBESE, WEIGHT HAS REMAINED UNCHANGED. SHE IS TRYING TO WATCH HER DIET, HAS CUT DOWN THE INTAKE OF CARBOHYDRATES AND IS USING FRUIT FOR LUNCH. Code(s): E66.9 - Obesity, unspecified Category: Medical Plan: ENCOURAGED TO WALK MORE, AND CONTINUE TO CUT DOWN THE USAGE OF CARBOHYDRATES. (2) JOYCE (obstructive sleep apnea): Comment: A well known case of obstructive sleep apnea , compliance is excellent . Sleep is fair. She has no issues with the CPAP machine. [place] she is looking for a lightweight travel size CPAP device for which I have written a prescription for her. Code(s): G47.33 - Obstructive sleep apnea (adult) (pediatric) Category: Medical Plan: Commended for good compliance and advised to keep on using CPAP every night Coding Level of Care Code Est Pt Level 3 (10036) Diagnoses Obesity (BMI 30-39.9) E66.9 JOYCE (obstructive sleep apnea) G47.33
[2024-12-27 10:54] VITALS: BP 130/78; PULSE 73; O2SAT 96; BMI 38.6
--- OUTSIDE RECORDS SUMMARY | 2024-12-27 12:45 | XMS_ITS | Patient Health Record ---
Author Organization [facility] Address [address] [place] [address] Care Team Providers Care Pediatric Medical Assistant Name Role Phone Joana Real MD Primary Care Provider Dave Doan Jr Allergies Allergen (clinical drug ingredient) Drug/Non Drug Allergy documented on EMR Reaction Allergy Type Onset Date Status dust,seasonal (uncoded) Unknown Allergy Active Reason For Referral No Information Medications Medication SIG (Take, Route, Frequency, Duration) Notes [...] a day for 30 day(s) 07/01/2022 Active Immunizations Vaccine Route Administration Date Status Comme nts Influenza Unknown 06/09/2022 Administered Problems Problem Type SNOMED Code ICD Code Onset Dates Problem Status W/U Status Risk Notes Problem Perforated diverticulum of large intestine (457198383) Diverticulitis of large intestine with abscess without bleeding (K57.20) Active confirmed Problem 4250211 Diverticulitis o f large intestine with perforation without bleeding (K57.20) Active confirmed Plan Of Treatment Future Test Test Name Order Date COLONOSCOPY 12/06/2013 COLONOSCOPY 06/21/2022 Insurance Providers Payer Name Payer Address Payer Phone Subscriber Number Group Number Insured Name Patient Relationship to Insured Coverage Start Date Coverage End Date [facility] [address] [place] [phone] [id number] KENY MCKINLEY Self - patient is the insured Medical (General) History Medical History History ICD Code Hypothyroidism with history of Edy 's thyroiditis JOYCE SVT s/p RF ablation Allergic rhinitis Colonoscopy 12/31 diverticulosis, ten-yea r followup Surgical History Surgery Date(Month/Year) Perforated diverticulitis colostomy and Abeba procedure, takedown and reanastomosis 04/0801/04/21 knee replacement 2019 Hospitalization History Reason Date(Month/Year) Perforated diverticulitis as above
== END 2024-12-27 11:18 | disposition home or self-care (01) ==
LOC: HO.HPS 10:44
PROVIDERS: PCP Internal Medicine; Visit Provider Internal Medicine
DX: E66.9 Obesity, unspecified (principal); G47.33 Obstructive sleep apnea (adult) (pediatric)
CPT/HCPCS: 99213

== ENCOUNTER → 2024-12-27 10:43 | Outpatient (BNVA) | payer BC, SELFPAY | PROVIDERS: PCP Internal Medicine; Visit Provider Internal Medicine ==

== ENCOUNTER 2025-01-28 11:05 | Outpatient (AMB) | payer BC, SELFPAY ==
[2025-01-28 11:22] VITALS: BP 171/92; PULSE 66; O2SAT 97; BMI 37.2
--- NOTE | 2025-01-28 11:22 | MHC.OFFVIS ---
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 Supervisor Required: No Allergies No Known Allergies Allergy (Verified 01/28/25 11:22) Medication List - Last Reconciled 01/28/25 by Bibiana Villalobos, CASHIERS SUPERVISOR aspirin (Adult Low Dose Aspirin) 81 mg PO DAILY celecoxib (Celebrex) 100 mg PO BID 30 days cholecalciferol (vitamin D3) 50 mcg PO DAILY diphenhydramine-acetaminophen 25-500 mg (Tylenol PM Extra Strength) 2 tabs PO BEDTIME PRN docusate sodium 100 mg PO DAILY levothyroxine 44 mcg (1/2 x 88 mcg) PO DAILY 90 days loratadine (Claritin) 10 mg PO DAILY PRN magnesium oxide 400 mg PO DAILY HPI Comments Details: Kizzy is back in my office after right therapeutic sacroiliac joint injection. She reports 100% pain relief for 2 months after the injection . She reports that after the pain started to come back but still was very tolerable and for the next 45 days remain in about 1/10 or 2/10. Therefore overall in the past 3 months she had 75 % pain improvement. She requests me to repeat therapeutic right sacroiliac joint injection. While she is waiting I recommended her to continue her low impact aerobic exercises, I recommended her to be careful with yoga or stretches. Diagnostic sacroiliac joint injection on the right eliminated pain for the 1st 6 hours. She reported 1st hour after the injection her pain became 50% of the preoperative pain. 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 None of that caused severe shooting pain in her sacroiliac joint as it would before the injection. She reported that at 06:00 hours after the procedure the pain came back to pre-injection level. Prior: very pleasant 63 years old female who presents in my office with complains on pain in the projection of the right hip and projection of the right side buttock. She had multiple images in the past 1 of them x-ray of the lumbar spine is available for us today and dictated as below. 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 Her past medical history significant for headaches fatigue history of SVT treated with RFA of sinoatrial pathway and diverticulitis. She was treated for diverticulosis and colon perforation by Dr. Lambert in 2020 with the reversal of colostomy in March of 2021. She had total knee replacement on the right in 2019 and SVTs RFA in 2012. COUNT INCLUDES THE [facility] Medical History (Updated 12/31/24 @ 23:37 by Joana Real MD) Knee pain, bilateral Achilles tendinitis of left lower extremity Obesity (BMI 30-39.9) Anemia Dyslipidemia Allergic rhinitis History of proctitis Acute sinusitis Edy's disease COVID-19 vaccine series completed Seasonal allergies Hx of supraventricular tachycardia Depression Anxiety disorder Obesity (BMI 30-39.9) Vitamin D deficiency Non-toxic multinodular goiter Hypothyroidism JOYCE (obstructive sleep apnea) Surgical History History of total right knee replacement (TKR) (~08/2020) Hx of exploratory laparotomy Hx of LASIK Hx of colonoscopy S/P thyroid biopsy History of radiofrequency ablation procedure for cardiac arrhythmia Family History Father Heart disease Mother No problems noted. 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 Cognitive needs: No Hearing needs: No Vision needs: Yes Female Reproductive History Menstrual Age of Menarche: 15 Review of Systems Const All systems reviewed & are unremarkable except as noted in HPI and below ENT Reports Normal hearing present Neuro Reports Normal hearing present, Denies Abnormal speech present, Denies confusion and Denies Sensory deficit (Neuro) Psych Denies confusion Physical Exam Vital Signs: Last Vital Signs Pulse 66 01/28/25 11:22 BP 171/92 H 01/28/25 11:22 Pulse Ox 97 01/28/25 11:22 Oxygen Delivery Method Room Air 01/28/25 11:22 BMI result Body Mass Index 37.2 Const General: no acute distress; No confusion Nutritional Appearance: obese morbidly obese Orientation/consciousness: patient oriented x3 and No confusion Eyes General: appearance normal, both eyes and all related structures Pupils: Equal, round and reactive pupils present EOM: EOMs intact bilaterally Neck Neck: Yes full ROM Chest Chest palpation & inspection: normal inspection of the chest Resp Effort & Inspection: normal respiratory effort, able to speak in complete sentences, normal respiratory pattern, no audible wheezes and no cough Cardio Jugular venous distension: no JVD GI Inspection: Yes normal to inspection Back/Spine/Pelvis Other: Exhibits normal strength of bilateral lower extremities. Denies Valsalva maneuver aggravates her pain at the time of the examination however reports that sometimes coughing sneezing and straining down aggravates her pain so I would consider Valsalva at least minimally positive. Demonstrates remarkable flexibility with flexing forward and backwards however reports flexing forward aggravates her pain more than flexing backwards. Viktor test is positive on the left for pain increase on the right. So is Stinchfield test is positive on the left for pain increase in the right. Pelvic compression test aggravates the pain on the right but not on the left. Pelvic distraction test is negative. SLR is negative bilaterally. Dorsiflexion of the foot in maximal SLR is negative bilaterally. Lateral rotation and medial rotation of the hip does not aggravate pain in the groin. No tenderness on palpation in paraspinal spinal region lumbar spine. There is mild tenderness on palpation in the projection of the right sacroiliac joint-Sherry finger test positive. Neuro General: patient oriented x3, gait normal and No confusion Cranial nerves: Yes Equal, round and reactive pupils present and Yes Normal hearing present Speech: No Abnormal speech present Gait exam (Neuro): Normal gait present Motor exam (neuro): 5/5 motor strength present throughout Sensory Exam: No Sensory deficit (Neuro) Extrem General: No pedal edema Psych Speech and movement: Normal speech and movement present Affect: normal affect Attitude: cooperative Thought process: Normal thought process present Thought content: Normal thought content present Insight: Good insight present (Psych) Judgement: Good judgement present (Psych) Assessment & Plan Assessment & Plan (1) Spondylosis of lumbar region without myelopathy or radiculopathy: Code(s): M47.816 - Spondylosis without myelopathy or radiculopathy, lumbar region Category: Medical (2) Sacroiliitis: Code(s): M46.1 - Sacroiliitis, not elsewhere classified Category: Medical (3) Chronic right sacroiliac joint pain: Code(s): M53.3 - Sacrococcygeal disorders, not elsewhere classified; G89.29 - Other chronic pain Category: Medical (4) Chronic pain syndrome: Code(s): G89.4 - Chronic pain syndrome Category: Medical Plan Good results of therapeutic sacroiliac joint injection with overall 75% pain improvement for the 1st 3 months after the procedure. The injection was in June of 2024. Now it is December of 2024 and she would like to repeat the injection. Risks and benefits were explained to the patient. Alternatives were explained to the patient. In the past we discussed possibility of treating her SI joint with PRP injection, SI joint fusion, SI joint innervation stimulation. Coding Level of Care Code Est Pt Level 3 (53995) Diagnoses Spondylosis of lumbar region without myelopathy or radiculopathy M47.816 Sacroiliitis M46.1 Chronic right sacroiliac joint pain M53.3; G89.29 Chronic pain syndrome G89.4
--- OUTSIDE RECORDS SUMMARY | 2025-01-28 11:51 | XMS_ITS | Patient Health Record ---
Author Organization [facility] Address [address] [place] [address] Care Team Providers Care Msws Name Role Phone Joana Real MD Primary Care Provider Dave Doan Jr [phone] Allergies Allergen (clinical drug ingredient) Drug/Non Drug [...] Notes Problem Perforated diverticulum of large intestine (844915421) Diverticulitis of large intestine with abscess without bleeding (K57.20) Active confirmed Problem 9522584 Diverticulitis o f large intestine with perforation without bleeding (K57.20) Active confirmed Plan Of Treatment Future Test Test Name Order Date COLONOSCOPY 12/06/2013 COLONOSCOPY 06/21/2022 Insurance Providers Payer Name Payer Address Payer Phone Subscriber Number Group Number Insured Name Patient Relationship to Insured Coverage Start Date Coverage End Date [facility] [address] [place] [phone] [id number] KENY MCKINLEY Self - patient is the [...]
== END 2025-01-28 11:27 | disposition home or self-care (01) ==
LOC: HO.PMC 11:06
PROVIDERS: PCP Internal Medicine; Visit Provider Anesthesiology
DX: M47.816 Spondylosis without myelopathy or radiculopathy, lumbar region (principal); M46.1 Sacroiliitis, not elsewhere classified; M53.3 Sacrococcygeal disorders, not elsewhere classified; G89.29 Other chronic pain; G89.4 Chronic pain syndrome
CPT/HCPCS: 99213

== ENCOUNTER → 2025-01-28 11:05 | Outpatient (BNVA) | payer BC, SELFPAY | PROVIDERS: PCP Internal Medicine; Visit Provider Anesthesiology ==

== ENCOUNTER 2025-02-20 12:45 | Emergency (ER) | payer BC, SELFPAY ==
--- NOTE | ~2025-02-20 | CT_ITS ---
EXAMINATION: CT ABDOMEN PELVIS WITH IV CONTRAST HISTORY: +RLQ tenderness, concern for appy COMPARISON: Comparison is made with the prior examination dated 01/04/2021. TECHNIQUE: CT scan of the abdomen and pelvis was performed following administration of 85 mL Omnipaque 350 using standard departmental protocol. Coronal and sagittal reformatted images were generated and reviewed. Oral contrast material was not administered at the request of the referring physician. This CT exam was performed with one or more of the following dose reduction techniques: automated exposure control, adjustment of the mA and/or kV according to patient size, use of iterative reconstruction technique. DLP: 897 mGy-cm FINDINGS: LOWER CHEST: The visualized lung bases are clear. There is no pleural effusion. CARDIOVASCULATURE: The heart is normal in size. There is no pericardial effusion. LIVER: The liver is normal in size and contour. No liver mass is identified. The hepatic and portal veins are patent. GALLBLADDER / BILE DUCTS: There is cholelithiasis. There is no intra or extrahepatic biliary ductal dilatation. SPLEEN: The spleen is normal in size. No focal splenic lesion is identified. PANCREAS: The pancreas is unremarkable in appearance. ADRENAL GLANDS: Within normal limits. KIDNEYS/RETROPERITONEUM: No renal calculi are identified. There is no hydronephrosis. No renal masses are identified. MESENTERY/PERITONEUM: No free fluid. There is a 6.2 x 4.2 x 3.9 cm soft tissue mass in the mesentery. No fat plane is seen between the mass and the duodenum. Mild inflammatory stranding is seen posterior to the mass. There is no free intraperitoneal gas. LYMPH NODES: There are multiple subcentimeter of lymph nodes adjacent to the above-described mass. VASCULATURE: The abdominal aorta is normal in caliber. STOMACH: The stomach is collapsed, limiting evaluation. SMALL BOWEL: The small bowel is normal in caliber. COLON: There is a sigmoid anastomosis. The colon is otherwise unremarkable. APPENDIX: Normal. URINARY BLADDER/PELVIC ORGANS: The urinary bladder is collapsed, limiting evaluation. The uterus is unremarkable. BONES / SOFT TISSUES: There is a large ventral hernia containing unobstructed loops of small bowel. An additional fat-containing spigelian hernia is noted on the left. There is degenerative disc disease at the L4-[address]/CT abdomen pelvis w IV con IMPRESSION: 1. 6.2 x 4.2 x 3.9 cm soft tissue mass in the mesentery immediately adjacent to the duodenum. There are moderate surrounding inflammatory changes and adjacent small lymph nodes. Findings are compatible with neoplasm and surgical consultation is recommended. 2. A normal appendix is visualized. 3. Multiple intra-abdominal wall hernias as described. Electronically signed by: Deshawn Garcia MD 02/20/2025 02:52 PM EDT
[2025-02-20 12:49] VITALS: BP 172/84; PULSE 98; RESP 16; TEMP 36.6; O2SAT 97; BMI 37.5
--- NOTE | 2025-02-20 12:49 | ED.GENADULT ---
HPI - General Adult General Chief complaint: Abdominal Pain Stated complaint: R Side Pain Time Seen by Provider: 02/20/25 12:59 Source: patient Mode of arrival: ambulatory Limitations: no limitations History of Present Illness ED Provider: Cassandra Jennings PA-C HPI narrative: Patient is a 64 year old assigned female at with a history of chronic right sacroiliac pain, tomer's disease, diverticulitis s/p perforation with colectomy, presenting to the emergency department today with right lower quadrant abdominal pain. Patient states that over the last 3 days she has had right lower quadrant abdominal pain that is not improving and nausea. Patient denies any dizziness, lightheadedness, vomiting, fever, chills, blurry vision, double vision, loss of vision, chest pain, difficulty breathing, shortness of breath, back pain, night sweats, pain with urination, increased urinary frequency, increased urinary urgency, blood in her urine or stool, syncope or a near syncopal episode, recent trauma or falls, bowel incontinence, bladder incontinence, or any other complaints at this time. Onset (ago): day(s) (3) Location: abdomen and right Relieving factors: none Exacerbating factors: none Associated symptoms: nausea/vomiting Treatments prior to arrival: none Related Data Home Medications ?Medication ?Instructions ?Recorded ?Confirmed loratadine 10 mg tablet (Claritin) 10 mg PO DAILY PRN allergy symptoms 12/01/20 01/28/25 diphenhydramine 25 2 tab PO BEDTIME PRN Sleep 04/06/21 01/28/25 mg-acetaminophen 500 mg tablet (Tylenol PM Extra Strength) magnesium oxide 400 mg PO DAILY 04/06/21 01/28/25 aspirin 81 mg tablet,delayed 81 mg PO DAILY 03/25/22 01/28/25 release (Adult Low Dose Aspirin) cholecalciferol (vitamin D3) 50 50 mcg PO DAILY 03/25/22 01/28/25 mcg (2,000 unit) capsule docusate sodium 100 mg capsule 100 mg PO DAILY 10/04/23 01/28/25 Previous Rx's ?Medication ?Instructions ?Recorded levothyroxine 88 mcg tablet 44 mcg (1/2 x 88 mcg) PO DAILY 90 01/09/24 days #45 tabs celecoxib 100 mg capsule (Celebrex) 100 mg PO BID 30 days #60 caps 07/09/24 Allergies Allergy/AdvReac Type Severity Reaction Status Date / Time No Known Allergies Allergy Verified 02/20/25 12:49 Review of Systems Constitutional: Constitutional: Reports no additional constitutional complaints, Denies chills, Denies fever(s) and Denies night sweats Eyes: Eyes: Reports no additional eye complaints, Denies blurry vision, Denies change in vision, Denies diplopia, Denies eye discharge, Denies loss of vision and Denies eye pain ENT: Denies dizziness Cardiovascular: Cardiovascular: Reports no additional cardiovascular complaints, Denies chest pain, Denies lightheadedness, Denies Loss of Consciousness and Denies dyspnea Respiratory: Respiratory: Reports no additional respiratory complaints and Denies dyspnea Gastrointestinal: Gastrointestinal: Reports no additional gastrointestinal complaints, Reports abdominal pain, Denies melena, Denies hematochezia, Denies change in bowel habits, Denies change in stool character, Reports nausea and Denies vomiting Genitourinary: Genitourinary: Denies hematuria, Denies urinary frequency, Denies dysuria, Denies urinary incontinence, Denies urinary hesitancy and Denies urinary urgency Musculoskeletal: Musculoskeletal: Reports no additional musculoskeletal complaints, Denies numbness and Denies tingling Neurologic: Denies dizziness, Denies loss of vision, Denies numbness and Denies tingling Psychiatric: Psychiatric: Reports no additional psychiatric complaints Endocrine: Endocrine: Reports no additional endocrine complaints Hematologic/Lymphatic: Hematologic/Lymphatic: Reports no additional hematologic/lymphatic complaints Allergic/Immunologic: Allergic/Immunologic: Reports no additional allergic/immunologic complaints PMFSH Past Medical History Attestation statement: The following information was validated with the patient. Source: old records reviewed and nursing notes reviewed Medical History Knee pain, bilateral Achilles tendinitis of left lower extremity Obesity (BMI 30-39.9) Anemia Dyslipidemia Allergic rhinitis History of proctitis Acute sinusitis Tomer's disease COVID-19 vaccine series completed Seasonal allergies Hx of supraventricular tachycardia Depression Anxiety disorder Obesity (BMI 30-39.9) Vitamin D deficiency Non-toxic multinodular goiter Hypothyroidism JOYCE (obstructive sleep apnea) Surgical History History of total right knee replacement (TKR) (~08/2020) Hx of exploratory laparotomy Hx of LASIK Hx of colonoscopy S/P thyroid biopsy History of radiofrequency ablation procedure for cardiac arrhythmia Family History Family History Father Heart disease Mother No problems noted. 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 Cognitive needs: No Hearing needs: No Vision needs: Yes Physical Exam ED Vital Signs: Vital Signs - 24 hr 02/20/25 12:49 02/20/25 16:05 02/20/25 16:10 Temperature 97.9 F 98.6 F 98.6 F Pulse Rate 98 93 93 Respiratory Rate 16 16 16 Blood Pressure 172/84 H 152/70 H 152/70 H Pulse Oximetry 97 97 97 Oxygen Delivery Method Room Air Room Air Room Air BMI result Body Mass Index 37.5 Const General: cooperative, no acute distress, alert and awake Nutritional Appearance: well nourished Orientation/consciousness: patient oriented x3 HENMT Head: Yes normal to inspection and Yes atraumatic Ears: hearing grossly normal bilaterally and external ears normal General nose exam: Normal external nose present, no nasal discharge noted and no epistaxis Face and sinus: Yes normal facial exam, No abrasion and No laceration Mouth: Normal oral and palatal mucosa present, no drooling and no muffled voice Eyes General: appearance normal, both eyes and all related structures Periorbital: periorbital findings normal Eyelids: Yes eyelids normal Conjunctivae: conjunctivae normal Pupils: Equal, round and reactive pupils present EOM: EOMs intact bilaterally Neck Neck: Yes normal visual inspection, Yes full ROM and Yes no lymphadenopathy Resp Effort & Inspection: normal respiratory effort and able to speak in complete sentences GI Palpation (GI): Soft to palpation, not firm, Tenderness to palpation present (GI) in the RLQ, no guarding and not rigid Neuro General: patient oriented x3, moves all extremities and CN's II-XI intact bilaterally Cranial nerves: Yes Equal, round and reactive pupils present Cognition (Neuro): normal cognition Extrem General: Yes normal to inspection, Yes full ROM and Yes capillary refill normal Psych Appearance: grossly normal Mental Status: mental status grossly normal Affect: normal affect Attitude: cooperative Thought process: Normal thought process present Thought content: Normal thought content present Insight: Good insight present (Psych) Course Course Course Narrative: 02/20/25 1250 SEBASTIAN Robison This is a Rapid Medical Examination (RME) performed by Garett García PA-C in triage. Full HPI, ROS, assessment and treatment plan per primary provider in the Main ED. Hx: 64 yo F hx of diverticulitis complicated by perforation s/p sigmoid colon resection and colostomy placement w/ reversal in 2023 here feeling generally unwell x5 days. reports right abdominal pain now x4 days, reports feeling constipated. had BM today. assoc nausea without vomiting. PE/vitals: stable, well appearing Plan: screening labs, UA, will defer imaging to primary provider. Medications Administered Discontinued Medications Generic Name Dose Route Start Last Admin Trade Name Freq PRN Reason Stop Dose Admin Iohexol 100 ml 02/20/25 14:28 02/20/25 14:28 Iohexol 350 Mg/Ml 100 Ml Infus..Btl IV 02/20/25 14:29 85 ml ONCE ONE Administration Medical Decision Making Medical Decision Making [facility] Narrative: Patient is a 64 year old assigned female at with a history of chronic right sacroiliac pain, tomer's disease, diverticulitis s/p perforation with colectomy, presenting to the emergency department today with right lower quadrant abdominal pain. Patient's physical exam was as noted in the physical exam portion of this note. Patient's blood work showed a WBC count of 12.7 but otherwise unremarkable. Patient's urine showed no acute process. Patient's CT abd/pelvis showed a 6.2 x 4.2 x 3.9 cm soft tissue mass in the mesentery immediately adjacent to the duodenum with surrounding inflammatory changes and adjacent small lymph nodes. I spoke with the general surgery team who examined the patient and stated the patient would nee outpatient follow up with the [facility] team as this is not something they would handle however, she does not need any emergency intervention at this time. I explained my physical exam findings as well as all test results to the patient. I answered all questions asked by the patient. I stressed the importance of the patient taking her medication as directed (either prescribed or as the over the counter packaging recommends). I stressed the importance of the patient following up with her primary care provider and the [facility] General [facility] team. I stressed the importance of the patient returning to the emergency department immediately if her symptoms were to worsen or if she were to develop any dizziness, shortness of breath, difficulty breathing, chest pain, blurry vision, loss of vision, nausea, vomiting, abdominal pain, fever, chills, back pain, or any other complaints. Patient verbalized agreement and understanding with this treatment plan and discharge. Differential Diagnosis Differential Diagnoses: The differential diagnosis associated with the presentation includes Abdominal pain Passed kidney stone Kidney stone Soft tissue mass Admission/Observation Consideration of admission/observation: Escalation of care including admission/observation considered Patient would have been admitted to the hospital had her work up had any findings where hospital admission was appropriate and her clinical presentation warranted hospital admission. Consult Healthcare Provider Management of the patient was discussed with: Director Of Public Works (Spoke with the general surgery team as noted in the MDM Rationale portion of this note. ) Lab Data [facility] Lab Attestation statement: I reviewed the patient's lab results. My interpretation of these results are in the MDM Rationale portion of this note. 02/20/25 12:56 02/20/25 12:56 Labs: Lab Results 02/20/25 02/20/25 Range/Units 12:56 13:33 WBC 12.7 H (4.8-10.8) X10*3/uL RBC 4.62 (4.20-5.50) X10*6/uL Hgb 14.7 (12.0-16.0) g/dl Hct 41.3 (37.0-47.0) % MCV 89.4 (80.0-98.0) fL MCH 31.8 (27.0-33.0) pg MCHC 35.6 H (31.0-35.0) g/dl RDW 12.4 (11.0-16.0) % Plt Count 327 (160-400) X10*3/uL MPV 9.0 L (9.4-12.3) fL Immature Gran % (Auto) 0.5 H (0.0-0.4) % Neut % (Auto) 73.8 H (45-73) % Lymph % (Auto) 16.1 L (20-40) % Jerome % (Auto) 8.9 (2-11) % Eos % (Auto) 0.4 (0-4) % Baso % (Auto) 0.3 (0-2) % Lymph # (Auto) 2.0 (1.2-4.9) X10*3/uL Jerome # (Auto) 1.1 (0.1-1.2) X10*3/uL Eos # (Auto) 0.1 (0.0-0.4) X10*3/uL Baso # (Auto) 0.0 (0.0-0.2) X10*3/uL Abs Immat Gran (auto) 0.06 H (0.00-0.03) X10*3/uL Absolute Neuts (auto) 9.4 H (2.0-8.3) x10*3/uL Absolute Nucleated RBC 0.000 (0.0-0.012) X10*3/uL Nucleated RBC % (auto) 0.0 (0.0-0.2) /100WBC Sodium 135 (135-145) mmol/L Potassium 3.8 (3.3-5.1) mmol/L Chloride 100 (96-108) mmol/L Carbon Dioxide 26 (22-29) mmol/L Anion Gap 13 (12-20) BUN 9 (9-16) mg/dL Creatinine 0.57 (0.5-1.4) mg/dL Estim Creat Clear Calc 115.6 Estimated GFR > 60 Random Glucose 112 (60-115) mg/dL Calcium 9.8 (8.4-10.2) mg/dL Magnesium 2.1 (1.6-2.6) mg/dL Total Bilirubin 1.0 (0.0-1.0) mg/dL AST 20 (5-31) U/L ALT 23 (0-31) U/L Alkaline Phosphatase 82 (39-117) U/L Total Protein 7.3 (6.5-8.0) g/dL Albumin 4.4 (3.5-5.0) g/dL Lipase 19 (8-78) U/L Urine Color Yellow Urine Appearance Clear Urine pH 7.0 (5.0-9.0) Ur Specific [place] <= 1.005 (1.005-1.025) Urine Protein Negative (Neg-Trace) mg/dL Urine Glucose (UA) Negative (Negative) mg/dL Urine Ketones Negative (Negative) mg/dL Urine Blood Negative (Negative) Urine Nitrite Negative (Negative) Ur Leukocyte Esterase Negative (Negative) Independent Interpretation I performed an independent interpretation of an: CT Scan Interpretation: My interpretation is in agreement with the radiologist's impression of this imaging study. Report Number: [id number]: Total DLP = 897.00 mGy-cm EXAMINATION: CT ABDOMEN PELVIS WITH IV CONTRAST HISTORY: +RLQ tenderness, concern for appy COMPARISON: Comparison is made with the prior examination dated 01/04/2021. TECHNIQUE: CT scan of the abdomen and pelvis was performed following administration of 85 mL Omnipaque 350 using standard departmental protocol. Coronal and sagittal reformatted images were generated and reviewed. Oral contrast material was not administered at the request of the referring physician. This CT exam was performed with one or more of the following dose reduction techniques: automated exposure control, adjustment of the mA and/or kV according to patient size, use of iterative reconstruction technique. DLP: 897 mGy-cm FINDINGS: LOWER CHEST: The visualized lung bases are clear. There is no pleural effusion. CARDIOVASCULATURE: The heart is normal in size. There is no pericardial effusion. LIVER: The liver is normal in size and contour. No liver mass is identified. The hepatic and portal veins are patent. GALLBLADDER / BILE DUCTS: There is cholelithiasis. There is no intra or extrahepatic biliary ductal dilatation. SPLEEN: The spleen is normal in size. No focal splenic lesion is identified. PANCREAS: The pancreas is unremarkable in appearance. ADRENAL GLANDS: Within normal limits. KIDNEYS/RETROPERITONEUM: No renal calculi are identified. There is no hydronephrosis. No renal masses are identified. MESENTERY/PERITONEUM: No free fluid. There is a 6.2 x 4.2 x 3.9 cm soft tissue mass in the mesentery. No fat plane is seen between the mass and the duodenum. Mild inflammatory stranding is seen posterior to the mass. There is no free intraperitoneal gas. LYMPH NODES: There are multiple subcentimeter of lymph nodes adjacent to the above-described mass. VASCULATURE: The abdominal aorta is normal in caliber. STOMACH: The stomach is collapsed, limiting evaluation. SMALL BOWEL: The small bowel is normal in caliber. COLON: There is a sigmoid anastomosis. The colon is otherwise unremarkable. APPENDIX: Normal. URINARY BLADDER/PELVIC ORGANS: The urinary bladder is collapsed, limiting evaluation. The uterus is unremarkable. BONES / SOFT TISSUES: There is a large ventral hernia containing unobstructed loops of small bowel. An additional fat-containing spigelian hernia is noted on the left. There is degenerative disc disease at the L4-[address]/CT abdomen pelvis w IV con IMPRESSION: 1. 6.2 x 4.2 x 3.9 cm soft tissue mass in the mesentery immediately adjacent to the duodenum. There are moderate surrounding inflammatory changes and adjacent small lymph nodes. Findings are compatible with neoplasm and surgical consultation is recommended. 2. A normal appendix is visualized. 3. Multiple intra-abdominal wall hernias as described. Electronically signed by: Deshawn Garcia MD 02/20/2025 02:52 PM EDT RP Dictated By: Deshawn Garcia MD Signed By: Electronically signed by Deshawn Garcia MD 02/20/25 1452 Radiology Impression Discussion of test interpretation with radiology: I have reviewed the radiologist's reading. Critical Care Time Critical Care Time Critical Care Time: Yes Total Critical Care Time: 38 Attestation: I spent 38 minutes of Critical Care Time with this patient. This does not include time spent on separately reported billable procedures. Discharge Plan Discharge Clinical Impression: Abdominal pain, Abdominal mass Patient Disposition: Home, Self-Care Instructions: Abdominal Pain (ED) Additional Instructions: Your CT scan of the abdomen/pelvis showed a 6.2 x 4.2 x 3.9 cm soft tissue mass in the mesentery immediately adjacent (next to) the duodenum. Unfortunately, this is not something our general surgery team can address. Therefore we recommend you follow up with [facility]. [facility] [address] [place] [address] Dr. Mercy PITT, [id number] When you call them to schedule an appointment make sure to inform them that you were seen at the [facility] and the [facility] General Surgery team recommended following up with them for this abdominal mass. Follow up with your primary care provider. Return to the emergency department immediately if your symptoms worsen or if you develop any numbness, tingling, dizziness, shortness of breath, difficulty breathing, chest pain, blurry vision, loss of vision, nausea, vomiting, abdominal pain, fever, chills, back pain, or any other complaints. Please see the information below about our Patient Portal. If you are not yet enrolled in the [facility] Patient Portal, you will receive an enrollment email invitation following your visit to any [facility] care setting. You may also self-enroll in the Patient Portal by visiting our website: [email or web address] The following information is required to access the Patient Portal: - Your [facility] Medical Record Number - Your personal home email address (must match what is in your electronic medical record, Registration staff can assist with this) - Name - Date of Capabilities of the Patient Portal: - Message some providers - View upcoming appointments - Access your health summary, medical history, and visit history - View current conditions and allergies - View procedure and lab results - View your medications, including guidelines, side effects, and precautions - Complete pre-appointment questionnaires requested by your provider - Ready summary reports of your office visits and procedures To access the Patient Portal Mobile [employer], follow these directions: - Search [employer] in the [employer] Store or [employer] Store - Download the [employer] - Search for [facility] - Enter your login/password Prescriptions: No Action levothyroxine 88 mcg tablet 44 mcg PO DAILY 90 Days Qty: 45 3RF celecoxib [Celebrex] 100 mg capsule 100 mg PO BID 30 Days Qty: 60 4RF diphenhydramine-acetaminophen [Tylenol PM Extra Strength] 25-500 mg Tablet 2 tab PO BEDTIME PRN (Reason: Sleep) magnesium oxide 400 mg magnesium Tablet 400 mg PO DAILY loratadine [Claritin] 10 mg tablet 10 mg PO DAILY PRN (Reason: allergy symptoms) aspirin [Adult Low Dose Aspirin] 81 mg tablet,delayed release (DR/EC) 81 mg PO DAILY cholecalciferol (vitamin D3) 50 mcg (2,000 unit) capsule 50 mcg PO DAILY docusate sodium 100 mg capsule 100 mg PO DAILY Referrals: Joana Real MD [Primary Care Provider] - Interventions: ED Discharge Assessment Last Done: 02/20/25 16:10 Discharge Date/Time: 02/20/25 16:11 Print Language: Ukrainian
[2025-02-20 13:00] LABS: MANUAL DIFF FLAG NO
[2025-02-20 13:02] LABS: Basophils Percent Auto 0.3 % (0-2); Eosinophils Absolute Auto 0.1 X10*3/uL (0.0-0.4); Eosinophils Percent Auto 0.4 % (0-4); Hematocrit 41.3 % (37.0-47.0); Hemoglobin 14.7 g/dl (12.0-16.0); Imm Gran Abs Auto 0.06 X10*3/uL (0.00-0.03); Imm Gran Pct Auto 0.5 % (0.0-0.4); Lymphocytes Percent Auto 16.1 % (20-40); Mean Corpuscular HGB Conc 35.6 g/dl (31.0-35.0); Mean Corpuscular Hemoglobin 31.8 pg (27.0-33.0); Mean Corpuscular Volume 89.4 fL (80.0-98.0); Monocytes Absolute Auto 1.1 X10*3/uL (0.1-1.2); Monocytes Percent Auto 8.9 % (2-11); Neutrophils Absolute Auto 9.4 x10*3/uL (2.0-8.3); Neutrophils Percent Auto 73.8 % (45-73); Platelet Count 327 X10*3/uL (160-400); Red Blood Count 4.62 X10*6/uL (4.20-5.50); Red Cell Distribution Width 12.4 % (11.0-16.0); White Blood Count 12.7 X10*3/uL (4.8-10.8)
[2025-02-20 13:18] LABS: Alanine Aminotransferase 23 U/L (0-31); Albumin Level 4.4 g/dL (3.5-5.0); Anion Gap 13 (12-20); Aspartate Amino Transferase 20 U/L (5-31); Blood Urea Nitrogen 9 mg/dL (9-16); Calcium 9.8 mg/dL (8.4-10.2); Carbon Dioxide 26 mmol/L (22-29); Chloride 100 mmol/L (96-108); Creatinine Clr Calc Pharmacy 115.6; Estimated Glomerular Filt Rate > 60; Glucose Random 112 mg/dL (60-115); Lipase 19 U/L (8-78); Magnesium 2.1 mg/dL (1.6-2.6); Potassium 3.8 mmol/L (3.3-5.1); Sodium 135 mmol/L (135-145); Total Protein 7.3 g/dL (6.5-8.0)
--- OUTSIDE RECORDS SUMMARY | 2025-02-20 13:32 | XMS_ITS | Patient Health Record ---
Author Organization [facility] Address [address] [place] [address] Care Team Providers Care Junior Engineer Name Role Phone Joana Real MD Primary [...] Problem Status W/U Status Risk Notes Problem Diverticulitis o f large intestine with abscess without bleeding (K57.20) Active confirmed Problem 4184602 Diverticulitis o f large intestine with perforation without bleeding (K57.20) Active confirmed Plan Of Treatment Future Test Test Name Order Date COLONOSCOPY 12/06/2013 COLONOSCOPY 06/21/2022 Insurance Providers Payer Name Payer Address Payer Phone Subscriber Number Group Number Insured Name Patient Relationship to Insured Coverage Start Date Coverage End Date [facility] [address] [place] [phone] [id number] KENY MCKINLEY Self - patient is the insured Medical (General) History Medical History History ICD Code Hypothyroidism with history of Edy 's thyroiditis JOYCE SVT s/p RF ablation Allergic rhinitis Colonoscopy 12/31 diverticulosis, ten-micheala r followup Surgical History Surgery Date(Month/Year) Perforated diverticulitis colostomy and Abe[place] procedure, takedown and reanastomosis 04/0801/04/21 knee replacement 2019 Hospitalization History Reason Date(Month/Year) Perforated diverticulitis as above
[2025-02-20 13:40] LABS: Appearance Urine Clear; Color Urine Yellow; Glucose Urine UA Negative (Negative); Leukocyte Esterase Urine Negative (Negative); Nitrite Urine Negative (Negative); Specific Gravity - Urine <= 1.005 (1.005-1.025); Urine Blood Negative (Negative); Urine Ketones Negative (Negative); Urine Protein Negative (Neg-Trace)
[2025-02-20 13:56] LABS: Alkaline Phosphatase 82 U/L (39-117)
[2025-02-20] MEDS: iohexoL 350 MG/ML 100 ML INFUS..BTL IV (14:28)
--- NOTE | 2025-02-20 15:50 | PM.CNGS ---
History of Present Illness Consult details Consult date: 02/20/25 Requesting physician: Cassandra Jennings Narrative: Kizzy Schwartz is a 64 year old female with PMH significant for tomer's disease, hypothyroidism, JOYCE, hx of perforated diverticulitis s/p caren procedure with subsequent colostomy reversal who presented to the ED today with right lower quadrant abdominal pain. Patient states she has had intermittent RLQ pain for the past few weeks however on Tuesday the pain became constant and gradually worsened. She became nervous about another perforation and therefore sought evaluation in the ED. Work up included CBC, BMP, LFTs which were significant for mild leukocytosis of 12.7. UA negative. CT scan abd pelvis showed a 6.2 x 4.2 x 3.9 cm soft tissue mass in the mesentery without an identifiable fat plane between the mass and the duodenum with inflammatory stranding is seen posterior to the mass, no free intraperitoneal gas. She has not had much of an appetite and has had some nausea but denies vomiting. She is able to tolerate oral intake and has been passing flatus with normal BMs, last one was this morning. She denies any exacerbating or provoking factors of the pain. She denies fevers, chills, dysruia, hematochezia, melena, weight loss. Review of Systems Review of Systems: Yes all other systems are reviewed and are negative PMFSH Past Medical History Medical History Knee pain, bilateral Achilles tendinitis of left lower extremity Obesity (BMI 30-39.9) Anemia Dyslipidemia Allergic rhinitis History of proctitis Acute sinusitis Tomer's disease COVID-19 vaccine series completed Seasonal allergies Hx of supraventricular tachycardia Depression Anxiety disorder Obesity (BMI 30-39.9) Vitamin D deficiency Non-toxic multinodular goiter Hypothyroidism JOYCE (obstructive sleep apnea) Family History Family History Father Heart disease Mother No problems noted. Surgical History Surgical History History of total right knee replacement (TKR) (~08/2020) Hx of exploratory laparotomy Hx of LASIK Hx of colonoscopy S/P thyroid biopsy History of radiofrequency ablation procedure for cardiac arrhythmia Social History Social History Household Members: Spouse Housing: House Are you a primary director of healthcare systems to a significant other at home: No Do you presently have visiting nurse or other home services: Yes (Cyn HERNANDEZ - post op) Alcohol intake: never Comment: Used cane and walker immediately post -op 12/2020- no longer uses Patient Tobacco Use Status: Never used Tobacco e-Cigarette/Vaping Use: Never Used Second Hand Smoke Exposure: No Advance Directives: No Advance Directives Information Provided: Yes service: No Current occupational status: employed 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 Cognitive needs: No Hearing needs: No Vision needs: Yes Meds Allergies Allergy/AdvReac Type Severity Reaction Status Date / Time No Known Allergies Allergy Verified 02/20/25 12:49 Home Medications ?Medication ?Instructions ?Recorded ?Confirmed ?Last Taken ?Type loratadine 10 mg tablet (Claritin) 10 mg PO DAILY PRN allergy symptoms 12/01/20 01/28/25 04/12/21 08:00 History diphenhydramine 25 2 tab PO BEDTIME PRN Sleep 04/06/21 01/28/25 04/12/21 08:00 History mg-acetaminophen 500 mg tablet (Tylenol PM Extra Strength) magnesium oxide 400 mg PO DAILY 04/06/21 01/28/25 04/12/21 08:00 History aspirin 81 mg tablet,delayed 81 mg PO DAILY 03/25/22 01/28/25 07/13/22 History release (Adult Low Dose Aspirin) cholecalciferol (vitamin D3) 50 50 mcg PO DAILY 03/25/22 01/28/25 Unknown History mcg (2,000 unit) capsule docusate sodium 100 mg capsule 100 mg PO DAILY 10/04/23 01/28/25 Unknown History Physical Exam Vital Signs: Vital Signs: Last Vital Signs Temp 97.9 F 02/20/25 12:49 Pulse 98 02/20/25 12:49 Resp 16 02/20/25 12:49 BP 172/84 H 02/20/25 12:49 Pulse Ox 97 02/20/25 12:49 O2 Del Method Room Air 02/20/25 12:49 BMI result Body Mass Index 37.5 Const: General: comfortable, no acute distress and alert Nutritional Appearance: well nourished Orientation/consciousness: patient oriented x3 Resp: Effort & Inspection: normal respiratory effort GI: Other: corpulent abdomen mild right sided tenderness mid abdomen and epigastric soft midline hernia Inspection: Yes scar (midline infraumbilical, left mid abdomen ) Palpation (GI): Soft to palpation, no guarding and not rigid Abdomen image: 1. 2. Skin: General skin exam: no rashes or lesions noted and no jaundice Neuro: General: patient oriented x3 and moves all extremities Results Labs 02/20/25 12:56 02/20/25 12:56 Labs: Abnormal lab results 02/20/25 Range/Units 12:56 WBC 12.7 H (4.8-10.8) X10*3/uL MCHC 35.6 H (31.0-35.0) g/dl MPV 9.0 L (9.4-12.3) fL Immature Gran % (Auto) 0.5 H (0.0-0.4) % Neut % (Auto) 73.8 H (45-73) % Lymph % (Auto) 16.1 L (20-40) % Abs Immat Gran (auto) 0.06 H (0.00-0.03) X10*3/uL Absolute Neuts (auto) 9.4 H (2.0-8.3) x10*3/uL Short CBC 02/20/25 Range/Units 12:56 WBC 12.7 H (4.8-10.8) X10*3/uL Hgb 14.7 (12.0-16.0) g/dl Hct 41.3 (37.0-47.0) % Plt Count 327 (160-400) X10*3/uL BMP 02/20/25 12:56 Sodium 135 Potassium 3.8 Chloride 100 Carbon Dioxide 26 BUN 9 Creatinine 0.57 Calcium 9.8 Liver Function 02/20/25 Range/Units 12:56 Total Bilirubin 1.0 (0.0-1.0) mg/dL AST 20 (5-31) U/L ALT 23 (0-31) U/L Alkaline Phosphatase 82 (39-117) U/L Albumin 4.4 (3.5-5.0) g/dL Urine 02/20/25 Range/Units 13:33 Urine Color Yellow Urine Appearance Clear Urine pH 7.0 (5.0-9.0) Ur Specific Wade <= 1.005 (1.005-1.025) Urine Protein Negative (Neg-Trace) mg/dL Urine Glucose (UA) Negative (Negative) mg/dL All other labs normal. Imaging Abdomen CT scan report/results: report reviewed and image reviewed Assessment and Plan (1) Abdominal mass: Status: Acute (2) Abdominal pain: Status: Acute Plan 64 year old female with PMH significant for tomer's disease, hypothyroidism, JOYCE, hx of perforated diverticulitis s/p caren procedure with subsequent colostomy reversal presenting with progressively worsening right sided abdominal pain associated with decreased oral intake and general malaise. CT scan abd/pelvis shows 6.2 x 4.2 x 3.9 cm soft tissue mass in the mesentery without an identifiable fat plane between the mass and the duodenum with inflammatory stranding. She needs referral to a tertiary center for further evaluation of this lesion. She is not obstructed, no evidence of perforation. Overall her abdomen is benign with mild tenderness without peritoneal signs and this can be done on an outpatient basis unless she worsens or develops concerning symptoms suggestive of obstruction or perforation. Case and images reviewed with attending Dr. Lambert. Procedures Date of Service Date of Service: 02/20/25
[2025-02-20 16:05] VITALS: BP 152/70; PULSE 93; RESP 16; TEMP 37; O2SAT 97
[2025-02-20 16:10] VITALS: BP 152/70; PULSE 93; RESP 16; TEMP 37; O2SAT 97
== END 2025-02-20 16:11 | disposition home or self-care (01) ==
PROVIDERS: Physician Assistant Medical; Emergency Provider Emergency Medicine; PCP Internal Medicine
DX: R19.00 Intra-abdominal and pelvic swelling, mass and lump, unspecified site (principal); R10.813 Right lower quadrant abdominal tenderness
CPT/HCPCS: 36415; 74177; 80053; 81003; 83690; 83735; 85025; 99283; 99284; Q9967

== ENCOUNTER → 2025-02-20 13:08 | Outpatient (BNV) | payer BC, SELFPAY | PROVIDERS: PCP Internal Medicine; Visit Provider Radiology Diagnostic Radiology | DX: R10.813 Right lower quadrant abdominal tenderness (principal) | CPT/HCPCS: 74177 ==

== ENCOUNTER → 2025-02-20 13:14 | Outpatient (BNV) | payer BC, SELFPAY | PROVIDERS: Emergency Provider Emergency Medicine; PCP Internal Medicine; Visit Provider Physician Assistant Surgical | DX: R19.00 Intra-abdominal and pelvic swelling, mass and lump, unspecified site (principal); R10.9 Unspecified abdominal pain | CPT/HCPCS: 99284 ==

== ENCOUNTER 2025-03-07 11:06 | Day surgery (SDC) | payer BC, SELFPAY ==
--- OUTSIDE RECORDS SUMMARY | 2025-03-01 10:14 | XMS_ITS | Patient Health Record ---
Author Organization [facility] Address [address] [place] [address] Care Team Providers Care Correctional Classification Counselor Name Role Phone Joana Real MD Primary [...] abscess without bleeding (K57.20) Active confirmed Problem [id number] Diverticulitis o f large intestine with perforation without bleeding (K57.20) Active confirmed Plan Of Treatment Future Test Test Name Order Date COLONOSCOPY 12/06/2013 COLONOSCOPY 06/21/2022 Insurance Providers Payer Name Payer Address Payer Phone Subscriber Number Group Number Insured Name Patient Relationship to Insured Coverage Start Date Coverage End Date [facility] [address] [place] [phone] [id number] KENY MCKINLEY Self - patient is the [...]
[2025-03-07] VITALS (14 sets, daily range): BP systolic 116–152; BP diastolic 60–87; PULSE 64–81; RESP 9–20; TEMP 36.1–36.2; O2SAT 95–100; BMI 35.3
--- NOTE | ~2025-03-07 | CT_ITS ---
History: 65-year-old female with abdominal mass of uncertain etiology. Procedures: CT-guided biopsy of right abdominal mass Physician: Florencia Serna MD FS Anesthesia: IV moderate sedation with fentanyl and Versed was administered under my direct supervision with continuous physiologic monitoring for a total of 45 minutes. 9 mL of 1% lidocaine was administered for local anesthesia at the biopsy site. Specimen: Four 18-gauge core specimens Train: None Estimated blood loss: Minimal Complications: None Procedure in detail: Informed and written consent was obtained and placed in the patient's chart. The patient was positioned oblique supine on the CT examination table. Preliminary CT showed an intra-abdominal mass below the liver on the right side. An appropriate site for access was marked on the skin. There was a very narrow window to avoid bowel, but we saw a suitable trajectory. The overlying skin was prepped and draped. 1% lidocaine was injected subcutaneously and extended to the deep soft tissues. A small incision was made in the skin with a #11 blade. Through the incision and under progressive CT guidance, a 17-gauge coaxial needle was advanced to the mass. Through this, a total of four 18-gauge core specimens were then obtained, threeof which were placed in formalin and one was placed in flow media. The tissue appeared to be adequate. A Gelfoam slurry was then injected through the 17-gauge coaxial needle as it was removed. A sterile dressing was applied. Follow-up CT scan showed no evidence of bleeding nor other complication. Summary: Successful CT-guided core biopsy of right intra-abdominal mass. Electronically signed by: Chalo Serna MD 03/08/2025 02:03 PM EDT
[2025-03-07] MEDS: fentaNYL citrate/PF 100 MCG/2 ML VIAL 50 MCG IVPUSH (15:05)
[2025-03-07] MEDS: Midazolam HCl 2 MG/2 ML VIAL 1 MG IVPUSH (15:05)
[2025-03-07] MEDS: Lidocaine HCl 1 % MPF 30 ML VIAL 10 ML SUBCUT (15:33)
== END 2025-03-07 16:51 | disposition home or self-care (01) ==
PROVIDERS: Pathology Anatomic Pathology & Clinical Pathology; Radiology Diagnostic Radiology; Radiology Vascular & Interventional Radiology; PCP Internal Medicine; Visit Provider Surgery
DX: C7A.8 Other malignant neuroendocrine tumors (principal); R19.00 Intra-abdominal and pelvic swelling, mass and lump, unspecified site; R10.31 Right lower quadrant pain; D64.9 Anemia, unspecified; E06.3 Autoimmune thyroiditis; E78.5 Hyperlipidemia, unspecified; G47.33 Obstructive sleep apnea (adult) (pediatric); Z87.19 Personal history of other diseases of the digestive system; F32.A Depression, unspecified; F41.9 Anxiety disorder, unspecified; J30.9 Allergic rhinitis, unspecified; Z79.82 Long term (current) use of aspirin; Z79.899 Other long term (current) drug therapy; Z98.890 Other specified postprocedural states
CPT/HCPCS: 36415; 49180; 77012; 85610; 88184; 88185; 88300; 88307; 88341; 88342; 88360; 99152; J2003; J2250; J2310; J3010

== ENCOUNTER → 2025-03-07 12:43 | Outpatient (BNV) | payer BC, SELFPAY | PROVIDERS: PCP Internal Medicine; Visit Provider Radiology Vascular & Interventional Radiology | DX: R19.00 Intra-abdominal and pelvic swelling, mass and lump, unspecified site (principal) | CPT/HCPCS: 49180; 77012 ==

== ENCOUNTER 2025-07-09 08:25 | Outpatient (AMB) | payer BC, SELFPAY ==
--- NOTE | 2025-07-09 08:30 | MHC.PC.OV ---
Vital Signs 07/09/25 08:33 Height 5 ft 4 in Weight 190 lb BMI 32.6 BP 132/76 Blood Pressure Location Lt brachial Position Sitting Respiration 16 Pulse 67 Pulse Source Pulse Oximeter Temp 97.6 F Temp Source Oral Pulse Oximetry (%) 97 Oxygen Delivery Method Room Air Intake Visit Reasons: Annual PE Intake Note: Pt is here today for her PE: last mammogram 08/07/24, papsmear 10/06/23, colonoscopy 07/23/22 Svp Chief Marketing Officer Required: No Allergies No Known Allergies Allergy (Verified 07/09/25 08:50) Medication List - Last Reconciled 07/09/25 by Joana Real MD aspirin (Adult Low Dose Aspirin) 81 mg PO DAILY celecoxib (Celebrex) 100 mg PO BID 30 days cholecalciferol (vitamin D3) 50 mcg PO DAILY diphenhydramine-acetaminophen 25-500 mg (Tylenol PM Extra Strength) 2 tabs PO BEDTIME PRN docusate sodium 100 mg PO DAILY levothyroxine 44 mcg (1/2 x 88 mcg) PO DAILY 90 days loratadine (Claritin) 10 mg PO DAILY PRN magnesium oxide 400 mg PO DAILY Tobacco use date assessed: 07/09/25 Dental Screening Dental Screen Date: 07/09/25 Did you have a dental visit in the last 12 months?: Yes Did you have a dental problem in the last 6 months where you did not have access to dental care?: No Was dental information given to patient?: Patient has dentist HPI Annual PE HPI Details 65-year-old lady with past medical history significant for myocardial infarction, SVT status post ablation, osteopenia multiple sites, spondylosis of lumbar region , Edy's disease with hypothyroidism, obstructive sleep apnea on CPAP, allergic rhinitis, dyslipidemia, obesity, ruptured diverticulitis s/p Abeba's pouch, 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 She is currently feeling well, but does have frequent diarrhea episodes and sometimes have a hard time controlling her bowel movements. She takes Imodium as needed. Has an appointment scheduled tomorrow with [facility] for her follow-up, and to discuss whether she needs any additional treatment. She is up-to-date with her screening mammogram, has an appointment for her repeat mammogram next month. She is overdue for her bone density scan, will try to schedule it together with her upcoming mammogram scheduled next month. She is up-to-date with her screening colonoscopy, last done in 2021, with removal of a precancerous polyp, repeat due again in [address] Vizcaino. She was given her flu vaccine today. Up-to-date with her RSV and shingles vaccine and pneumococcal vaccination, reminded to get her tetanus booster and COVID vaccine [facility] Medical History Osteopenia of multiple sites Neuroendocrine tumor Knee pain, bilateral Achilles tendinitis of left lower extremity Obesity (BMI 30-39.9) Anemia Dyslipidemia Allergic rhinitis History of proctitis Acute sinusitis Edy's disease COVID-19 vaccine series completed Seasonal allergies Hx of supraventricular tachycardia Depression Anxiety disorder Obesity (BMI 30-39.9) Vitamin D deficiency Non-toxic multinodular goiter Hypothyroidism JOYCE (obstructive sleep apnea) Surgical History History of total right knee replacement (TKR) (~08/2020) Hx of exploratory laparotomy Hx of LASIK Hx of colonoscopy S/P thyroid biopsy History of radiofrequency ablation procedure for cardiac arrhythmia Family History Father Heart disease Mother No problems noted. 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 How often do you have a drink containing alcohol?: Never Total Score: 0 Score Reviewed/Action Taken: Yes ORQUIDEA-7 AMB Questionnaire ORQUIDEA-7 Date ORQUIDEA - 7 assessed: 06/11/24 Source: Developed by Drs. Deshawn Corbin, Laura Nava, William Nicole and colleagues, with an educational susan from [employer]. Physical exam (Primary Care) Vital Signs: Last Vital Signs Temp 97.6 F 07/09/25 08:33 Pulse 67 07/09/25 08:33 Resp 16 07/09/25 08:33 BP 132/76 07/09/25 08:33 Pulse Ox 97 07/09/25 08:33 Oxygen Delivery Method Room Air 07/09/25 08:33 BMI result Body Mass Index 32.6 Tobacco/Smoking Status: Tobacco use Status Tobacco use date assessed 07/09/25 07/09/25 08:36 Patient Tobacco Use Status Never used Tobacco 07/09/25 08:30 e-Cigarette/Vaping Use Never Used 07/09/25 08:30 Thrive Assessment: Date of Thrive Assessment Date Thrive assessed 07/09/25 07/09/25 08:30 Office Procedures Flu Questionnaire Does the patient have a severe egg allergy?: No Does the patient have severe life threatening allergies?: No Does the patient have a fever or illness today?: No Has the patient ever had Guillain-Holcomb Syndrome?: No Has the patient ever had any past reaction to a flu shot?: No Immunizations Fluarix [id number] (PF) 45 mcg (15 mcg x 3)/0.5 mL IM syringe Performing Provider: Joana Real MD Performing Location: [facility] Administered by: Love Garcia CMA on 07/09/25 08:47 Dose Route Admin Location Dispensed Lot Number Expiration Date [facility] Signal Repairer 0.5 mL IM Right Deltoid 0.5 mL [id number] 03/18/26 [id number] [employer] VIS Given Date VIS Provided VIS Publication Date 07/09/25 Single Vaccine 24 Eligibility Eligibility Date Funding Source Not [facility] Eligible 07/09/25 Private Coding Level of Care Code Est Pt Prev Care 40-64y(58047) Diagnoses JOYCE (obstructive sleep apnea) G47.33 Hypothyroidism due to Edy thyroiditis E06.3 Hypothyroidism type: due to Edy's thyroiditis Dyslipidemia E78.5 Obesity (BMI 30-39.9) E66.9 Annual visit for general adult medical examination with abnormal findings Z00.01 Osteopenia of multiple sites M85.89 Assessment & Plan Assessment & Plan (1) JOYCE (obstructive sleep apnea): Comment: A well known case of obstructive sleep apnea , compliance is excellent . Sleep is fair. She has no issues with the CPAP machine. [place] she is looking for a lightweight travel size CPAP device for which I have written a prescription for her. Code(s): G47.33 - Obstructive sleep apnea (adult) (pediatric) Category: Medical (2) Hypothyroidism: Code(s): E03.9 - Hypothyroidism, unspecified Category: Medical Qualifiers: Hypothyroidism type: due to Edy's thyroiditis Qualified Code(s): E06.3 - Autoimmune thyroiditis (3) Dyslipidemia: Code(s): E78.5 - Hyperlipidemia, unspecified Category: Medical (4) Obesity (BMI 30-39.9): Comment: SHE IS GROSSLY OBESE, WEIGHT HAS REMAINED UNCHANGED. SHE IS TRYING TO WATCH HER DIET, HAS CUT DOWN THE INTAKE OF CARBOHYDRATES AND IS USING FRUIT FOR LUNCH. Code(s): E66.9 - Obesity, unspecified Category: Medical (5) Annual visit for general adult medical examination with abnormal findings: Code(s): Z00.01 - Encounter for general adult medical examination with abnormal findings (6) Osteopenia of multiple sites: Code(s): M85.89 - Other specified disorders of bone density and structure, multiple sites Category: Medical Orders: Orders Influenza [id number] Immunization Today Z23 - Encounter for immunization Lipid Panel Today E06.3 - Autoimmune thyroiditis, E66.9 - Obesity, unspecified, E78.5 - Hyperlipidemia, unspecified, Z78.0 - Asymptomatic menopausal state Basic Metabolic Panel Fasting Today E06.3 - Autoimmune thyroiditis, E66.9 - Obesity, unspecified, E78.5 - Hyperlipidemia, unspecified, Z78.0 - Asymptomatic menopausal state Aspartate Amino Transferase Today E06.3 - Autoimmune thyroiditis, E66.9 - Obesity, unspecified, E78.5 - Hyperlipidemia, unspecified, Z78.0 - Asymptomatic menopausal state Vitamin D 25-OH Total Today E06.3 - Autoimmune thyroiditis, E66.9 - Obesity, unspecified, E78.5 - Hyperlipidemia, unspecified, Z78.0 - Asymptomatic menopausal state Complete Blood Count Auto Diff Today E06.3 - Autoimmune thyroiditis, E66.9 - Obesity, unspecified, E78.5 - Hyperlipidemia, unspecified, Z78.0 - Asymptomatic menopausal state Thyroid Stimulating Hormone Today E06.3 - Autoimmune thyroiditis, E66.9 - Obesity, unspecified, E78.5 - Hyperlipidemia, unspecified, Z78.0 - Asymptomatic menopausal state Free T4 (Free Thyroxine) Today E06.3 - Autoimmune thyroiditis, E66.9 - Obesity, unspecified, E78.5 - Hyperlipidemia, unspecified, Z78.0 - Asymptomatic menopausal state Alanine Aminotransferase Today E06.3 - Autoimmune thyroiditis, E66.9 - Obesity, unspecified, E78.5 - Hyperlipidemia, unspecified, Z78.0 - Asymptomatic menopausal state XR DEXA axial skeleton Today M85.89 - Other specified disorders of bone density and structure, multiple sites
[2025-07-09 08:33] VITALS: BP 132/76; PULSE 67; RESP 16; TEMP 36.4; O2SAT 97; BMI 32.6
--- OUTSIDE RECORDS SUMMARY | 2025-07-09 08:39 | XMS_ITS | Patient Health Record ---
Author Organization [facility] Address [address] [place] [address] Care Team Providers Care Oven Laborer Name Role Phone Joana Real MD Primary Care Provider Dave Doan Jr [phone] Allergies Allergen (clinical drug ingredient) Drug/Non Drug Allergy documented on EMR Reaction Allergy Type Onset Date Status dust,seasonal (uncoded) Unknown Allergy Active Reason For Referral No Information Medications Medication SIG (Take, Route, Frequency, Duration) Notes Start Date End Date Status Docusate Sodium 100 MG 1 capsule as need ed Orally Once a day; Duration: 30 day(s) Active Aspirin 81 81 MG 1 tablet Orally Once a day; Duration: 30 day(s) Active Levothyroxine Sodium 88 MCG 1 tablet in the morning on an empty stomach Orally Once a day Active MiraLax (colon prep) 17 GM/SCOOP mixed with Gatorade or Crystal Light Orally begin at 5:00 p.m. the day before the procedure; Duration: 1 day 06/21/2022 Active Cholecalciferol 50 MCG (1999 UT) 1 tablet Orally Once a day; Duration: 30 day(s) Active Magnesium 400 MG 1 capsule with a caty l Orally Once a day Active Tylenol PM Extra Strength 500-25 MG 1 tablet at bedtime as needed Orally Once a day; Duration: 30 day(s) 07/01/2022 Active Immunizations Vaccine Route Administration Date Status Comme nts Influenza Unknown 06/09/2022 Administered Problems Problem Type SNOMED Code ICD Code Onset Dates Problem Status W/U Status Risk Notes Problem Perforated diverticulum of large intestine (375693744) Diverticulitis of large intestine with abscess without bleeding (K57.20) Active confirmed Problem Perforated diverticulum of large intestine (659108832) Diverticulitis of large intestine with perforation without bleeding (K57.20) Active confirmed Plan Of Treatment Future Test Test Name Order Date COLONOSCOPY 12/06/2013 COLONOSCOPY 06/21/2022 Insurance Providers Payer Name Payer Address Payer Phone Subscriber Number Group Number Insured Name Patient Relationship to Insured Coverage Start Date Coverage End Date [facility] [address] [place] [phone] [id number] KENY MCKINLEY Self - patient is the [...]
--- OUTSIDE RECORDS SUMMARY | 2025-07-09 08:39 | XMS_ITS | Encounter Summary ---
Author Organization [facility] Address [address] [place] [address] Phone Care Team Providers Care Fundraising Sale Representative Name Role Phone Joana Real MD Primary Care Provider Self-Referred, Patient Unavailable Unavailab Beau Camp MD Unavailable [phone] Encounter Details Date Type Department Care Team (Late st Contact Info) Description 03/28/2025 Transcribe Orders [facility] [address] [place] [address], [address] [place] [address] Beau Cristobal MD [address] [place] [id number] [email or web address] Social History Tobacco Use Types Packs/Day Years Used Date Smoking Tobacco: Never Assessed Child or Family Care Answer Date Record ed Do you have problems with on e of the following making it difficult for you to work, study, or receive health care? No 03/27/2025 Education Answer Date Recorded Are you interested in help w ith more adult education (for example, completing high school, GED, job training, learning the [place] language, technical skills, or developing parenting skills)? No 03/27/2025 Are you concerned about learning? Not on file 03/27/2025 No 03/27/2025 Yes 03/27/2025 Food Answer Date Recorded Within the past 6 months we worried whether our food would run out before we got money to buy more. Never True 03/27/2025 Within the past 6 months the food we bought just didn't last and we didn't have enough money to get more. Never True Residential Stability Answer Date Recor ded What is your housing situation today? I have maegan sing 03/27/2025 How many times have you move d in the past 12 months? Zero (I did not move) 03/27/2025 Paying for Meds Answer Date Recorded Do you have trouble paying for medicines? No 03/27/2025 Paying Utility Bills Answer Date Record ed Do you have trouble paying your heating or elect ricity bill? No 03/27/2025 Transportation Answer Date Recorded Has the lack of transportati on kept you from medical appointments or from getting medications? No 03/27/2025 Digital Access Answer Date Recorded No 03/20/2025 No 03/20/2025 Reliable internet access at home? Not on file 03/20/2025 Device with a working camera? Not on file Comments Unknown Sex and Gender Information Value Date Recorded Sex Assigned at Female 03/19/2025 6:14 PM EDT Legal Sex Female 6:12 PM EDT Gender Identity Female 03/19/2025 6:14 PM EDT Sexual Orientation Straight 03/19/2025 6: 14 PM EDT documented as of this encounter Plan of Treatment Upcoming Encounters Date Type Department Care Team (Late st Contact Info) Description 07/10/2025 8:30 AM EDT Office Visit [facility] [place] [address] [address] Beau Cristobal MD [address] [place] [address] [email or web address] documented as of this encounter Visit Diagnoses Not on filedocumented in this encounter Care Teams Fundraising Sale Representative Relationship Specialty Start Date End Date Joana Real MD [facility] [place] [address] PCP - General Internal Medicine 03/19/25 Self-Referred, Patient 03/19/25 Beau Cristobal MD [address] [place] [address] [email or web address] 03/20/25 documented as of this encounter Additional Source Comments The information contained in this document represents components of the legal health record. It is not the complete legal health record.[facility]
--- OUTSIDE RECORDS SUMMARY | 2025-07-09 08:39 | XMS_ITS | Encounter Summary ---
Author Organization [facility] Address [address] [place] [address] Phone Care Team Providers Care Od Grinder Operator Name Role Phone Joana Real MD Primary Care Provider Self-Referred, Patient Unavailable Unavailab Beau Camp MD Unavailable [phone] Encounter Details Date Type Department Care Team (Late st Contact Info) Description 05/28/2025 Procedure Pass [facility] [address] [place] [address] Social History Tobacco Use Types Packs/Day Years Used Date Smoking Tobacco: Never Comments:My mother was a keyla ly smoker and as a result of COPD etc. Alcohol Use Standard Drinks/Week Comments Never 0 (1 standard drink = 0.6 oz pur e alcohol) Child or Family Care Answer Date Record ed Do you have problems with on e of the following making it difficult for you to work, study, or receive health care? No 03/27/2025 Education Answer Date Recorded Are you interested in help w ith more adult education (for example, completing high school, GED, job training, learning the Spanish language, technical skills, or developing parenting skills)? No 03/27/2025 Are you concerned about learning? Not on file 03/27/2025 No 03/27/2025 Yes 03/27/2025 Food Answer Date Recorded Within the past 6 months we worried whether our food would run out before we got money to buy more. Never True 05/28/2025 Within the past 6 months the food we bought just didn't last and we didn't have enough money to get more. Never True Residential Stability Answer Date Recor ded What is your housing situation today? I have maegan nathan 05/28/2025 How many times have you move d in the past 12 months? Zero (I did not move) 05/28/2025 Paying for Meds Answer Date Recorded Do you have trouble paying for medicines? No 05/28/2025 Paying Utility Bills Answer Date Record ed Do you have trouble paying your heating or elect ricity bill? No 05/28/2025 Transportation Answer Date Recorded Has the lack of transportati on kept you from medical appointments or from getting medications? No 05/28/2025 Digital Access Answer Date Recorded No 05/28/2025 Yes 05/28/2025 Do you have reliable internet access at home? Ye s 05/28/2025 Do you have a device (e.g., phone, tablet, computer) with a working camera? Yes 05/28/2025 Intimate Partner Violence Answer Date R ecorded Are you denied basic needs s uch as food, clothing, or medical care? No 05/28/2025 In the past 12 months have y ou been in a relationship with a person who hurts, threatens, or tries to control you? No 05/28/2025 Are you denied basic needs s uch as food, clothing, or medical care? No 05/28/2025 In the past 12 months have y ou been in a relationship with a person who hurts, threatens, or tries to control you? No 05/28/2025 Comments No Sex and Gender Information Value Date Recorded Sex Assigned at Female 03/19/2025 6:14 PM EDT Legal Sex Female 6:12 PM EDT Gender Identity Female 03/19/2025 6:14 PM EDT Sexual Orientation Straight 03/19/2025 6: 14 PM EDT documented as of this encounter Functional Status * Calculated C-SSRS Risk Score (Lifetime/Recent) Answer Date of Assessment Author No Risk Indicated 05/28/2025 7:00 PM EDT Kerline Curry RN * [place] Suicide Severity Rating Scale (Screener/Recent Self-Report) Question Answer Date of Assessment Author 1. Wish to be (Past 1 Month) No 025 7:00 PM EDT Kerline Curry RN 2. Non-Specific Active Suici mich Thoughts (Past 1 Month) No 05/28/2025 7:00 PM EDT Lois Curry RN 6. Suicidal Behavior (Lifetime) No 7:00 PM EDT Kerline Curry RN documented as of this encounter Plan of Treatment Upcoming Encounters Date Type Department Care Team (Late st Contact Info) Description 07/10/2025 8:30 AM EDT Office Visit [facility] [place] [address] [address] Beau Cristobal MD [address] [place] [phone] [email or web address] documented as of this encounter Visit Diagnoses Not on filedocumented in this encounter Care Teams Od Grinder Operator Relationship Specialty Start Date End Date Joana Real MD [address] [facility] [place] [address] PCP - General Internal Medicine 03/19/25 Self-Referred, Patient 03/19/25 Beau Cristobal MD [address] [place] [phone] [email or web address] Medical Oncology 03/20/25 documented as of this encounter Additional Source Comments The information contained in this document represents components of the legal health record. It is not the complete legal health record.[facility]
--- OUTSIDE RECORDS SUMMARY | 2025-07-09 08:39 | XMS_ITS | Clinical Summary ---
Author Organization [facility] Address [address] [facility] [address] [place] [phone] Phone Care Team Providers Care Organ Pipe Voicer Name Role Phone Joana Real MD Primary Care Provider Self-Referred, Patient Unavailable Unavailab Beau Camp MD Unavailable [phone] Allergies Active Allergy Reactions Criticality Noted Date Comments House Dust Unknown 05/24/2025 Other Sneezing 04/24/2025 Seasonal allergies Medications docusate sodium (COLACE) 100 MG capsule 1 capsule as needed Orally Once a day for 30 day(s) Active levothyroxine (SYNTHROID, LEVOTHROID) 88 MCG tablet Take 44 mcg by mouth every morning. Active loratadine 10 mg Cap Active cholecalciferol (VITAMIN D3) 2,000 unit tablet 1 tablet Orally Once a day for 30 day(s) Active diphenhydrAMINE -acetaminophen (ACETAMINOPHEN PM EXTRA STR) 25-500 mg Tab Active acetaminophen (TYLENOL) 650 MG CR tablet Take 650 mg by mouth every 8 (eight) hours as needed for pain (specific location in comments). Active senna (SENOKOT) 8.6 mg tablet Take 1 tablet by mouth nightly at bedtime as needed for constipation. Active Additional Information Patient not taking.Reported on 06/28/2025 ondansetron (ZOFRAN) 4 MG tablet Take 1 tablet (4 mg total) by mouth every 8 (eight) hours as needed for nausea. 15 tablet Active Additional Information Patient not taking.Reported on 06/28/2025 HYDROmorphone (DILAUDID) 2 MG tablet Take 1 tablet (2 mg total) by mouth every 4 (four) hours as needed for pain (specific location in comments). Partial fill ok 15 tablet Active Additional Information Patient not taking.Reported on 06/28/2025 metroNIDAZOLE (FLAGYL) 500 MG tablet Take 1 tablet (500 mg total) by mouth 3 (three) times a day for 10 days. Take 500mg at 5pm and 500mg at 10 pm the day before surgery. 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 Diverticulitis of large inte nabil with perforation without bleeding 05/24/2025 Hypertension 05/24/2025 Severe obesity (BMI 35.0-39.9) with comorbidity 05/24/2025 Adverse effect of anesthetic Overview (05/24/2025): Vomting post op Anemia Irregular heart beat Overview (05/24/2025): SVT that was ablated Multiple thyroid nodules Hypothyroid Sleep apnea Overview (05/24/2025): Uses CPAP Post-operative nausea and vomiting Overview (05/24/2025): Given prescription to prevent TMJ disease Overview (05/24/2025): Resolved mostly Resolved Problems Problem Noted Date Diagnosed Date Resolved Date Supraventricular tachycardia 05/24/2025 05/24/2025 Perforated diverticulum of large intestine 05/24/2025 05/24/2025 Precordial pain 05/24/2025 05/24/2025 Atypical chest pain 08/31/2012 05/24/20 25 Overview (05/24/2025): 11/27 stress echo was negative for ischemia 09/30 echo revealed mild concentric left ventricular hypertrophy, normal LVSF EF 60-65% 09/30 Abnormal EKG with lateral ischemia 09/30 Cardiac catheterization revealed completely normal coronary arteries Paroxysmal supraventricular tachycardia 08/31/2012 05/24/2025 Encounters Date Type Department Care Team Description 06/28/2025 9:30 AM EDT Office Visit [facility] Surgical Oncology [address] [address] Dell Crystal MD Neuroendocrine tumor of ileum (Primary Dx) 06/08/2025 Orders Only [facility] [address] [facility] 6th [place] [address] Caridad Guzman MD, MS 06/04/2025 Orders Only [facility] [address] [address] Deven aBrry MD 06/04/2025 Orders Only [facility] Surgical Oncology [address] [place] [address] Melinda Pierre PA-C 05/29/2025 Orders Only [facility] [address] [place] [address] Homehealth, Gael Wang MD 05/28/2025 10:51 AM EDT - 05/28/2025 2:12 PM EDT Surgery [facility] [address] [address] Dell Crystal MD PARTIAL SMALL BOWEL RESECTION, RIGHT COLECTOMY, RESECTION MESENTERIC MASS, EXTENSIVE ADHESIOLYSIS (60MIN), VENTRAL HERNIA REPAIR WITH LATERAL FASCIAL RELEASE 05/28/2025 10:40 AM EDT Anesthesia Event [facility] Periop [address] [place] [address] Brie Villalta MD Dello Iacono, Donna M, QA INTERN, PhD 05/28/2025 8:49 AM EDT - 06/04/2025 11:20 AM EDT Hospital Encounter [facility] [address]D [address] [place] [address] Dell Crystal MD Discharge Disposition: Home or Self Care 05/28/2025 Procedure Pass [facility] Periop [address] [place] [address] 05/27/2025 Orders Only [facility] Surgical Oncology [address] [address] Melinda Pierre PA-C 05/25/2025 9:01 AM EDT - 05/25/2025 11:59 PM EDT Hospital Encounter [facility] Phlebotomy [facility] [address] [place] [address] Discharge Disposition: Home or Self Care 05/24/2025 1:30 PM EDT Pre-Admission Testing [facility] [address] [facility] [address] [place] [address] Dell Crystal MD Adverse effect of anesthetic (Primary Dx); Anemia; History of endocrine disorder; History of cardiovascular disorder; Irregular heart beat; Myocardial infarction; Multiple thyroid nodules; Hypothyroid; Sleep apnea; Post-operative nausea and vomiting; TMJ disease 04/24/2025 9:00 AM EDT Office Visit [facility] [address] 10[address] [place] [address] Dell Crystal MD Neuroendocrine tumor of ileum (Primary Dx); 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 Orders Only [facility] Surgical Oncology [address] [place] [id number] PeñalozaJustine storyaris Neuroendocrine tumor of ileum (Primary Dx) 04/22/2025 1:44 PM EDT - 04/22/2025 11:59 PM EDT Hospital Encounter [facility], PET/CT [address] [place] [address] Beau Cristobal MD Discharge Disposition: Home or Self Care from Last 3 Months Immunizations Immunization Administration Dates Next Due INFLUENZA, SPLIT VIRUS, TRIVALENT PF 06/04/2025( Deferred: Patient Refused) Social History Tobacco Use Types Packs/Day Years Used Date Smoking Tobacco: Never Passive Smoke Exposure: Past Tobacco Cessation:Counseling Given: Not Answered Comments:My mother was a daily smoker and as a result of COPD [...] high school, GED, job training, learning the [place] language, technical skills, or developing parenting skills)? [...] housing situation today? I have maegan sing 05/28/2025 How many times have you move [...] Orientation Straight 03/19/2025 6: 14 PM EDT Last Filed Vital Signs Vital Sign Reading Time Taken Comments Blood Pressure 125/78 06/28/2025 9:32 AM EDT Pulse 88 06/28/2025 9:32 AM EDT Temperature 37.3 C (99.1 F) 06/04/2025 8:01 AM EDT Respiratory Rate 12 06/28/2025 9:32 AM EDT Oxygen Saturation 98% 06/28/2025 9:32 AM EDT Inhaled Oxygen Concentration - - Weight 81.9 kg (180 lb 8 oz) 06/28/2025 9:32 AM EDT Height 162.6 cm (5' 4.02 ) 06/28/2025 9:32 AM ED T Body Mass Index 30.97 06/28/2025 9:32 AM EDT Plan of Treatment Upcoming Encounters Date Type Department Care Team (Late st Contact Info) Description 07/10/2025 8:30 AM EDT Office Visit [facility] [place] [address] [address] Beau Cristobal MD [address] [place] [address] [email or web address] Health Maintenance Due Date Last Done Comments LIPID PANEL 1961 DEPRESSION SCREENING 1973 HEPATITIS C SCREENING 1979 HIV ONE-TIME SCREENING (18-65 YEARS) 1979 PAP SMEAR 1982 COLOGUARD 2006 COLONOSCOPY 2006 COLORECTAL CANCER SCREENING 2006 FIT TEST 2006 FOBT 2006 SIGMOIDOSCOPY 2006 VIRTUAL COLONOSCOPY 2006 INFLUENZA VACCINE (#1) 2025 , 07/08/2023, 05/19/2022, Additional history exists COVID-19 VACCINE ( season) 2025 07/03/2024, 07/08/2023, 06/04/2022, Additional history exists Adult Td,Tdap Booster 06/04/2025 06/04/2015 BLOOD PRESSURE 12/27/2025 06/28/2025 TSH LEVEL 05/25/2026 05/25/2025 MAMMOGRAM 08/07/2026 08/07/2024 SCREENING FOR DIABETES 06/02/2028 06/02/2025 RSV VACCINE Completed 11/10/2023 ZOSTER VACCINES Completed 11/10/2023, 08/05/2022 PNEUMOCOCCAL VACCINES (50+ years) Completed 11/19/2024 SMOKING STATUS SCREENING (Once After 26 Yrs) Completed 06/28/2025 HEPATITIS A VACCINES Aged Out No long er eligible based on patient's age to complete this topic HIB VACCINES Aged Out No longer eligi ble based on patient's age to complete this topic MENINGOCOCCAL VACCINES (ACWY) Aged Out No longer eligible based on patient's age to complete this topic MENINGOCOCCAL VACCINES (B) Aged Out N o longer eligible based on patient's age to complete this topic Medical Devices Not on file Procedures Procedure Name Priority Date/Time Associated Diagnosis Comments LACTIC ACID (LACTATE) STAT 06/02/2025 3:18 AM EDT MAGNESIUM STAT 06/02/2025 3:18 AM EDT BASIC METABOLIC PANEL STAT 06/02/2025 3:18 AM EDT CBC STAT 06/02/2025 3:18 AM EDT XR ABDOMEN 1 VIEW STAT 06/01/2025 4:5 3 PM EDT ECG 12-LEAD Routine 06/01/2025 4:06 PM EDT MAGNESIUM Routine 06/01/2025 6:58 AM EDT BASIC METABOLIC PANEL Routine 06/01/2025 6:58 AM EDT CBC Routine 06/01/2025 6:58 AM EDT MAGNESIUM Routine 05/31/2025 8:22 AM EDT BASIC METABOLIC PANEL Routine 05/31/2025 8:22 AM EDT CBC Routine 05/31/2025 8:22 AM EDT MAGNESIUM Routine 05/30/2025 7:53 AM EDT BASIC METABOLIC PANEL Routine 05/30/2025 7:53 AM EDT CBC Routine 05/30/2025 7:53 AM EDT CBC Routine 05/29/2025 8:31 AM EDT MAGNESIUM Routine 05/29/2025 8:31 AM EDT BASIC METABOLIC PANEL Routine 05/29/2025 8:31 AM EDT MAGNESIUM STAT 05/28/2025 3:24 PM EDT BASIC METABOLIC PANEL STAT 05/28/2025 3:24 PM EDT CBC STAT 05/28/2025 3:24 PM EDT AIRWAY PLACEMENT Routine 05/28/2025 10:56 AM EDT SC EXCISION OF MESENTERY LESION 05/28/2025 10:17 AM EDT Neuroendocrine tumor of ileum Special Needs Dx: Neuroendocrine tumor of ileumCase: Resection Mass Mesentery, Small Bowel Resection (ERAS)OR Time: 3 hoursLOS: 3 days Prep: clears 24 hours Pre-Op Labs: cbc cmp inr cross 2 OR Equip: NO POCT GLUCOSE Routine 05/28/2025 9:47 AM EDT ANATOMIC PATHOLOGY Routine 05/28/2025 12:00 AM EDT TYPE AND SCREEN (ABO,RH,ANTIBODY SCREEN) Routine 05/25/2025 9:02 AM EDT Adverse effect of anesthetic CBC Routine 05/25/2025 9:02 AM EDT Adverse effect of anesthetic COMPREHENSIVE METABOLIC PANEL Routine 05/25/2025 9:02 AM EDT Adverse effect of anesthetic TSH WITH REFLEX Routine 05/25/2025 9:02 AM EDT Adverse effect of anesthetic NM PET CT NEUROENDOCRINE TUMOR LOCALIZATION Routine 04/22/2025 4:17 PM EDT Neuroendocrine tumor of jejunum BI MAMMOGRAM OUTSIDE (NO INTERPRETATION) Routine 08/07/2024 12:00 AM EST from Last 3 Months or Most Recently Relevant to Health Maintenance Results * (ABNORMAL) CBC (06/02/2025 3:18 AM EDT) Only the most recent of7 resultswithin the time period is included. WBC 9.70 4.00 - 11.00 K/uL [facility] RBC 3.68(L) 4.00 - 5.20 M/uL [facility] HGB 11.5(L) 12.0 - 16.0 g/dL [facility] HCT 34.9(L) 36.0 - 46.0 % [facility] PLT 394 150 - 450 K/uL [facility] MCV 94.8 80.0 - 100.0 fL [facility] MCH 31.3(H) 27.0 - 31.0 pg [facility] MCHC 33.0 32.0 - 36.0 g/dL [facility] RDW 12.7 11.5 - 14.5 % [facility] MPV 9.2 8.4 - 12.0 fL [facility] NRBC 0.00 0.00 /100 WBCs [facility] ABSOLUTE NRBC 0.00 0.00 K/uL [facility] Blood 06/02/2025 3:18 AM EDT 06/02/2025 3:49 AM EDT Dell Crystal MD LAB BLOOD ORDERABLES Fin al Result Performing Organization Address [facility] [address]/[facility] de Phone Number [facility] [address] [place] [phone] * Magnesium (06/02/2025 3:18 AM EDT) Only the most recent of6 resultswithin the time period is included. MAGNESIUM 2.0 1.7 - 2.6 mg/dL [facility] Blood 06/02/2025 3:18 AM EDT 06/02/2025 3:49 AM EDT Dell Crystal MD LAB BLOOD ORDERABLES Fin al Result Performing Organization Address [facility] Phone Number [facility] [address] [address] * Lactate (06/02/2025 3:18 AM EDT) LACTIC ACID (MMOL/L) 1.1 0.2 - 2.0 mmol/L [facility] Blood 06/02/2025 3:18 AM EDT 06/02/2025 3:50 AM EDT Dell Crystal MD LAB BLOOD ORDERABLES Fin al Result Performing Organization Address [facility] [address]/[facility] de Phone Number [facility] [address] [address] * (ABNORMAL) Basic metabolic panel (06/02/2025 3:18 AM EDT) Only the most recent of6 resultswithin the time period is included. SODIUM 140 136 - 145 mmol/L [facility] POTASSIUM 3.7 3.4 - 5.1 mmol/L [facility] CHLORIDE 98 98 - 107 mmol/L [facility] CO2 24 22 - 31 mmol/L [facility] BUN 6 6 - 23 mg/dL [facility] CREATININE 0.54 0.50 - 1.20 mg/dL [facility] GLUCOSE 117(H) 70 - 100 mg/dL [facility] CALCIUM 9.5 8.8 - 10.7 mg/dL [facility] EGFR 103 >59 mL/min/1.7 3m2 [facility] Comment:Estimated glomerular filtration rate calculated using the CKD-EPI refit equation. ANION GAP 18(H) 7 - 17 mmol/L [facility] Blood 06/02/2025 3:18 AM EDT 06/02/2025 3:49 AM EDT Dell Crystal MD LAB BLOOD ORDERABLES Fin al Result Performing Organization Address City/State/[facility] Co de Phone Number [facility] [address] [place] [address] * XR ABDOMEN 1 VIEW (06/01/2025 4:53 PM EDT) Anatomical Region Laterality Modality Abdomen Computed Radiogr aphy 06/01/2025 5:00 PM EDT Impressions 06/01/2025 5:03 PM EDT 1. Multiple dilated small bowel loops, likely small bowel obstruction. Narrative 06/01/2025 5:03 PM EDT XR ABDOMEN 1 VIEW Referring clinician's provided indication for this examination in [facility]: Nausea/vomiting COMPARISON: CT ABDOMEN OUTSIDE (NO INTERPRETATION) FINDINGS: Tubes/Lines: None. Bowel: Multiple dilated small bowel loops measuring up to 5.7 cm in caliber. Visualized portion of the descending colon not dilated. Procedure Note Taran Manning MD - 06/01/2025 XR ABDOMEN 1 VIEW Referring clinician's provided indication for this examination in [facility]:Nausea/vomiting COMPARISON: CT ABDOMEN OUTSIDE (NO INTERPRETATION) FINDINGS: Tubes/Lines: None. Bowel: Multiple dilated small bowel loops measuring up to 5.7 cm incaliber. Visualized portion of the descending colon not dilated. IMPRESSION: 1. Multiple dilated small bowel loops, likely small bowel obstruction. Dell Crystal MD IMG XR ABDOMEN Final Re sult * ECG 12-LEAD (06/01/2025 4:06 PM EDT) Systolic Blood Pressure 180 mmHg [facility] Diastolic Blood Pressure 83 mmHg [facility] Ventricular Rate EKG/MIN 104 BPM [facility] Atrial Rate 104 BPM [facility] SC Interval 168 ms [facility] QRS Duration 82 ms [facility] QT Interval 360 ms [facility] QTC Interval 473 ms [facility] P [place]as[place] 47 degrees [facility] R Wave [place] 0 degrees [facility] T Wave [place] 21 degrees [facility] 06/01/2025 4:06 PM EDT Narrative [facility] - 06/18/2025 10:11 PM EDT Sinus tachycardia Inferior myocardial infarction , age undetermined Abnormal ECG No previous ECGs available us Dell Crystal MD ECG ORDERABLES Final Re sult [id number] * ANES ETT DOUBLE LUMEN - AIRWAY LDA (05/28/2025 10:56 AM EDT) Narrative Renu Rasmussen MD, MPH - 05/28/2025 10:56 AM EDT Renu Rasmussen MD, MPH 05/28/2025 11:16 AM Airway Placement Procedure Note: Patient was not difficult to intubate. Procedure performed by: fellow/resident/COKE HANDLING SUPERVISOR Anesthesiologist: Brie Villalta MD Fellow/Resident/COKE HANDLING SUPERVISOR: Renu Rasmussen MD, MPH Airway procedure initiated at:05/28/2025 10:56 AM and ended at. Personal Protective Equipment: Mask: surgical mask Gloves: gloves Mask Ventilation: Quality: easy with adjunct Adjunct: muscle relaxant Airway Placement: Technique: direct laryngoscopy Rapid sequence induction: no Details: Blade type: Mac Blade size: 3 Direct view: grade 1 Number of attempts: 1 ETT type: cuffed ETT size: 7.0 ETT depth at teeth: 22 Tube position confirmed by: EtCO2 Bite Block: soft Outcomes: Evidence of dental injury? no Complications observed? no us Brie Villalta MD SC ANESTHESIA Final Res ult * POCT Glucose (05/28/2025 9:47 AM EDT) Glucose, POCT 97 70 - 100 mg/dL [facility] NURSING DEPARTMENT 05/28/2025 9:47 AM EDT 05/28/2025 9:48 AM EDT Dell Crystal MD POINT OF CARE TEST ORDER CARL Final Result [facility] NURSING DEPARTMENT [address] [place] [address] * Anatomic Pathology (05/28/2025 12:00 AM EDT) Final Diagnosis A. DISTAL SMALL BOWEL, RIGHT COLON, MESENTERIC MASS: WELL DIFFERENTIATED NEUROENDOCRINE TUMOR, 1.3 cm, invading into subserosal fibroadipose tissue. See NOTE. METASTATIC WELL DIFFERENTIATED NEUROENDOCRINE TUMOR, WHO Grade 3 of 3, present as a 7.6 cm mass within the small intestinal mesentery. See NOTE. Focal foreign material and foreign body giant cell reaction within the tumor. Thirty lymph nodes negative for tumor. Resection margins negative. Remaining ileum, colon and appendix with no significant pathologic change. Immunohistochemistry performed at [facility] demonstrates the following staining profile in lesional cells: Positive AE1/AE3, chromogranin, p53 (wild type/normal) MIB-1 proliferation index: 21% (93 positive amongst 453 tumor cells counted) NOTE: The primary tumor and the majority of the metastatic tumor mass is WHO Grade 1 of 3 with a MIB-1 proliferation index <1%. Centrally within the metastatic mass there is a well-circumscribed 1.7 cm tumor focus that has higher grade cytologic features, mitotic activity (up to 23 per 2 mm2), and a high proliferation index (21%). The findings are consistent with clonal progression to a WHO grade 3 of 3 well differentiated neuroendocrine tumor. B. ADDITIONAL DISTAL SMALL BOWEL, UNORIENTED: Segment of small intestine with no significant pathologic change. Two lymph nodes negative for tumor (one with pulse granuloma). C. HERNIA SAC: Mesothelial-lined fibroadipose tissue consistent with hernia sac. Case reviewed at Gastrointestinal Pathology Staff Consensus Conference. SMALL INTESTINE NEUROENDOCRINE TUMOR SYNOPTIC REPORT Specimens:A: Small intestine resection, tumor B: Small intestine resection, tumor Procedure Segmental resection, small intestine Tumor Site Small intestine, not otherwise specified Tumor Size Greatest dimension: 1.3cm Tumor Focality Unifocal Histologic Type and Grade G3: Well-differentiated neuroendocrine tumor Mitotic Rate > 20 mitoses / 2 mm2 Mitoses per 2 mm2: 23 Ki-67 Labeling Index >20% Ki-67 percentage: 21% Tumor Extension Tumor invades through the muscularis propria into subserosal tissue without penetration of overlying serosa Margins All margins are uninvolved by tumor Margins Examined: Proximal Distal Radial or mesenteric Lymphovascular Invasion Present: Small vessel Perineural Invasion Not identified Additional Pathologic Findings None identified Large Mesenteric Masses Present: Number: 1 Regional Lymph Nodes Number of Lymph Nodes Involved: 0 Number of Lymph Nodes Examined: 32 PATHOLOGIC STAGE CLASSIFICATION (AJCC 8th Edition) Primary Tumor: pT3 Regional Lymph Nodes: pN2 The immunoperoxidase, immunofluorescence and in-situ hybridization tests performed at [facility] were developed and their performance characteristics determined by the Immunohistochemistry Laboratories in the Department of Pathology at [facility]. They have not been cleared or approved by the U.S. Food and Drug Administration (FDA). The FDA has determined that such clearance or approval is not necessary. [facility] PATHOLOGY Clinical History Neuroendocrine tumor of ileum. [facility] PATHOLOGY Operation Resection mass mesentery, small bowel resection. [facility] PATHOLOGY Operative Findings None provided. [facility] PATHOLOGY Clinical Diagnosis None provided. [facility] PATHOLOGY Tissue Submitted A/1. Distal small bowel, right colon, mesenteric mass B/2. Additional distal small bowel, unoriented C/3. Hernia sac [facility] PATHOLOGY Gross Description The specimen is received in 3 parts, each labeled with the patient's name and medical record number. Part A received in formalin labeled Distal small bowel, right colon, mesenteric mass consists of a right hemicolectomy specimen consisting of terminal ileum (39.6 cm in length x 2.1-2.6 cm in diameter), colon (20.3 cm in length x 6.6 cm in diameter), appendix (9.6 cm in length by 0.7 cm in diameter), mesenteric fat (up to 2.2 cm in greatest dimension, margin inked orange), proximal stapled resection margin (3.1 cm in length, inked blue), and distal stapled resection margin 5.4 cm in length, inked black). The serosa is kumar-pink and smooth. The specimen is opened to reveal a kumar-pink firm mass within the mesenteric adipose tissue (7.6 x 5.6 x 4.4 cm) coming within 9.1 cm of the proximal stapled resection margin, and 15.1 cm of the distal resection margin. The mass is 5.5 cm from the closest bowel serosa. Sectioning reveals no extension into the serosa, abutting the mesenteric margin. The remainder of the mucosa is unremarkable. Multiple candidate lymph nodes are identified (ranging from 0.2-1.1 cm in greatest dimension). Gross photographs are taken. Blast Furnace Checker sections are submitted. A1: Bowel margins perpendicular, 2 pieces A2-A3: Complete slice of mass, 2 pieces A4-A7: Complete slice of mass, 4 pieces A8-A9: Additional sections of mass, 2 pieces A10: Ileocecal valve, 1 piece A11: Tip of appendix bisected, 2 pieces A12: Cross-sections of appendix, 5 pieces A13-A16: Intact lymph node candidates from primary [place], with 5 pieces in each cassette A17-A18: Intact lymph node candidates from secondary [place], with 4 pieces in each cassette A19-A22: Bisected lymph node candidates from secondary [place], with 2 pieces in each cassette After initial microscopic evaluation a focal kumar to yellow area of thickened wall (0.6 x 0.6 cm by 0.8 cm in thickness) is identified 10.0 cm from the proximal end. The thickened area is entirely submitted. A23-A28: Thickened wall area, multiple pieces Part B received in formalin labeled Additional distal small bowel, unoriented consists of an unoriented segment of colon (21.0 cm in length x 2.3-3.3 cm in diameter) with attached fat (up to 4.4 cm in greatest dimension, margin inked orange). The specimen is received with 2 stapled resection margins (margin #1: 3.2 cm in length inked blue, and margin #2: 3.4 cm in length inked black). The serosa is kumar-pink, smooth, and glistening with a focal area of hemorrhagic adhesions (4.2 x 3.2 cm), 1.9 cm from resection margin #2 and 16.1 cm from resection margin #1. The specimen is opened to reveal kumar-pink unremarkable mucosa with normal-appearing folds. No masses or lesions are identified. 2 candidate lymph nodes are identified (ranging from 0.2-0.3 cm in greatest dimension). [employer] sections are submitted. B1: Bowel margins perpendicular, 2 pieces B2: Mesenteric fat margin en face, 1 piece B3-B4: Bowel with hemorrhagic adhesions, 4 pieces B5: Intact lymph node candidates, 2 pieces Part C received in formalin labeled Hernia sac consists of an aggregate of kumar-yellow to pink-red soft tissue and kumar-purple fibromembranous tissue (12.0 x 8.0 x 3.0 cm). No masses or lesions are identified. Bl[employer] Furn[employer]er sections are submitted. C1: 2 pieces Dictated by: Peggy Haro By his/her signature below, the senior physician certifies that he/she personally conducted a microscopic examination ( gross only exam if so stated) of the described specimen(s) and rendered or confirmed the diagnosis(es) related thereto. [facility] PATHOLOGY Procedure Comments Proc(order for accession only, not for recut) H&E Stain - BWH (order for accession only, not for recut) H&E Stain - BWH (order for accession only, not for recut) H&E Stain - BWH (order for accession only, not for recut) H&E Stain - BWH (order for accession only, not for recut) H&E Stain - [facility] (order for accession only, not for recut) H&E Stain - BWH (order for accession only, not for recut) H&E Stain - BWH (order for accession only, not for recut) H&E Stain - B[facility] (order for accession only, not for recut) H&E Stain - BWH (order for accession only, not for recut) H&E Stain - B[facility] (order for accession only, not for recut) H&E Stain - B[facility] (order for accession only, not for recut) H&E Stain - BWH (order for accession only, not for recut) H&E Stain - BWH (order for accession only, not for recut) H&E Stain - BWH (order for accession only, not for recut) H&E Stain - BWH (order for accession only, not for recut) H&E Stain - BWH (order for accession only, not for recut) H&E Stain - BWH (order for accession only, not for recut) H&E Stain - BWH (order for accession only, not for recut) H&E Stain - BWH (order for accession only, not for recut) H&E Stain - BWH (order for accession only, not for recut) H&E Stain - BWH (order for accession only, not for recut) H&E Stain - BWH (order for accession only, not for recut) H&E Stain - BWH (order for accession only, not for recut) H&E Stain - BWH (order for accession only, not for recut) H&E Stain - BWH (order for accession only, not for recut) H&E Stain - BWH (order for accession only, not for recut) H&E Stain - BWH (order for accession only, not for recut) H&E Stain - BWH (order for accession only, not for recut) H&E Stain - B[facility] (order for accession only, not for recut) H&E Stain - BWH (order for accession only, not for recut) H&E Stain - B[facility] (order for accession only, not for recut) H&E Stain - [facility] (order for accession only, not for recut) H&E Stain - [facility] (order for accession only, not for recut) H&E Stain - [facility] Create a paraffin block - [facility] Create a paraffin block - [facility] Create a paraffin block - [facility] Create a paraffin block - [facility] Create a paraffin block - [facility] No bake, 37 degrees for [facility] - [facility] No bake, 37 degrees for [facility] - [facility] No bake, 37 degrees for [facility] - [facility] AE1/AE3 ([facility]) - H Chromogranin ([facility]) - [facility] MIB-1 ([facility]) - [facility] MIB-1 ([facility]) - H MIB-1 ([facility]) - [facility] P53 ([facility]) - [facility] PATHOLOGY Report Accession No: [id number] Date: 1960 Sex: Female [facility] Department of Pathology [address] [place], [place] [address]IA License No.: [id number] Police Aide: Dr. Missael Raines M.D., Ph.D. Physician: DELL CRYSTAL MD Procedure Date: 05/28/2025 Pathologist: Nasim Donald M.D. PATHOLOGIC DIAGNOSIS: A. DISTAL SMALL BOWEL, RIGHT COLON, MESENTERIC MASS: WELL DIFFERENTIATED NEUROENDOCRINE TUMOR, 1.3 cm, invading into subserosal fibroadipose tissue. See NOTE. METASTATIC WELL DIFFERENTIATED NEUROENDOCRINE TUMOR, WHO Grade 3 of 3, present as a 7.6 cm mass within the small intestinal mesentery. See NOTE. Focal foreign material and foreign body giant cell reaction within the tumor. Thirty lymph nodes negative for tumor. Resection margins negative. Remaining ileum, colon and appendix with no significant pathologic change. Immunohistochemistry performed at [facility] demonstrates the following staining profile in lesional cells: Positive - AE1/AE3, chromogranin, p53 (wild type/normal) MIB-1 proliferation index: 21% (93 positive amongst 453 tumor cells counted) NOTE: The primary tumor and the majority of the metastatic tumor mass is WHO Grade 1 of 3 with a MIB-1 proliferation index <1%. Centrally within the metastatic mass there is a well-circumscribed 1.7 cm tumor focus that has higher grade cytologic features, mitotic activity (up to 23 per 2 mm2), and a high proliferation index (21%). The findings are consistent with clonal progression to a WHO grade 3 of 3 well differentiated neuroendocrine tumor. B. ADDITIONAL DISTAL SMALL BOWEL, UNORIENTED: Segment of small intestine with no significant pathologic change. Two lymph nodes negative for tumor (one with pulse granuloma). C. HERNIA SAC: Mesothelial-lined fibroadipose tissue consistent with hernia sac. Case reviewed at Gastrointestinal Pathology Staff Consensus Conference. SMALL INTESTINE NEUROENDOCRINE TUMOR SYNOPTIC REPORT Specimens:A: Small intestine resection, tumor B: Small intestine resection, tumor Procedure Segmental resection, small intestine Tumor Site Small intestine, not otherwise specified Tumor Size Greatest dimension: 1.3cm Tumor Focality Unifocal Histologic Type and Grade G3: Well-differentiated neuroendocrine tumor Mitotic Rate > 20 mitoses / 2 mm2 Mitoses per 2 mm2: 23 Ki-67 Labeling Index >20% Ki-67 percentage: 21% Tumor Extension Tumor invades through the muscularis propria into subserosal tissue without penetration of overlying serosa Margins All margins are uninvolved by tumor Margins Examined: Proximal Distal Radial or mesenteric Lymphovascular Invasion Present: Small vessel Perineural Invasion Not identified Additional Pathologic Findings None identified Large Mesenteric Masses Present: Number: 1 Regional Lymph Nodes Number of Lymph Nodes Involved: 0 Number of Lymph Nodes Examined: 32 PATHOLOGIC STAGE CLASSIFICATION (AJCC 8th Edition) Primary Tumor: pT3 Regional Lymph Nodes: pN2 The immunoperoxidase, immunofluorescence and in-situ hybridization tests performed at [facility] were developed and their performance characteristics determined by the Immunohistochemistry Laboratories in the Department of Pathology at [facility]. They have not been cleared or approved by the U.S. Food and Drug Administration (FDA). The FDA has determined that such clearance or approval is not necessary. CLINICAL DATA: History: Neuroendocrine tumor of ileum. Operation: Resection mass mesentery, small bowel resection. Operative Findings: None provided. Clinical Diagnosis: None provided. TISSUE SUBMITTED: A/1. Distal small bowel, right colon, mesenteric mass B/2. Additional distal small bowel, unoriented C/3. Hernia sac GROSS DESCRIPTION: The specimen is received in 3 parts, each labeled with the patient's name and medical record number. Part A received in formalin labeled Distal small bowel, right colon, mesenteric mass consists of a right hemicolectomy specimen consisting of terminal ileum (39.6 cm in length x 2.1-2.6 cm in diameter), colon (20.3 cm in length x 6.6 cm in diameter), appendix (9.6 cm in length by 0.7 cm in diameter), mesenteric fat (up to 2.2 cm in greatest dimension, margin inked orange), proximal stapled resection margin (3.1 cm in length, inked blue), and distal stapled resection margin 5.4 cm in length, inked black). The serosa is kumar-pink and smooth. The specimen is opened to reveal a kumar-pink firm mass within the mesenteric adipose tissue (7.6 x 5.6 x 4.4 cm) coming within 9.1 cm of the proximal stapled resection margin, and 15.1 cm of the distal resection margin. The mass is 5.5 cm from the closest bowel serosa. Sectioning reveals no extension into the serosa, abutting the mesenteric margin. The remainder of the mucosa is unremarkable. Multiple candidate lymph nodes are identified (ranging from 0.2-1.1 cm in greatest dimension). Gross photographs are taken. Bl[employer]er sections are submitted. A1: Bowel margins perpendicular, 2 pieces A2-A3: Complete slice of mass, 2 pieces A4-A7: Complete slice of mass, 4 pieces A8-A9: Additional sections of mass, 2 pieces A10: Ileocecal valve, 1 piece A11: Tip of appendix bisected, 2 pieces A12: Cross-sections of appendix, 5 pieces A13-A16: Intact lymph node candidates from primary [place], with 5 pieces in each cassette A17-A18: Intact lymph node candidates from secondary [place], with 4 pieces in each cassette A19-A22: Bisected lymph node candidates from secondary [place], with 2 pieces in each cassette After initial microscopic evaluation a focal kumar to yellow area of thickened wall (0.6 x 0.6 cm by 0.8 cm in thickness) is identified 10.0 cm from the proximal end. The thickened area is entirely submitted. A23-A28: Thickened wall area, multiple pieces Part B received in formalin labeled Additional distal small bowel, unoriented consists of an unoriented segment of colon (21.0 cm in length x 2.3-3.3 cm in diameter) with attached fat (up to 4.4 cm in greatest dimension, margin inked orange). The specimen is received with 2 stapled resection margins (margin #1: 3.2 cm in length inked blue, and margin #2: 3.4 cm in length inked black). The serosa is kumar-pink, smooth, and glistening with a focal area of hemorrhagic adhesions (4.2 x 3.2 cm), 1.9 cm from resection margin #2 and 16.1 cm from resection margin #1. The specimen is opened to reveal kumar-pink unremarkable mucosa with normal-appearing folds. No masses or lesions are identified. 2 candidate lymph nodes are identified (ranging from 0.2-0.3 cm in greatest dimension). Bl[employer]er sections are submitted. B1: Bowel margins perpendicular, 2 pieces B2: Mesenteric fat margin en face, 1 piece B3-B4: Bowel with hemorrhagic adhesions, 4 pieces B5: Intact lymph node candidates, 2 pieces Part C received in formalin labeled Hernia sac consists of an aggregate of kumar-yellow to pink-red soft tissue and kumar-purple fibromembranous tissue (12.0 x 8.0 x 3.0 cm). No masses or lesions are identified. Bl[employer] Furn[employer]er sections are submitted. C1: 2 pieces Dictated by: Peggy Haro By his/her signature below, the senior physician certifies that he/she personally conducted a microscopic examination ( gross only exam if so stated) of the described specimen(s) and rendered or confirmed the diagnosis(es) related thereto. Final Diagnosis by Nasim Donald M.D., Electronically signed on Wednesday June 18, 2025 at 02:46:50PM [facility] PATHOLOGY Conversion Type (Conversion Source) 05/28/2025 05/28/2025 us Dell Crystal MD PATHOLOGY ORDERABLES Asim al Result - Final [facility] PATHOLOGY * (ABNORMAL) Comprehensive metabolic panel (05/25/2025 9:02 AM EDT) SODIUM 136 136 - 145 mmol/L [facility] POTASSIUM 4.0 3.4 - 5.1 mmol/L [facility] CHLORIDE 99 98 - 107 mmol/L [facility] CO2 20(L) 22 - 31 mmol/L [facility] BUN 6 6 - 23 mg/dL [facility] CREATININE 0.63 0.50 - 1.20 mg/dL [facility] GLUCOSE 115(H) 70 - 100 mg/dL [facility] ALBUMIN 4.6 3.5 - 5.2 g/dL [facility] TOTAL PROTEIN 7.5 6.4 - 8.3 g/dL [facility] CALCIUM 9.9 8.8 - 10.7 mg/dL [facility] ALKALINE PHOSPHATASE 85 35 - 130 U/L [facility] TOTAL BILIRUBIN 0.4 0.0 - 1.0 mg/dL [facility] AST 21 10 - 50 U/L [facility] ALT 18 10 - 50 U/L [facility] GLOBULIN 2.9 2.2 - 4.2 g/dL [facility] EGFR 99 >59 mL/min/1.7 3m2 [facility] Comment:Estimated glomerular filtration rate calculated using the CKD-EPI refit equation. ANION GAP 17 7 - 17 mmol/L [facility] 05/25/2025 9:02 AM EDT 05/25/2025 9:27 AM EDT us Maria Del Carmen Chavez NP, PhD LAB BLOOD ORDERABLE S Final Result Performing Organization Address [facility] [address]/[facility] Co de Phone Number [facility] [address] [place] [address] * TSH with reflex (05/25/2025 9:02 AM EDT) TSH 2.84 0.50 - 5.70 uIU/mL [facility] 05/25/2025 9:02 AM EDT 05/25/2025 9:27 AM EDT us Maria Del Carmen Chavez NP, PhD LAB BLOOD ORDERABLE S Final Result Performing Organization Address City/[facility] [address]/[facility] Co de Phone Number [facility] [address] [place] [address] * Type and Screen (ABO,Rh,Antibody Screen) (05/25/2025 9:02 AM EDT) Expiration Date of Sample 06/15/2025 11:59 PM 05/25/2025 5:07 PM EDT [facility] ABO Type A 05/25/2025 5:07 PM EDT [facility] Rh Type Positive 05/25/2025 5:07 PM EDT [facility] Antibody Screen Negative 05/25/2025 5:07 PM EDT [facility] 05/25/2025 9:02 AM EDT 05/25/2025 9:27 AM EDT us Maria Del Carmen M Dello Majo QA INTERN, PhD BLOOD BANK TEST ORD ERABLES Final Result [facility]SF[facility] [address] [place] [address] * NM PET CT Neuroendocrine Tumor Localization (04/22/2025 4:17 PM EDT) Anatomical Region Laterality Modality Head, Abdomen, Chest Positron Em ission Tomography (PET) Other 04/23/2025 11:3 6 AM EDT Impressions 04/23/2025 2:36 PM EDT 1.A centimeter-sized focus of intense DOTATATE uptake within a distal small bowel loop in the lower pelvis likely represents the primary neuroendocrine tumor. 2.Intensely DOTATATE-avid large mesenteric mass in the right midabdomen is compatible with metastatic disease. 3.A more focal intense uptake in the left lower lobe of thyroid greater than background physiologic uptake may represent a primary thyroid neoplasm. Please correlate with thyroid ultrasound. 4.A 6 mm pulmonary nodule in the right middle lobe with no appreciable DOTATATE uptake is indeterminate. Attention on follow-up studies. ATTESTATION: Terrence Urban, as teaching physician have reviewed the images, if any, for this patient's exam, and if necessary, have edited the report originally created by Katelyn Saldana. Narrative 04/23/2025 2:36 PM EDT Reason for exam (per EHR order): * Neuroendocrine tumor (NET), gastrointestinal, monitor Additional clinical information obtained from the EHR: 65-year-old female with newly diagnosed metastatic well-differentiated neuroendocrine tumor (WHO grade 1) consistent with small bowel primary. Initial treatment strategy. TECHNIQUE: Radiopharmaceutical: [id number]. Dose: 4.95 mCi. Image acquisition: At approximately 60 minutes following IV tracer administration via a left antecubital vein, positron emission tomography was performed from the vertex through the mid thigh. Non-contrast low-dose helical CT imaging was performed over the same range without breath-hold for attenuation correction of PET images and anatomic correlation. COMPARISON: Outside CT abdomen/pelvis dated 02/20/2025. FINDINGS: HEAD AND NECK: Diffuse DOTATATE uptake within the thyroid gland with more focal intense uptake in the left lower lobe (image 105). CHEST: Ports and devices: None Lungs: No abnormal DOTATATE uptake. A 6 mm pulmonary nodule in the right middle lobe at image 150 with no appreciable DOTATATE uptake. Pleura: No abnormal DOTATATE uptake. Lymph nodes: No abnormal DOTATATE uptake. Mediastinum: No abnormal DOTATATE uptake. Breasts/Chest Wall: No abnormal DOTATATE uptake. ABDOMEN/PELVIS: Liver/Biliary system: No abnormal DOTATATE uptake. Cholelithiasis. Pancreas: No abnormal DOTATATE uptake. Spleen: No abnormal DOTATATE uptake. Adrenal Glands: No abnormal DOTATATE uptake. Kidneys: No abnormal DOTATATE uptake. Bowel: A centimeter-sized focus of intense DOTATATE uptake within a distal small bowel loop in the lower pelvis (image 274). Prior sigmoid colon resection. Mesentery, Omentum and Peritoneum: Intensely DOTATATE-avid large bilobed mesenteric mass in the right midabdomen with the dominant component measuring 4.6 x 3.8 cm (image 239), not significantly changed in size compared to prior CT abdomen/pelvis. Pelvic Organs: No abnormal DOTATATE uptake. Lymph Nodes: No abnormal DOTATATE uptake. MUSCULOSKELETAL: No abnormal DOTATATE uptake. Large ventral hernia containing nonobstructed loops of small and large bowel. Small fat-containing left spigelian hernia. Procedure Note Terrence Vasquez MBBS - 04/23/2025 Reason for exam (per EHR order): * Neuroendocrine tumor (NET),gastrointestinal, monitor Additional clinical information obtained from the EHR: 65-year-old femalewith newly diagnosed metastatic well-differentiated neuroendocrine tumor(WHO grade 1) consistent with small bowel primary. Initial treatmentstrategy. TECHNIQUE: Radiopharmaceutical: [id number]. Dose: 4.95 mCi. Image acquisition: At approximately 60 minutes following IV traceradministration via a left antecubital vein, positron emission tomographywas performed from the vertex through the mid thigh. Non-contrast low-dosehelical CT imaging was performed over the same range without breath-holdfor attenuation correction of PET images and anatomic correlation. COMPARISON: Outside CT abdomen/pelvis dated 02/20/2025. FINDINGS: HEAD AND NECK: Diffuse DOTATATE uptake within the thyroid gland with morefocal intense uptake in the left lower lobe (image 105). CHEST: Ports and devices: None Lungs: No abnormal DOTATATE uptake. A 6 mm pulmonary nodule in the rightmiddle lobe at image 150 with no appreciable DOTATATE uptake. Pleura: No abnormal DOTATATE uptake. Lymph nodes: No abnormal DOTATATE uptake. Mediastinum: No abnormal DOTATATE uptake. Breasts/Chest Wall: No abnormal DOTATATE uptake. ABDOMEN/PELVIS: Liver/Biliary system: No abnormal DOTATATE uptake. Cholelithiasis. Pancreas: No abnormal DOTATATE uptake. Spleen: No abnormal DOTATATE uptake. Adrenal Glands: No abnormal DOTATATE uptake. Kidneys: No abnormal DOTATATE uptake. Bowel: A centimeter-sized focus of intense DOTATATE uptake within a distalsmall bowel loop in the lower pelvis (image 274). Prior sigmoid colonresection. Mesentery, Omentum and Peritoneum: Intensely DOTATATE-avid large bilobedmesenteric mass in the right midabdomen with the dominant componentmeasuring 4.6 x 3.8 cm (image 239), not significantly changed in sizecompared to prior CT abdomen/pelvis. Pelvic Organs: No abnormal DOTATATE uptake. Lymph Nodes: No abnormal DOTATATE uptake. MUSCULOSKELETAL: No abnormal DOTATATE uptake. Large ventral herniacontaining nonobstructed loops of small and large bowel. Smallfat-containing left spigelian hernia. IMPRESSION: 1.A centimeter-sized focus of intense DOTATATE uptake within a distalsmall bowel loop in the lower pelvis likely represents the primaryneuroendocrine tumor. 2.Intensely DOTATATE-avid large mesenteric mass in the right midabdomen iscompatible with metastatic disease. 3.A more focal intense uptake in the left lower lobe of thyroid greaterthan background physiologic uptake may represent a primary thyroidneoplasm. Please correlate with thyroid ultrasound. 4.A 6 mm pulmonary nodule in the right middle lobe with no appreciableDOTATATE uptake is indeterminate. Attention on follow-up studies. ATTESTATION: Terrence Urban, as teaching physician have reviewed theimages, if any, for this patient's exam, and if necessary, have edited thereport originally created by Katelyn Saldana. Beau Cristobal MD IM NM PET Final Result * Mammogram Outside (No Interpretation) (08/07/2024 12:00 AM EST) Other Narrative [facility] - 04/02/2025 2:13 PM EDT This study is for PACS storage only and not for interpretation. Beau Cristobal MD IMG OUTSIDE IMAGING W/OUT IN TERPRETATION Final Result [facility] from Last 3 Months or Most Recently Relevant to Health Maintenance [place] [address] [place] [address] [facility] Advance Directives For more information, please contact: [phone] (9AM - 5PM [facility], Tuesday-Tuesday) * Full Code (Latest Code Status on File) Date Activated Date Inactivated Comments 05/28/2025 3:28 PM Question Answer Comments Code Status Confirmed With: Patient Care Teams Organ Pipe Voicer Relationship Specialty Start Date End Date Joana Real MD [address] [place] [address] PCP - General Internal Medicine 03/19/25 Self-Referred, Patient 03/19/25 Beau Cristobal MD [address] [place] [id number] [email or web address] Medical Oncology 03/20/25 Additional Source Comments The information contained in this document represents components of the legal health record. It is not the complete legal health record.[facility]
== END 2025-07-09 09:24 | disposition home or self-care (01) ==
LOC: HO.HMCC 08:26
PROVIDERS: PCP Internal Medicine; Visit Provider Internal Medicine
DX: Z23 Encounter for immunization (principal)

== ENCOUNTER → 2025-07-09 08:25 | Outpatient (BNVA) | payer BC, SELFPAY | PROVIDERS: PCP Internal Medicine; Visit Provider Internal Medicine | DX: Z00.01 Encounter for general adult medical examination with abnormal findings (principal); Z23 Encounter for immunization; D3A.8 Other benign neuroendocrine tumors; G47.33 Obstructive sleep apnea (adult) (pediatric); E06.3 Autoimmune thyroiditis; E78.5 Hyperlipidemia, unspecified; M85.89 Other specified disorders of bone density and structure, multiple sites; Z79.899 Other long term (current) drug therapy; Z13.31 Encounter for screening for depression; Z13.39 Encounter for screening examination for other mental health and behavioral disorders | CPT/HCPCS: 90471; 90656; 96127 ==

== ENCOUNTER 2025-07-16 09:17 | Outpatient (REF) | payer BC, SELFPAY ==
--- NOTE | ~2025-07-16 | US_ITS ---
EXAMINATION: US THYROID HISTORY: R94.02 - recent pet scan - left lower thyroid lobe uptake TECHNIQUE: Real-time grayscale ultrasound imaging was performed and images were reviewed. COMPARISON: Comparison is made with the prior examination dated 05/25/2022. FINDINGS: SIZE: The right thyroid lobe measures 5.9 x 2.5 x 2.0 cm. The left thyroid lobe measures 5.7 x 2.3 x 3.3 cm. The isthmus measures 5 mm. FLOW: Flow to the gland is increased. ECHOGENICITY: The echotexture of the gland is heterogeneous. NODULES: Nodules are identified as described below: Nodule #: 1 Location: Lower pole of the right thyroid lobe measuring 6 x 6 x 6 mm (previously 4 x 3 x 4 mm). Shape: Round (0 points) Margins: Smooth (0 points) Echotexture: Very hypoechoic (3 points) Composition: Solid (2 points) Calcifications: None (0 points) Total points: 5 TIRADS: TR4: Moderately suspicious. Nodule #: 2 Location: Lower pole of the left thyroid lobe measuring 2.2 x 1.9 x 1.7 cm (not present previously). Shape: Taller than wide (3 points) Margins: Smooth (0 points) Echotexture: Hypoechoic (2 points) Composition: Solid (2 points) Calcifications: None (0 points) Total points: 7 TIRADS: TR5: Highly suspicious. US/US thyroid IMPRESSION: Highly suspicious nodule at the lower pole of the left thyroid lobe likely corresponding to the area of increased uptake seen on outside PET/CT scan. According to ACR TI-RADS guidelines below, ultrasound-guided fine-needle aspiration is recommended. ACR TI-RADS Guidelines TR1 (0 points): Benign. No follow-up or biopsy required TR2 (2 points): Not Suspicious. No biopsy or follow up indicated TR3 (3 points): Mildly Suspicious. FNA if >= 2.5 cm, Follow if >= 1.5 cm TR4 (4-6 points): Moderately Suspicious. FNA if >= 1.5 cm, Follow if >= 1.0 cm TR5 (>=7 points): Highly Suspicious. FNA if >= 1.0 cm, Follow if >= 0.5 cm Electronically signed by: Deshawn Garcia MD 07/16/2025 10:03 AM EDT
--- OUTSIDE RECORDS SUMMARY | 2025-07-16 10:26 | XMS_ITS | Clinical Summary ---
Author Organization [facility] Address [address] [facility] [address] [place] [address] Phone Care Team Providers Care Footwear Stitcher Name Role Phone Joana Real MD Primary Care Provider Self-Referred, Patient Unavailable Unavailab Beau Camp MD Unavailable [phone] Allergies Active Allergy Reactions Criticality Noted Date [...] Encounters Date Type Department Care Team Description 07/10/2025 8:30 AM EDT Office Visit [facility], [facility] [place] [facility] [place] [address] [facility] 4th [place] [address] Beau Cristobal MD Neuroendocrine tumor of ileum (Primary Dx) 06/28/2025 9:30 AM EDT Office Visit [facility] Surgical Oncology [address] [place] [address] Dell Crystal MD Neuroendocrine tumor of ileum (Primary Dx) 06/08/2025 Orders Only [facility], [facility] [place] [address] [facility], 6th [place] [address] Caridad Guzman MD, MS 06/04/2025 Orders Only [facility] [address] [place] [address] Deven Barry MD 06/04/2025 Orders Only [facility] Surgical Oncology [address] [place] [address] Melinda Pierre PA-C 05/29/2025 Orders Only [facility] [address] [place] [address] [facility], Gael Wang MD 05/28/2025 10:51 AM EDT - 05/28/2025 2:12 PM EDT Surgery [facility] Periop [address] [place] [address] Dell Crystal MD PARTIAL SMALL BOWEL RESECTION, RIGHT COLECTOMY, RESECTION MESENTERIC MASS, EXTENSIVE ADHESIOLYSIS (60MIN), VENTRAL HERNIA REPAIR WITH LATERAL FASCIAL RELEASE 05/28/2025 10:40 AM EDT Anesthesia Event [facility] Periop [address] [place] [address] Brie Villalta MD Dello Iacono, Donna M, 7TH GRADE SOCIAL STUDIES TEACHER, PhD 05/28/2025 8:49 AM EDT - 06/04/2025 11:20 AM EDT Hospital Encounter [facility] 15D [address] [place] [address] Dell Crystal MD Discharge Disposition: Home or Self Care 05/28/2025 Procedure Pass [facility] Periop [address] [place] [address] 05/27/2025 Orders Only [facility] Surgical Oncology [address] [address] Melinda Pierre PA-C 05/25/2025 9:01 AM EDT - 05/25/2025 11:59 PM EDT Hospital Encounter [facility] Phlebotomy [facility] [address] [place] [address] Discharge Disposition: Home or Self Care 05/24/2025 1:30 PM EDT Pre-Admission Testing [facility] [address] [facility] 2nd [place] [address] Dell Crystal MD Adverse effect of anesthetic (Primary Dx); Anemia; History of endocrine disorder; History of cardiovascular disorder; Irregular heart beat; Myocardial infarction; Multiple thyroid nodules; Hypothyroid; Sleep apnea; Post-operative nausea and vomiting; TMJ disease 04/24/2025 9:00 AM EDT Office Visit [facility], [facility] [place] [address] [facility], 10th [place] [address] Dell Crystal MD Neuroendocrine tumor of ileum (Primary Dx); 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 Orders Only [facility] Surgical Oncology [address] [place] [address] Justine Peñaloza Neuroendocrine tumor of ileum (Primary Dx) 04/22/2025 1:44 PM EDT - 04/22/2025 11:59 PM EDT Hospital Encounter [facility], [facility] [place], PET/CT 450 [place] [address] Beau Cristobal MD Discharge Disposition: Home or [...] high school, GED, job training, learning the Nigerian language, technical skills, or developing parenting skills)? [...] Sign Reading Time Taken Comments Blood Pressure 135/65 07/10/2025 8:36 AM EDT Pulse 61 07/10/2025 8:36 AM EDT Temperature 36.3 C (97.3 F) 07/10/2025 8:35 AM EDT Respiratory Rate 17 07/10/2025 8:36 AM EDT Oxygen Saturation 99% 07/10/2025 8:36 AM EDT Inhaled Oxygen Concentration - - Weight 85.3 kg (188 lb 0.8 oz) 07/10/2025 8:36 A M EDT Height 162.6 cm (5' 4.02 ) 06/28/2025 9:32 AM ED T Body Mass Index 32.26 06/28/2025 9:32 AM EDT Plan of Treatment Upcoming Encounters Date Type Department Care Team (Late st Contact Info) Description 07/10/2025 Procedure Pass [address] [address] 07/10/2025 Procedure Pass [address] [address] 11/20/2025 9:30 AM EST Blood Draw Laboratory Services, [facility] at [address] [address] Beau Cristobal MD [address] [place] [address] [email or web address] 11/20/2025 12:00 PM EST Appointment [facility] - [place], [place] [address] [address] Beau Cristobal MD [address] [place] [address] [email or web address] 11/27/2025 9:30 AM EDT Office Visit [facility], [facility] [place] [facility] [place] [address] [address] Beau Cristobal MD [address] [place] [address] [email or web address] Health Maintenance Due Date Last Done Comments LIPID PANEL 1960 DEPRESSION SCREENING 1973 HEPATITIS C SCREENING 1979 HIV ONE-TIME SCREENING (18-65 YEARS) 1979 PAP SMEAR 1982 COLOGUARD 2006 COLONOSCOPY 2006 COLORECTAL CANCER SCREENING 2006 FIT TEST 2006 FOBT 2006 SIGMOIDOSCOPY 2006 VIRTUAL COLONOSCOPY 2006 COVID-19 VACCINE (2024- season) 2025 07/03/2024, 07/08/2023, 06/04/2022, Additional history exists Adult Td,Tdap Booster 06/04/2025 06/04/2015 BLOOD PRESSURE 01/08/2026 07/10/2025 TSH LEVEL 05/25/2026 05/25/2025 MAMMOGRAM 08/07/2026 08/07/2024 SCREENING FOR DIABETES 06/02/2028 06/02/2025 RSV VACCINE Completed 11/10/2023 ZOSTER VACCINES Completed 11/10/2023, 08/05/2022 PNEUMOCOCCAL VACCINES (50+ years) Completed 11/19/2024 SMOKING STATUS SCREENING (Once After 26 Yrs) Completed 06/28/2025 INFLUENZA VACCINE Completed 07/09/2025, , 07/08/2023, Additional history exists HEPATITIS A VACCINES Aged Out No long [...] AIRWAY PLACEMENT Routine 05/28/2025 10:56 AM EDT [place] EXCISION OF MESENTERY LESION 05/28/2025 10:17 AM [...] included. WBC 9.70 4.00 - 11.00 K/uL [facility] RBC 3.68(L) 4.00 - 5.20 M/uL [facility] HGB 11.5(L) 12.0 - 16.0 g/dL [facility] HCT 34.9(L) 36.0 - 46.0 % [facility] PLT 394 150 - 450 K/uL [facility] MCV 94.8 80.0 - 100.0 fL [facility] MCH 31.3(H) 27.0 - 31.0 pg [facility] MCHC 33.0 32.0 - 36.0 g/dL [facility] RDW 12.7 11.5 - 14.5 % [facility] MPV 9.2 8.4 - 12.0 fL [facility] NRBC 0.00 0.00 /100 WBCs [facility] ABSOLUTE NRBC 0.00 0.00 K/uL [facility] Blood 06/02/2025 3:18 AM EDT 06/02/2025 3:49 AM EDT Dell Crystal MD LAB BLOOD ORDERABLES Fin al Result Performing Organization Address City/State/[facility] Co de Phone Number [facility] [address] [place] [address] * Magnesium (06/02/2025 3:18 AM EDT) Only the most recent of6 resultswithin the time period is included. MAGNESIUM 2.0 1.7 - 2.6 mg/dL [facility] Blood 06/02/2025 3:18 AM EDT 06/02/2025 3:49 AM EDT us Dell Crystal MD LAB BLOOD ORDERABLES Fin al Result Performing Organization Address [facility] Co de Phone Number [facility] [address] [place] [address] * Lactate (06/02/2025 3:18 AM EDT) LACTIC ACID (MMOL/L) 1.1 0.2 - 2.0 mmol/L [facility] Blood 06/02/2025 3:18 AM EDT 06/02/2025 3:50 AM EDT Dell Crystal MD LAB BLOOD ORDERABLES Fin al Result Performing Organization Address [facility] de Phone Number [facility] [address] [place] [phone] * (ABNORMAL) Basic metabolic panel (06/02/2025 3:18 AM EDT) Only the most recent of6 resultswithin the time period is included. SODIUM 140 136 - 145 mmol/L [facility] POTASSIUM 3.7 3.4 - 5.1 mmol/L [facility] CHLORIDE 98 98 - 107 mmol/L [facility] CO2 24 22 - 31 mmol/L [facility] BUN 6 6 - 23 mg/dL [facility] CREATININE 0.54 0.50 - 1.20 mg/dL [facility] GLUCOSE 117(H) 70 - 100 mg/dL [facility] CALCIUM 9.5 8.8 - 10.7 mg/dL [facility] EGFR 103 >59 mL/min/1.7 3m2 [facility] Comment:Estimated glomerular filtration rate calculated using the CKD-EPI refit equation. ANION GAP 18(H) 7 - 17 mmol/L [facility] Blood 06/02/2025 3:18 AM EDT 06/02/2025 3:49 AM EDT Result [facility] Dell Crystal MD LAB BLOOD ORDERABLES Fin al Result Performing Organization Address [facility] de Phone Number [facility] [address] [place] [address] * XR ABDOMEN 1 VIEW (06/01/2025 4:53 PM EDT) Anatomical Region Laterality Modality Abdomen Computed Radiogr aphy 06/01/2025 5:0 0 PM EDT Impressions 06/01/2025 5:03 PM EDT 1. Multiple dilated small bowel loops, likely small bowel obstruction. Narrative 06/01/2025 5:03 PM EDT XR ABDOMEN 1 VIEW Referring clinician's provided indication for this examination in Epic: Nausea/vomiting COMPARISON: CT ABDOMEN OUTSIDE (NO INTERPRETATION) FINDINGS: Tubes/Lines: None. Bowel: Multiple dilated small bowel loops measuring up to 5.7 cm in caliber. Visualized portion of the descending colon not dilated. Procedure Note Taran Manning MD - 06/01/2025 XR ABDOMEN 1 VIEW Referring clinician's provided indication for this examination in [facility]:Nausea/vomiting COMPARISON: CT ABDOMEN OUTSIDE (NO INTERPRETATION) FINDINGS: Tubes/Lines: None. Bowel: Multiple dilated small bowel loops measuring up to 5.7 cm incaliber. Visualized portion of the descending colon not dilated. IMPRESSION: 1. Multiple dilated small bowel loops, likely small bowel obstruction. us Dell Crystal MD IMG XR ABDOMEN Final Re sult * ECG 12-LEAD (06/01/2025 4:06 PM EDT) Systolic Blood Pressure 180 mmHg [facility] Diastolic Blood Pressure 83 mmHg [facility] Ventricular Rate EKG/MIN 104 BPM [facility] Atrial Rate 104 BPM [facility] WV Interval 168 ms [facility] QRS Duration 82 ms [facility] QT Interval 360 ms [facility] QTC Interval 473 ms [facility] P [place] 47 degrees [facility] R Wave [place] 0 degrees [facility] T Wave [place] 21 degrees [facility] 06/01/2025 4:06 PM EDT Narrative [facility] - 06/18/2025 10:11 PM EDT Sinus tachycardia Inferior myocardial infarction , age undetermined Abnormal ECG No previous ECGs available Dell Crystal MD ECG ORDERABLES Final Re sult [facility] * ANES ETT DOUBLE LUMEN - AIRWAY LDA (05/28/2025 10:56 AM EDT) Narrative Renu Rasmussen MD, MPH - 05/28/2025 10:56 AM EDT Renu Rasmussen MD, MPH 05/28/2025 11:16 AM Airway Placement Procedure Note: Patient was not difficult to intubate. Procedure performed by: fellow/resident/TURRET LATHE SET UP OPERATOR Anesthesiologist: Brie Villalta MD Fellow/Resident/TURRET LATHE SET UP OPERATOR: Renu Rasmussen MD, MPH Airway procedure initiated [...] of dental injury? no Complications observed? no Result [facility] Brie Villalta MD [place] ANESTHESIA Final Res ult * POCT Glucose (05/28/2025 9:47 AM EDT) Glucose, POCT 97 70 - 100 mg/dL [facility] 05/28/2025 9:47 AM EDT 05/28/2025 9:48 AM EDT Dell Crystal MD POINT OF CARE TEST ORDER CARL Final Result [facility] [address] [place] [address] * Anatomic Pathology (05/28/2025 12:00 AM EDT) [...] no significant pathologic change. Immunohistochemistry performed at [facility] demonstrates the following staining profile in lesional [...] performed at [facility] and [facility] were developed and their performance characteristics determined by the Immunohistochemistry Laboratories in the Department of Pathology at [facility]. They have not been cleared or approved by the U.S. Food and Drug Administration (FDA). The FDA has determined that such clearance or approval is not necessary. [facility] Clinical History Neuroendocrine tumor of ileum. [facility] Operation Resection mass mesentery, small bowel resection. [facility] Operative Findings None provided. [facility] Clinical Diagnosis None provided. [facility] Tissue Submitted A/1. Distal small bowel, right colon, mesenteric mass B/2. Additional distal small bowel, unoriented C/3. Hernia sac [facility] Gross Description The specimen is received [...] in greatest dimension). Gross photographs are taken. Ski Maker Wood sections are submitted. A1: Bowel margins perpendicular, [...] (ranging from 0.2-0.3 cm in greatest dimension). Ski Maker Wood sections are submitted. B1: Bowel margins perpendicular, [...] cm). No masses or lesions are identified. Ski Maker Wood sections are submitted. C1: 2 pieces Dictated by: Peggy Haro By his/her signature below, the senior physician certifies that he/she personally conducted a microscopic examination ( gross only exam if so stated) of the described specimen(s) and rendered or confirmed the diagnosis(es) related thereto. [facility] Procedure Comments Proc(order for accession only, [...] only, not for recut) H&E Stain - BW (order for accession only, not for recut) H&E Stain - [facility] (order for accession only, not for recut) H&E Stain - [facility] Create a paraffin block - [facility] Create a paraffin block - [facility] Create a paraffin block - [facility] Create a paraffin block - [facility] Create a paraffin block - [facility] No bake, 37 degrees for [facility] - [facility] No bake, 37 degrees for [facility] - [facility] No bake, 37 degrees for [facility] - [facility] AE1/AE3 ([facility]) - [facility] Chromogranin ([facility]) - [facility] MIB-1 ([facility]) - [facility] MIB-1 ([facility]) - [facility] MIB-1 ([facility]) - [facility] P53 ([facility]) - [facility] Report Accession No: [id number] Date: 1960 Sex: Female [facility] Department of Pathology [address] [place] [address] License No.: [id number] Grant Administrator: Dr. Missael Raines M.D., Ph.D. Physician: DELL [...] no significant pathologic change. Immunohistochemistry performed at [facility] demonstrates the following staining profile in lesional [...] hybridization tests performed at [facility] [facility] were developed and their performance characteristics determined by the Immunohistochemistry Laboratories in the Department of Pathology at [facility]. They have not been cleared or approved [...] in greatest dimension). Gross photographs are taken. Ski Maker Wood sections are submitted. A1: Bowel margins perpendicular, [...] (ranging from 0.2-0.3 cm in greatest dimension). Ski Maker Wood sections are submitted. B1: Bowel margins perpendicular, [...] cm). No masses or lesions are identified. Ski Maker Wood sections are submitted. C1: 2 pieces Dictated by: Peggy Haro By his/her signature below, the senior physician certifies that he/she personally conducted a microscopic examination ( gross only exam if so stated) of the described specimen(s) and rendered or confirmed the diagnosis(es) related thereto. Final Diagnosis by Nasim Donald M.D., Electronically signed on Wednesday June 18, 2025 at 02:46:50PM [facility] Conversion Type (Small Intestine) 05/28/2025 05/28/2025 Conversion Type (Small Intestine) 05/28/2025 05/28/2025 Conversion Type (Conversion Source) 05/28/2025 05/28/2025 us Dell Crystal MD PATHOLOGY ORDERABLES Asim al Result - Final [facility] * (ABNORMAL) Comprehensive metabolic panel (05/25/2025 9:02 AM EDT) SODIUM 136 136 - 145 mmol/L [facility] POTASSIUM 4.0 3.4 - 5.1 mmol/L [facility] CHLORIDE 99 98 - 107 mmol/L [facility] CO2 20(L) 22 - 31 mmol/L [facility] BUN 6 6 - 23 mg/dL [facility] CREATININE 0.63 0.50 - 1.20 mg/dL [facility] GLUCOSE 115(H) 70 - 100 mg/dL [facility] ALBUMIN 4.6 3.5 - 5.2 g/dL [facility] TOTAL PROTEIN 7.5 6.4 - 8.3 g/dL [facility] CALCIUM 9.9 8.8 - 10.7 mg/dL [facility] ALKALINE PHOSPHATASE 85 35 - 130 U/L [facility] TOTAL BILIRUBIN 0.4 0.0 - 1.0 mg/dL [facility] AST 21 10 - 50 U/L [facility] ALT 18 10 - 50 U/L [facility] GLOBULIN 2.9 2.2 - 4.2 g/dL [facility] EGFR 99 >59 mL/min/1.7 3m2 [facility] Comment:Estimated glomerular filtration rate calculated using the CKD-EPI refit equation. ANION GAP 17 7 - 17 mmol/L [facility] 05/25/2025 9:02 AM EDT 05/25/2025 9:27 AM EDT Maria Del Carmen Chavez NP, PhD LAB BLOOD ORDERABLE S Final Result [facility] [address] [place] [address] * TSH with reflex (05/25/2025 9:02 AM EDT) TSH 2.84 0.50 - 5.70 uIU/mL [facility] 05/25/2025 9:02 AM EDT 05/25/2025 9:27 AM EDT us Maria Del Carmen Chavez NP, PhD LAB BLOOD ORDERABLE S Final Result [facility] [address] [place] [address] * Type and Screen (ABO,Rh,Antibody Screen) (05/25/2025 9:02 AM EDT) Expiration Date of Sample 06/15/2025 11:59 PM 05/25/2025 5:07 PM EDT [facility] Resulting Agency [facility] ABO Type A 05/25/2025 5:07 PM EDT [facility] Rh Type Positive 05/25/2025 5:07 PM EDT [facility] Antibody Screen Negative 05/25/2025 5:07 PM EDT [facility] 05/25/2025 9:02 AM EDT 05/25/2025 9:27 AM EDT us Maria Del Carmen Chavez NP, PhD BLOOD BANK TEST ORD ERABLES Final Result [facility] [address] [place] [phone] * NM PET CT Neuroendocrine Tumor Localization [...] bowel primary. Initial treatment strategy. TECHNIQUE: Radiopharmaceutical: [id number]. Dose: 4.95 mCi. Image acquisition: At approximately [...] small bowel primary. Initial treatmentstrategy. TECHNIQUE: Radiopharmaceutical: [id number]. Dose: 4.95 mCi. Image acquisition: At approximately [...] thereport originally created by Katelyn Saldana. Beau MCGILLG NM PET Final Result * Mammogram Outside (No Interpretation) (08/07/2024 12:00 AM EST) Other Narrative [facility] - 04/02/2025 2:13 PM EDT This study is for PACS storage only and not for interpretation. Beau HAYNES OUTSIDE IMAGING W/OUT IN TERPRETATION Final Result [facility] from Last 3 Months or Most Recently Relevant to Health Maintenance Insurance [place] [facility] [place] [facility] [place] [facility] [place] [facility] [place] [facility] Advance Directives For more information, please contact: [phone] (9AM - 5PM [facility], Tuesday-Tuesday) * Full Code (Latest Code Status on File) Date Activated Date Inactivated Comments 05/28/2025 3:28 PM Question Answer Comments Code Status Confirmed With: Patient Care Teams Footwear Stitcher Relationship Specialty Start Date End Date Joana Real MD 1960 [facility] [place] [address] PCP - General Internal Medicine 03/19/25 Self-Referred, Patient 03/19/25 Beau Cristobal MD [address] [place] [phone] [email or web address] Medical Oncology 03/20/25 Additional Source Comments The information contained in this document represents components of the legal health record. It is not the complete legal health record.[facility]
--- OUTSIDE RECORDS SUMMARY | 2025-07-16 10:26 | XMS_ITS | Encounter Summary ---
Author Organization [facility] Address [address] [place] [address] Phone Care Team Providers Care Fish Frog Or Oyster Farmer Name Role Phone Joana Real MD Primary Care Provider Self-Referred, Patient Unavailable Unavailab Beau Camp MD Unavailable [phone] Encounter Details Date Type Department Care Team (Late st Contact Info) Description 05/28/2025 Procedure Pass [facility] Periop [address] [place] [address] Social History Tobacco Use Types Packs/Day Years [...] high school, GED, job training, learning the Mongolian language, technical skills, or developing parenting skills)? [...] 7:00 PM EDT Kerline Curry RN * [place] Suicide Severity Rating Scale (Screener/Recent Self-Report) Question Answer Date of Assessment Author 1. Wish to be (Past 1 Month) No 025 7:00 PM EDT Kerline Curry, DONATO 2. Non-Specific Active Suici mich Thoughts (Past 1 Month) No 05/28/2025 7:00 PM EDT Lois Curry RN 6. Suicidal Behavior (Lifetime) No 7:00 PM EDT Kerline Curry, DONATO documented as of this encounter Plan of Treatment Upcoming Encounters Date Type Department Care Team (Late st Contact Info) Description 07/10/2025 Procedure Pass [address] [address] 07/10/2025 Procedure Pass [address] [address] 11/20/2025 9:30 AM EST Blood Draw Laboratory Services, [address] [address] Beau Cristobal MD [address] [place] [phone] [email or web address] 11/20/2025 12:00 PM EST Appointment [address] [address] Beau Cristobal MD [address] [place] [phone] [email or web address] 11/27/2025 9:30 AM EDT Office Visit [facility], [address] [address] Beau Cristobal MD [address] [place] [phone] [email or web address] documented as of this encounter Visit Diagnoses Not on filedocumented in this encounter Care Teams Fish Frog Or Oyster Farmer Relationship Specialty Start Date End Date Joana Real MD 1960 [facility] [place] [address] PCP - General Internal Medicine 03/19/25 Self-Referred, Patient 03/19/25 Beau Cristobal MD [address] [place] [phone] [email or web address] [email or web address] 03/20/25 documented as of this encounter Additional Source Comments The information contained in this document represents components of the legal health record. It is not the complete legal health record.[facility]
--- OUTSIDE RECORDS SUMMARY | 2025-07-16 10:26 | XMS_ITS | Patient Health Record ---
Author Organization [facility] Address [address] [place] [address] Care Team Providers Care Medical Dir Name Role Phone Joana Real MD Primary [...] Notes Problem Perforated diverticulum of large intestine (437324181) Diverticulitis of large intestine with abscess without bleeding (K57.20) Active confirmed Problem Perforated diverticulum of large intestine (534305579) Diverticulitis of large intestine with perforation without bleeding (K57.20) Active confirmed Plan Of Treatment Future Test Test Name Order Date COLONOSCOPY 12/06/2013 COLONOSCOPY 06/21/2022 Insurance Providers Payer Name Payer Address Payer Phone Subscriber Number Group Number Insured Name Patient Relationship to Insured Coverage Start Date Coverage End Date [facility] [address] [place] [address] [phone] [id number] KENY MCKINLEY Self - patient is the [...]
--- OUTSIDE RECORDS SUMMARY | 2025-07-16 10:26 | XMS_ITS | Encounter Summary ---
Author Organization [facility] Address [address] [place] [address] Phone Care Team Providers Care Business Editor Name Role Phone Joana Real MD Primary Care Provider Self-Referred, Patient Unavailable Unavailab Beau Camp MD Unavailable [phone] Encounter Details Date Type Department Care Team (Late st Contact Info) Description 03/28/2025 Transcribe Orders [facility], [facility] [address] [place] [address], 10[address] [place] [address] Beau Cristobal MD [address] [place] [phone] [email or web address] Social History Tobacco Use Types Packs/Day Years [...] high school, GED, job training, learning the Tanz[place] language, technical skills, or developing parenting skills)? [...] st Contact Info) Description 07/10/2025 Procedure Pass [address] [address] 07/10/2025 Procedure Pass [address] [address] 11/20/2025 9:30 AM EST Blood Draw Laboratory Services, [facility] at [address] [address] Beau Cristobal MD [address] [place] [address] [email or web address] 11/20/2025 12:00 PM EST Appointment [facility] - [place], [place] [address] [address] Beau Cristobal MD [address] [place] [phone] [email or web address] 11/27/2025 9:30 AM EDT Office Visit [facility], [facility] [facility] [place] [address] [address] Beau Cristobal MD [address] [place] [phone] [email or web address] documented as of this encounter Visit Diagnoses Not on filedocumented in this encounter Care Teams Business Editor Relationship Specialty Start Date End Date Joana Real MD [address] [place] [address] PCP - General Internal Medicine 03/19/25 Self-Referred, Patient 03/19/25 Beau Cristobal MD [address] [place] [phone] [email or web address] Medical [email or web address] 03/20/25 documented as of this encounter Additional Source Comments The information contained in this document represents components of the legal health record. It is not the complete legal health record.[facility]
== END 2025-07-16 09:18 | disposition home or self-care (01) ==
LOC: HO.HMGCX 09:17
PROVIDERS: PCP Internal Medicine; Visit Provider Internal Medicine
DX: R94.02 Abnormal brain scan (principal)
CPT/HCPCS: 76536

== ENCOUNTER → 2025-07-16 09:22 | Outpatient (BNV) | payer BC, SELFPAY | PROVIDERS: PCP Internal Medicine; Visit Provider Radiology Diagnostic Radiology | DX: E04.1 Nontoxic single thyroid nodule (principal) | CPT/HCPCS: 76536 ==

== ENCOUNTER 2025-07-19 07:08 | Outpatient (REF) | payer BC, SELFPAY ==
--- OUTSIDE RECORDS SUMMARY | 2025-07-19 07:11 | XMS_ITS | Encounter Summary ---
Author Organization [facility] Address [address] [place] [address] Phone Care Team Providers Care Grocery Clerk Stocking Name Role Phone Joana Real MD Primary Care Provider Self-Referred, Patient Unavailable Unavailab Beau Camp MD Unavailable [phone] Encounter Details Date Type Department Care Team (Late st Contact Info) Description 05/28/2025 Procedure Pass [facility] [address] [place] [address] Social History Tobacco Use Types Packs/Day Years [...] high school, GED, job training, learning the [place] language, technical skills, or developing parenting skills)? [...] 7:00 PM EDT Kerline Curry RN * [place] Suicide Severity Rating Scale (Screener/Recent Self-Report) Question Answer Date of Assessment Author 1. Wish to be (Past 1 Month) No 025 7:00 PM EDT Kerline Curry, DONATO 2. Non-Specific Active Suici mcih Thoughts (Past 1 Month) No 05/28/2025 7:00 PM EDT Lois Curry RN 6. Suicidal Behavior (Lifetime) No 7:00 PM EDT Kerline Curry, DONATO documented as of this encounter Plan of Treatment Upcoming Encounters Date Type Department Care Team (Late st Contact Info) Description 07/10/2025 Procedure Pass [address] [address] 07/10/2025 Procedure Pass [address] [address] 11/20/2025 9:30 AM EST Blood Draw Laboratory Services, [address] [address] Beau Cristobal MD [address] [place] [phone] [email or web address] 11/20/2025 12:00 PM EST Appointment [address] [address] Beau Cristobal MD [address] [place] [phone] [email or web address] 11/27/2025 9:30 AM EDT Office Visit [facility], [address] [address] Beau Cristobal MD [address] [place] [phone] [email or web address] documented as of this encounter Visit Diagnoses Not on filedocumented in this encounter Care Teams Grocery Clerk Stocking Relationship Specialty Start Date End Date Joana Real MD [address] [place] [address] PCP - General Internal Medicine 03/19/25 Self-Referred, Patient 03/19/25 Beau Cristobal MD [address] [place] [phone] [email or web address] 03/20/25 documented as of this encounter Additional Source Comments The information contained in this document represents components of the legal health record. It is not the complete legal health record.[facility]
--- OUTSIDE RECORDS SUMMARY | 2025-07-19 07:11 | XMS_ITS | Encounter Summary ---
Author Organization [facility] Address [address] [place] [address] Phone Care Team Providers Care Contact Clerk Name Role Phone Joana Real MD Primary Care Provider Self-Referred, Patient Unavailable Unavailab Beau Camp MD Unavailable [phone] Encounter Details Date Type Department Care Team (Late st Contact Info) Description 03/28/2025 Transcribe Orders [facility], [facility] [address] [place] [address], [address] [place] [address] Beau Cristobal MD [address] [place] [phone] [email or web address] Social History Tobacco Use Types Packs/Day [...] high school, GED, job training, learning the German language, technical skills, or developing parenting skills)? [...] st Contact Info) Description 07/10/2025 Procedure Pass [address] [address] 07/10/2025 Procedure Pass [address] [address] 11/20/2025 9:30 AM EST Blood Draw Laboratory Services, [facility] at [address] [address] Beau Cristobal MD [address] [place] [address] [email or web address] 11/20/2025 12:00 PM EST Appointment [facility] - [place], [place] [address] [address] Beau Cristobal MD [address] [place] [phone] [email or web address] 11/27/2025 9:30 AM EDT Office Visit [facility], [facility] [place] [address] [address] Beau Cristobal MD [address] [place] [phone] [email or web address] documented as of this encounter Visit Diagnoses Not on filedocumented in this encounter Care Teams Contact Clerk Relationship Specialty Start Date End Date Joana Real MD [address] [facility] [place] [address] PCP - General Internal Medicine 03/19/25 Self-Referred, Patient 03/19/25 Beau Cristobal MD [address] [place] [phone] [email or web address] 03/20/25 documented as of this encounter Additional Source Comments The information contained in this document represents components of the legal health record. It is not the complete legal health record[facility]
--- OUTSIDE RECORDS SUMMARY | 2025-07-19 07:11 | XMS_ITS | Clinical Summary ---
Author Organization [facility] Address [address] [facility] [address] [place] [address] Phone Care Team Providers Care Client Experience Administrator Name Role Phone Joana Real MD Primary Care Provider Self-Referred, Patient Unavailable Unavailab Beau Camp MD Unavailable [phone] Allergies Active Allergy Reactions Criticality Noted Date [...] Additional Information Patient not taking.Reported on 06/28/2025 Active Problems Problem Noted Date Diagnosed Date [...] EDT Office Visit [facility] [address] [facility] 4th [place] [address] Beau Cristobal MD Neuroendocrine tumor of ileum (Primary Dx) 06/28/2025 9:30 AM EDT Office Visit [facility] Surgical Oncology [address] [place] [address] Dell Crystal MD Neuroendocrine tumor of ileum (Primary Dx) 06/08/2025 Orders Only [facility], [facility] [address] [facility], 6th [place] [address] Caridad Guzman MD, MS 06/04/2025 Orders Only [facility] [address] [address] Deven Barry MD 06/04/2025 Orders Only [facility] Surgical Oncology [address] [place] [address] Melinda Pierre PA-C 05/29/2025 Orders Only [facility] [address] [place] [address] CentervilleGael MD 05/28/2025 10:51 AM EDT - 05/28/2025 2:12 PM EDT Surgery [facility] [address] [address] Dell Crystal MD PARTIAL SMALL BOWEL RESECTION, RIGHT COLECTOMY, RESECTION MESENTERIC MASS, EXTENSIVE ADHESIOLYSIS (60MIN), VENTRAL HERNIA REPAIR WITH LATERAL FASCIAL RELEASE 05/28/2025 10:40 AM EDT Anesthesia Event [facility] Periop [address] [place] [address] Brie Villalta MD Dello Iacono, Donna M, EXTENSION PROFESSOR, PhD 05/28/2025 8:49 AM EDT - 06/04/2025 11:20 AM EDT Hospital Encounter [facility] [address] [place] [address] Dell Crystal MD Discharge Disposition: Home or Self Care 05/28/2025 Procedure Pass [facility] Periop [address] [place] [address] 05/27/2025 Orders Only [facility] Surgical Oncology [address] [address] Melinda Pierre PA-C 05/25/2025 9:01 AM EDT - 05/25/2025 11:59 PM EDT Hospital Encounter [facility] Phlebotomy [facility] [address] [place] [address] Discharge Disposition: Home or Self Care 05/24/2025 1:30 PM EDT Pre-Admission Testing [facility] [address] [facility] 2nd [place] [address] Dell Crystal MD Adverse effect of anesthetic (Primary Dx); Anemia; History of endocrine disorder; History of cardiovascular disorder; Irregular heart beat; Myocardial infarction; Multiple thyroid nodules; Hypothyroid; Sleep apnea; Post-operative nausea and vomiting; TMJ disease 04/24/2025 9:00 AM EDT Office Visit [facility], [facility] [address] [facility], 10th [place] [address] Dell Crystal MD Neuroendocrine tumor of ileum (Primary Dx); 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 Orders Only [facility] Surgical Oncology [address] [address] PeñalozaMariely storyz Annel Neuroendocrine tumor of ileum (Primary Dx) 04/22/2025 1:44 PM EDT - 04/22/2025 11:59 PM EDT Hospital Encounter [facility], [facility], PET/CT [address] [place] [address] Beau Cristobal MD Discharge Disposition: Home or [...] high school, GED, job training, learning the Citizen [place] language, technical skills, or developing parenting skills)? [...] Contact Info) Description 07/10/2025 Procedure Pass [address] [address] 07/10/2025 Procedure Pass [address] [address] 11/20/2025 9:30 AM EST Blood Draw Laboratory Services, [facility] [address] [address] Beau Cristobal MD [address] [place], [place] [id number] [email or web address] 11/20/2025 12:00 PM EST Appointment [address] [address] Beau Cristobal MD [address] [place] [address] [email or web address] 11/27/2025 9:30 AM EDT [facility] [address] [facility] 4th [place] [address] Beau Cristobal MD [address] [place] [address] [email or web address] Health Maintenance Due Date Last Done [...] Procedure Name Priority Date/Time Associated Diagnosis Comments OUTSIDE IMAGING 07/16/2025 LACTIC ACID (LACTATE) STAT 06/02/2025 3:18 AM [...] AIRWAY PLACEMENT Routine 05/28/2025 10:56 AM EDT MT EXCISION OF MESENTERY LESION 05/28/2025 10:17 AM [...] Recently Relevant to Health Maintenance Results * Outside Imaging Report Only (07/16/2025) us Scanning Interface Provider IMG XR CHEST Marly l Result * (ABNORMAL) CBC (06/02/2025 3:18 AM EDT) Only the most recent of7 resultswithin the time period is included. WBC 9.70 4.00 - 11.00 K/uL [facility] RBC 3.68(L) 4.00 - 5.20 M/uL [facility] HGB 11.5(L) 12.0 - 16.0 g/dL [facility] HCT 34.9(L) 36.0 - 46.0 % [facility] PLT 394 150 - 450 K/uL [facility] MCV 94.8 80.0 - 100.0 fL [facility] MCH 31.3(H) 27.0 - 31.0 pg [facility] MCHC 33.0 32.0 - 36.0 g/dL [facility] RDW 12.7 11.5 - 14.5 % [facility] MPV 9.2 8.4 - 12.0 fL [facility] NRBC 0.00 0.00 /100 WBCs [facility] ABSOLUTE NRBC 0.00 0.00 K/uL [facility] Blood 06/02/2025 3:18 AM EDT 06/02/2025 3:49 AM EDT Dell rCystal MD LAB BLOOD ORDERABLES Fin al Result Performing Organization Address City/State/[facility] Co de Phone Number [facility] [address] [place] [address] * Magnesium (06/02/2025 3:18 AM EDT) Only the most recent of6 resultswithin the time period is included. MAGNESIUM 2.0 1.7 - 2.6 mg/dL [facility] Blood 06/02/2025 3:18 AM EDT 06/02/2025 3:49 AM EDT Dell Crystal MD LAB BLOOD ORDERABLES Fin al Result Performing Organization Address [facility] Co de Phone Number [facility] [address] [place] [address] * Lactate (06/02/2025 3:18 AM EDT) LACTIC ACID (MMOL/L) 1.1 0.2 - 2.0 mmol/L [facility] Blood 06/02/2025 3:18 AM EDT 06/02/2025 3:50 AM EDT Dell Crystal MD LAB BLOOD ORDERABLES Fin al Result Performing Organization Address [facility] de Phone Number [facility] [address] [place] [address] * (ABNORMAL) Basic metabolic panel (06/02/2025 3:18 AM EDT) Only the most recent of6 resultswithin the time period is included. SODIUM 140 136 - 145 mmol/L [facility] POTASSIUM 3.7 3.4 - 5.1 mmol/L [facility] CHLORIDE 98 98 - 107 mmol/L [facility] CO2 24 22 - 31 mmol/L [facility] BUN 6 6 - 23 mg/dL [facility] CREATININE 0.54 0.50 - 1.20 mg/dL [facility] GLUCOSE 117(H) 70 - 100 mg/dL [facility] CALCIUM 9.5 8.8 - 10.7 mg/dL [facility] EGFR 103 >59 mL/min/1.7 3m2 [facility] Comment:Estimated glomerular filtration rate calculated using the CKD-EPI refit equation. ANION GAP 18(H) 7 - 17 mmol/L [facility] Blood 06/02/2025 3:18 AM EDT 06/02/2025 3:49 AM EDT Dell Crystal MD LAB BLOOD ORDERABLES Fin al Result Performing Organization Address [facility] de Phone Number [facility] [address] [place] [address] * XR ABDOMEN 1 VIEW (06/01/2025 4:53 [...] clinician's provided indication for this examination in Epic:Nausea/vomiting COMPARISON: CT ABDOMEN OUTSIDE (NO INTERPRETATION) FINDINGS: [...] BPM [facility] Atrial Rate 104 BPM [facility] MT Interval 168 ms [facility] QRS Duration 82 ms [facility] QT Interval 360 ms [facility] QTC Interval 473 ms [facility] P [place] 47 degrees [facility] R Wave [place] 0 degrees [facility] T Wave [place] 21 degrees [facility] 06/01/2025 4:06 PM EDT Narrative [facility] - 06/18/2025 10:11 PM EDT Sinus tachycardia Inferior myocardial infarction , age undetermined Abnormal ECG No previous ECGs available Dell Crystal MD ECG ORDERABLES Final Re sult [facility] * ANES ETT DOUBLE LUMEN - AIRWAY LDA (05/28/2025 10:56 AM EDT) Narrative Renu Rasmussen MD, MPH - 05/28/2025 10:56 AM EDT Renu Rasmussen MD, MPH 05/28/2025 11:16 AM Airway Placement Procedure Note: Patient was not difficult to intubate. Procedure performed by: fellow/resident/[employer]OWN AND BRIDGE TECHNICIAN Anesthesiologist: Brie Villalta MD Fellow/Resident/[employer]OWN AND BRIDGE TECHNICIAN: Renu Rasmussen MD, MPH Airway procedure initiated [...] of dental injury? no Complications observed? no Brie Villalta MD MT ANESTHESIA Final Res ult * POCT Glucose (05/28/2025 9:47 AM EDT) Glucose, POCT 97 70 - 100 mg/dL [facility] 05/28/2025 9:47 AM EDT 05/28/2025 9:48 AM EDT Dell Crystal MD POINT OF CARE TEST ORDER CARL Final Result [facility] [address] [place] [address] * Anatomic Pathology (05/28/2025 12:00 AM EDT) [...] no significant pathologic change. Immunohistochemistry performed at [facility] demonstrates the following staining profile in [...] immunofluorescence and in-situ hybridization tests performed at [facility] were developed and their performance characteristics determined by the Immunohistochemistry Laboratories in the Department of Pathology at [facility]. They have not been cleared or approved by the U.S. Food and Drug Administration (FDA). The FDA has determined that such clearance or approval is not necessary. [facility] PATHOLOGY Clinical History Neuroendocrine tumor of ileum. [facility] PATHOLOG[facility] Operation Resection mass mesentery, small bowel resection. [facility] PATH[facility] Operative Findings None provided. [facility] Clinical Diagnosis None provided. [facility] PATH[facility] Tissue Submitted A/1. Distal small bowel, right colon, mesenteric mass B/2. Additional distal small bowel, unoriented C/3. Hernia sac [facility] PATHOLOG[facility] Gross Description The specimen is [...] in greatest dimension). Gross photographs are taken. Wine Pasteurizer sections are submitted. A1: Bowel margins perpendicular, [...] (ranging from 0.2-0.3 cm in greatest dimension). Wine Pasteurizer sections are submitted. B1: Bowel margins perpendicular, [...] cm). No masses or lesions are identified. Wine Pasteurizer sections are submitted. C1: 2 pieces Dictated by: Peggy Haro By his/her signature below, the senior physician certifies that he/she personally conducted a microscopic examination ( gross only exam if so stated) of the described specimen(s) and rendered or confirmed the diagnosis(es) related thereto. [facility] Procedure Comments Proc(order for accession only, [...] only, not for recut) H&E Stain - [facility] Create a paraffin block - [facility] Create a paraffin block - [facility] Create a paraffin block - [facility] Create a paraffin block - [facility] Create a paraffin block - [facility] No bake, 37 degrees for [facility] - [facility] No bake, 37 degrees for [facility] - [facility] No bake, 37 degrees for [facility] - [facility] AE1/AE3 (Clarita) - [facility] Chromogranin (Clarita) - [facility] MIB-1 (Clarita) - [facility] MIB-1 (Clarita) - [facility] MIB-1 (Clarita) - [facility] P53 (Clarita) - [facility] PATHOLOGY Report Accession No: [id number] Date: 1960 Sex: Female [facility] Department of Pathology [address] [place] [address] License No.: [id number] Upholstery Parts Sorter: Dr. Missael Raines M.D., Ph.D. Physician: DELL [...] no significant pathologic change. Immunohistochemistry performed at [facility] demonstrates the following staining profile in [...] hybridization tests performed at [facility] were developed and their performance characteristics determined by the Immunohistochemistry Laboratories in the Department of Pathology at [facility]. They have not been cleared or [...] in greatest dimension). Gross photographs are taken. Wine Pasteurizer sections are submitted. A1: Bowel margins perpendicular, [...] (ranging from 0.2-0.3 cm in greatest dimension). Wine Pasteurizer sections are submitted. B1: Bowel margins perpendicular, [...] cm). No masses or lesions are identified. Wine Pasteurizer sections are submitted. C1: 2 pieces Dictated by: Peggy Haro By his/her signature below, the senior physician certifies that he/she personally conducted a microscopic examination ( gross only exam if so stated) of the described specimen(s) and rendered or confirmed the diagnosis(es) related thereto. Final Diagnosis by Nasim Donald M.D., Electronically signed on Wednesday June 18, 2025 at 02:46:50PM [facility] PATHOLOG[facility] Conversion Type (Small Intestine) 05/28/2025 05/28/2025 Conversion Type (Small Intestine) 05/28/2025 05/28/2025 Conversion Type (Conversion Source) 05/28/2025 05/28/2025 Dell Crystal MD PATHOLOGY ORDERABLES Asim al Result - Final [facility] * (ABNORMAL) Comprehensive metabolic panel (05/25/2025 9:02 AM EDT) SODIUM 136 136 - 145 mmol/L [facility] POTASSIUM 4.0 3.4 - 5.1 mmol/L [facility] CHLORIDE 99 98 - 107 mmol/L [facility] CO2 20(L) 22 - 31 mmol/L [facility] BUN 6 6 - 23 mg/dL [facility] CREATININE 0.63 0.50 - 1.20 mg/dL [facility] GLUCOSE 115(H) 70 - 100 mg/dL [facility] ALBUMIN 4.6 3.5 - 5.2 g/dL [facility] TOTAL PROTEIN 7.5 6.4 - 8.3 g/dL [facility] CALCIUM 9.9 8.8 - 10.7 mg/dL [facility] ALKALINE PHOSPHATASE 85 35 - 130 U/L [facility] TOTAL BILIRUBIN 0.4 0.0 - 1.0 mg/dL [facility] AST 21 10 - 50 U/L [facility] ALT 18 10 - 50 U/L [facility] GLOBULIN 2.9 2.2 - 4.2 g/dL [facility] EGFR 99 >59 mL/min/1.7 3m2 [facility] Comment:Estimated glomerular filtration rate calculated using the CKD-EPI refit equation. ANION GAP 17 7 - 17 mmol/L [facility] 05/25/2025 9:02 AM EDT 05/25/2025 9:27 AM EDT aMria Del Carmen Chavez NP, PhD LAB BLOOD ORDERABLE S Final Result [facility] [address] [place] [address] * TSH with reflex (05/25/2025 9:02 AM EDT) TSH 2.84 0.50 - 5.70 uIU/mL [facility] 05/25/2025 9:02 AM EDT 05/25/2025 9:27 AM EDT us Maria Del Carmen Chavez NP, PhD LAB BLOOD ORDERABLE S Final Result [facility] [address] [place] [address] * Type and Screen (ABO,Rh,Antibody Screen) (05/25/2025 9:02 AM EDT) Expiration Date of Sample 06/15/2025 11:59 PM 05/25/2025 5:07 PM EDT [facility] Resulting Agency [facility] ABO Type A 05/25/2025 5:07 PM EDT [facility] Rh Type Positive 05/25/2025 5:07 PM EDT [facility] Antibody Screen Negative 05/25/2025 5:07 PM EDT [facility] 05/25/2025 9:02 AM EDT 05/25/2025 9:27 AM EDT us Maria Del Carmen Chavez NP, PhD BLOOD BANK TEST ORD ERABLES Final Result [facility] [address] [place] [address] * NM PET CT Neuroendocrine Tumor Localization [...] bowel primary. Initial treatment strategy. TECHNIQUE: Radiopharmaceutical: [id number]. Dose: 4.95 mCi. Image acquisition: At approximately [...] small bowel primary. Initial treatmentstrategy. TECHNIQUE: Radiopharmaceutical: [id number]. Dose: 4.95 mCi. Image acquisition: At approximately [...] OUTSIDE IMAGING W/OUT IN TERPRETATION Final Result [facility] from Last 3 Months or Most Recently Relevant to Health Maintenance Insurance [facility] [place] [address] [facility] Advance Directives For more information, please contact: [phone] (9AM - 5PM [facility], Tuesday-Tuesday) * Full Code (Latest Code Status on File) Date Activated Date Inactivated Comments 05/28/2025 3:28 PM Question Answer Comments Code Status Confirmed With: Patient Care Teams Client Experience Administrator Relationship Specialty Start Date End Date Joana Real MD 1960 [facility] [place] [address] PCP - General Internal Medicine 03/19/25 Self-Referred, Patient 03/19/25 Beau Cristobal MD [address] [place] [phone] [email or web address] Medical Oncology 03/20/25 Additional Source Comments The information contained in this document represents components of the legal health record. It is not the complete legal health record.[facility]
--- OUTSIDE RECORDS SUMMARY | 2025-07-19 07:11 | XMS_ITS | Patient Health Record ---
Author Organization [facility] Address [address] [place] [address] Care Team Providers Care Repairer Shoe Sticks Name Role Phone Joana Real MD Primary Care Provider Dave Doan Jr [phone] Allergies Allergen (clinical drug ingredient) Drug/Non Drug [...] Notes Problem Perforated diverticulum of large intestine (978962485) Diverticulitis of large intestine with abscess without bleeding (K57.20) Active confirmed Problem Perforated diverticulum of large intestine (237276177) Diverticulitis of large intestine with perforation without bleeding (K57.20) Active confirmed Plan Of Treatment Future Test Test Name Order Date COLONOSCOPY 12/06/2013 COLONOSCOPY 06/21/2022 Insurance Providers Payer Name Payer Address Payer Phone Subscriber Number Group Number Insured Name Patient Relationship to Insured Coverage Start Date Coverage End Date [facility] [address] [place] [phone] [id number] KENY MCKINLEY Self - patient is the [...]
[2025-07-19 10:28] LABS: MANUAL DIFF FLAG NO
[2025-07-19 10:39] LABS: Hematocrit 39.2 % (37.0-47.0); Hemoglobin 12.7 g/dl (12.0-16.0); Imm Gran Abs Auto 0.01 X10*3/uL (0.00-0.03); Imm Gran Pct Auto 0.2 % (0.0-0.4); Lymphocytes Absolute Auto 1.7 X10*3/uL (1.2-4.9); Mean Corpuscular HGB Conc 32.4 g/dl (31.0-35.0); Mean Corpuscular Hemoglobin 31.4 pg (27.0-33.0); Mean Corpuscular Volume 97.0 fL (80.0-98.0); NRBC Abs Auto 0.000 X10*3/uL (0.0-0.012); NRBC Pct Auto 0.0 /100WBC (0.0-0.2); Platelet Count 376 X10*3/uL (160-400); Red Blood Count 4.04 X10*6/uL (4.20-5.50); White Blood Count 4.7 X10*3/uL (4.8-10.8)
[2025-07-19 11:23] LABS: Alanine Aminotransferase 30 U/L (0-31); Anion Gap 12 (12-20); Aspartate Amino Transferase 36 U/L (5-31); Blood Urea Nitrogen 7 mg/dL (9-16); Calcium 9.1 mg/dL (8.4-10.2); Carbon Dioxide 24 mmol/L (22-29); Chloride 110 mmol/L (96-108); Cholesterol 157 mg/dL (<200); Estimated Glomerular Filt Rate > 60; Free T4 (Free Thyroxine) 0.94 ng/dL (0.71-1.85); HDL Cholesterol 60 mg/dL (>40); Potassium 3.7 mmol/L (3.3-5.1); Sodium 142 mmol/L (135-145); Thyroid Stimulating Hormone 2.95 uIU/mL (0.32-4.0); Triglycerides 132 mg/dL (<150)
== END 2025-07-19 07:09 | disposition home or self-care (01) ==
LOC: HO.HMGCLDS 07:08
PROVIDERS: PCP Internal Medicine; Visit Provider Internal Medicine
DX: E06.3 Autoimmune thyroiditis (principal); E78.5 Hyperlipidemia, unspecified; E66.9 Obesity, unspecified; Z78.0 Asymptomatic menopausal state; Z13.21 Encounter for screening for nutritional disorder
CPT/HCPCS: 36415; 80048; 80061; 82306; 84439; 84443; 84450; 84460; 85025

== ENCOUNTER 2025-08-13 09:21 | Outpatient (REF) | payer BC, SELFPAY ==
--- NOTE | ~2025-08-13 | MM_ITS ---
EXAMINATION: MM SCREENING DIGITAL BREAST TOMOSYNTHESIS, BILATERAL CLINICAL INFORMATION: Screening. Asymptomatic. COMPARISON: Comparison made to multiple prior, most recent August 07, 2024, and most remote November 21, 2013. TECHNIQUE: Digital breast tomosynthesis is performed in mediolateral oblique and craniocaudal views along with computer-aided detection (CAD). Synthesized 2D images are generated from the tomosynthesis. FINDINGS: BREAST COMPOSITION: There are scattered areas of fibroglandular density. BILATERAL BREASTS: No significant masses, suspicious calcifications or other abnormalities are seen in either breast. MM/MM tomosynthesis screening BI IMPRESSION: BILATERAL BREASTS: Negative, no mammographic evidence of malignancy. Normal interval follow-up is recommended in 12 months. ASSESSMENT: BI-RADS: Category 1: Negative RECOMMENDATION: Routine annual mammography screening. FOLLOW-UP: 1 year F/U This examination should not preclude the clinical evaluation of a suspicious palpable abnormality. This patient's information was entered into a reminder system with a target due date for their next mammogram. Electronically signed by: Omari Yeh MD 08/13/2025 07:33 PM [facility]
--- OUTSIDE RECORDS SUMMARY | 2025-08-13 10:34 | XMS_ITS | Encounter Summary ---
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 Beau Cristobal MD [address] [place] [address] Phone: tel: fax: mailto:[email or web address] [address] [address] Phone: tel: Referral ID Status Reason Start Date Expiration Date V isits Requested Visits Authorized [id number] New Request 07/19/2025 07/19/2026 1 1 Encounter Details Date Type Department Care Team (Late st Contact Info) Description 07/19/2025 Orders Only [facility], [facility] [address] [place] [address], 10th [place] [address] Beau Cristobal MD [address] [place] [phone] [email or web address] Thyroid nodule (Primary Dx); Neuroendocrine tumor of ileum; Neuroendocrine tumor of jejunum Social History Tobacco Use Types Packs/Day Years Used Date Smoking Tobacco: Never Passive Smoke Exposure: Past Comments:My mother was a keyla ly smoker [...] high school, GED, job training, learning the Anguillan language, technical skills, or developing parenting skills)? [...] Contact Info) Description 07/10/2025 Procedure [address] [address] 07/10/2025 Procedure Pass [address] [address] 08/22/2025 10:30 AM EST Appointment [address] [address] Beau Cristobal MD [address] [place] [phone] [email or web address] 09/09/2025 8:45 AM EST Office [facility] Endocrine, Hypertension, and Diabetes [address] [place] [address] Derek Fields MD [address] [place] [address] [email or web address] 09/09/2025 8:45 AM EST Appointment [facility] 75 [place] [address] Derek Fields MD [address] [place] [address] [email or web address] 09/11/2025 4:00 PM EST Appointment [facility] Imaging Department, [facility], PET/CT [address] [place] [address] Beau Cristobal MD [address] [place] [address] Richard@[email or web address] 09/17/2025 11:00 AM EST Office Visit [facility], [facility] at [address] [address] Beau Cristobal MD [address] [place] [address] Richard@[email or web address] 11/20/2025 9:30 AM EST Blood Draw Laboratory Services, [facility] at [address] [address] Beau Cristobal MD [address] [place] [phone] Richard@[email or web address] 11/20/2025 12:00 PM EST Appointment [facility], [address] [address] Beau Cristobal MD [address] [place] [phone] Richard@[email or web address] 11/27/2025 9:30 AM EDT Office Visit [facility], [facility] at [address] [address] Beau Cristobal MD [address] [place] [phone] [email or web address] Scheduled Referrals Name Type Priority Associated Diagnoses Order Schedule Ambulatory referral to [facility] Endocrinology Outpatient Referral Routine Thyroid nodule 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 [address] PCP - General Internal Medicine 03/19/25 Self-Referred, Patient 03/19/25 Beau Cristobal MD [address] [place] [phone] [email or web address] Medical Oncology 03/20/25 documented as of this encounter Additional Source Comments The information contained in this document represents components of the legal health record. It is not the complete legal health record.[facility]
--- OUTSIDE RECORDS SUMMARY | 2025-08-13 10:34 | XMS_ITS | Encounter Summary ---
Author Organization [facility] Address [address] [place] [address] Phone Care Team Providers Care Gate Watch Name Role Phone Joana Real MD Primary Care Provider Self-Referred, Patient Unavailable Unavailab Beau Camp MD Unavailable [phone] Encounter Details Date Type Department Care Team (Late st Contact Info) Description 05/28/2025 Procedure Pass [facility] 75 [place] [address] Social History Tobacco Use Types Packs/Day Years [...] high school, GED, job training, learning the Tongan language, technical skills, or developing parenting skills)? [...] 7:00 PM EDT Kerline Curry RN * [place] Suicide Severity Rating Scale (Screener/Recent Self-Report) Question [...] st Contact Info) Description 07/10/2025 Procedure Pass [facility], [place] [address] [address] 07/10/2025 Procedure Pass [place], [place] [address] [address] 08/22/2025 10:30 AM EST Appointment [facility], Ultrasound [address] [address] Beau Cristobal MD [address] [place] [address] Richard@[email or web address] 09/09/2025 8:45 AM EST [facility] Endocrine, Hypertension, and Diabetes [address] [place] [address] Derek Fields MD [address] [place] [address] [email or web address] 09/09/2025 8:45 AM EST Appointment [facility] 75 [place] [address] Derek Fields MD [address] [place] [address] [email or web address] 09/11/2025 4:00 PM EST Appointment [facility], [facility] [place], PET/CT 450 [place] [address] Beau Cristobal MD [address] [place] [phone] Richard@[email or web address] 09/17/2025 11:00 AM EST Office Visit [facility], [facility] at [address] [address] Beau Cristobal MD [address] [place] [address] Richard@[facility] 11/20/2025 9:30 AM EST Blood Draw Laboratory Services, [facility] at [address] [address] Beau Cristobal MD [address] [place] [phone] Richard@[facility] 11/20/2025 12:00 PM EST Appointment [address] [address] Beau Cristobal MD [address] [place] [phone] Richard@[facility] 11/27/2025 9:30 AM EDT Office Visit [facility], [facility] at [address] [address] Beau Cristobal MD [address] [place] [phone] [email or web address] documented as of this encounter Visit Diagnoses Not on filedocumented in this encounter Care Teams Gate Watch Relationship Specialty Start Date End Date Joana Real MD [facility] [place] [address] PCP - General Internal Medicine 03/19/25 Self-Referred, Patient 03/19/25 Beau Cristobal MD [address] [place] [phone] [email or web address] Medical Oncology 03/20/25 documented as of this encounter Additional Source Comments The information contained in this document represents components of the legal health record. It is not the complete legal health record.[facility]
--- OUTSIDE RECORDS SUMMARY | 2025-08-13 10:34 | XMS_ITS | Encounter Summary ---
Author Organization [facility] Address [address] [place] [address] Phone Care Team Providers Care Motorcycle Police Officer Name Role Phone Joana Real MD Primary Care Provider Self-Referred, Patient Unavailable Unavailab Beau Camp MD Unavailable [phone] Reason for Visit * Reason Onset Date Comments Appointment 07/19/2025 Encounter Details Date Type Department Care Team (Late st Contact Info) Description 07/19/2025 Telephone [facility] Endocrine, Diabetes, and Hypertension [address] [address] Unknown, Unknown, MD Appointment Social History Tobacco Use Types Packs/Day Years [...] high school, GED, job training, learning the Ukrainian language, technical skills, or developing parenting skills)? [...] PM EDT documented as of this encounter Progress Notes * Khalif Edgar - 07/19/2025 3:34 PM EDT [place], Patient w/ Epic referral Thyroid Nodule DX called to schedule appt. Need for biopsy referenced by patient. Please review/advise patient. # [phone] Thank you. Frandy documented in this encounter Plan of Treatment Upcoming Encounters Date Type Department Care Team (Late st Contact Info) Description 07/10/2025 Procedure Pass [place], [place] [address] [address] 07/10/2025 Procedure Pass [place] [address] [address] 08/22/2025 10:30 AM EST Appointment [facility], Ultrasound [address] [address] Beau Cristobal MD [address] [place] [address] Richard@[email or web address] 09/09/2025 8:45 AM EST Office Visit [facility] Endocrine, Hypertension, and Diabetes [address] [place] [address] Derek Fields MD [address] [place] [address] [email or web address] 09/09/2025 8:45 AM EST Appointment [facility] 75 [place] [address] Derek Fields MD [address] [place] [address] [email or web address] 09/11/2025 4:00 PM EST Appointment [facility] Imaging Department, [facility] [place], PET/CT [address] [place] [address] Beau Cristobal MD [address] [place] [phone] Richard@[email or web address] 09/17/2025 11:00 AM EST Office Visit [facility], [facility] at [address] [address] Beau Cristobal MD [address] [place] [address] Richard@[facility] 11/20/2025 9:30 AM EST Blood Draw Laboratory Services, [facility] at [address] [address] Beau Cristobal MD [address] [place] [address] Richard@[facility] 11/20/2025 12:00 PM EST Appointment [address] [address] Beau Cristobal MD [address] [place] [address] Richard@[facility] 11/27/2025 9:30 AM EDT Office Visit [facility], [facility] at [address] [address] Beau Cristobal MD [address] [place] [address] Richard@[email or web address] documented as of this encounter Visit Diagnoses Not on filedocumented in this encounter Care Teams Motorcycle Police Officer Relationship Specialty Start Date End Date Joana Real MD [address] [facility] [place] [address] PCP - General Internal Medicine 03/19/25 Self-Referred, Patient 03/19/25 Beau Cristobal MD [address] [place] [address] [email or web address] Medical Oncology 03/20/25 documented as of this encounter Additional Source Comments The information contained in this document represents components of the legal health record. It is not the complete legal health record.[facility]
--- OUTSIDE RECORDS SUMMARY | 2025-08-13 10:34 | XMS_ITS | Encounter Summary ---
Author Organization [facility] Address [address] [place] [address] Phone Care Team Providers Care Well Drill Operator Rotary Drill Name Role Phone Joana Real MD Primary Care Provider Self-Referred, Patient Unavailable Unavailab Beau Camp MD Unavailable [phone] Encounter Details Date Type Department Care Team (Late st Contact Info) Description 08/12/2025 Telephone [facility] Endocrine, Hypertension, and Diabetes [address] 2nd [place] [address] Sophia Juares [address] [employer] [place] [address] [email or web address] Social History Tobacco Use Types Packs/Day Years [...] high school, GED, job training, learning the [place] Islander language, technical skills, or developing parenting skills)? [...] as of this encounter Progress Notes * [place], [place] B - 08/12/2025 11:33 AM EST Images from the original note were not included. Endocrinology referral: Sent another mg to referring provider to reach out to patient to schedule thyroid US. Once resulted, will reach out to patient to schedule accordingly. documented in this encounter Plan of Treatment Upcoming Encounters Date Type Department Care Team (Late st Contact Info) Description 07/10/2025 Procedure Pass [place], [place] [address] [address] 07/10/2025 Procedure Pass [facility], [place] [address] [address] 08/22/2025 10:30 AM EST Appointment [facility], Ultrasound [address] [address] Beau Cristobal MD [address] [place] [phone] Richard@[email or web address] 09/09/2025 8:45 AM EST Office Visit [facility] Endocrine, Hypertension, and Diabetes [address] [place] [address] Derek Fields MD [address] [place] [address] [email or web address] 09/09/2025 8:45 AM EST Appointment [facility] 75 [place] [address] Derek Fields MD [address] [place] [address] [email or web address] 09/11/2025 4:00 PM EST Appointment [facility], [facility], PET/CT [address] [place] [address] Beau Cristobal MD [address] [place] [phone] Richard@[facility] 09/17/2025 11:00 AM EST Office Visit [facility], [facility] at [address] [address] Beau Cristobal MD [address] [place] [phone] Richard@[email or web address] 11/20/2025 9:30 AM EST Blood Draw Laboratory Services, [facility] at [address] [address] Beau Cristobal MD [address] [place] [phone] Richard@[email or web address] 11/20/2025 12:00 PM EST Appointment [address] [address] Beau Cristobal MD [address] [place] [address] Richard@[email or web address] 11/27/2025 9:30 AM EDT Office Visit [facility], [facility] at [address] [address] Beau Cristobal MD [address] [place] [address] Richard@[email or web address] documented as of this encounter Visit Diagnoses Not on filedocumented in this encounter Care Teams Well Drill Operator Rotary Drill Relationship Specialty Start Date End Date Joana Real MD [address] [place] [address] PCP - General Internal Medicine 03/19/25 Self-Referred, Patient 03/19/25 Beau Cristobal MD [address] [place] [address] [email or web address] Medical Oncology 03/20/25 documented as of this encounter Additional Source Comments The information contained in this document represents components of the legal health record. It is not the complete legal health record.[facility]
--- OUTSIDE RECORDS SUMMARY | 2025-08-13 10:35 | XMS_ITS | Encounter Summary ---
Author Organization [facility] Address [address] [place] [address] Phone Care Team Providers Care Nurse Case Manager Name Role Phone Joana Real MD Primary Care Provider Self-Referred, Patient Unavailable Unavailab Beau Camp MD Unavailable [phone] Reason for Visit * Reason Onset Date Comments NEW PT REQUEST 07/24/2025 Encounter Details Date Type Department Care Team (Late st Contact Info) Description 07/24/2025 Telephone [facility] ENDOCRINE MEDICINE [address] [place] [address] Joana Real MD [address] [facility] [place] [address] NEW PT REQUEST Social History Tobacco Use Types Packs/Day Years [...] as of this encounter Progress Notes * Garcia, Rubina - 07/24/2025 1:31 PM EST Sánchez, Pt is seeking a new pt appt for a Thyroid Nodule. According to the DT a message is requested to be sent as the pt is being referred by [facility]. Pt stated that Ultrasounds results have already been faxed. CB#: [phone] documented in this encounter Plan of Treatment Upcoming Encounters Date Type Department Care Team (Late st Contact Info) Description 07/10/2025 Procedure Pass [place] [address] [address] 07/10/2025 Procedure Pass [place] [address] [address] 08/22/2025 10:30 AM EST Appointment [facility], Ultrasound [address] [address] Beau Cristobal MD [address] [place] [address] Richard@[email or web address] 09/09/2025 8:45 AM EST Office Visit [facility] Endocrine, Hypertension, and Diabetes [address] [place] [address] 2nd [place] [address] Derek Fields MD [address] [place] [phone] [email or web address] 09/09/2025 8:45 AM EST Appointment [facility] [address] [place] [address] Derek Fields MD [address] [place] [address] [email or web address] 09/11/2025 4:00 PM EST Appointment [facility], [facility], PET/CT 450 [place] [address] Beau Cristobal MD [address] [place] [address] Richard@[facility] 09/17/2025 11:00 AM EST Office Visit [facility], [facility] at [address] [address] Beau Cristobal MD [address] [place] [address] Richard@[facility] 11/20/2025 9:30 AM EST Blood Draw Laboratory Services, [facility] at [address] [address] Beau Cristobal MD [address] [place] [phone] Richard@[facility] 11/20/2025 12:00 PM EST Appointment [facility], [address] [address] Beau Cristobal MD [address] [place] [phone] Richard@[facility] 11/27/2025 9:30 AM EDT Office Visit [facility], [facility] at [address] [address] Beau Cristobal MD [address] [place] [phone] Richard@[facility] documented as of this encounter Visit Diagnoses Not on filedocumented in this encounter Care Teams Nurse Case Manager Relationship Specialty Start Date End Date Joana Real MD [address] [facility] [place] [address] PCP - General Internal Medicine 03/19/25 Self-Referred, Patient 03/19/25 Beau Cristobal MD [address] [place] [phone] [email or web address] Medical Oncology 03/20/25 documented as of this encounter Additional Source Comments The information contained in this document represents components of the legal health record. It is not the complete legal health record.[facility]
--- OUTSIDE RECORDS SUMMARY | 2025-08-13 10:35 | XMS_ITS | Encounter Summary ---
Author Organization [facility] Address [address] [place] [address] Phone Care Team Providers Care Bander Hand Name Role Phone Joana Real MD Primary Care Provider Self-Referred, Patient Unavailable Unavailab Beau Camp MD Unavailable [phone] Encounter Details Date Type Department Care Team (Late st Contact Info) Description 03/28/2025 Transcribe Orders [facility], [facility] [place] [address] [place] [address], 10th [place] [address] Beau Cristobal MD [address] [place] [phone] [email or web address] Social History Tobacco Use Types Packs/Day Years [...] high school, GED, job training, learning the Fijian language, technical skills, or developing parenting skills)? [...] st Contact Info) Description 07/10/2025 Procedure Pass [place] [address] [address] 07/10/2025 Procedure Pass [facility] [employer] [facility], [place] [address] [address] 08/22/2025 10:30 AM EST Appointment [facility], [facility] [address] [address] Beau Cristobal MD [address] [place] [address] [email or web address] 09/09/2025 8:45 AM EST Office Visit [facility] Endocrine, Hypertension, and Diabetes [address] [place] [address] Derek Fields MD [address] [place] [address] [email or web address] 09/09/2025 8:45 AM EST Appointment [facility] 75 [place] [address] Derek Fields MD [address] [place] [address] [email or web address] 09/11/2025 4:00 PM EST Appointment [facility] Imaging Department, [facility], PET/CT 450 [place] [address] Beau Cristobal MD [address] [place] [phone] [email or web address] 09/17/2025 11:00 AM EST Office Visit [facility], [facility] [place] at [address] [address] Beau Cristobal MD [address] [place] [phone] [email or web address] 11/20/2025 9:30 AM EST Blood Draw Laboratory Services, [facility] at [address] [address] Beau Cristobal MD [address] [place] [phone] [email or web address] 11/20/2025 12:00 PM EST Appointment [address] 3rd [place] [address] Baeu Cristobal MD [address] [place] [address] Richard@[facility] 11/27/2025 9:30 AM EDT Office Visit [facility], [facility] [place] [facility] [address] [address] Beau Cristobal MD [address] [place] [phone] [email or web address] documented as of this encounter Visit Diagnoses Not on filedocumented in this encounter Care Teams Bander Hand Relationship Specialty Start Date End Date Joana Real MD [address] [place] [address] PCP - General Internal Medicine 03/19/25 Self-Referred, Patient 03/19/25 Beau Cristobal MD [address] [place] [phone] [email or web address] Medical Oncology 03/20/25 documented as of this encounter Additional Source Comments The information contained in this document represents components of the legal health record. It is not the complete legal health record.[facility]
--- OUTSIDE RECORDS SUMMARY | 2025-08-13 10:35 | XMS_ITS | Clinical Summary ---
Author Organization [facility] Address [address] [facility] [address] [place] [phone] Phone Care Team Providers Care Councilperson Name Role Phone Joana Real MD Primary Care Provider Self-Referred, Patient Unavailable Unavailab Beau Camp MD Unavailable [phone] Allergies Active Allergy Reactions Criticality Noted Date [...] Encounters Date Type Department Care Team Description 08/12/2025 Telephone [facility] Endocrine, Hypertension, and Diabetes [address] [facility] [address]nd [place] [address] Heaven Juares-Camiil Antonio 07/29/2025 Orders Only [facility], [facility] at [address] [address] Beau Cristobal MD Thyroid nodule (Primary Dx); Neuroendocrine tumor of ileum 07/25/2025 Orders Only [facility] Endocrine, Hypertension, and Diabetes [address] [address] Derek Fields MD Thyroid nodule (Primary Dx) 07/24/2025 Orders Only [facility], [facility] at [address] [address] Ricarda Herrera CNP 07/24/2025 Telephone [facility] ENDOCRINE MEDICINE [address] [place] [address] Joana Real MD NEW PT REQUEST 07/19/2025 Telephone [facility] Endocrine, Diabetes, and Hypertension [address] [address] Unknown, Unknown, MD Appointment 07/19/2025 Orders Only [facility], [facility] [address] [address] Beau Cristobal MD Thyroid nodule (Primary Dx); Neuroendocrine tumor of ileum; Neuroendocrine tumor of jejunum 07/19/2025 Orders Only [facility], [facility] [place] at [address] [address] Beau Cristobal MD Neuroendocrine tumor of ileum (Primary Dx) 07/19/2025 Orders Only [facility] [address] [address] Claudette Thomas RN 07/10/2025 8:30 AM EDT Office Visit [facility], [facility] at [address] [address] Beau Cristobal MD Neuroendocrine tumor of ileum (Primary Dx) 06/28/2025 9:30 AM EDT Office Visit [facility] Surgical Oncology [address] [place] [address] Dell Crystal MD Neuroendocrine tumor of ileum (Primary Dx) 06/08/2025 Orders Only [facility], [facility] [place] [address] [facility], 6th [place] [address] Caridad Guzman MD, MSc 06/04/2025 Orders Only [facility] [address] [address] Deven Barry MD 06/04/2025 Orders Only [facility] Surgical Oncology [address] [place] [address] Melinda Pierre PA-C 05/29/2025 Orders Only [facility] [address] [place] [address] Homehealth, Gael Wang MD 05/28/2025 10:51 AM EDT - 05/28/2025 2:12 PM EDT Surgery [facility] Periop [address] [place] [address] Dell Crystal MD PARTIAL SMALL BOWEL RESECTION, RIGHT COLECTOMY, RESECTION MESENTERIC MASS, EXTENSIVE ADHESIOLYSIS (60MIN), VENTRAL HERNIA REPAIR WITH LATERAL FASCIAL RELEASE 05/28/2025 10:40 AM EDT Anesthesia Event [facility] Periop [address] [place] [address] Brie Villalta MD Dello Iacono, Donna M, LIVESTOCK BREEDER, PhD 05/28/2025 8:49 AM EDT - 06/04/2025 11:20 AM EDT Hospital Encounter [facility] [address] [place] [address] Dell Crystal MD Discharge Disposition: Home or Self Care 05/28/2025 Procedure Pass [facility] Periop [address] [place] [address] 05/27/2025 Orders Only [facility] Surgical Oncology [address] [facility] ASB2-3 [place] [address] Melinda Pierre PA-C 05/25/2025 9:01 AM EDT - 05/25/2025 11:59 PM EDT Hospital Encounter [facility] Phlebotomy [facility] [address] [place] [address] Discharge Disposition: Home or Self Care 05/24/2025 1:30 PM EDT Pre-Admission Testing [facility] [address] [facility] 2nd [place] [address] Dell Crystal MD Adverse effect of anesthetic (Primary Dx); Anemia; History of endocrine disorder; History of cardiovascular disorder; Irregular heart beat; Myocardial infarction; Multiple thyroid nodules; Hypothyroid; Sleep apnea; Post-operative nausea and vomiting; TMJ disease from Last 3 Months Immunizations Immunization Administration [...] high school, GED, job training, learning the Yi language, technical skills, or developing parenting skills)? [...] st Contact Info) Description 07/10/2025 Procedure Pass [facility], [place] [address] [address] 07/10/2025 Procedure Pass [facility] [place] [address] [address] 08/22/2025 10:30 AM EST Appointment [facility], Ultrasound [address] [address] Beau Cristobal MD [address] [place] [phone] [email or web address] 09/09/2025 8:45 AM EST Office Visit [facility] Endocrine, Hypertension, and Diabetes [address] [place] [address] Derek Fields MD [address] [place] [phone] [email or web address] 09/09/2025 8:45 AM EST Appointment [facility] [address] [place] [address] Derek Fields MD [address] [place] [address] [email or web address] 09/11/2025 4:00 PM EST Appointment [facility], [facility], PET/CT [address] [place] [address] Beau Cristobal MD [address] [place] [phone] [email or web address] 09/17/2025 11:00 AM EST Office Visit [facility], [facility] at [address] [address] Beau Cristobal MD [address] [place] [phone] [email or web address] 11/20/2025 9:30 AM EST Blood Draw Laboratory Services, [facility] at [address] [address] Beau Cristobal MD [address] [place] [phone] [email or web address] 11/20/2025 12:00 PM EST Appointment [address] [address] Beau Cristobal MD [address] [place] [phone] [email or web address] 11/27/2025 9:30 AM EDT Office Visit [facility], [facility] at [address] [address] Beau Cristobal MD [address] [place] [phone] [email or web address] Maintenance Due Date Last Done Comments LIPID PANEL 1960 DEPRESSION SCREENING 1973 HEPATITIS C SCREENING 1979 HIV ONE-TIME SCREENING (18-65 YEARS) 1979 PAP SMEAR 1982 COLOGUARD 2006 COLONOSCOPY 2006 COLORECTAL CANCER SCREENING 2006 FIT TEST 2006 FOBT 2006 SIGMOIDOSCOPY 2006 VIRTUAL COLONOSCOPY 2006 COVID-19 VACCINE ( season) 2025 07/03/2024, 07/08/2023, [...] Name Priority Date/Time Associated Diagnosis Comments OUTSIDE LAB 07/19/2025 OUTSIDE IMAGING 07/16/2025 LACTIC ACID (LACTATE) STAT 06/02/2025 3:18 AM EDT MAGNESIUM STAT 06/02/2025 3:18 AM EDT BASIC METABOLIC PANEL (BMP) STAT 06/02/2025 3:18 AM EDT CBC STAT 06/02/2025 3:18 AM EDT XR ABDOMEN 1 VIEW STAT 06/01/2025 4:5 3 PM EDT ECG 12-LEAD Routine 06/01/2025 4:06 PM EDT MAGNESIUM Routine 06/01/2025 6:58 AM EDT BASIC METABOLIC PANEL (BMP) Routine 06/01/2025 6:58 AM EDT CBC Routine 06/01/2025 6:58 AM EDT MAGNESIUM Routine 05/31/2025 8:22 AM EDT BASIC METABOLIC PANEL (BMP) Routine 05/31/2025 8:22 AM EDT CBC Routine 05/31/2025 8:22 AM EDT MAGNESIUM Routine 05/30/2025 7:53 AM EDT BASIC METABOLIC PANEL (BMP) Routine 05/30/2025 7:53 AM EDT CBC Routine 05/30/2025 7:53 AM EDT CBC Routine 05/29/2025 8:31 AM EDT MAGNESIUM Routine 05/29/2025 8:31 AM EDT BASIC METABOLIC PANEL (BMP) Routine 05/29/2025 8:31 AM EDT MAGNESIUM STAT 05/28/2025 3:24 PM EDT BASIC METABOLIC PANEL (BMP) STAT 05/28/2025 3:24 PM EDT CBC STAT 05/28/2025 3:24 PM EDT AIRWAY PLACEMENT Routine 05/28/2025 10:56 AM EDT UT EXCISION OF MESENTERY LESION 05/28/2025 10:17 AM EDT Neuroendocrine tumor of ileum Special Needs Dx: Neuroendocrine tumor of ileumCase: Resection Mass Mesentery, Small Bowel Resection (ERAS)OR Time: 3 hoursLOS: 3 days Prep: clears 24 hours Pre-Op Labs: cbc cmp inr cross 2 OR Equip: NO POCT GLUCOSE Routine 05/28/2025 9:47 AM EDT ANATOMIC PATHOLOGY Routine 05/28/2025 12:00 AM EDT CBC Routine 05/25/2025 9:02 AM EDT Adverse effect of anesthetic COMPREHENSIVE METABOLIC PANEL (CMP) Routine 05/25/2025 9:02 AM EDT Adverse effect of anesthetic TSH WITH REFLEX Routine 05/25/2025 9:02 AM EDT Adverse effect of anesthetic TYPE AND SCREEN (ABO,RH,ANTIBODY SCREEN) Routine 05/25/2025 9:02 AM EDT Adverse effect of anesthetic BI MAMMOGRAM OUTSIDE (NO INTERPRETATION) Routine 08/07/2024 12:00 AM EST from Last 3 Months or Most Recently Relevant to Health Maintenance Results * Outside Lab (Non-MGB) (07/19/2025) us Scanning Interface Provider LAB BLOOD BKR ORDERA BLES Final Result * Outside Imaging Report Only (07/16/2025) us Scanning Interface Provider IMG XR CHEST Marly l Result * (ABNORMAL) CBC (06/02/2025 3:18 AM EDT) Only the most recent of7 resultswithin the time period is included. WBC 9.70 4.00 - 11.00 K/uL [facility] RBC 3.68(L) 4.00 - 5.20 M/uL [facility] HGB 11.5(L) 12.0 - 16.0 g/dL [facility] HCT 34.9(L) 36.0 - 46.0 % [facility] PLT 394 150 - 450 K/uL [facility] MCV 94.8 80.0 - 100.0 fL [facility] MCH 31.3(H) 27.0 - 31.0 pg [facility] MCHC 33.0 32.0 - 36.0 g/dL [facility] RDW 12.7 11.5 - 14.5 % [facility] MPV 9.2 8.4 - 12.0 fL [facility] NRBC 0.00 0.00 /100 WBCs [facility] ABSOLUTE NRBC 0.00 0.00 K/uL [facility] Blood 06/02/2025 3:18 AM EDT 06/02/2025 3:49 AM EDT Dell Crystal MD LAB BLOOD BKR ORDERABLES Final Result Performing Organization Address [facility] Co de Phone Number [facility] [address] [place] [phone] * Magnesium (06/02/2025 3:18 AM EDT) Only the most recent of6 resultswithin the time period is included. MAGNESIUM 2.0 1.7 - 2.6 mg/dL [facility] Blood 06/02/2025 3:18 AM EDT 06/02/2025 3:49 AM EDT Dell Crystal MD LAB BLOOD BKR ORDERABLES Final Result Performing Organization Address [facility] Co de Phone Number [facility] [address] [place] [phone] * Lactate (06/02/2025 3:18 AM EDT) LACTIC ACID (MMOL/L) 1.1 0.2 - 2.0 mmol/L [facility] Blood 06/02/2025 3:18 AM EDT 06/02/2025 3:50 AM EDT Dell Crystal MD LAB BLOOD BKR ORDERABLES Final Result Performing Organization Address [facility] Co de Phone Number [facility] [address] [place] [phone] * (ABNORMAL) Basic metabolic panel (06/02/2025 3:18 AM EDT) Only the most recent of6 resultswithin the time period is included. SODIUM 140 136 - 145 mmol/L [facility] POTASSIUM 3.7 3.4 - 5.1 mmol/L [facility] CHLORIDE 98 98 - 107 mmol/L [facility] CO2 24 22 - 31 mmol/L [facility] BUN 6 6 - 23 mg/dL [facility] CREATININE 0.54 0.50 - 1.20 mg/dL [facility] GLUCOSE 117(H) 70 - 100 mg/dL [facility] CALCIUM 9.5 8.8 - 10.7 mg/dL [facility] EGFR 103 >59 mL/min/1.7 3m2 [facility] Comment:Estimated glomerular filtration rate calculated using the CKD-EPI refit equation. ANION GAP 18(H) 7 - 17 mmol/L [facility] Blood 06/02/2025 3:18 AM EDT 06/02/2025 3:49 AM EDT Dell Crystal MD LAB BLOOD BKR ORDERABLES Final Result Performing Organization Address City/State/[facility] Co de Phone Number [facility] [address] [place] [phone] * XR ABDOMEN 1 VIEW (06/01/2025 4:53 PM EDT) Anatomical Region Laterality Modality Abdomen Computed Radiogr aphy 06/01/2025 5:00 PM EDT Impressions 06/01/2025 5:03 PM EDT 1. Multiple dilated small bowel loops, likely small bowel obstruction. Narrative 06/01/2025 5:03 PM EDT XR ABDOMEN 1 VIEW Referring clinician's provided indication for this examination in [facility]: Nausea/vomiting COMPARISON: CT ABDOMEN OUTSIDE (NO INTERPRETATION) FINDINGS: Tubes/Lines: None. Bowel: Multiple dilated small bowel loops measuring up to 5.7 cm in caliber. Visualized portion of the descending colon not dilated. Procedure Note Taran Manning MD - 06/01/2025 XR ABDOMEN 1 VIEW Referring clinician's provided indication for this examination in [facility]:Nausea/vomiting COMPARISON: CT ABDOMEN OUTSIDE (NO INTERPRETATION) [...] BPM [facility] Atrial Rate 104 BPM [facility] UT Interval 168 ms [facility] QRS Duration 82 ms [facility] QT Interval 360 ms [facility] QTC Interval 473 ms [facility] P [employer] 47 degrees [facility] R Wave [employer] 0 degrees [facility] T Wave [employer] 21 degrees [facility] 06/01/2025 4:06 PM EDT Narrative [facility] - 06/18/2025 10:11 PM EDT Sinus tachycardia Inferior myocardial infarction , age undetermined Abnormal ECG No previous ECGs available Dell Crystal MD ECG ORDERABLES Final Re sult [facility] * ANES ETT DOUBLE LUMEN - AIRWAY LDA (05/28/2025 10:56 AM EDT) Narrative Renu Rasmussen MD, MPH - 05/28/2025 10:56 AM EDT Renu Rasmussen MD, MPH 05/28/2025 11:16 AM Airway Placement Procedure Note: Patient was not difficult to intubate. Procedure performed by: fellow/resident/GRAB JACK WORKER Anesthesiologist: Brie Villalta MD Fellow/Resident/GRAB JACK WORKER: Renu Rasmussen MD, MPH Airway procedure initiated [...] Complications observed? no us Brie Villalta MD UT ANESTHESIA Final Res ult * POCT Glucose (05/28/2025 9:47 AM EDT) Glucose, POCT 97 70 - 100 mg/dL [facility] 05/28/2025 9:47 AM EDT 05/28/2025 9:48 AM EDT Dell Crystal MD POINT OF CARE TEST ORDER CARL Final Result Performing Organization Address City/State/[facility] Co de Phone Number [facility] NURSING DEPARTMENT [address] [place], [place] [phone] * Anatomic Pathology (05/28/2025 12:00 AM EDT) [...] no significant pathologic change. Immunohistochemistry performed at [facility] demonstrates the following staining profile in [...] immunofluorescence and in-situ hybridization tests performed at [facility] were developed and their performance characteristics determined by the Immunohistochemistry Laboratories in the Department of Pathology at [facility]. They have not been cleared or approved by the U.S. Food and Drug Administration (FDA). The FDA has determined that such clearance or approval is not necessary. [facility] PATH[facility] Clinical History Neuroendocrine tumor of ileum. [facility] PATH[facility] Operation Resection mass mesentery, small bowel resection. [facility] Operative Findings None provided. [facility] Clinical Diagnosis None provided. [facility] Tissue Submitted A/1. Distal small bowel, right colon, mesenteric mass B/2. Additional distal small bowel, unoriented C/3. Hernia sac [facility] Gross Description The specimen is [...] in greatest dimension). Gross photographs are taken. Logistics Team Lead sections are submitted. A1: Bowel margins perpendicular, [...] (ranging from 0.2-0.3 cm in greatest dimension). Logistics Team Lead sections are submitted. B1: Bowel margins perpendicular, [...] cm). No masses or lesions are identified. Logistics Team Lead sections are submitted. C1: 2 pieces Dictated by: Peggy Haro By his/her signature below, the senior physician certifies that he/she personally conducted a microscopic examination ( gross only exam if so stated) of the described specimen(s) and rendered or confirmed the diagnosis(es) related thereto. [facility] PATH[facility] Procedure Comments Proc(order for accession [...] [facility] AE1/AE3 ([facility]) - [facility] Chromogranin ([facility]) - [facility] MIB-1 ([facility]) - [facility] MIB-1 ([facility]) - [facility] MIB-1 ([facility]) - [facility] P53 ([facility]) - [facility] PATHOLOGY Report Accession No: [id number] Date: 1960 Sex: Female [facility] Department of Pathology [address] [place], [place] [address]IA License No.: [id number] Bank Courier: Dr. Missael Raines M.D., Ph.D. Physician: DELL [...] no significant pathologic change. Immunohistochemistry performed at [facility] demonstrates the following staining profile in [...] immunofluorescence and in-situ hybridization tests performed at [facility] were developed and their performance characteristics determined by the Immunohistochemistry Laboratories in the Department of Pathology at [facility]. They have not been cleared or [...] in greatest dimension). Gross photographs are taken. Logistics Team Lead sections are submitted. A1: Bowel margins perpendicular, [...] (ranging from 0.2-0.3 cm in greatest dimension). Logistics Team Lead sections are submitted. B1: Bowel margins perpendicular, [...] cm). No masses or lesions are identified. Logistics Team Lead sections are submitted. C1: 2 pieces Dictated by: Peggy Haro By his/her signature below, the senior physician certifies that he/she personally conducted a microscopic examination ( gross only exam if so stated) of the described specimen(s) and rendered or confirmed the diagnosis(es) related thereto. Final Diagnosis by Nasim Donald M.D., Electronically signed on Wednesday June 18, 2025 at 02:46:50PM [facility] Conversion Type (Small Intestine) 05/28/2025 05/28/2025 Conversion Type (Small Intestine) 05/28/2025 05/28/2025 Conversion Type (Conversion Source) 05/28/2025 05/28/2025 Dell Crystal MD LAB PATHOLOGY ORDERABLES Edited Result - Final [facility] * (ABNORMAL) Comprehensive metabolic panel (05/25/2025 9:02 AM EDT) SODIUM 136 136 - 145 mmol/L [facility] POTASSIUM 4.0 3.4 - 5.1 mmol/L [facility] CHLORIDE 99 98 - 107 mmol/L [facility] CO2 20(L) 22 - 31 mmol/L [facility] BUN 6 6 - 23 mg/dL [facility] CREATININE 0.63 0.50 - 1.20 mg/dL [facility] GLUCOSE 115(H) 70 - 100 mg/dL [facility] ALBUMIN 4.6 3.5 - 5.2 g/dL [facility] TOTAL PROTEIN 7.5 6.4 - 8.3 g/dL [facility] CALCIUM 9.9 8.8 - 10.7 mg/dL [facility] ALKALINE PHOSPHATASE 85 35 - 130 U/L [facility] TOTAL BILIRUBIN 0.4 0.0 - 1.0 mg/dL [facility] AST 21 10 - 50 U/L [facility] ALT 18 10 - 50 U/L [facility] GLOBULIN 2.9 2.2 - 4.2 g/dL [facility] EGFR 99 >59 mL/min/1.7 3m2 [facility] Comment:Estimated glomerular filtration rate calculated using the CKD-EPI refit equation. ANION GAP 17 7 - 17 mmol/L [facility] 05/25/2025 9:02 AM EDT 05/25/2025 9:27 AM EDT us Maria Del Carmen Chavez NP, PhD LAB BLOOD BKR ORDER CARL Final Result Performing Organization Address City/[facility]/ZIP Co de Phone Number [facility] [address] [place] [address] * TSH with reflex (05/25/2025 9:02 AM EDT) TSH 2.84 0.50 - 5.70 uIU/mL [facility] 05/25/2025 9:02 AM EDT 05/25/2025 9:27 AM EDT us Maria Del Carmen Chavez NP, PhD LAB BLOOD BKR ORDER CARL Final Result Performing Organization Address City/[facility]/ZIP Co de Phone Number [facility] [address] [place] [address] * Type and Screen (ABO,Rh,Antibody Screen) (05/25/2025 9:02 AM EDT) Expiration Date of Sample 06/15/2025 11:59 PM 05/25/2025 5:07 PM EDT [facility] Resulting Agency [facility] ABO Type A 05/25/2025 5:07 PM EDT [facility] Rh Type Positive 05/25/2025 5:07 PM EDT [facility] Antibody Screen Negative 05/25/2025 5:07 PM EDT [facility] 05/25/2025 9:02 AM EDT 05/25/2025 9:27 AM EDT us Maria Del Carmen Chavez LIVESTOCK BREEDER, PhD LAB BLOOD BANK TEST ORDERABLES Final Result Performing Organization Address City/[facility]/ZIP Co de Phone Number [facility] [address] [place] [phone] * Mammogram Outside (No Interpretation) (08/07/2024 12:00 AM EST) Other Narrative [facility] - 04/02/2025 2:13 PM EDT This study is for PACS storage only and not for interpretation. us Beau Cristobal MD IMG OUTSIDE IMAGING W/OUT IN TERPRETATION Final Result Performing Organization Address City/[facility]/ZIP Co de Phone Number [facility] from Last 3 Months or Most Recently Relevant to Health Maintenance [place] [address] [address] [place] [address] [facility] Member Subscriber Plan / Payer (Ef fective 2024-Present) Name:Kizzy Modi Relation to Subscriber:Spouse Name:MODI,KEVIN Date of :1960 (Home) Address: [address] [place], [place] Payer ID:[id number] (NAIC) Type:HMO Address: [address] [place], [place] [facility] Advance Directives For more information, please contact: [phone] (9AM - 5PM [facility], Tuesday-Tuesday) * Full Code (Latest Code Status on File) Date Activated Date Inactivated Comments 05/28/2025 3:28 PM Question Answer Comments Code Status Confirmed With: Patient Care Teams Councilperson Relationship Specialty Start Date End Date Joana Real MD [address] [place] [address] PCP - General Internal Medicine 03/19/25 Self-Referred, Patient 03/19/25 Beau Cristobal MD [address] [place] [phone] [email or web address] Medical Oncology 03/20/25 Additional Source Comments The information contained in this document represents components of the legal health record. It is not the complete legal health record.[facility]
== END 2025-08-13 09:22 | disposition home or self-care (01) ==
LOC: HO.MAMMO 09:21
PROVIDERS: PCP Internal Medicine; Visit Provider Internal Medicine
DX: Z12.31 Encounter for screening mammogram for malignant neoplasm of breast (principal)
CPT/HCPCS: 77063; 77067

== ENCOUNTER → 2025-08-13 09:30 | Outpatient (BNV) | payer BC, SELFPAY | PROVIDERS: PCP Internal Medicine; Visit Provider Radiology Body Imaging | DX: Z12.31 Encounter for screening mammogram for malignant neoplasm of breast (principal) | CPT/HCPCS: 77063; 77067 ==